=== PATIENT | female | born 1980 | race Caucasian/White ===

== ENCOUNTER 2023-08-04 19:32 | Inpatient (IN) | payer OTHER, SELFPAY ==
--- NOTE | ~2023-08-04 | XR_ITS ---
EXAMINATION: PORTABLE CHEST 1 VIEW CLINICAL INFORMATION: hypoxia. COMPARISON: No recent pertinent prior studies are available for comparison. TECHNIQUE: Portable frontal view of the chest was obtained. FINDINGS: The lungs are mildly hyperinflated. No focal infiltrate, effusion, edema, or pneumothorax. Cardiac and mediastinal silhouettes are within normal limits for technique. No acute bony abnormality seen. XR/XR chest 1V IMPRESSION: No evidence of acute disease.
[2023-08-04 19:35] VITALS: BP 137/75; PULSE 144; RESP 26; TEMP 37.2; O2SAT 88; BMI 25.8
--- NOTE | 2023-08-04 19:37 | ED.GENADULT ---
HPI - General Adult General Chief complaint: Dyspnea Stated complaint: RSV Sob Time Seen by Provider: 08/04/23 19:55 Source: patient Mode of arrival: ambulatory Limitations: no limitations History of Present Illness HPI narrative: 42-year-old female with history of bronchial asthma and history of cigarette smoking came in for evaluation of shortness of breath being hypoxic at home. Patient feeling sick with fever and chills and coughing with production of greenish sputum for the past 4 days, patient has been evaluated in a walk-in clinic was diagnosed with pneumonia started on antibiotic, patient also tested positive for RSV, checked her oximetry at home was 82% on air. Patient found to be hypoxic in the emergency department to 88% no room air improved with oxygen via nasal cannula in the emergency department. Related Data Allergies Allergy/AdvReac Type Severity Reaction Status Date / Time Penicillins Allergy Anaphylaxis Verified 08/04/23 19:42 Review of Systems Review of Systems: All other systems are reviewed and are negative Constitutional: Reports as per HPI and Reports no additional constitutional complaints Eyes: Reports as per HPI and Reports no additional eye complaints Reports system reviewed and no additional complaints, except as documented Cardiovascular: Reports as per HPI and Reports no additional cardiovascular complaints Respiratory: Reports as per HPI and Reports no additional respiratory complaints Gastrointestinal: Reports as per HPI and Reports no additional gastrointestinal complaints Genitourinary: Reports no additional female genitourinary complaints Musculoskeletal: Reports no additional musculoskeletal complaints Skin/Breast: Reports system reviewed and no additional complaints, except as docu Psychiatric: Reports no additional psychiatric complaints Endocrine: Reports no additional endocrine complaints Hematologic/Lymphatic: Reports no additional hematologic/lymphatic complaints Allergic/Immunologic: Reports no additional allergic/immunologic complaints Reports system reviewed and no additional complaints, except as documented and Reports Abnormal speech present [facility] Social History Social History Smoked in Last 30 Days: Yes Use of substances other than those prescribed or required for medical reasons: No Advance Directives: No Advance Directives Information Provided: No Patient : No Physical Exam ED Vital Signs: Vital Signs - 24 hr 08/04/23 19:35 08/04/23 20:08 08/04/23 20:17 Temperature 98.9 F 97.9 F Pulse Rate 144 H 134 H 135 H Respiratory Rate 26 H 20 20 Blood Pressure 137/75 119/82 Pulse Oximetry 88 L 96 Oxygen Delivery Method Room Air Oxygen Flow Rate 3 08/04/23 21:57 08/04/23 22:03 Temperature 98.6 F Pulse Rate 128 H 128 H Respiratory Rate 24 H 20 Blood Pressure 127/69 Pulse Oximetry 96 Oxygen Delivery Method Nasal Cannula Oxygen Flow Rate 3 BMI result Body Mass Index 25.8 Vital signs have been reviewed and appear to be correct. Blood pressure elevated. Heart rate elevated. Respiratory rate elevated. Temperature normal. Oxygen saturation normal. Appearance: Alert. Oriented X3. acute Respiratory distress. Head: Normal external exam. Normocephalic. Atraumatic. No Chavez signs noted. No raccoon eyes noted Eyes: PERRLA. EOMI. Conjunctiva and sclera normal. Eyelids normal. ENT: TM's Normal. Pharynx normal. Uvula midline. Moist mucous membranes. No trismus noted. No drooling noted. No muffled voice noted. Neck: Normal inspection. Neck supple. FROM. No adenopathy. Thyroid Normal. No meningeal signs. No neck mass noted. CVS: Normal heart rate and rhythm. Heart sound normal. No murmurs noted. Pulses normal throughout. Respiratory: acute respiratory distress. Painless inspiration. Breath sounds normal. diffuse moderate expiratory wheeze to all lung regalado bilaterally with prolonged expiration,Chest nontender. No accessory muscle usage noted or decreased air movement noted. Abdomen: Soft and nontender. Bowel sounds normal in all 4 quadrants. No distention noted. No organomegaly noted. No visible injury noted. Back: No CVA tenderness. Full range of motion noted. Skin: Skin warm and dry. Normal skin color. Normal skin turgor. No rashes/lesions/lacerations noted. Extremities: No lower extremity edema. Extremities exhibit normal range of motion. Extremities nontender. Neuro: Oriented X 3. Cranial nerve exam: II-XII are grossly intact No motor deficit. No sensory deficit. Reflexes normal. Course Course Course Narrative: This is a rapid medical exam: Additional HPI, ROS, PE not included below will be deferred to primary provider. Patient is a 42-year-old female with history of asthma presenting to the emergency department complaining of wheezing and shortness of breath. Was seen at urgent care on Saturday and prescribed steroids, symptoms did not improve had chest x-ray yesterday and was diagnosed with pneumonia, started on antibiotics. Patient reports symptoms have worsened. Also tested positive for RSV. Tachycardic and hypoxic to 90% on room air in triage. Patient placed on oxygen and pharmacy technician per diem notified. Plan: bronch protocol, EKG, labs including cultures and lactic Reevaluation(s) Reevaluation #1: 42-year-old female history of cigarette smoking with RSV bronchitis and hypoxia, x-ray showed no bacterial pneumonia. Patient require 3 L of oxygen via nasal cannula. Patient subjectively feels better after bronchodilator and Solu-Medrol. Patient is complaining of low back spasm improved with Flexeril/Valium parent will admit. Time: 23:26 Medications Administered Discontinued Medications Generic Name Dose Route Start Last Admin Trade Name Freq PRN Reason Stop Dose Admin Albuterol Sulfate 7.5 mg 08/04/23 21:43 08/04/23 22:03 Albuterol Sulfate (0.083%) 2.5 Mg/3 Ml Vial.Neb INHALE 08/04/23 21:44 7.5 mg ONCE ONE Administration Albuterol Sulfate 2.5 mg/ 0 mg 08/04/23 20:14 08/04/23 20:15 Albuterol/Ipratropium 3 ml INHALE 08/04/23 20:15 1 dose ONCE ONE Administration Cyclobenzaprine HCl 10 mg 08/04/23 21:43 08/04/23 21:49 Cyclobenzaprine Hcl 10 Mg Tablet PO 08/04/23 21:44 10 mg ONCE ONE Administration Methylprednisolone Sodium Succinate 125 mg 08/04/23 21:43 08/04/23 21:49 Methylprednisolone Sod Succ 125 Mg/2 Ml Vial IVPUSH 08/04/23 21:44 125 mg ONCE ONE Administration Medical Decision Making Differential Diagnosis Differential Diagnoses: The differential diagnosis associated with the presentation includes ( Pneumonia, pneumothorax, pleural effusion, viral bronchitis, asthma exacerbation, severe anemia, electrolyte abnormality.) Admission/Observation Consideration of admission/observation: Escalation of care including admission/observation considered Consult Healthcare Provider Management of the patient was discussed with: Hospitalist (Dr. Fountain) Lab Data MDM Lab Attestation statement: I reviewed the patient's lab results. 08/04/23 20:04 08/04/23 20:04 Labs: Lab Results 08/04/23 08/04/23 08/04/23 Range/Units 20:01 20:04 20:05 WBC 9.3 (4.8-10.8) X10*3/uL RBC 4.29 (4.20-5.50) X10*6/uL Hgb 13.9 (12.0-16.0) g/dl Hct 40.2 (37.0-47.0) % MCV 93.7 (80.0-98.0) fL MCH 32.4 (27.0-33.0) pg MCHC 34.6 (31.0-35.0) g/dl RDW 12.3 (11.0-16.0) % Plt Count 341 (160-400) X10*3/uL MPV 9.1 L (9.4-12.3) fL Immature Gran % (Auto) 0.3 (0.0-0.4) % Neut % (Auto) 73.0 (45-73) % Lymph % (Auto) 12.4 L (20-40) % Mckenzie % (Auto) 13.5 H (2-11) % Eos % (Auto) 0.4 (0-4) % Baso % (Auto) 0.4 (0-2) % Lymph # (Auto) 1.2 (1.2-4.9) X10*3/uL Mckenzie # (Auto) 1.3 H (0.1-1.2) X10*3/uL Eos # (Auto) 0.0 (0.0-0.4) X10*3/uL Baso # (Auto) 0.0 (0.0-0.2) X10*3/uL Abs Immat Gran (auto) 0.03 (0.00-0.03) X10*3/uL Absolute Neuts (auto) 6.8 (2.0-8.3) x10*3/uL Absolute Nucleated RBC 0.000 (0.0-0.012) X10*3/uL Nucleated RBC % (auto) 0.0 (0.0-0.2) /100WBC Sodium 141 (135-145) mmol/L Potassium 3.5 (3.3-5.1) mmol/L Chloride 110 H (96-108) mmol/L Carbon Dioxide 22 (22-29) mmol/L Anion Gap 13 (12-20) BUN 10 (9-16) mg/dL Creatinine 0.81 (0.5-1.4) mg/dL Estim Creat Clear Calc 92.2 Estimated GFR > 60 Random Glucose 92 (60-115) mg/dL Lactic Acid 1.2 (0.5-2.0) mmol/L Calcium 9.3 (8.4-10.2) mg/dL Total Bilirubin 0.1 (0.0-1.0) mg/dL AST 15 (5-31) U/L ALT 12 (0-31) U/L Alkaline Phosphatase 58 (39-117) U/L Total Protein 7.1 (6.5-8.0) g/dL Albumin 4.2 (3.5-5.0) g/dL Influenza Type A (PCR) NEGATIVE (Negative) Influenza Type B (PCR) NEGATIVE (Negative) RSV RNA Qual (PCR) POSITIVE A (Negative) SARS-CoV-2 RNA (RT-PCR) NEGATIVE (Negative) Independent Interpretation I performed an independent interpretation of an: Plain X-Ray ( no acute intrathoracic pathology.) Radiology Impression Discussion of test interpretation with radiology: I have reviewed the radiologist's reading. Chronic Conditions Patient?s care impacted by: Other ( Asthma) Discharge Plan Discharge Clinical Impression: Acute bronchitis due to respiratory syncytial virus, Hypoxia Asthma with exacerbation Qualifiers: Asthma severity: moderate Asthma persistence: persistent Qualified Code(s): J45.41 - Moderate persistent asthma with (acute) exacerbation Patient Disposition: Admitted As Inpatient
--- NOTE | 2023-08-04 19:38 | ECG_ITS ---
Test Reason : SOB Blood Pressure : / mmHG Vent. Rate : 132 BPM Atrial Rate : 132 BPM P-R Int : 112 ms QRS Dur : 090 ms QT Int : 284 ms P-R-T Axes : 084 092 -64 degrees QTc Int : 420 ms Sinus tachycardia Rightward axis ST & T wave abnormality, consider inferior ischemia Abnormal ECG No previous ECGs available Referred By: La Martinez Electronically Signed By:SAMANTHA EPPS
[2023-08-04 20:08] VITALS: BP 119/82; PULSE 134; RESP 20; TEMP 36.6; O2SAT 96
--- NOTE | 2023-08-04 20:09 | MHC.EDTECH ---
PATIENT EKG TAKEN AND WAS READ BY PROVIDER ,BLOOD DRAWN INCLUDING BOTH SETS OF BLOOD CULTURE AND LACTIC ACID ,RSV /COVId SWAB ALL SENT TO LAB .
[2023-08-04 20:13] LABS: MANUAL DIFF FLAG NO
[2023-08-04 20:15] LABS: Basophils Percent Auto 0.4 % (0-2); Eosinophils Percent Auto 0.4 % (0-4); Hematocrit 40.2 % (37.0-47.0); Hemoglobin 13.9 g/dl (12.0-16.0); Imm Gran Abs Auto 0.03 X10*3/uL (0.00-0.03); Imm Gran Pct Auto 0.3 % (0.0-0.4); Lymphocytes Absolute Auto 1.2 X10*3/uL (1.2-4.9); Lymphocytes Percent Auto 12.4 % (20-40); Mean Corpuscular HGB Conc 34.6 g/dl (31.0-35.0); Mean Corpuscular Hemoglobin 32.4 pg (27.0-33.0); Mean Corpuscular Volume 93.7 fL (80.0-98.0); Mean Platelet Volume 9.1 fL (9.4-12.3); Monocytes Absolute Auto 1.3 X10*3/uL (0.1-1.2); Monocytes Percent Auto 13.5 % (2-11); Neutrophils Absolute Auto 6.8 x10*3/uL (2.0-8.3); Platelet Count 341 X10*3/uL (160-400); Red Blood Count 4.29 X10*6/uL (4.20-5.50); Red Cell Distribution Width 12.3 % (11.0-16.0); White Blood Count 9.3 X10*3/uL (4.8-10.8)
[2023-08-04] MEDS: Albuterol Sulfate 2.5 MG, Albuterol/Iprat 2.5/0.5MG 3 ML 3 ML INHALE (20:15)
[2023-08-04 20:17] VITALS: PULSE 135; RESP 20; O2SAT 96
[2023-08-04 20:26] LABS: Lactic Acid 1.2 mmol/L (0.5-2.0)
[2023-08-04 20:31] LABS: Alanine Aminotransferase 12 U/L (0-31); Albumin Level 4.2 g/dL (3.5-5.0); Alkaline Phosphatase 58 U/L (39-117); Anion Gap 13 (12-20); Aspartate Amino Transferase 15 U/L (5-31); Bilirubin Total 0.1 mg/dL (0.0-1.0); Blood Urea Nitrogen 10 mg/dL (9-16); Calcium 9.3 mg/dL (8.4-10.2); Carbon Dioxide 22 mmol/L (22-29); Chloride 110 mmol/L (96-108); Creatinine Clr Calc Pharmacy 92.2; Estimated Glomerular Filt Rate > 60; Glucose Random 92 mg/dL (60-115); Potassium 3.5 mmol/L (3.3-5.1); Sodium 141 mmol/L (135-145); Total Protein 7.1 g/dL (6.5-8.0)
[2023-08-04 20:53] LABS: Influenza A PCR NEGATIVE (Negative); Influenza B PCR NEGATIVE (Negative); Resp Syncy Virus RNA Qual PCR POSITIVE (Negative); SARS COV2 PCR INHOUSE NEGATIVE (Negative)
[2023-08-04] MEDS: methylPREDNISolone Sod Succ 125 MG/2 ML VIAL IVPUSH (21:49)
[2023-08-04] MEDS: Cyclobenzaprine HCl 10 MG TABLET PO (21:49)
[2023-08-04 21:57] VITALS: BP 127/69; PULSE 128; RESP 24; TEMP 37; O2SAT 96
[2023-08-04 22:03] VITALS: PULSE 128; RESP 20; O2SAT 97
[2023-08-04] MEDS: Albuterol Sulfate (0.083%) 2.5 MG/3 ML VIAL.NEB 7.5 MG INHALE (22:03)
--- NOTE | 2023-08-04 23:35 | PM.IMHP ---
History of Present Illness Date of Service: 08/04/23 Attending physician on admission: Guzman Fountain Chief Complaint: Shortness of breath x4 days 42 year old female with past medical history of mild asthma, DDD, fibromyalgia and lymes disease and who recently tested positive for RSV and (?) pneumonia for which she was started on oral Doxycycline presents to the emergency room complaining of worsening shortness of breath, cough productive of yellow phlegm and wheezing to a point where she cannot speak in full sentences. She started feeling unwell on 07/31 with cough, wheezing and shortness of breath and used her Albuterol inhalers/updrafts with no significant relief. She was seen at an outsider facility where she tested positive for RSV and so was started on steroids, doxycycline and Albuterol inhalers. Today, she was so short of breath that he could not even speak in complete sentences without stopping to catch her breath. She deies any associated fevers, chills, chest pain, orthopnea or PND. On arrival to the emergency room, she was found to be hypoxic with SpO2 of 88% on room air. She also exhibited increased work of breathing and was tachycardic. She was started on steroids and albuterol updrafts with minimal improvement as she remains wheezy and short of breath even with minimal exertion Admission was therefore requested for continued care. Review of Systems Review of Systems: Yes all other systems are reviewed and are negative [facility] Medical History (Updated 08/05/23 @ 01:54 by Guzman Fountain MD) Lyme disease Tobacco dependence Fibromyalgia Degenerative disc disease, lumbar Asthma Functional capacity: independent ambulation Patient : No Surgical History (Updated 08/05/23 @ 01:50 by Guzman Fountain MD) History of gastric surgery Previous back surgery Social History Patient Tobacco Use Status: Never used Tobacco Smoked in Last 30 Days: Yes Use of substances other than those prescribed or required for medical reasons: No Advance Directives: No Advance Directives Information Provided: No Nutrition Risks: No Nutritional Risk Patient : No Meds Allergies Allergy/AdvReac Type Severity Reaction Status Date / Time Penicillins Allergy Anaphylaxis Verified 08/04/23 19:42 Home Medications Medication Instructions Recorded Confirmed Last Taken Type albuterol sulfate 90 mcg/actuation 2 puff inhalation Q4H PRN wheezing 08/05/23 08/05/23 Unknown History aerosol inhaler (Ventolin HFA) carisoprodol 350 mg tablet 350 mg PO TID 08/05/23 08/05/23 Unknown History doxycycline hyclate 100 mg capsule 100 mg PO BID 08/05/23 08/05/23 Unknown History oxycodone 5 mg tablet 5 - 10 mg PO Q4H PRN pain 08/05/23 08/05/23 Unknown History prednisone 20 mg tablet 40 mg PO DAILY 08/05/23 08/05/23 Unknown History Physical Exam Vital Signs and Narrative: Vital Signs: Last Vital Signs Temp 98.6 F 08/04/23 21:57 Pulse 128 H 08/04/23 22:03 Resp 20 08/04/23 22:03 BP 127/69 08/04/23 21:57 Pulse Ox 96 08/04/23 21:57 O2 Del Method Nasal Cannula 08/04/23 21:57 O2 Flow Rate 3 08/04/23 21:57 BMI result Body Mass Index 25.8 General: Well nourished. Awake, alert and oriented x 4. No apparent distress Eyes: No pallor or jaundice. PERRLA, EOMI HENT: Moist oral mucus membranes. No oropharyngeal lesions. Neck: Supple. No cervical adenopathy. No JVD Cardiovascular: Regular rate and rhythm. Normal heart sounds. No murmurs, rubs or gallops. No JVD. No peripheral edema. Respiratory: Diminished breath sounds with both inspiratory and expiratory wheezes. throughout both lung regalado. Gastrointestinal: Abdomen is soft, non-tender, non-distended. NABS. No hepatosplenomegaly Extremities: No edema. No calf tenderness. Good peripheral pulses Skin: Warm/Dry. No rashes. No mottling. Capillary refill is < 2 seconds Neurological; AAOx4. Intact speech & cognition. Normal gait & balance. CN II - XII grossly intact but not individually tested. No motor or sensory deficits Hematologic: No bleeding. No ecchymosis. No swollen or tender lymph nodes. Psychiatric: Cooperative. Appropriate mood and affect. Results Labs 08/04/23 20:04 08/04/23 20:04 Labs: Laboratory Results - last 24 hr 08/04/23 08/04/23 08/04/23 20:01 20:04 20:05 MCV 93.7 MCH 32.4 MCHC 34.6 RDW 12.3 Plt Count 341 MPV 9.1 L Immature Gran % (Auto) 0.3 Neut % (Auto) 73.0 Lymph % (Auto) 12.4 L Real % (Auto) 13.5 H Eos % (Auto) 0.4 Baso % (Auto) 0.4 Lymph # (Auto) 1.2 Real # (Auto) 1.3 H Eos # (Auto) 0.0 Baso # (Auto) 0.0 Abs Immat Gran (auto) 0.03 Absolute Neuts (auto) 6.8 Absolute Nucleated RBC 0.000 Nucleated RBC % (auto) 0.0 Anion Gap 13 Estim Creat Clear Calc 92.2 Estimated GFR > 60 Random Glucose 92 Lactic Acid 1.2 Calcium 9.3 Total Bilirubin 0.1 AST 15 ALT 12 Alkaline Phosphatase 58 Total Protein 7.1 Albumin 4.2 Influenza Type A (PCR) NEGATIVE Influenza Type B (PCR) NEGATIVE RSV RNA Qual (PCR) POSITIVE A SARS-CoV-2 RNA (RT-PCR) NEGATIVE ECG ECG interpretation date: 08/05/23 ECG interpretation time: 01:52 Prior ECG tracings: available for review Interpretation: Sinus tachycardia at [address]-segment depressions in the inferior leads. No acute ischemic changes Imaging Radiologist's Impressions: Impressions Chest X-Ray 08/04/23 22:00 IMPRESSION: No evidence of acute disease. Assessment and Plan (1) Acute hypoxic respiratory failure: Status: Acute (2) Asthma with exacerbation: Qualifiers: Asthma persistence: persistent Asthma severity: moderate Qualified Code(s): J45.41 - Moderate persistent asthma with (acute) exacerbation Status: Acute (3) Acute bronchitis due to respiratory syncytial virus: Status: Acute Plan 42 year old female with past medical history of mild asthma, DDD, fibromyalgia and lymes disease here with 1. Acute asthma exacerbation - likely due to RSV infection - admit and continue with IV steroids, Albuterol updrafts and start in Azithromycin for possible bronchitis 2. Acute respiratory failure with hypoxemia -admit and start on Duo Neb inhalers - continue supplemental oxygen - check peak flow 3. RSV infection - with acute bronchitis - manage symptomatically 4. DDD - resume Soma 350 mg TID and Oxycodone 5 mg Total time managing care of this patient today: 75 minutes. Quality Stroke Does the patient have a stroke diagnosis?: No VTE Prior VTE?: No VTE Risk Level:: Medical - moderate - high VTE Device Contraindication: Treatment Not Indicated VTE Drug Contraindication: N/A - Med Ordered
[2023-08-05] MEDS: Dextrose 5 % and 0.9 % NaCl 1,000 ML 125 ML IVCONT ×2 (00:44→10:19)
[2023-08-05] MEDS: Azithromycin 500 MG in 0.9 % Sodium Chloride 250 ML 125 MG IV (00:44)
[2023-08-05 00:49] VITALS: BP 111/71; PULSE 120; RESP 20; TEMP 36.9; O2SAT 92
[2023-08-05] MEDS: 0.9 % Sodium Chloride Flush 3 ML SYRINGE IVFLUSH ×2 (00:55)
[2023-08-05] MEDS: oxyCODONE HCl Immed Release 5 MG TABLET PO ×3 (00:55→10:14)
[2023-08-05 00:59] LABS: Procalcitonin 0.06 ng/mL
--- NOTE | 2023-08-05 01:01 | PC.NURSE ---
Pt reporting muscle spasms on the back and states flexeril did not help. Decline Morphine. Pt given Oxycodone PO. Pt reports this will help with the migraine head ache but not with the muscle spasms. Pt requesting Soma for muscle spasms. [place] text sent to Dr. Fountain.
[2023-08-05] MEDS: carisoprodoL 350 MG TABLET PO ×3 (02:00→14:57)
--- NOTE | 2023-08-05 05:22 | PC.NURSE ---
Pt aox4, reporting sob and is requesting a breathing treatment as she had relief from the previous one earlier today. O2 sat 94% on 3L NC. Breathing is labored with bilateral diminished lung sounds. [place] text sent to Dr. Fountain.
[2023-08-05 07:06] LABS: MANUAL DIFF FLAG NO
[2023-08-05 07:12] LABS: Basophils Percent Auto 0.1 % (0-2); Eosinophils Percent Auto 0.2 % (0-4); Hematocrit 38.4 % (37.0-47.0); Hemoglobin 13.1 g/dl (12.0-16.0); Imm Gran Abs Auto 0.03 X10*3/uL (0.00-0.03); Imm Gran Pct Auto 0.4 % (0.0-0.4); Lymphocytes Absolute Auto 0.6 X10*3/uL (1.2-4.9); Lymphocytes Percent Auto 6.6 % (20-40); Mean Corpuscular HGB Conc 34.1 g/dl (31.0-35.0); Mean Corpuscular Hemoglobin 32.3 pg (27.0-33.0); Mean Corpuscular Volume 94.8 fL (80.0-98.0); Mean Platelet Volume 9.2 fL (9.4-12.3); Monocytes Absolute Auto 0.4 X10*3/uL (0.1-1.2); Monocytes Percent Auto 4.3 % (2-11); Neutrophils Absolute Auto 7.4 x10*3/uL (2.0-8.3); Neutrophils Percent Auto 88.4 % (45-73); Platelet Count 327 X10*3/uL (160-400); Red Blood Count 4.05 X10*6/uL (4.20-5.50); Red Cell Distribution Width 12.4 % (11.0-16.0); White Blood Count 8.4 X10*3/uL (4.8-10.8)
--- NOTE | 2023-08-05 07:25 | PHA.MEDREC ---
Pharmacy Consult ? Medication Reconciliation Pharmacy has completed the medication reconciliation. completed by rn reviewed by pharmacy gina
[2023-08-05 07:35] LABS: Anion Gap 14 (12-20); Blood Urea Nitrogen 7 mg/dL (9-16); Calcium 8.8 mg/dL (8.4-10.2); Carbon Dioxide 21 mmol/L (22-29); Chloride 113 mmol/L (96-108); Creatinine Clr Calc Pharmacy 111.5; Estimated Glomerular Filt Rate > 60; Glucose Random 115 mg/dL (60-115); Magnesium 1.7 mg/dL (1.6-2.6); Potassium 3.9 mmol/L (3.3-5.1); Sodium 144 mmol/L (135-145)
[2023-08-05 07:44] VITALS: BP 100/51; PULSE 82; RESP 19; TEMP 36.8; O2SAT 99
[2023-08-05 07:51] LABS: Thyroid Stimulating Hormone 0.53 uIU/mL (0.32-4.0)
[2023-08-05] MEDS: Acetaminophen 325 MG TABLET 650 MG PO ×2 (08:17→14:57)
[2023-08-05] MEDS: Magnesium Sulfate/H2O 2 GM/50 ML PIGGYBACK IV (08:18)
--- NOTE | 2023-08-05 08:28 | PC.NURSE ---
PT AMBULATORY WITH NOTED SOB, SHE REMAINS ON O2 NC, SHE WAS MEDICATED FOR MM PAIN, SHE WAS ABLE TO EAT A SMALL AMOUNT
[2023-08-05] MEDS: Albuterol/Iprat 2.5/0.5MG 3 ML AMPUL.NEB INHALE ×2 (09:52→12:49)
[2023-08-05 09:53] VITALS: PULSE 82; RESP 19; O2SAT 94
[2023-08-05] MEDS: methylPREDNISolone Sod Succ 125 MG/2 ML VIAL 80 MG IVPUSH (10:17)
[2023-08-05 12:49] VITALS: PULSE 84; RESP 18; O2SAT 94
--- NOTE | 2023-08-05 13:47 | PC.NURSE ---
pt at 93% on room air after ambulation, will remain on RA
--- NOTE | 2023-08-05 15:12 | P.DS_ITS ---
DS: Providers Provider Date of Service: 08/05/23 Date of admission: 08/04/23 23:31 Date of discharge: 08/05/23 Primary care physician: Unknown Physician DS: Diagnosis Discharge Diagnosis (1) Acute hypoxic respiratory failure: Status: Acute (2) Asthma with exacerbation: Status: Acute (3) Acute bronchitis due to respiratory syncytial virus: Status: Acute DS: Summary Hospital Course Hospital Course: From the history and physical by the admitting hospitalist, Guzman Fountain MD, 08/04/23: 42 year old female with past medical history of mild asthma, DDD, fibromyalgia and lymes disease and who recently tested positive for RSV and (?) pneumonia for which she was started on oral Doxycycline presents to the emergency room complaining of worsening shortness of breath, cough productive of yellow phlegm and wheezing to a point where she cannot speak in full sentences. She started feeling unwell on 07/31 with cough, wheezing and shortness of breath and used her Albuterol inhalers/updrafts with no significant relief. She was seen at an outsider facility where she tested positive for RSV and so was started on steroids, doxycycline and Albuterol inhalers. Today, she was so short of breath that he could not even speak in complete sentences without stopping to catch her breath. She deies any associated fevers, chills, chest pain, orthopnea or PND. On arrival to the emergency room, she was found to be hypoxic with SpO2 of 88% on room air. She also exhibited increased work of breathing and was tachycardic. She was started on steroids and albuterol updrafts with minimal improvement as she remains wheezy and short of breath even with minimal exertion Admission was therefore requested for continued care. She was admitted to the hospitalist service and treated with IV steroids, oxygen, PO azithromycin, and nebulized albuterol with rapid improvement and complete resolution of dyspnea, hypoxia, and wheezing. She was discharged on azithromycin and prednisone for 4 more days. Time Attestation Total time managing care of this patient today: 35 mintues. Discharge coordination time: Greater than 30 minutes Quality: Safe Use of Opioids Does Pt have an Active Cancer Diagnosis on the Problem List?: No Quality: Stroke Does the patient have a stroke diagnosis?: No Physical Exam Vital Signs: Vital Signs: Last Vital Signs Temp 98.2 F 08/05/23 07:44 Pulse 84 08/05/23 12:49 Resp 18 08/05/23 12:49 BP 100/51 L 08/05/23 07:44 Pulse Ox 99 08/05/23 07:44 O2 Del Method Nasal Cannula 08/05/23 07:44 O2 Flow Rate 3 08/05/23 07:44 BMI result Body Mass Index 25.8 Gen: in no acute distress HEENT: sclera anicteric, moist mucus membranes Neck: supple Lungs: clear to auscultation bilaterally Heart: regular rate and rhythm, no murmurs Abd: soft, non-tender, non-distended Ext: no edema Skin: warm/well-perfused Neuro: alert and oriented x3, no focal findings Psych: appropriate affect DS: Data Data Completed and Pending Completed studies during hospitalization [Text1]: Laboratory Results WBC 8.4 X10*3/uL (4.8-10.8) 08/05/23 06:45 RBC 4.05 X10*6/uL (4.20-5.50) L 08/05/23 06:45 Hgb 13.1 g/dl (12.0-16.0) 08/05/23 06:45 Hct 38.4 % (37.0-47.0) 08/05/23 06:45 MCV 94.8 fL (80.0-98.0) 08/05/23 06:45 MCH 32.3 pg (27.0-33.0) 08/05/23 06:45 MCHC 34.1 g/dl (31.0-35.0) 08/05/23 06:45 RDW 12.4 % (11.0-16.0) 08/05/23 06:45 Plt Count 327 X10*3/uL (160-400) 08/05/23 06:45 MPV 9.2 fL (9.4-12.3) L 08/05/23 06:45 Immature Gran % (Auto) 0.4 % (0.0-0.4) 08/05/23 06:45 Neut % (Auto) 88.4 % (45-73) H 08/05/23 06:45 Lymph % (Auto) 6.6 % (20-40) L 08/05/23 06:45 Forest % (Auto) 4.3 % (2-11) 08/05/23 06:45 Eos % (Auto) 0.2 % (0-4) 08/05/23 06:45 Baso % (Auto) 0.1 % (0-2) 08/05/23 06:45 Lymph # (Auto) 0.6 X10*3/uL (1.2-4.9) L 08/05/23 06:45 Forest # (Auto) 0.4 X10*3/uL (0.1-1.2) 08/05/23 06:45 Eos # (Auto) 0.0 X10*3/uL (0.0-0.4) 08/05/23 06:45 Baso # (Auto) 0.0 X10*3/uL (0.0-0.2) 08/05/23 06:45 Abs Immat Gran (auto) 0.03 X10*3/uL (0.00-0.03) 08/05/23 06:45 Absolute Neuts (auto) 7.4 x10*3/uL (2.0-8.3) 08/05/23 06:45 Absolute Nucleated RBC 0.000 X10*3/uL (0.0-0.012) 08/05/23 06:45 Nucleated RBC % (auto) 0.0 /100WBC (0.0-0.2) 08/05/23 06:45 Sodium 144 mmol/L (135-145) 08/05/23 06:45 Potassium 3.9 mmol/L (3.3-5.1) 08/05/23 06:45 Chloride 113 mmol/L (96-108) H 08/05/23 06:45 Carbon Dioxide 21 mmol/L (22-29) L 08/05/23 06:45 Anion Gap 14 (12-20) 08/05/23 06:45 BUN 7 mg/dL (9-16) L 08/05/23 06:45 Creatinine 0.67 mg/dL (0.5-1.4) 08/05/23 06:45 Estim Creat Clear Calc 111.5 08/05/23 06:45 Estimated GFR > 60 08/05/23 06:45 Random Glucose 115 mg/dL (60-115) 08/05/23 06:45 Lactic Acid 1.2 mmol/L (0.5-2.0) 08/04/23 20:01 Calcium 8.8 mg/dL (8.4-10.2) 08/05/23 06:45 Magnesium 1.7 mg/dL (1.6-2.6) 08/05/23 06:45 Total Bilirubin 0.1 mg/dL (0.0-1.0) 08/04/23 20:04 AST 15 U/L (5-31) 08/04/23 20:04 ALT 12 U/L (0-31) 08/04/23 20:04 Alkaline Phosphatase 58 U/L (39-117) 08/04/23 20:04 Total Protein 7.1 g/dL (6.5-8.0) 08/04/23 20:04 Albumin 4.2 g/dL (3.5-5.0) 08/04/23 20:04 Procalcitonin 0.06 ng/mL 08/04/23 20:04 TSH 0.53 uIU/mL (0.32-4.0) 08/05/23 06:45 Influenza Type A (PCR) NEGATIVE (Negative) 08/04/23 20:05 Influenza Type B (PCR) NEGATIVE (Negative) 08/04/23 20:05 RSV RNA Qual (PCR) POSITIVE (Negative) A 08/04/23 20:05 SARS-CoV-2 RNA (RT-PCR) NEGATIVE (Negative) 08/04/23 20:05 Impressions Chest X-Ray 08/04/23 22:00 IMPRESSION: No evidence of acute disease. Discharge Plan Discharge Anticipated Discharge Date/Time: 08/05/23 15:03 Patient Disposition: Home, Self-Care Discharge Diagnosis: asthma exacerbation due to RSV infection, bronchitis Referrals: Physician,Unknown J [Primary Care Provider] - 1 Week Discharge Medications: New azithromycin 250 mg Tablet 250 mg PO BEDTIME Qty: 4 0RF Continued carisoprodol 350 mg tablet 350 mg PO TID oxycodone 5 mg tablet 5 - 10 mg PO Q4H PRN (Reason: pain) prednisone 20 mg tablet 40 mg PO DAILY Qty: 8 0RF albuterol sulfate [Ventolin HFA] 90 mcg/actuation HFA aerosol inhaler 2 puff INHALATION Q4H PRN (Reason: wheezing) Qty: 8.5 0RF Discontinued doxycycline hyclate 100 mg capsule 100 mg PO BID Discharge Orders: Discharge Order (Routine); Ordered 08/05/23 Ordered By: Keagan Galaviz Diet: Advance to usual diet Activity on Discharge: As tolerated Stand Alone Forms: Patient Portal Discharge page Care Plan Goals: recovery from RSV Health Concerns: asthma exacerbation due to RSV infection, bronchitis Plan of Treatment: azithromycin 250 mg daily for 4 days prednisone 40 mg daily for 4 days albuterol for rescue Please follow up with your primary care doctor within 1 week. Return to the hospital if you experience recurrent or worsening symptoms. Assessment: See Discharge Summary.
[2023-08-05 15:30] VITALS: BP 122/60; PULSE 88; RESP 16; TEMP 36.6; O2SAT 93
== END 2023-08-05 15:34 | disposition home or self-care (01) | DRG 202 ==
LOC: HO.ED 23:26 → HO.EDOVER 23:36
PROVIDERS: Registered Nurse Emergency; Admitting Provider Internal Medicine; Emergency Provider Emergency Medicine; Visit Provider Family Medicine
DX: J20.5 Acute bronchitis due to respiratory syncytial virus (principal); J96.01 Acute respiratory failure with hypoxia; J45.41 Moderate persistent asthma with (acute) exacerbation; M51.36 Other intervertebral disc degeneration, lumbar region; M79.7 Fibromyalgia; Z88.0 Allergy status to penicillin; Z79.899 Other long term (current) drug therapy
CPT/HCPCS: 0241U; 36415; 71045; 80048; 80053; 83605; 83735; 84145; 84443; 85025; 87040; 93005; 94640; 99222; 99285; J0456; J2930; J3475

== ENCOUNTER → 2023-08-04 19:38 | Outpatient (BNV) | payer MEDICARE, MEDICAID, SELFPAY | PROVIDERS: Admitting Provider Internal Medicine; Emergency Provider Emergency Medicine; Visit Provider Internal Medicine | DX: R00.0 Tachycardia, unspecified (principal); R94.31 Abnormal electrocardiogram [ECG] [EKG] | CPT/HCPCS: 93010 ==

== ENCOUNTER → 2023-08-04 23:31 | Outpatient (BNV) | payer MEDICARE, MEDICAID, SELFPAY | PROVIDERS: Admitting Provider Internal Medicine; Emergency Provider Emergency Medicine; Visit Provider Internal Medicine | DX: J96.01 Acute respiratory failure with hypoxia (principal); J45.41 Moderate persistent asthma with (acute) exacerbation; J20.5 Acute bronchitis due to respiratory syncytial virus | CPT/HCPCS: 99223; 99239 ==

== ENCOUNTER 2024-03-17 14:55 | Outpatient (AMB) | payer MEDICARE, MEDICAID, SELFPAY ==
--- NOTE | 2024-03-17 15:01 | A.OFFPC_ITS ---
Vital Signs 03/17/24 15:17 Height 5 ft 6.99 in Weight 166 lb BMI 26.0 BP 108/58 L Blood Pressure Location Lt brachial Position Sitting Respiration 12 Pulse 81 Pulse Source Pulse Oximeter Pulse Oximetry (%) 99 Oxygen Delivery Method Room Air Intake Visit Reasons: inpatient services rn visit Intake Note: Patient is here to establish care with Dr. Petit. 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: No Accompanied by: Self / Same As Patient Allergies duloxetine Allergy (Severe, Verified 03/17/24 15:24) tachypnea erythromycin base Allergy (Severe, Verified 03/17/24 15:24) Rash hydrocodone [From Vicodin] Allergy (Severe, Verified 03/17/24 15:24) Vomiting Penicillins Allergy (Verified 03/17/24 15:24) Anaphylaxis Tobacco use date assessed: 03/17/24 Dental Screening Dental Screen Date: 03/17/24 Did you have a dental visit in the last 12 months?: Yes Did you have a dental problem in the last 6 months where you did not have access to dental care?: No Was dental information given to patient?: Patient has dentist HPI HPI Comments History of Present Illness Details The patient is a 43-year-old female with a past medical history of low back pain, fibromyalgia, asthma, bronchitis, endometriosis presenting for [facility] MSK: Chronic low back pain. She is currently taking oxycodone 5 mg every 6 hours as needed for low back pain and fibromyalgia. She has naloxone at home. She had L5-S1 discectomy, right laminectomy in July 2004. on disability x 20 years. Increased neck and shoulder pain Asthma: Stable, on albuterol as needed. She has taken Symbicort in the past as needed on a seasonal basis. 24 pack year. ROS see HPI PHYSICAL EXAM: GENERAL: Alert and oriented x 3. NAD EYES: EOMI. Anicteric. HENT: Moist mucous membranes. No scleral icterus. No cervical lymphadenopathy. LUNGS: Clear to auscultation bilaterally. CARDIOVASCULAR: Regular rate and rhythm. No murmur. No JVD. ABDOMEN: Soft, non-tender +bs EXTREMITIES: No edema. Non-tender. SKIN: No rashes or lesions. Warm. NEUROLOGIC: No focal neurological deficits. CN II-XII grossly intact PSYCHIATRIC: Cooperative. Appropriate mood and affect [facility] Medical History Migraine Lyme disease Tobacco dependence Fibromyalgia Degenerative disc disease, lumbar Asthma Surgical History History of gastric surgery Previous back surgery Family History Sister Hypothyroid Obesity Cancer of ovary Chronic mental illness Sister Hypothyroid Obesity Sister Hypothyroid Obesity Sister Hypothyroid Obesity Sister Hypothyroid Obesity Mother Asthma Father Alzheimer dementia Hypertension Coronary artery disease Type 2 diabetes mellitus Lung cancer Social History Household Members: Family Housing: House Are you a primary customer care manager to a significant other at home: No Do you presently have visiting nurse or other home services: No 75 years or older and lives alone: No Alcohol intake: current Alcohol intake frequency: holidays/special occasions only Patient Tobacco Use Status: Current everyday Tobacco user Tobacco use type: Cigarette Cigarette Packs Per Day: 1 Cigarettes Per Day: 10 e-Cigarette/Vaping Use: Never Used service: No Current occupational status: disabled Current occupational exposures/hazards: No Cognitive needs: No Hearing needs: No Vision needs: No Questionnaire PHQ-9 Over the last 2 weeks, how often have you been bothered by any of the following problems? 1. Little interest or pleasure in doing things: not at all 2. Feeling down, depressed, or hopeless: not at all 3. Trouble falling or staying asleep, or sleeping too much: several days 4. Feeling tired or having little energy: several days 5. Poor appetite or overeating: not at all 6. Feeling bad about yourself - or that you are a failure or have let yourself or your family down: not at all 7. Trouble concentrating on things, such as reading the newspaper or watching television: several days 8. Moving or speaking so slowly that other people could have noticed. Or the opposite - being so fidgety or restless that you have been moving around a lot more than usual: not at all 9. Thoughts that you would be better off or of hurting yourself in some way: not at all Total score: 3 Depression Screening Interpretation: Negative (neg) Depression Screening Done: Yes 35189 - PHQ-9 Billing: Yes Source: Developed by Drs. Gutierrez Heard, Shiela Garcia, Isaac Hawk and colleagues, with an educational herlinda from [employer]. Thrive Questionnaire Date Thrive assessed: 03/17/24 I am a: Patient What is your living situation today?: I have a steady place to live Within the past 12 months, did the food you bought not last and you didn't have the money to get more?: Sometimes True Within the past 12 months, did you worry whether your food would run out before you got money to buy more?: Sometimes True Do you have trouble paying for medicines?: No Do you have trouble getting transportation to medical appointments?: No Do you have trouble paying your heating and electricity bill?: No Do you have trouble taking care of your child, family member or friend?: Yes Do you have trouble with day-to-day activities such as bathing, preparing meals, shopping, managing finances, etc.?: Yes Are you currently unemployed and looking for a job?: No Are you interested in more education?: Yes Please select the resources that you would like help with: Care for elder or disabled Currently or been in a relationship where the following occur: No concerns reported THRIVE Score: 2 AUDIT C Alcohol Use Questionnaire (AUDIT-C) 1. How often do you have a drink containing alcohol?: Monthly or less 2. How many drinks containing alcohol do you have on a typical day when you are drinking?: 1 or 2 3. How often do you have six or more drinks on one occasion?: Never Total Score: 1 DONAL-7 AMB Questionnaire DONAL-7 Date DONAL - 7 assessed: 03/17/24 Feeling nervous, anxious, or on edge: 0 = Not at all Not being able to stop or control worryin = Not at all Worrying too much about different things: 0 = Not at all Trouble relaxin = Not at all Being so restless that it is hard to sit still: 0 = Not at all Becoming easily annoyed or irritable: 1 = Several days Feeling afraid as if something awful might happen: 0 = Not at all Total DONAL-7 score (0-4 normal; 5-9 mild; 10-14 moderate; 15-21 severe): 1 Source: Developed by Shiela Wheat Jose, Isaac Hawk and colleagues, with an educational herlinda from [employer]. DONAL-7 Assessment Billing DONAL-7 Assessment Tool: DONAL-7 Assessment 89875 Physical exam (Primary Care) Vital Signs: Last Vital Signs Pulse 81 03/17/24 15:17 Resp 12 03/17/24 15:17 BP 108/58 L 03/17/24 15:17 Pulse Ox 99 03/17/24 15:17 Oxygen Delivery Method Room Air 03/17/24 15:17 BMI result Body Mass Index 26.0 Tobacco/Smoking Status: Tobacco use Status Tobacco use date assessed 03/17/24 03/17/24 15:12 Patient Tobacco Use Status Current everyday Tobacco 03/17/24 15:28 Tobacco use type Cigarette 03/17/24 15:28 e-Cigarette/Vaping Use Never Used 03/17/24 15:28 PHQ-9: PHQ-9 Score PHQ-9: Total score 3 03/29/24 05:11 Depression Screening Interpretation: Negative (neg) Thrive Assessment: Date of Thrive Assessment Date Thrive assessed 03/17/24 03/17/24 15:32 Currently or been in a relationship where the following occur: No concerns reported Assessment and Plan Assessment & Plan (1) Degenerative disc disease, lumbar: Code(s): M51.36 - Other intervertebral disc degeneration, lumbar region Plan: continue current medications (2) Neck pain: Code(s): M54.2 - Cervicalgia Plan: referral physical therapy Orders: Orders PT Evaluation and Treatment 03/17/24 M51.36 - Other intervertebral disc degeneration, lumbar region, M54.2 - Cervicalgia Referrals [facility]PA THERAPIST Referral N80.9 - Endometriosis, unspecified Medications: New baclofen 10 mg PO Q12H 180 tabs 3RF 90 days Changed From oxycodone 5 - 10 mg PO Q4H PRN pain To oxycodone 5 mg PO Q6H PRN 120 tabs 0RF pain 30 days Discontinued prednisone Discontinued Reason: Patient Completed Course 40 mg (2 x 20 mg) PO DAILY 8 tabs 0RF azithromycin Discontinued Reason: Patient no longer taking 250 mg PO BEDTIME 4 tabs 0RF Coding Level of Care Code Est Pt Level 4 (11822) Complex EM visit Add On G2211 Diagnoses Degenerative disc disease, lumbar M51.36 Neck pain M54.2 Additional Codes DONAL-7 Assessment Billing - DONAL-7 Assessment Tool: DONAL-7 Assessment 38709 ([id number])
[2024-03-17 15:17] VITALS: BP 108/58; PULSE 81; RESP 12; O2SAT 99; BMI 26.0
== END 2024-03-17 16:03 | disposition home or self-care (01) ==
PROVIDERS: PCP Internal Medicine; Visit Provider Internal Medicine
DX: M51.36 Other intervertebral disc degeneration, lumbar region (principal); M54.2 Cervicalgia
CPT/HCPCS: 99214; G2211

== ENCOUNTER 2024-04-20 12:56 | Outpatient (RCR) | payer MEDICARE, SELFPAY | END 2024-06-16 13:29 | disposition home or self-care (01) | LOC: HO.PTWFD 12:56 | PROVIDERS: PCP Internal Medicine; Visit Provider Internal Medicine | DX: M51.36 Other intervertebral disc degeneration, lumbar region (principal); M54.2 Cervicalgia ==

== ENCOUNTER 2024-04-20 13:05 | Outpatient (AMB) | payer MEDICARE, SELFPAY ==
--- OUTSIDE RECORDS SUMMARY | 2024-04-20 13:06 | XMS_ITS | Continuity of Care Document ---
Author Organization [facility] Adult Address [address] [place] [address]- Care Team Providers Care Emergency Vehicle Dispatcher Name Role Phone Westley Burr MD Primary Care Physician Encounter [facility] Date(s): 03/19/22 - 04/18/22 [facility] [address] [place] [address]- Allergies, Adverse Reactions, Alerts Substance Reaction Severity Status erythromycin RASH Active penicillin Active Vicodin VOMIT Active Duloxetine Dyspnea, limited breathing, or tachypnea Active Immunizations Given and Recorded Vaccine Date Status Refusal Reason SARS-CoV-2 (COVID-19) mRNA BNT-162b2 vac 02/10/21 Recorded SARS-CoV-2 (COVID-19) mRNA BNT-162b2 vac 01/20/21 Recorded Influenza Virus Vaccine (oldterm) 05/05/19 Recorde d Influenza Virus Vaccine (oldterm) 1 07/09/07 Given tetanus/diphtheria/pertussis, acel(Tdap) 11/08/17 Given tetanus/diphtheria/pertussis, acel(Tdap) 02/03/08 Given pneumococcal 23-valent vaccine 11/08/17 Given influenza virus vaccine, inactivated 2 09/01/12 Gi azucena influenza virus vaccine, inactivated 05/24/11 Give n influenza virus vaccine, inactivated 05/31/10 Give n Influenza Inactive (IM) (oldterm) 08/10/09 Given 1Admin Note: GIVEN BY DR Chan Note: VIS GIVEN Medications Advair HFA 45 mcg / 21 mcg 2 puffs, Inhalation, 2 times a day, # 1 each, 5 Refills, Maintenance, 01/26/22 13:13:00 EDT[id number] Partial fill upon patient request if the prescription is for a schedule II opioid drug., 2 puffs Inhalation 2 times a da... Start Date: 01/26/22 Status: Ordered carisoprodol 350 mg oral tablet 350 mg, 1, tablet, By Mouth, 3 times a day, PRN, MOVIE THEATER USHER checked, # 90 tablet, Refills 5, Tot. Refills 5, Maintenance, for back spasm, 02/07/22 17:15:00 EDT, Route to Pharmacy Electronically, [facility] #[id number], Partial fill upon patient request... Start Date: 02/07/22 Status: Ordered ibuprofen 200 mg oral tablet 400 mg, 2, tablet, By Mouth, Every 6 hours, PRN, # 120 tablet, Refills 0, Maintenance, for pain, 07/09/16 14:58:25 Start Date: 07/09/16 Status: Ordered oxyCODONE 5 mg oral tablet 10 mg, 2, tablet, By Mouth, Every 6 hours, PRN, # 224 tablet, Refills 0, Tot. Refills 0, Maintenance, Pain , Severe, 04/17/22 9:22:00 EDT, Route to Pharmacy Electronically, [facility] #[id number], Partial fill upon patient request;, 04/18/22, 168... 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
--- OUTSIDE RECORDS SUMMARY | 2024-04-20 13:07 | XMS_ITS | Continuity of Care Document ---
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 use(Discharge Diagnosis) - 06/21/22 Migraine(Discharge Diagnosis) - 06/21/22 Tobacco use disorder(Discharge Diagnosis) - 06/21/22 Physical exam(Discharge Diagnosis) - 06/21/22 Attending Physician: Westley Burr MD Allergies, Adverse Reactions, Alerts Substance Reaction Severity Status erythromycin RASH Active penicillin Active Vicodin VOMIT Active Duloxetine Dyspnea, limited breathing, or tachypnea Active Immunizations Given and Recorded Vaccine Date Status Refusal Reason influenza virus vaccine, inactivated 1 06/21/22 Gi azucena influenza virus vaccine, inactivated 2 09/01/12 Gi azucena influenza virus vaccine, inactivated 05/24/11 Give n influenza virus vaccine, inactivated 05/31/10 Give n SARS-CoV-2 (COVID-19) mRNA BNT-162b2 vac 02/10/21 Recorded SARS-CoV-2 (COVID-19) mRNA BNT-162b2 vac 01/20/21 Recorded Influenza Virus Vaccine (oldterm) 05/05/19 Recorde d Influenza Virus Vaccine (oldterm) 3 07/09/07 Given tetanus/diphtheria/pertussis, acel(Tdap) 11/08/17 Given tetanus/diphtheria/pertussis, acel(Tdap) 02/03/08 Given pneumococcal 23-valent vaccine 11/08/17 Given Influenza Inactive (IM) (oldterm) 08/10/09 Given 1Result Comment: [facility]# [id number] 2Admin Note: VIS GIVEN 3Admin Note: GIVEN BY DR Carter carisoprodol 350 mg oral tablet 350 mg, 1, tablet, By Mouth, 3 times a day, PRN, SOLAR PANEL INSTALLATION SUPERVISOR checked, # 90 tablet, Refills 5, Tot. Refills 5, Maintenance, for back spasm, 02/07/22 17:15:00 EDT, Route to Pharmacy Electronically, [facility] #[id number], Partial fill upon patient request... Start Date: [...] Tot. Refills 0, Maintenance, Pain , Severe, 06/12/22 11:38:00 EST, Route to Pharmacy Electronically, [facility] #[id number], Partial fill upon patient request;, 06/13/22, 17... Start Date: 06/12/22 Stop Date: 07/10/22 Status: Ordered predniSONE 10 mg oral tablet See Instructions, 3 po daily x 5d, then 2 po daily x 5d, then 1 po daily x 5d, then 1 po qod, # 33 tablet, 0 Refills, Acute 07/12/22 16:26:00 EST, 06/21/22 16:25:00 EST, [facility] #[id number], Partial fill upon patient request if the prescriptio... Start Date: 06/21/22 Stop Date: 07/12/22 Status: Ordered Symbicort 80mcg/4.5mcg Inhaler 2, puffs, Inhalation, 2 times a day, # 1 each, Refills 11, Tot. Refills 11, Maintenance, 06/21/22 16:17:00 EST, Route to Pharmacy Electronically, [id number], [facility] #[id number], 170, cm, 06/21/22 15:44:00 EST, Height... Start Date: 06/21/22 Status: Ordered Ventolin HFA 108 mcg/inh inhalation aerosol with adapter 2 puffs, Inhalation, 4 times a day, # 1 each, 5 Refills, Maintenance, 06/21/22 16:16:00 EST, [facility] #[id number], 170, cm, 06/21/22 15:44:00 EST, Height, 71.2, kg, 04/19/22 19:11:00 EDT, Dry Weight Start Date: 06/21/22 Status: Ordered Problem List Condition Confirmation Course Effective Dates Status H ealth Status Informant Asthma Confirmed Active Endometriosis Confirmed Active Fibromyalgia muscle pain Confirmed 12/01/12 Active Low back pain Confirmed Active Migraine Confirmed Active Pain in hip Confirmed Active senior care prescription opiate use Confirmed Active Tobacco use disorder Confirmed Active Diagnosis Diagnosis Type Effective Dates Health Status Clinical Service Informant Asthma Discharge Diagnosis 06/21/22 Low back pain Discharge Diagnosis 06/21/22 Fibromyalgia muscle pain Discharge Diagnosis 06/21/22 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 prescription opiate use Discharge Diagnosis 06/21/22 Migraine Discharge Diagnosis 06/21/22 Tobacco use disorder Discharge Diagnosis 06/21/22 Physical exam Discharge Diagnosis 06/21/22 Vital Signs Most recent to oldest [Reference Range]: 1 Height 170 cm (06/21/22 3:44 PM) Weight 67.2 kg (06/21/22 3:44 PM) Oxygen Saturation [94-100 %] 99 % (06/21/22 3:44 PM) Pulse Rate [55-90 bpm] 72 bpm (06/21/22 3:44 PM) Body Mass Index [18.5-24.99 kg/m2] 23.25 kg/m2 (06/21/22 3:44 PM) Blood Pressure [90-138/55-84 mm Hg] 105/ 71mm Hg (06/21/22 3:44 PM) Temperature [96.8-100.4 DegF] 97.2 DegF (06/21/22 3:44 PM) Mode of Delivery (Oxygen) Room air (06/21/22 3:44 PM) Blood pressure sites Arm, left (06/21/22 3:44 PM) Temperature Route Temporal (06/21/22 3:44 PM) Weight Obtained Via Standing scale (06/21/22 3:44 PM) Social History Social History Type Response Smoking Status 5-9 cigarettes (betw een 1/4 to 1/2 pack)/day in last 30 days entered on: 04/17/19 Sex Female Note * Carla Youngblood: PERFORM, SIGN, VERIFY Event Display: Patient Education/Instruction Authored Date: [id number] [facility] *B[facility] [place] [facility] Clinical Summary Name DONOVAN AVALOS Age 41 Years 1980 PCP Aminah GUZMÁN, Westley Jaime PCP Visit Date 06/21/2022 15:40:00 Patient Instructions Current screening and monitoring recommendations include: Blood pressure yearly Cholesterol at least every 5 years Dental exam at least yearly Flu shot yearly Eye exam at least every 2 years Pap smear every 3-5 years Additional Instructions: Scheduled Appointments?? Future Appointments ?No Future Appointments Scheduled Follow-Up Instructions ?? 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 Discuss any questions related to medications with your provider. New Medications [facility] #[id number], [address], [place] [id number], [phone] Budesonide-Formoterol (Symbicort 80mcg/4.5mcg Inhaler) 2 puff(s) Inhalation twice a day. Refills: 11. Next Dose: Doxycycline (doxycycline hyclate 100 mg oral tablet) 1 tab(s) Oral twice a day for 7 Days. Refills:0. Next Dose: PredniSONE (predniSONE 10 mg oral tablet) 3 po daily x 5d, then 2 po daily x 5d, then 1 po daily x 5d, then 1 po qod. Refills: 0. Next Dose: Medications to Continue with No Changes [facility] #[id number], [address], [place] [id number], [phone] Albuterol (Ventolin HFA 108 mcg/inh inhalation aerosol with adapter) 2 puff(s) Inhalation 4 times aday. Refills: 5. Next Dose: These medications were not printed or sent to your pharmacy Carisoprodol (carisoprodol 350 mg oral tablet) 1 tab(s) Oral 3 times a day as needed for back spasm. SOLAR PANEL INSTALLATION SUPERVISOR checked. Refills: 5. Next Dose: Ibuprofen (ibuprofen 200 mg oral tablet) 2 tab(s) Oral every 6 hours as needed for pain. Next Dose: Oxycodone (oxyCODONE 5 mg oral tablet) 2 tab(s) Oral every 6 hours as needed Pain , Severe for 28 Days. Refills: 0. Next Dose: No Longer Take the Following Medications Fluticasone-Salmeterol (Advair HFA 45 mcg / 21 mcg) 2 puff(s) Inhalation twice a day. Refills: 5. Allergy Info:?? Duloxetine; Vicodin; penicillin; erythromycin Medications Given This Visit Medication Dose Route influenza virus vaccine, inactivated (influenza virus, inactivated vacc) 0.5 mL Intramuscular Future Orders ?Fentanyl Screen, Urine? Order Date:06/21/22?- Complete on or after?06/21/22 ?Opiate Screen Urine? Order Date:06/21/22?- Complete on or after?06/21/22 ?Oxycodone Screen Urine? Order Date:06/21/22?- Complete on or after?06/21/22 ?Heroin Metabolite QN, Urine Toxicology? Order Date:06/21/22?- Complete on or after?06/21/22 ?Cocaine Urine Screen? Order Date:06/21/22?- Complete on or after?06/21/22 ?Methadone Urine? Order Date:06/21/22?- Complete on or after?06/21/22 ?Buprenorphine Urine? Order Date:06/21/22?- Complete on or after?06/21/22 ?Benzodiazepine Urine Screen? Order Date:06/21/22?- Complete on or after?06/21/22 Vital Signs Height 170 cm Weight 67.2 kg BMI 23.25 kg/m2 Blood Pressure 105 mm Hg/71 mm Hg Temperature 97.2 DegF Pulse Rate 72 bpm Respiratory Rate 02 Sat Mode of Delivery 99 %/Room air You can now view a summary of your hospital visit from the comfort of your home through a free online portal called [employer]. [employer] is a website that allows you to securely view your medical information including discharge summary, medications and follow-up visits. ??You can alsosend a secure electronic message to your doctor???s office to request appointments, renew medications or just ask a question. You can enroll at [email or web address] or register during your next office visit. Disclaimer:?? The information provided is of a general nature and is intended to be used in conjunction with the recommendations and advice of your health care practitioner. ??Every effort has been made to ensure that the information provided is accurate and complete at the time it is provided to you however, as your needs change, or, as new ??information becomes available, different or additional instructions may be required. If you have questions, please consult with your primary care provider or pharmacist, as appropriate. ??This information is not intended to serve as substitution for assessment and evaluation by a qualified health care provider. If you do not have a primary care provider, you may find a [facility] provider by calling [facility] [email or web address] at [phone]. For information about the plan of care including goals and instructions for your diagnosis, please see the patient education orders section of this document. Patient Education Materials?? The content of this educational material or handout may have been modified, supplemented, or adapted from its original content and format to support your individualized medical care. Patient Care team information Care Team Personnel Name: Aminah GUZMÁN, Westley Jaime Position: [facility] Primary Care Physician Member Role: PCP Address: Address: [address] [place] [address]- Care Team Related Persons Name: ILYA GOLDSTEIN Address: [place] [address] Name: HARSHAD AVALOS Address: [place] [address]
--- OUTSIDE RECORDS SUMMARY | 2024-04-20 13:07 | XMS_ITS | Continuity of Care Document ---
Author Organization [facility] Adult Address [address] [place] [address]- Care Team Providers Care Endoscopy Tech Name Role Phone Vinny CROWELL, Zuri Tran Primary Care Physician Encounter [facility] [place] Date(s): 10/30/22 - 11/29/22 [facility] Adult [address] [place] [address]- Allergies, Adverse Reactions, Alerts Substance Reaction Severity [...] Inactive (IM) (oldterm) 08/10/09 Given 1Result Comment: [facility]# [id number] 2Admin Note: VIS GIVEN 3Admin Note: GIVEN BY DR Medications ibuprofen 200 mg oral tablet 400 mg, 2, tablet, By Mouth, Every 6 hours, PRN, # 120 tablet, Refills 0, Maintenance, for pain, 07/09/16 14:58:25 Start Date: 07/09/16 Status: Ordered naloxone 4 mg/0.1 mL nasal spray = 4 mg, Nares, Both, Once, # 2 each, 2 Refills, Soft Stop, 09/19/22 16:56:00 EST, [facility] #[id number], Partial fill upon patient request if the prescription is for a schedule II opioid drug.,170, cm, 09/19/22 15:48:00 EST, Height, 71.2, kg, 0... Start Date: 09/19/22 Status: Ordered oxyCODONE 5 mg oral tablet 5 mg, 1, tablet, By Mouth, Daily, PRN, # 7 tablet, Refills 0, Tot. Refills 0, Maintenance, Pain , Severe, 11/20/22 9:47:00 EDT, Route to Pharmacy Electronically, [facility] #[id number], Partial fill upon patient request; Dose is being tapered. Pl... Start Date: 11/20/22 Stop Date: 11/27/22 Status: Ordered Symbicort 80mcg/4.5mcg Inhaler 2, puffs, Inhalation, 2 times a day, # 1 each, Refills 11, Tot. Refills 11, Maintenance, 06/21/22 16:17:00 EST, Route to Pharmacy Electronically, [id number], [facility] #[id number], 170, cm, 06/21/22 15:44:00 EST, Height... Start Date: 06/21/22 Status: Ordered Ventolin HFA 108 mcg/inh inhalation aerosol with adapter 2 puffs, Inhalation, 4 times a day, # 8.5 Gm, 5 Refills, Maintenance, 09/19/22 16:19:00 EST, [facility] #[id number], 170, cm, 09/19/22 15:48:00 EST, Height, 71.2, kg, 04/19/22 19:11:00 EDT, Dry Weight Start Date: 09/19/22 Stop Date: 03/18/23 Status: Ordered Problem List Condition Confirmation Course Effective Dates Status H ealth Status Informant Asthma Confirmed Active Bronchitis Confirmed Active Endometriosis Confirmed Active Fibromyalgia muscle pain Confirmed 12/01/12 Active Violation of controlled substance agreement Confirmed Active Low back pain Confirmed Active Migraine Confirmed Active Pain in hip Confirmed Active shelter prescription opiate use Confirmed Active Tobacco use disorder Confirmed Active Social History Social History Type Response Smoking Status 5-9 cigarettes (betw een 1/4 to 1/2 pack)/day in last 30 days entered on: 04/17/19 Sex Female Patient Care team information Care Team Personnel Name: Zuri Casillas NP Position: [facility]O Associate Professional Member Role: PCP Address: Address: [address] [place] [address]- Care Team Related Persons Name: ILYA GOLDSTEIN Address: [address] [place] [address] Name: HARSHAD AVALOS Address: home [address] [place] [address]
--- OUTSIDE RECORDS SUMMARY | 2024-04-20 13:07 | XMS_ITS | Continuity of Care Document ---
Author Organization [facility] Adult Address [address] [place] [address]- Care Team Providers Care Steam Table Associate Name Role Phone Westley Burr MD Primary Care Physician Encounter [facility] [place] Date(s): 01/05/21 - 05/05/21 [facility] Adult [address] [place] [address]- Attending Physician: Westley Burr MD Allergies, Adverse Reactions, Alerts Substance Reaction Severity Status erythromycin RASH Active penicillin Active Vicodin VOMIT Active Duloxetine Dyspnea, limited breathing, or tachypnea Active Immunizations Given and Recorded Vaccine Date Status Refusal Reason Influenza Virus Vaccine (oldterm) 05/05/19 Recorde d [...] day, # 1 each, 5 Refills, Maintenance, 02/07/21 14:03:00 EDT, Aerosol, [facility] #[id number], Partial fill upon patient request if the prescription is for a schedule II opioid drug., 2 puffs Inhalation 2 times a da... Start Date: 02/07/21 Status: Ordered carisoprodol 350 mg oral tablet 350 mg, 1, tablet, By Mouth, 3 times a day, PRN, CLOTHING MAN checked, # 90 tablet, Refills 5, Tot. Refills 5, Maintenance, for back spasm, 03/07/21 15:59:00 EDT, Route to Pharmacy Electronically, [facility] #[id number], Partial fill upon patient request... Start Date: 03/07/21 Status: Ordered ibuprofen 200 mg oral tablet 400 mg, 2, tablet, By Mouth, Every 6 hours, PRN, # 120 tablet, Refills 0, Maintenance, for pain, 07/09/16 14:58:25 Start Date: 07/09/16 Status: Ordered oxyCODONE 5 mg oral tablet 10 mg, 2, tablet, By Mouth, Every 6 hours, PRN, # 224 tablet, Refills 0, Tot. Refills 0, Maintenance, Pain , Severe, 04/18/21 9:41:00 EDT, Route to Pharmacy Electronically, [facility] #[id number], Partial fill upon patient request;, 04/19/21, 168... Start Date: 04/18/21 Stop Date: 05/16/21 Status: Ordered Ventolin HFA 108 mcg/inh inhalation aerosol with adapter 2 puffs, Inhalation, 4 times a day, # 1 each, 5 Refills, Maintenance, 02/03/21 16:26:00 EDT, [facility] #[id number], 168, cm, 12/21/20 13:46:00 EDT, Height, 70.3, kg, 04/17/19 17:38:00 EDT, Dry Weight Start Date: 02/03/21 Status: Ordered Problem List Condition Effective Dates Status Health Status Inform ant Asthma(Confirmed) Active Endometriosis(Confirmed) Active Fibromyalgia muscle pain(Confirmed) 12/01/12 Active Low back pain(Confirmed) Active Migraine(Confirmed) Active Pain in hip(Confirmed) Active 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
--- OUTSIDE RECORDS SUMMARY | 2024-04-20 13:07 | XMS_ITS | Continuity of Care Document ---
Author Organization [facility] Adult Address [address] [place] [address]- Care Team Providers Care Early Childhood Name Role Phone Westley Burr MD Primary Care Physician En[place] [facility] [place] Date(s): 06/21/22 - 07/21/22 [facility] [address] [place] [address]- Attending Physician: Admtr, Brian Admitting Physician: Admtr, Ar8 Referring Physician: Admtr, Ar8 Allergies, Adverse Reactions, Alerts Substance Reaction Severity [...] Inactive (IM) (oldterm) 08/10/09 Given 1Result Comment: [facility]# [id number] 2Admin Note: VIS GIVEN 3Admin Note: GIVEN BY DR Carter carisoprodol 350 mg oral tablet 350 mg, 1, tablet, By Mouth, 3 times a day, PRN, INPUT OUTPUT CLERK checked, # 90 tablet, Refills 5, Tot. Refills 5, Maintenance, for back spasm, 02/07/22 17:15:00 EDT, Route to Pharmacy Electronically, [facility] #[id number], Partial fill upon patient request... Start Date: [...] Tot. Refills 0, Maintenance, Pain , Severe, 07/10/22 10:30:00 EST, Route to Pharmacy Electronically, [facility] #[id number], Partial fill upon patient request;, 07/11/22, 17... Start Date: 07/10/22 Stop Date: 08/07/22 Status: Ordered Symbicort 80mcg/4.5mcg Inhaler 2, puffs, Inhalation, 2 times a day, # 1 each, Refills 11, Tot. Refills 11, Maintenance, 06/21/22 16:17:00 EST, Route to Pharmacy Electronically, [id number], [facility] #[id number], 170, cm, 06/21/22 15:44:00 EST, Height... Start Date: 06/21/22 Status: Ordered Ventolin HFA 108 mcg/inh inhalation aerosol with adapter 2 puffs, Inhalation, 4 times a day, # 1 each, 5 Refills, Maintenance, 06/21/22 16:16:00 EST, [facility] #[id number], 170, cm, 06/21/22 15:44:00 EST, Height, 71.2, kg, 04/19/22 19:11:00 EDT, Dry Weight Start Date: 06/21/22 Status: Ordered Problem List Condition Confirmation Course Effective Dates Status H ealth Status Informant Asthma Confirmed Active Endometriosis Confirmed Active Fibromyalgia muscle pain Confirmed 12/01/12 Active Low back pain Confirmed Active Migraine Confirmed Active Pain in hip Confirmed Active skilled nursing prescription opiate use Confirmed Active Tobacco use disorder Confirmed Active Social History Social History Type Response Smoking Status 5-9 cigarettes (betw een 1/4 to 1/2 pack)/day in last 30 days entered on: 04/17/19 Sex Female Note * Jennifer Durán: PERFORM Event Display: Radiology Results Scanned Authored Date: [id number] * Jennifer Durán: PERFORM Event Display: Radiology Results Scanned Authored Date: [id number] * Connie Rosario: PERFORM Event Display: Radiology Results Scanned Authored Date: [id number] Patient Care team information Care Team Personnel Name: Westley Burr MD Position: [facility] Primary Care Physician Member Role: PCP Address: Address: [address] [place] [address]- Care Team Related Persons Name: ILYA GOLDSTEIN Address: [address] [address] Name: HARSHAD AVALOS Address: [place] [address]
--- OUTSIDE RECORDS SUMMARY | 2024-04-20 13:07 | XMS_ITS | Continuity of Care Document ---
Author Organization [facility] Adult Address [address] [place] [address]- Care Team Providers Care Correspondence Section Supervisor Name Role Phone Aminah GUZMÁN, Westley Jaime Primary Care Physician Encounter [facility] Date(s): 12/22/20 - 01/21/21 [facility] [address] [place] [address]- Allergies, Adverse Reactions, Alerts Substance Reaction Severity Status erythromycin RASH Active penicillin Active Duloxetine Dyspnea, limited breathing, or tachypnea Active Vicodin VOMIT Active Immunizations Given and Recorded Vaccine Date [...] BY DR Chan Note: VIS GIVEN Medications baclofen 20 mg oral tablet 20 mg, 1, tablet, By Mouth, 3 times a day, for back spasm, # 90 tablet, Refills 0, Tot. Refills 0, Maintenance, 01/10/21 14:06:00 EDT, Route to Pharmacy Electronically, [facility] #[id number], Partial fill upon patient request if the prescription... Start Date: 01/10/21 Status: Ordered ibuprofen 200 mg oral tablet 400 mg, 2, tablet, By Mouth, Every 6 hours, PRN, # 120 tablet, Refills 0, Maintenance, for pain, 07/09/16 14:58:25 Start Date: 07/09/16 Status: Ordered oxyCODONE 5 mg oral tablet 10 mg, 2, tablet, By Mouth, Every 6 hours, PRN, # 224 tablet, Refills 0, Tot. Refills 0, Maintenance, Pain , Severe, 12/23/20 16:18:00 EDT, Route to Pharmacy Electronically, [facility] #[id number], Partial fill upon patient request;, 12/28/20, 16... Start Date: 12/23/20 Stop Date: 01/20/21 Status: Ordered Ventolin HFA 108 mcg/inh inhalation aerosol with adapter 2 puffs, Inhalation, 4 times a day, # 1 each, 5 Refills, Maintenance, 10/27/20 7:38:00 EDT, [facility] #[id number], 168, cm, 02/19/20 14:35:00 EDT, Height, 70.3, kg, 04/17/19 17:38:00 EDT, Dry Weight Start Date: 10/27/20 Status: Ordered Problem List Condition Effective Dates Status Health Status Inform ant Asthma(Confirmed) Active Endometriosis(Confirmed) Active Fibromyalgia muscle pain(Confirmed) 12/01/12 Active Low back pain(Confirmed) Active Migraine(Confirmed) Active Pain in hip(Confirmed) Active 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
--- OUTSIDE RECORDS SUMMARY | 2024-04-20 13:07 | XMS_ITS | Continuity of Care Document ---
Author Organization [facility] Adult Address [address] [place] [address]- Care Team Providers Care Monitoring And Evaluation Advisor Name Role Phone Aminah GUZMÁN, Westley Jaime Primary Care Physician [facility] Date(s): 02/23/20 - 03/24/20 [facility] Adult [address] [place] [address]- [facility] Allergies, Adverse Reactions, Alerts Substance Reaction Severity [...] BY DR Chan Note: VIS GIVEN Medications carisoprodol 350 mg oral tablet 350 mg, 1, tablet, By Mouth, 3 times a day, # 270 tablet, Refills 1, Tot. Refills 1, Soft Stop, 11/19/19 14:19:00 EDT, Route to Pharmacy Electronically, [facility] #[id number], 168, cm, :23:00 EST, Height, 70.3, kg, 04/17/19 17:38:00 ED... Start Date: 11/19/19 Status: Ordered ibuprofen 200 mg oral tablet 400 mg, 2, tablet, By Mouth, Every 6 hours, PRN, # 120 tablet, Refills 0, Maintenance, for pain, 07/09/16 14:58:25 Start Date: 07/09/16 Status: Ordered oxyCODONE 5 mg oral tablet 10 mg, 2, tablet, By Mouth, Every 6 hours, PRN, # 224 tablet, Refills 0, Tot. Refills 0, Maintenance, Pain , Severe, 03/14/20 16:24:00 EDT, Route to Pharmacy Electronically, [facility] #[id number], Partial fill upon patient request;, 03/23/20, 16... Start Date: 03/14/20 Stop Date: 04/11/20 Status: Ordered Ventolin HFA 108 mcg/inh inhalation aerosol with adapter 2 puffs, Inhalation, 4 times a day, # 1 each, 5 Refills, Maintenance, 03/23/20 12:41:00 EDT, [facility] #[id number], 168, cm, 02/19/20 14:35:00 EDT, Height, 70.3, kg, 04/17/19 17:38:00 EDT, Dry Weight Start Date: 03/23/20 Status: Ordered Problem List Condition Effective Dates Status Health Status Inform ant Asthma(Confirmed) Active Endometriosis(Confirmed) Active Fibromyalgia muscle pain(Confirmed) 12/01/12 Active Low back pain(Confirmed) Active Migraine(Confirmed) Active Pain in hip(Confirmed) Active longterm prescription opiat e use(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
--- OUTSIDE RECORDS SUMMARY | 2024-04-20 13:07 | XMS_ITS | Continuity of Care Document ---
Author Organization [facility] Adult Address [address] [place] [address]- Care Team Providers Care Electromechanical Engineer Name Role Phone Aminah GUZMÁN, Westley Jaime Primary Care Physician [facility]counter [facility] Date(s): 04/18/21 - 05/18/21 [facility] Adult [address] [place] [phone]- Allergies, Adverse Reactions, Alerts Substance Reaction Severity [...] 5 Refills, Maintenance, 02/07/21 14:03:00 EDT, [facility], [id number], Partial fill upon patient request if the prescription is for a schedule II opioid drug., 2 puffs Inhalation 2 times a da... Start Date: 02/07/21 Status: Ordered carisoprodol 350 mg oral tablet 350 mg, 1, tablet, By Mouth, 3 times a day, PRN, DRIP BOX TENDER checked, # 90 tablet, Refills 5, Tot. Refills 5, Maintenance, for back spasm, 03/07/21 15:59:00 EDT, Route to Pharmacy Electronically, [facility] #[id number], Partial fill upon patient request... Start Date: [...] Tot. Refills 0, Maintenance, Pain , Severe, 05/16/21 11:47:00 EDT, Route to Pharmacy Electronically, [facility] #[id number], Partial fill upon patient request;, 05/17/21, 16... Start Date: 05/16/21 Stop Date: 06/13/21 Status: Ordered Ventolin HFA 108 mcg/inh inhalation aerosol with adapter 2 puffs, Inhalation, 4 times a day, # 1 each, 5 Refills, Maintenance, 02/03/21 16:26:00 EDT, [facility] #[id number], 168, cm, 12/21/20 13:46:00 EDT, Height, 70.3, kg, 04/17/19 17:38:00 EDT, Dry Weight Start Date: 02/03/21 Status: Ordered Problem List Condition Effective Dates Status Health Status Inform ant Asthma(Confirmed) Active Endometriosis(Confirmed) Active Fibromyalgia muscle pain(Confirmed) 12/01/12 Active Low back pain(Confirmed) Active Migraine(Confirmed) Active Pain in hip(Confirmed) Active 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
--- OUTSIDE RECORDS SUMMARY | 2024-04-20 13:07 | XMS_ITS | Continuity of Care Document ---
Author Organization [facility] Address [address] [place] [address] [facility] [address] [place] [address]- Care Team Providers Care Ingot Header Name Role Phone Aminah GUZMÁN, Westley Jaime Primary Care Physician [place] [facility] - 06/03/22 [facility] [address] [place] [address]- Attending Physician: Brian Urbano Admitting Physician: AdmtrBrian Referring Physician: Admtr, Ar8 Allergies, Adverse Reactions, [...] each, 5 Refills, Maintenance, 01/26/22 13:13:00 EDT, Aerosol, [facility] #[id number], Partial fill upon patient request if the prescription is for a schedule II opioid drug., 2 puffs Inhalation 2 times a da... Start Date: 01/26/22 Status: Ordered carisoprodol 350 mg oral tablet 350 mg, 1, tablet, By Mouth, 3 times a day, PRN, TRAVELING CLERK checked, # 90 tablet, Refills 5, Tot. Refills 5, Maintenance, for back spasm, 02/07/22 17:15:00 EDT, Route to Pharmacy Electronically, [facility] #[id number], Partial fill upon patient request... Start Date: [...] Tot. Refills 0, Maintenance, Pain , Severe, 05/15/22 11:04:00 EDT, Route to Pharmacy Electronically, [facility] #[id number], Partial fill upon patient request;, 05/16/22, 17... Start Date: 05/15/22 Stop Date: 06/12/22 Status: Ordered Ventolin HFA 108 mcg/inh inhalation aerosol with adapter 2 puffs, Inhalation, 4 times a day, # 1 each, 5 Refills, Maintenance, 03/27/22 14:31:00 EDT, [facility] #[id number], 168, cm, 12/08/21 14:09:00 EDT, Height Start Date: 03/27/22 Status: Ordered Problem List Condition Confirmation Course Effective Dates Status H ealth Status Informant Asthma Confirmed Active Endometriosis Confirmed Active Fibromyalgia muscle pain Confirmed 12/01/12 Active Low back pain Confirmed Active Migraine Confirmed Active Pain in hip Confirmed Active watermaster prescription opiate use Confirmed Active Tobacco use disorder Confirmed Active Social History Social History Type Response Smoking Status 5-9 cigarettes (betw een 1/4 to 1/2 pack)/day in last 30 days entered on: 04/17/19 Sex Female Patient Care team information Personnel Name: Aminah GUZMÁN, Westley Jaime Address: Address: [address] [place] [id number]
--- OUTSIDE RECORDS SUMMARY | 2024-04-20 13:07 | XMS_ITS | Continuity of Care Document ---
Author Organization [facility] Adult Address [address] [place] [address]- Care Team Providers Care Piano Machine Operator Name Role Phone Aminah GUZMÁN, Westley Jaime Primary Care Physician [facility]counter [facility] Date(s): 10/03/21 - 11/02/21 [facility] Adult [address] [place] [phone]- Allergies, Adverse Reactions, Alerts Substance Reaction Severity [...] 5 Refills, Maintenance, 02/07/21 14:03:00 EDT, Aerosol, [facility] #[id number], Partial fill upon patient request if the prescription is for a schedule II opioid drug., 2 puffs Inhalation 2 times a da... Start Date: 02/07/21 Status: Ordered carisoprodol 350 mg oral tablet 350 mg, 1, tablet, By Mouth, 3 times a day, PRN, COMPLIANCE INVESTIGATOR checked, # 90 tablet, Refills 5, Tot. Refills 5, Maintenance, for back spasm, 08/22/21 14:26:00 EST, Route to Pharmacy Electronically, [facility] #[id number], Partial fill upon patient request... Start Date: 08/22/21 Status: Ordered ibuprofen 200 mg oral tablet 400 mg, 2, tablet, By Mouth, Every 6 hours, PRN, # 120 tablet, Refills 0, Maintenance, for pain, 07/09/16 14:58:25 Start Date: 07/09/16 Status: Ordered oxyCODONE 5 mg oral tablet 10 mg, 2, tablet, By Mouth, Every 6 hours, PRN, # 224 tablet, Refills 0, Tot. Refills 0, Maintenance, Pain , Severe, 10/31/21 12:24:00 EDT, Route to Pharmacy Electronically, [facility] #[id number], Partial fill upon patient request;, 11/01/21, 16... 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
--- OUTSIDE RECORDS SUMMARY | 2024-04-20 13:07 | XMS_ITS | Continuity of Care Document ---
Author Organization [facility] Adult Address [address] [place] [address]- Care Team Providers Care Airfreight Operations Agent Name Role Phone Aminah GUZMÁN, Westley Jaime Primary Care Physician [facility]counter [facility] Date(s): 03/14/21 - 04/13/21 [facility] Adult [address] [place] [phone]- Allergies, Adverse Reactions, Alerts Substance Reaction Severity [...] 5 Refills, Maintenance, 02/07/21 14:03:00 EDT, [facility], [id number], Partial fill upon patient request if the prescription is for a schedule II opioid drug., 2 puffs Inhalation 2 times a da... Start Date: 02/07/21 Status: Ordered carisoprodol 350 mg oral tablet 350 mg, 1, tablet, By Mouth, 3 times a day, PRN, CREDIT CARD CONTROL CLERK checked, # 90 tablet, Refills 5, Tot. Refills 5, Maintenance, for back spasm, 03/07/21 15:59:00 EDT, Route to Pharmacy Electronically, [facility] #[id number], Partial fill upon patient request... Start Date: [...] Tot. Refills 0, Maintenance, Pain , Severe, 03/14/21 9:35:00 EDT, Route to Pharmacy Electronically, [facility] #[id number], Partial fill upon patient request;, 03/22/21, 168... Start Date: 03/14/21 Stop Date: 04/11/21 Status: Ordered Ventolin HFA 108 mcg/inh inhalation aerosol with adapter 2 puffs, Inhalation, 4 times a day, # 1 each, 5 Refills, Maintenance, 02/03/21 16:26:00 EDT, [facility] #[id number], 168, cm, 12/21/20 13:46:00 EDT, Height, 70.3, kg, 04/17/19 17:38:00 EDT, Dry Weight Start Date: 02/03/21 Status: Ordered Problem List Condition Effective Dates Status Health Status Inform ant Asthma(Confirmed) Active Endometriosis(Confirmed) Active Fibromyalgia muscle pain(Confirmed) 12/01/12 Active Low back pain(Confirmed) Active Migraine(Confirmed) Active Pain in hip(Confirmed) Active 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
--- OUTSIDE RECORDS SUMMARY | 2024-04-20 13:07 | XMS_ITS | Continuity of Care Document ---
Author Organization [facility] Address [address] [place] [address]- Care Team Providers Care President And Chief Commercial Officer Name Role Phone Zuri Casillas NP Primary Care Physician Encounter [facility] [id number] Date(s): 10/02/22 - 11/01/22 [facility] [address] [place] [address]- Attending Physician: Admdieudonne, Brian Admitting Physician: Admtr, Ar8 Referring Physician: [...] (IM) (oldterm) 08/10/09 Given 1Result Comment: [facility]# [id number] 2Admin Note: VIS GIVEN 3Admin Note: GIVEN BY DR Carter carisoprodol 350 mg oral tablet 350 mg, 1, tablet, By Mouth, 3 times a day, PRN, prop drawer checked, # 90 tablet, Refills 0, Tot. Refills 0, Maintenance, as needed for spasm, 10/15/22 14:19:00 EDT, Route to Pharmacy Electronically, [facility] #[id number], Partial fill upon patient req... Start Date: 10/15/22 Stop Date: 11/14/22 Status: Ordered carisoprodol 350 mg oral tablet 350 mg, 1, tablet, By Mouth, 3 times a day, PRN, CLOTH CALENDER checked, # 90 tablet, Refills 0, Tot. Refills 0, Maintenance, for back spasm, 07/22/22 14:28:00 EST, Route to Pharmacy Electronically, [facility] #[id number], Partial fill upon patient request... Start Date: 07/22/22 Status: Ordered ibuprofen 200 mg oral tablet 400 mg, 2, tablet, By Mouth, Every 6 hours, PRN, # 120 tablet, Refills 0, Maintenance, for pain, 07/09/16 14:58:25 Start Date: 07/09/16 Status: Ordered naloxone 4 mg/0.1 mL nasal spray = 4 mg, Nares, Both, Once, # 2 each, 2 Refills, Soft Stop, 09/19/22 16:56:00 EST, [facility] #[id number], Partial fill upon patient request if the prescription is for a schedule II opioid drug.,170, cm, 09/19/22 15:48:00 EST, Height, 71.2, kg, 0... Start Date: 09/19/22 Status: Ordered oxyCODONE 5 mg oral tablet 5 mg, 1, tablet, By Mouth, Every 4 hours, PRN, # 28 tablet, Refills 0, Tot. Refills 0, Maintenance,Pain , Severe, 10/30/22 11:46:00 EDT, Route to Pharmacy Electronically, [facility] #[id number], Partial fill upon patient request; Dose is being t... Start Date: 10/30/22 Stop Date: 11/06/22 Status: Ordered Symbicort 80mcg/4.5mcg Inhaler 2, puffs, Inhalation, 2 times a day, # 1 each, Refills 11, Tot. Refills 11, Maintenance, 06/21/22 16:17:00 EST, Route to Pharmacy Electronically, [id number], [facility] #[id number], 170, cm, 06/21/22 15:44:00 EST, Height... 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
--- OUTSIDE RECORDS SUMMARY | 2024-04-20 13:07 | XMS_ITS | Continuity of Care Document ---
Author Organization [facility] Adult Address [address] [place] [address]- Care Team Providers Care Residential Worker Name Role Phone Aminah GUZMÁN, Westley Jaime Primary Care Physician [place] [facility] [place] 11[place]25/20 [facility] [address] [place] [phone]- Allergies, Adverse Reactions, Alerts Substance Reaction Severity [...] BY DR Chan Note: VIS GIVEN Medications ibuprofen 200 mg oral tablet 400 mg, 2, tablet, By Mouth, Every 6 hours, PRN, # 120 tablet, Refills 0, Maintenance, for pain, 07/09/16 14:58:25 Start Date: 07/09/16 Status: Ordered oxyCODONE 5 mg oral tablet 10 mg, 2, tablet, By Mouth, Every 6 hours, PRN, # 224 tablet, Refills 0, Tot. Refills 0, Maintenance, Pain , Severe, 11/01/20 9:28:00 EDT, Route to Pharmacy Electronically, [facility] #[id number], Partial fill upon patient request;, 11/02/20, 168... Start Date: 11/01/20 Stop Date: 11/29/20 Status: Ordered tiZANidine 4 mg oral tablet 1, tablet, By Mouth, Every 8 hours, # 90 tablet, Refills 5, Tot. Refills 0, Maintenance, 11/23/20 15:43:00 EDT, Route to Pharmacy Electronically, [facility] #[id number], 168, cm, 02/19/20 14:35:00 EDT, Height, 70.3, kg, 04/17/19 17:38:00 EDT, Dry... Start Date: 11/23/20 Status: Ordered Ventolin HFA 108 mcg/inh inhalation aerosol with adapter 2 puffs, Inhalation, 4 times a day, # 1 each, 5 Refills, Maintenance, 10/27/20 7:38:00 EDT, [facility] #[id number], 168, cm, 02/19/20 14:35:00 EDT, Height, 70.3, kg, 04/17/19 17:38:00 EDT, Dry Weight Start Date: 10/27/20 Status: Ordered Problem List Condition Effective Dates Status Health Status Inform ant Asthma(Confirmed) Active Endometriosis(Confirmed) Active Fibromyalgia muscle pain(Confirmed) 12/01/12 Active Low back pain(Confirmed) Active Migraine(Confirmed) Active Pain in hip(Confirmed) Active [facility] prescription opiat e use(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
--- OUTSIDE RECORDS SUMMARY | 2024-04-20 13:07 | XMS_ITS | Continuity of Care Document ---
Author Organization [facility] Address [address] [place] [address] ve [address] [place] [address]- Care Team Providers Care Correctional Agency Director Name Role Phone Westley Burr MD Primary Care Physician Encounter [facility] Date(s): 04/11/22 - 06/03/22 [facility] [address] [place] [address]- Attending Physician: Pablito Montanez MD Referring Physician: Westley Burr MD Allergies, Adverse Reactions, [...] 5 Refills, Maintenance, 01/26/22 13:13:00 EDT, Aerosol, [facility] #[id number], Partial fill upon patient request if the prescription is for a schedule II opioid drug., 2 puffs Inhalation 2 times a da... Start Date: 01/26/22 Status: Ordered carisoprodol 350 mg oral tablet 350 mg, 1, tablet, By Mouth, 3 times a day, PRN, HAND PATCHER checked, # 90 tablet, Refills 5, Tot. Refills 5, Maintenance, for back spasm, 02/07/22 17:15:00 EDT, Route to Pharmacy Electronically, [facility] #[id number], Partial fill upon patient request... Start Date: [...] 05/15/22 11:04:00 EDT, Route to Pharmacy Electronically, [facility] #[id number], Partial fill upon patient request;, 05/16/22, 17... Start Date: 05/15/22 Stop Date: 06/12/22 Status: Ordered Ventolin HFA 108 mcg/inh inhalation aerosol with adapter 2 puffs, Inhalation, 4 times a day, # 1 each, 5 Refills, Maintenance, 03/27/22 14:31:00 EDT, [facility] #[id number], 168, cm, 12/08/21 14:09:00 EDT, Height Start Date: 03/27/22 Status: Ordered Problem List Condition Confirmation Course Effective Dates Status H ealth Status Informant Asthma Confirmed Active Endometriosis Confirmed Active Fibromyalgia muscle pain Confirmed 12/01/12 Active Low back pain Confirmed Active Migraine Confirmed Active Pain in hip Confirmed Active alf prescription opiate use Confirmed Active Tobacco use disorder Confirmed Active Social History Social History Type Response Smoking Status 5-9 cigarettes (betw een 1/4 to 1/2 pack)/day in last 30 days entered on: 04/17/19 Sex Female Patient Care team information Personnel Name: Aminah GUZMÁN, Westley Jaime Address: Address: [address] [place] [id number]
--- OUTSIDE RECORDS SUMMARY | 2024-04-20 13:07 | XMS_ITS | Continuity of Care Document ---
Author Organization [facility] Adult Address [address] [place] [address]- Care Team Providers Care Corduroy Cutter Operator Name Role Phone Aminah GUZMÁN, Westley Jaime Primary Care Physician Encounter [facility] Date(s): 07/11/21 - 08/10/21 [facility] [address] [place] [phone]- Allergies, Adverse Reactions, Alerts Substance Reaction Severity [...] 5 Refills, Maintenance, 02/07/21 14:03:00 EDT, Aerosol, [facility] #[id number], Partial fill upon patient request if the prescription is for a schedule II opioid drug., 2 puffs Inhalation 2 times a da... Start Date: 02/07/21 Status: Ordered carisoprodol 350 mg oral tablet 350 mg, 1, tablet, By Mouth, 3 times a day, PRN, RIVET PASSER checked, # 90 tablet, Refills 5, Tot. Refills 5, Maintenance, for back spasm, 03/07/21 15:59:00 EDT, Route to Pharmacy Electronically, [facility] #[id number], Partial fill upon patient request... Start Date: [...] Tot. Refills 0, Maintenance, Pain , Severe, 08/08/21 10:59:00 EST, Route to Pharmacy Electronically, [facility] #[id number], Partial fill upon patient request;, 08/09/21, 16... 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
--- OUTSIDE RECORDS SUMMARY | 2024-04-20 13:07 | XMS_ITS | Continuity of Care Document ---
[facility] Address Unknown Care Team Providers Care Plate Driller Name Role Phone Aminah GUZMÁN, Westley Jaime Primary Care Physician [facility]counter [facility] Date(s): 03/09/21 - 04/08/21 [facility] Allergies, Adverse Reactions, Alerts Substance Reaction Severity [...] 5 Refills, Maintenance, 02/07/21 14:03:00 EDT, Aerosol, [facility] #[id number], Partial fill upon patient request if the prescription is for a schedule II opioid drug., 2 puffs Inhalation 2 times a da... Start Date: 02/07/21 Status: Ordered carisoprodol 350 mg oral tablet 350 mg, 1, tablet, By Mouth, 3 times a day, PRN, VAN HELPER checked, # 90 tablet, Refills 5, Tot. Refills 5, Maintenance, for back spasm, 03/07/21 15:59:00 EDT, Route to Pharmacy Electronically, [facility] #[id number], Partial fill upon patient request... Start Date: [...] 03/14/21 9:35:00 EDT, Route to Pharmacy Electronically, [facility] #[id number], Partial fill upon patient request;, 03/22/21, 168... Start Date: 03/14/21 Stop Date: 04/11/21 Status: Ordered Ventolin HFA 108 mcg/inh inhalation aerosol with adapter 2 puffs, Inhalation, 4 times a day, # 1 each, 5 Refills, Maintenance, 02/03/21 16:26:00 EDT, [facility] #[id number], 168, cm, 12/21/20 13:46:00 EDT, Height, 70.3, kg, 04/17/19 17:38:00 EDT, Dry Weight Start Date: 02/03/21 Status: Ordered Problem List Condition Effective Dates Status Health Status Inform ant Asthma(Confirmed) Active Endometriosis(Confirmed) Active Fibromyalgia muscle pain(Confirmed) 12/01/12 Active Low back pain(Confirmed) Active Migraine(Confirmed) Active Pain in hip(Confirmed) Active 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
--- OUTSIDE RECORDS SUMMARY | 2024-04-20 13:07 | XMS_ITS | Continuity of Care Document ---
Author Organization [facility] Adult Address [address] [place] [address]- Care Team Providers Care Waxer Tender Name Role Phone Westley Burr MD Primary Care Physician Encounter [facility] Date(s): 11/08/21 - 12/08/21 [facility] Adult [address] [place] [address]- Allergies, Adverse Reactions, Alerts Substance Reaction Severity [...] each, 5 Refills, Maintenance, 02/07/21 14:03:00 EDT, [facility], [facility] #[id number], Partial fill upon patient request if the prescription is for a schedule II opioid drug., 2 puffs Inhalation 2 times a da... Start Date: 02/07/21 Status: Ordered carisoprodol 350 mg oral tablet 350 mg, 1, tablet, By Mouth, 3 times a day, PRN, REGISTERED NURSE MIDWIFE checked, # 90 tablet, Refills 5, Tot. Refills 5, Maintenance, for back spasm, 08/22/21 14:26:00 EST, Route to Pharmacy Electronically, [facility] #[id number], Partial fill upon patient request... Start Date: [...] Tot. Refills 0, Maintenance, Pain , Severe, 11/28/21 10:37:00 EDT, Route to Pharmacy Electronically, [facility] #[id number], Partial fill upon patient request;, 11/29/21, 16... 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
--- OUTSIDE RECORDS SUMMARY | 2024-04-20 13:08 | XMS_ITS | Continuity of Care Document ---
Author Organization [facility] Address [address] [place] [address]- Care Team Providers Care Vice President Of Consulting Services Name Role Phone Vinny CROWELL, Zuri Tran Primary Care Physician [id number] Date[facility] 09/20/22 - 11/01/[facility] [address] [place] [address]- Attending Physician: Matt Ramos MD Admitting Physician: Matt Ramos MD Allergies, Adverse Reactions, Alerts Substance Reaction [...] (IM) (oldterm) 08/10/09 Given 1Result Comment: [facility]# [id number] 2Admin Note: VIS GIVEN 3Admin Note: GIVEN BY DR Carter carisoprodol 350 mg oral tablet 350 mg, 1, tablet, By Mouth, 3 times a day, PRN, dubbing machine operator checked, # 90 tablet, Refills 0, Tot. Refills 0, Maintenance, as needed for spasm, 10/15/22 14:19:00 EDT, Route to Pharmacy Electronically, [facility] #[id number], Partial fill upon patient req... Start Date: 10/15/22 Stop Date: 11/14/22 Status: Ordered carisoprodol 350 mg oral tablet 350 mg, 1, tablet, By Mouth, 3 times a day, PRN, REAL ESTATE TRANSACTION COORDINATOR checked, # 90 tablet, Refills 0, Tot. Refills 0, Maintenance, for back spasm, 07/22/22 14:28:00 EST, Route to Pharmacy Electronically, [facility] #[id number], Partial fill upon patient request... Start Date: 07/22/22 Status: Ordered ibuprofen 200 mg oral tablet 400 mg, 2, tablet, By Mouth, Every 6 hours, PRN, # 120 tablet, Refills 0, Maintenance, for pain, 07/09/16 14:58:25 Start Date: 07/09/16 Status: Ordered naloxone 4 mg/0.1 mL nasal spray = 4 mg, Nares, Both, Once, # 2 each, 2 Refills, Soft Stop, 09/19/22 16:56:00 EST, [facility] #[id number], Partial fill upon patient request if the prescription is for a schedule II opioid drug.,170, cm, 09/19/22 15:48:00 EST, Height, 71.2, kg, 0... Start Date: 09/19/22 Status: Ordered oxyCODONE 5 mg oral tablet 5 mg, 1, tablet, By Mouth, Every 4 hours, PRN, # 28 tablet, Refills 0, Tot. Refills 0, Maintenance,Pain , Severe, 10/30/22 11:46:00 EDT, Route to Pharmacy Electronically, [facility] #[id number], Partial fill upon patient request; Dose is being t... Start Date: 10/30/22 Stop Date: 11/06/22 Status: Ordered Symbicort 80mcg/4.5mcg Inhaler 2, puffs, Inhalation, 2 times a day, # 1 each, Refills 11, Tot. Refills 11, Maintenance, 06/21/22 16:17:00 EST, Route to Pharmacy Electronically, [id number], [facility] #[id number], 170, cm, 06/21/22 15:44:00 EST, Height... Start Date: 06/21/22 Status: Ordered Ventolin HFA 108 mcg/inh inhalation aerosol with adapter 2 puffs, Inhalation, 4 times a day, # 8.5 Gm, 5 Refills, Maintenance, 09/19/22 16:19:00 EST, [facility] #[id number], 170, cm, 09/19/22 15:48:00 EST, Height, 71.2, [...] Confirmed Active Pain in hip Confirmed Active retirement prescription opiate use Confirmed Active Tobacco use disorder Confirmed Active Social History Social History Type Response Smoking Status 5-9 cigarettes (betw een 1/4 to 1/2 pack)/day in last 30 days entered on: 04/17/19 Sex Female Patient Care team information Care Team Personnel Name: Zuri Casillas NP Position: S PCO Associate Professional Member Role: PCP Address: Address: [address] [place] [address]- Care Team Related Persons Name: ILYA GOLDSTEIN Address: home [address] [place] [id number] Name: HARSHAD AVALOS Address: [address] [address]
--- OUTSIDE RECORDS SUMMARY | 2024-04-20 13:08 | XMS_ITS | Continuity of Care Document ---
Author Organization [facility] Adult Address [address] [place] [address]- Care Team Providers Care Section Leader Name Role Phone Aminah GUZMÁN, Westley Jaime Primary Care Physician Encounter [facility] Date(s): 01/24/21 - 02/23/21 [facility] Adult [address] [place] [address]- Allergies, Adverse Reactions, Alerts Substance Reaction Severity [...] 5 Refills, Maintenance, 02/07/21 14:03:00 EDT, [id number], Partial fill upon patient request if the prescription is for a schedule II opioid drug., 2 puffs Inhalation 2 times a da... Start Date: 02/07/21 Status: Ordered carisoprodol 350 mg oral tablet 350 mg, 1, tablet, By Mouth, 3 times a day, PRN, MACHINE CARTON MARKER checked, # 90 tablet, Refills 0, Tot. Refills 0, Maintenance, for back spasm, 01/31/21 17:14:00 EDT, Route to Pharmacy Electronically, [facility] #[id number], Partial fill upon patient request... Start Date: 01/31/21 Status: Ordered ibuprofen 200 mg oral tablet 400 mg, 2, tablet, By Mouth, Every 6 hours, PRN, # 120 tablet, Refills 0, Maintenance, for pain, 07/09/16 14:58:25 Start Date: 07/09/16 Status: Ordered oxyCODONE 5 mg oral tablet 10 mg, 2, tablet, By Mouth, Every 6 hours, PRN, # 224 tablet, Refills 0, Tot. Refills 0, Maintenance, Pain , Severe, 02/21/21 10:07:00 EDT, Route to Pharmacy Electronically, [facility] #[id number], Partial fill upon patient request;, 02/22/21, 16... Start Date: 02/21/21 Stop Date: 03/21/21 Status: Ordered Ventolin HFA 108 mcg/inh inhalation aerosol with adapter 2 puffs, Inhalation, 4 times a day, # 1 each, 5 Refills, Maintenance, 02/03/21 16:26:00 EDT, [facility] #[id number], 168, cm, 12/21/20 13:46:00 EDT, Height, 70.3, kg, 04/17/19 17:38:00 EDT, Dry Weight Start Date: 02/03/21 Status: Ordered Problem List Condition Effective Dates Status Health Status Inform ant Asthma(Confirmed) Active Endometriosis(Confirmed) Active Fibromyalgia muscle pain(Confirmed) 12/01/12 Active Low back pain(Confirmed) Active Migraine(Confirmed) Active Pain in hip(Confirmed) Active 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
--- OUTSIDE RECORDS SUMMARY | 2024-04-20 13:08 | XMS_ITS | Continuity of Care Document ---
Author Organization [facility] Adult Address [address] [place] [address]- Care Team Providers Care Hr Administrator Name Role Phone Aminah GUZMÁN, Westley Jaime Primary Care Physician Encounter [facility] Date(s): 08/08/21 - 09/07/21 [facility] [address] [place] [address]- Allergies, Adverse Reactions, Alerts Substance Reaction Severity [...] 5 Refills, Maintenance, 02/07/21 14:03:00 EDT, Aerosol, [facility] #[id number], Partial fill upon patient request if the prescription is for a schedule II opioid drug., 2 puffs Inhalation 2 times a da... Start Date: 02/07/21 Status: Ordered carisoprodol 350 mg oral tablet 350 mg, 1, tablet, By Mouth, 3 times a day, PRN, TOWER AIR TRAFFIC CONTROL SPECIALIST checked, # 90 tablet, Refills 5, Tot. Refills 5, Maintenance, for back spasm, 08/22/21 14:26:00 EST, Route to Pharmacy Electronically, [facility] #[id number], Partial fill upon patient request... Start Date: [...] Tot. Refills 0, Maintenance, Pain , Severe, 09/04/21 8:47:00 EST, Route to Pharmacy Electronically, [facility] #[id number], Partial fill upon patient request;, 09/06/21, 168... 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
--- OUTSIDE RECORDS SUMMARY | 2024-04-20 13:08 | XMS_ITS | Continuity of Care Document ---
Author Organization [facility] Adult Address [address] [place] [address]- Care Team Providers Care Veterinary Practitioner Name Role Phone Vinny CROWELL, Zuri Tran Primary Care Physician [phone] Encounter [facility] Date(s): 07/10/22 - 08/09/22 [facility] [address] [place] [address]- Allergies, Adverse Reactions, Alerts Substance Reaction Severity [...] Inactive (IM) (oldterm) 08/10/09 Given 1Result Comment: [facility]# [id number] 2Admin Note: VIS GIVEN 3Admin Note: GIVEN BY DR Carter carisoprodol 350 mg oral tablet 350 mg, 1, tablet, By Mouth, 3 times a day, PRN, ROLLER INSPECTOR checked, # 90 tablet, Refills 0, Tot. Refills 0, Maintenance, for back spasm, 07/22/22 14:28:00 EST, Route to Pharmacy Electronically, [facility] #[id number], Partial fill upon patient request... Start Date: 07/22/22 Status: Ordered carisoprodol 350 mg oral tablet 350 mg, 1, tablet, By Mouth, 3 times a day, PRN, real estate agent/broker checked, # 90 tablet, Refills 5, Tot. Refills 5, Maintenance, as needed for spasm, 07/22/22 14:31:00 EST, Route to Pharmacy Electronically, [facility] #[id number], Partial fill upon patient req... Start Date: 07/22/22 Status: Ordered ibuprofen 200 mg oral tablet 400 mg, 2, tablet, By Mouth, Every 6 hours, PRN, # 120 tablet, Refills 0, Maintenance, for pain, 07/09/16 14:58:25 Start Date: 07/09/16 Status: Ordered oxyCODONE 5 mg oral tablet 10 mg, 2, tablet, By Mouth, Every 6 hours, PRN, # 224 tablet, Refills 0, Tot. Refills 0, Maintenance, Pain , Severe, 08/07/22 11:26:00 EST, Route to Pharmacy Electronically, [facility] #[id number], Partial fill upon patient request;, 08/08/22, 17... Start Date: 08/07/22 Stop Date: 09/04/22 Status: Ordered Symbicort 80mcg/4.5mcg Inhaler 2, puffs, Inhalation, 2 times a day, # 1 each, Refills 11, Tot. Refills 11, Maintenance, 06/21/22 16:17:00 EST, Route to Pharmacy Electronically, [id number], [facility] #[id number], 170, cm, 06/21/22 15:44:00 EST, Height... Start Date: 06/21/22 Status: Ordered Ventolin HFA 108 mcg/inh inhalation aerosol with adapter 2 puffs, Inhalation, 4 times a day, # 1 each, 5 Refills, Maintenance, 06/21/22 16:16:00 EST, [facility] #[id number], 170, cm, 06/21/22 15:44:00 EST, Height, 71.2, kg, 04/19/22 19:11:00 EDT, Dry Weight Start Date: 06/21/22 Status: Ordered Problem List Condition Confirmation Course Effective Dates Status H ealth Status Informant Asthma Confirmed Active Endometriosis Confirmed Active Fibromyalgia muscle pain Confirmed 12/01/12 Active Low back pain Confirmed Active Migraine Confirmed Active Pain in hip Confirmed Active 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
--- OUTSIDE RECORDS SUMMARY | 2024-04-20 13:08 | XMS_ITS | Continuity of Care Document ---
Author Organization [facility] Address [address] [address]- Care Team Providers Care Web Content Editor Name Role Phone Aminah GUZMÁN, Westley Jaime Primary Care Physician Encounter [facility] Date(s): 12/30/20 - 01/29/21 [facility] [address] [address] Attending Physician: Admdieudonne, Brian Admitting Physician: Admtr, Brian Referring Physician: Admtr, Ar8 Allergies, Adverse Reactions, [...] 01/10/21 14:06:00 EDT, Route to Pharmacy Electronically, [facility] #[id number], Partial fill upon patient request if the [...] Tot. Refills 0, Maintenance, Pain , Severe, 01/24/21 15:27:00 EDT, Route to Pharmacy Electronically, [facility] #[id number], Partial fill upon patient request;, 01/25/21, 16... Start Date: 01/24/21 Stop Date: 02/21/21 Status: Ordered Ventolin HFA 108 mcg/inh inhalation aerosol with adapter 2 puffs, Inhalation, 4 times a day, # 1 each, 5 Refills, Maintenance, 10/27/20 7:38:00 EDT, [facility] #[id number], 168, cm, 02/19/20 14:35:00 EDT, Height, 70.3, kg, 04/17/19 17:38:00 EDT, Dry Weight Start Date: 10/27/20 Status: Ordered Problem List Condition Effective Dates Status Health Status Inform ant Asthma(Confirmed) Active Endometriosis(Confirmed) Active Fibromyalgia muscle pain(Confirmed) 12/01/12 Active Low back pain(Confirmed) Active Migraine(Confirmed) Active Pain in hip(Confirmed) Active 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
--- OUTSIDE RECORDS SUMMARY | 2024-04-20 13:08 | XMS_ITS | Continuity of Care Document ---
Author Organization [facility] Adult Address [address] [place] [address]- Care Team Providers Care Corporate Associate Attorney Name Role Phone Westley Burr MD Primary Care Physician Encounter [facility] Date(s): 12/12/21 - 01/11/22 [facility] [address] [place] [address]- Allergies, Adverse Reactions, Alerts Substance Reaction Severity [...] each, 5 Refills, Maintenance, 02/07/21 14:03:00 EDT, [facility] #[id number], Partial fill upon patient request if the prescription is for a schedule II opioid drug., 2 puffs Inhalation 2 times a da... Start Date: 02/07/21 Status: Ordered carisoprodol 350 mg oral tablet 350 mg, 1, tablet, By Mouth, 3 times a day, PRN, TELEHEALTH NURSE EDUCATOR checked, # 90 tablet, Refills 5, Tot. Refills 5, Maintenance, for back spasm, 08/22/21 14:26:00 EST, Route to Pharmacy Electronically, [facility] #[id number], Partial fill upon patient request... Start Date: [...] Tot. Refills 0, Maintenance, Pain , Severe, 12/26/21 8:34:00 EDT, Route to Pharmacy Electronically, [facility] #[id number], Partial fill upon patient request;, 12/27/21, 168... Start Date: 12/26/21 Stop Date: 01/23/22 Status: Ordered Ventolin HFA 108 mcg/inh inhalation aerosol with adapter 2 puffs, Inhalation, 4 times a day, # 1 each, 5 Refills, Maintenance, 11/08/21 14:08:00 EDT, [facility] #[id number], 168, cm, 12/21/20 13:46:00 EDT, Height Start Date: 11/08/21 Status: Ordered Problem List Condition Effective Dates Status Health Status Inform ant Asthma(Confirmed) Active Endometriosis(Confirmed) Active Fibromyalgia muscle pain(Confirmed) 12/01/12 Active Low back pain(Confirmed) Active Migraine(Confirmed) Active Pain in hip(Confirmed) Active [facility] prescription opiat e use(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
--- OUTSIDE RECORDS SUMMARY | 2024-04-20 13:08 | XMS_ITS | Continuity of Care Document ---
Author Organization [facility] Adult Address [address] [place] [address]- Care Team Providers Care Manager Medicaid Name Role Phone Aminah GUZMÁN, Westley Jaime Primary Care Physician Encounter [facility] Date(s): 08/17/21 - 09/16/21 [facility] [address] [place] [address]- Allergies, Adverse Reactions, Alerts Substance Reaction Severity [...] 5 Refills, Maintenance, 02/07/21 14:03:00 EDT, [facility], [id number], Partial fill upon patient request if the prescription is for a schedule II opioid drug., 2 puffs Inhalation 2 times a da... Start Date: 02/07/21 Status: Ordered carisoprodol 350 mg oral tablet 350 mg, 1, tablet, By Mouth, 3 times a day, PRN, BELT MAKER checked, # 90 tablet, Refills 5, Tot. Refills 5, Maintenance, for back spasm, 08/22/21 14:26:00 EST, Route to Pharmacy Electronically, [facility] #[id number], Partial fill upon patient request... Start Date: [...] 09/04/21 8:47:00 EST, Route to Pharmacy Electronically, [facility] #[id number], Partial fill upon patient request;, 09/06/21, 168... 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
--- OUTSIDE RECORDS SUMMARY | 2024-04-20 13:08 | XMS_ITS | Continuity of Care Document ---
Author Organization [facility] Adult Address [address] [place] [address]- Care Team Providers Care Etl Tester Name Role Phone Westley Burr MD Primary Care Physician Encounter [facility] Date(s): 01/26/22 - 02/25/22 [facility] [address] [place] [address]- Allergies, Adverse Reactions, Alerts Substance Reaction Severity [...] each, 5 Refills, Maintenance, 01/26/22 13:13:00 EDT, [id number], Partial fill upon patient request if the prescription is for a schedule II opioid drug., 2 puffs Inhalation 2 times a da... Start Date: 01/26/22 Status: Ordered carisoprodol 350 mg oral tablet 350 mg, 1, tablet, By Mouth, 3 times a day, PRN, SUPERVISOR DISPLAY FABRICATION checked, # 90 tablet, Refills 5, Tot. Refills 5, Maintenance, for back spasm, 02/07/22 17:15:00 EDT, Route to Pharmacy Electronically, [facility] #[id number], Partial fill upon patient request... Start Date: [...] Tot. Refills 0, Maintenance, Pain , Severe, 02/21/22 8:41:00 EDT, Route to Pharmacy Electronically, [facility] #[id number], Partial fill upon patient request;, 168, cm, 050... 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
--- OUTSIDE RECORDS SUMMARY | 2024-04-20 13:08 | XMS_ITS | Continuity of Care Document ---
Author Organization [facility] Adult Address [address] [place] [address]- Care Team Providers Care Cyber Security Engineer Name Role Phone Aminah GUZMÁN, Westley Jaime Primary Care Physician Encounter [facility] Date(s): 06/13/21 - 07/13/21 [facility] [address] [place] [address]- Allergies, Adverse Reactions, Alerts Substance Reaction Severity [...] 5 Refills, Maintenance, 02/07/21 14:03:00 EDT, Aerosol, [facility] #[id number], Partial fill upon patient request if the prescription is for a schedule II opioid drug., 2 puffs Inhalation 2 times a da... Start Date: 02/07/21 Status: Ordered carisoprodol 350 mg oral tablet 350 mg, 1, tablet, By Mouth, 3 times a day, PRN, CANVAS GOODS MAKER checked, # 90 tablet, Refills 5, Tot. Refills 5, Maintenance, for back spasm, 03/07/21 15:59:00 EDT, Route to Pharmacy Electronically, [facility] #[id number], Partial fill upon patient request... Start Date: [...] Tot. Refills 0, Maintenance, Pain , Severe, 07/11/21 10:18:00 EST, Route to Pharmacy Electronically, [facility] #[id number], Partial fill upon patient request;, 07/12/21, 16... 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
--- OUTSIDE RECORDS SUMMARY | 2024-04-20 13:08 | XMS_ITS | Continuity of Care Document ---
Author Organization [facility] Adult Address [address] [place] [address]- Care Team Providers Care Director Of Adult Epilepsy Name Role Phone Vinny CROWELL, Zuri Tran Primary Care Physician [phone] [place] [facility] [place] - 11/01/22 [facility] Adult [address] [place] [address]- Allergies, Adverse Reactions, Alerts Substance Reaction Severity [...] Inactive (IM) (oldterm) 08/10/09 Given 1Result Comment: [facility]# [id number] 2Admin Note: VIS GIVEN 3Admin Note: GIVEN BY DR Carter carisoprodol 350 mg oral tablet 350 mg, 1, tablet, By Mouth, 3 times a day, PRN, hospital scientist checked, # 90 tablet, Refills 0, Tot. Refills 0, Maintenance, as needed for spasm, 10/15/22 14:19:00 EDT, Route to Pharmacy Electronically, [facility] #[id number], Partial fill upon patient req... Start Date: 10/15/22 Stop Date: 11/14/22 Status: Ordered carisoprodol 350 mg oral tablet 350 mg, 1, tablet, By Mouth, 3 times a day, PRN, FINANCE CONTROLLER checked, # 90 tablet, Refills 0, Tot. Refills 0, Maintenance, for back spasm, 07/22/22 14:28:00 EST, Route to Pharmacy Electronically, [facility] #[id number], Partial fill upon patient request... Start Date: 07/22/22 Status: Ordered ibuprofen 200 mg oral tablet 400 mg, 2, tablet, By Mouth, Every 6 hours, PRN, # 120 tablet, Refills 0, Maintenance, for pain, 07/09/16 14:58:25 Start Date: 07/09/16 Status: Ordered naloxone 4 mg/0.1 mL nasal spray = 4 mg, Nares, Both, Once, # 2 each, 2 Refills, Soft Stop, 09/19/22 16:56:00 EST, [facility] #[id number], Partial fill upon patient request if the prescription is for a schedule II opioid drug.,170, cm, 09/19/22 15:48:00 EST, Height, 71.2, kg, 0... Start Date: 09/19/22 Status: Ordered oxyCODONE 5 mg oral tablet 5 mg, 1, tablet, By Mouth, Every 4 hours, PRN, # 28 tablet, Refills 0, Tot. Refills 0, Maintenance,Pain , Severe, 10/30/22 11:46:00 EDT, Route to Pharmacy Electronically, [facility] #[id number], Partial fill upon patient request; Dose is being t... Start Date: 10/30/22 Stop Date: 11/06/22 Status: Ordered Symbicort 80mcg/4.5mcg Inhaler 2, puffs, Inhalation, 2 times a day, # 1 each, Refills 11, Tot. Refills 11, Maintenance, 06/21/22 16:17:00 EST, Route to Pharmacy Electronically, [id number], [email or web address] #[id number], 170, cm, 06/21/22 15:44:00 EST, Height... 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
--- OUTSIDE RECORDS SUMMARY | 2024-04-20 13:08 | XMS_ITS | Continuity of Care Document ---
Author Organization [facility] Adult Address [address] [place] [address]- Care Team Providers Care Neurology Teacher Name Role Phone Westley Burr MD Primary Care Physician Encounter [facility] [place] Date(s): 02/07/22 - 03/09/22 [facility] Adult [address] [place] [address]- Allergies, Adverse Reactions, Alerts Substance Reaction Severity [...] each, 5 Refills, Maintenance, 01/26/22 13:13:00 EDT, [id number], Partial fill upon patient request if the prescription is for a schedule II opioid drug., 2 puffs Inhalation 2 times a da... Start Date: 01/26/22 Status: Ordered carisoprodol 350 mg oral tablet 350 mg, 1, tablet, By Mouth, 3 times a day, PRN, INSIDE SALES CONSULTANT checked, # 90 tablet, Refills 5, Tot. Refills 5, Maintenance, for back spasm, 02/07/22 17:15:00 EDT, Route to Pharmacy Electronically, [facility] #[id number], Partial fill upon patient request... Start Date: [...] 02/21/22 8:41:00 EDT, Route to Pharmacy Electronically, [facility] #[id number], Partial fill upon patient request;, 168, cm, 050... Start Date: 02/21/22 Stop Date: 03/21/22 Status: Ordered Ventolin HFA 108 mcg/inh inhalation aerosol with adapter 2 puffs, Inhalation, 4 times a day, # 1 each, 5 Refills, Maintenance, 11/08/21 14:08:00 EDT, [facility] #[id number], 168, cm, 12/21/20 13:46:00 EDT, Height Start Date: 11/08/21 Status: Ordered Problem List Condition Effective Dates Status Health Status Inform ant Asthma(Confirmed) Active Endometriosis(Confirmed) Active Fibromyalgia muscle pain(Confirmed) 12/01/12 Active Low back pain(Confirmed) Active Migraine(Confirmed) Active Pain in hip(Confirmed) Active [facility] prescription opiat e use(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
--- OUTSIDE RECORDS SUMMARY | 2024-04-20 13:08 | XMS_ITS | Continuity of Care Document ---
Author Organization [facility] Adult Address [address] [place] [address]- Care Team Providers Care Strip Presser Name Role Phone Aminah GUZMÁN, Westley Jaime Primary Care Physician [place] [facility] [place] Date(s): 07/12/20 - 08/11/20 [facility] Adult [address] [place] [address]- Allergies, Adverse Reactions, Alerts Substance Reaction Severity [...] Refills 1, Tot. Refills 1, Soft Stop, 05/05/20 10:32:00 EDT, Route to Pharmacy Electronically, [facility] #[id number], 168, cm, 02/18/2014:35:00 EDT, Height, 70.3, kg, 04/17/19 17:38:00 E... Start Date: 05/05/20 Status: Ordered ibuprofen 200 mg oral tablet 400 mg, 2, tablet, By Mouth, Every 6 hours, PRN, # 120 tablet, Refills 0, Maintenance, for pain, 07/09/16 14:58:25 Start Date: 07/09/16 Status: Ordered oxyCODONE 5 mg oral tablet 10 mg, 2, tablet, By Mouth, Every 6 hours, PRN, # 224 tablet, Refills 0, Tot. Refills 0, Maintenance, Pain , Severe, 08/09/20 10:41:00 EST, Route to Pharmacy Electronically, [facility] #[id number], Partial fill upon patient request;, 08/10/20, 16... Start Date: 08/09/20 Stop Date: 09/06/20 Status: Ordered Ventolin HFA 108 mcg/inh inhalation aerosol with adapter 2 puffs, Inhalation, 4 times a day, # 1 each, 5 Refills, Maintenance, 06/20/20 12:53:00 EST, [facility] #[id number], 168, cm, 02/19/20 14:35:00 EDT, Height, 70.3, kg, 04/17/19 17:38:00 EDT, Dry Weight Start Date: 06/20/20 Status: Ordered Problem List Condition Effective Dates Status Health Status Inform ant Asthma(Confirmed) Active Endometriosis(Confirmed) Active Fibromyalgia muscle pain(Confirmed) 12/01/12 Active Low back pain(Confirmed) Active Migraine(Confirmed) Active Pain in hip(Confirmed) Active 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
--- OUTSIDE RECORDS SUMMARY | 2024-04-20 13:08 | XMS_ITS | Continuity of Care Document ---
Author Organization [facility] Address [address] [address]- Care Team Providers Care Nfl Player Name Role Phone Aminah GUZMÁN, Westley Jaime Primary Care Physician Encounter [facility] [place] Date(s): 12/05/20 - 01/04/21 [facility] [address] [address] Allergies, Adverse Reactions, Alerts Substance Reaction Severity [...] 07/09/16 14:58:25 Start Date: 07/09/16 Status: Ordered methocarbamol 750 mg oral tablet 2 tablet, By Mouth, 3 times a day, PRN NEEDED FOR SPASM, # 90 tablet, 0 Refills, Acute, 218:52:00 EDT, [facility] #[id number], 168, cm, 12/21/20 13:46:00 EDT, Height, 70.3, kg, 04/17/19 17:38:00 EDT, Dry Weight Start Date: 12/26/20 Status: Ordered oxyCODONE 5 mg oral tablet 10 mg, 2, tablet, By Mouth, Every 6 hours, PRN, # 224 tablet, Refills 0, Tot. Refills 0, Maintenance, Pain , Severe, 12/23/20 16:18:00 EDT, Route to Pharmacy Electronically, [facility] #[id number], Partial fill upon patient request;, 12/28/20, 16... Start Date: 12/23/20 Stop Date: 01/20/21 Status: Ordered Ventolin HFA 108 mcg/inh inhalation aerosol with adapter 2 puffs, Inhalation, 4 times a day, # 1 each, 5 Refills, Maintenance, 10/27/20 7:38:00 EDT, [facility] #[id number], 168, cm, 02/19/20 14:35:00 EDT, Height, 70.3, kg, 04/17/19 17:38:00 EDT, Dry Weight Start Date: 10/27/20 Status: Ordered Problem List Condition Effective Dates Status Health Status Inform ant Asthma(Confirmed) Active Endometriosis(Confirmed) Active Fibromyalgia muscle pain(Confirmed) 12/01/12 Active Low back pain(Confirmed) Active Migraine(Confirmed) Active Pain in hip(Confirmed) Active half-way prescription opiat e use(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
--- OUTSIDE RECORDS SUMMARY | 2024-04-20 13:08 | XMS_ITS | Continuity of Care Document ---
Author Organization [facility] Adult Address [address] [place] [address]- Care Team Providers Care Manual Winder Name Role Phone Westley Burr MD Primary Care Physician Encounter [facility] [place] Date(s): 04/04/22 - 04/11/22 [facility] Adult [address] [place] [address]- Encounter Diagnosis Laceration of finger(Discharge Diagnosis) - 04/04/22 Attending Physician: Remy CROWELL, Carole Mejia Referring Physician: Westley Burr MD Allergies, Adverse [...] 5 Refills, Maintenance, 01/26/22 13:13:00 EDT, Aerosol, [facility] #[id number], Partial fill upon patient request if the prescription is for a schedule II opioid drug., 2 puffs Inhalation 2 times a da... Start Date: 01/26/22 Status: Ordered carisoprodol 350 mg oral tablet 350 mg, 1, tablet, By Mouth, 3 times a day, PRN, PARACHUTE ACCESSORIES ATTACHER checked, # 90 tablet, Refills 5, Tot. Refills 5, Maintenance, for back spasm, 02/07/22 17:15:00 EDT, Route to Pharmacy Electronically, [facility] #[id number], Partial fill upon patient request... Start Date: [...] Tot. Refills 0, Maintenance, Pain , Severe, 03/19/22 10:22:00 EDT, Route to Pharmacy Electronically, [facility] #[id number], Partial fill upon patient request;, 03/21/22, 16... Start Date: 03/19/22 Stop Date: 04/16/22 Status: Ordered Ventolin HFA 108 mcg/inh inhalation aerosol with adapter 2 puffs, Inhalation, 4 times a day, # 1 each, 5 Refills, Maintenance, 03/27/22 14:31:00 EDT, [facility] #[id number], 168, cm, 12/08/21 14:09:00 EDT, Height Start Date: 03/27/22 Status: Ordered Problem List Condition Effective Dates Status Health Status Inform ant Asthma(Confirmed) Active Endometriosis(Confirmed) Active Fibromyalgia muscle pain(Confirmed) 12/01/12 Active Low back pain(Confirmed) Active Migraine(Confirmed) Active Pain in hip(Confirmed) Active assisted prescription opiat e use(Confirmed) Active Tobacco use disorder(Confirmed) Active Diagnosis Diagnosis Type Effective Dates Health Status Clinical Service Informant Laceration of finger Discharge Diagnosis 04/04/22 Vital Signs Most recent to oldest [Reference Range]: 1 Height 168 cm (04/04/22 10:47 AM) Weight 71.1 kg (04/04/22 10:47 AM) Oxygen Saturation [94-100 %] 98 % (04/04/22 10:47 AM) Pulse Rate [55-90 bpm] 73 bpm (04/04/22 10:47 AM) Body Mass Index [18.5-24.99] 25.19 *H* (04/04/22 10:47 AM) Blood Pressure [90-138/55-84 mm Hg] 124/ 67mm Hg (04/04/22 10:47 AM) Temperature [96.8-100.4 DegF] 99 DegF (04/04/22 10:47 AM) Mode of Delivery (Oxygen) Room air (04/04/22 10:47 AM) Blood pressure sites Arm, right (04/04/22 10:47 AM) Temperature Route Temporal (04/04/22 10:47 AM) Weight Obtained Via Standing scale (04/04/22 10:47 AM) Social History Social History Type Response Smoking Status 5-9 cigarettes (betw een 1/4 to 1/2 pack)/day in last 30 days entered on: 04/17/19 Sex Female Care Team Personnel Name: Westley Burr MD Address: [address] [facility] 3rd Floor [facility] [place], [place] [address]
--- OUTSIDE RECORDS SUMMARY | 2024-04-20 13:08 | XMS_ITS | Continuity of Care Document ---
Author Organization [facility] Adult Address [address] [place] [address]- Care Team Providers Care Supply Chain Technician Name Role Phone Aminah GUZMÁN, Westley Jaime Primary Care Physician En[place] [facility] [place] Date(s): 04/18/20 - 05/18/20 [facility] Adult [address] [place] [address] Allergies, Adverse Reactions, Alerts Substance Reaction [...] 05/05/20 10:32:00 EDT, Route to Pharmacy Electronically, [facility] #[id number], 168, cm, 02/18/2014:35:00 EDT, Height, 70.3, kg, [...] Tot. Refills 0, Maintenance, Pain , Severe, 05/17/20 9:47:00 EDT, Route to Pharmacy Electronically, [facility] #[id number], Partial fill upon patient request;, 05/18/20, 168... Start Date: 05/17/20 Stop Date: 06/14/20 Status: Ordered Ventolin HFA 108 mcg/inh inhalation aerosol with adapter 2 puffs, Inhalation, 4 times a day, # 1 each, 5 Refills, Maintenance, 03/23/20 12:41:00 EDT, [facility] #[id number], 168, cm, 02/19/20 14:35:00 EDT, Height, 70.3, kg, 04/17/19 17:38:00 EDT, Dry Weight Start Date: 03/23/20 Status: Ordered Problem List Condition Effective Dates Status Health Status Inform ant Asthma(Confirmed) Active Endometriosis(Confirmed) Active Fibromyalgia muscle pain(Confirmed) 12/01/12 Active Low back pain(Confirmed) Active Migraine(Confirmed) Active Pain in hip(Confirmed) 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
--- OUTSIDE RECORDS SUMMARY | 2024-04-20 13:08 | XMS_ITS | Continuity of Care Document ---
Author Organization [facility] Adult Address [address] [place] [address]- Care Team Providers Care Crate Icer Name Role Phone Aminah GUZMÁN, Westley Jaime Primary Care Physician Encounter [facility] Date(s): 03/07/21 - 04/06/21 [facility] Adult [address] [place] [address]- Allergies, Adverse Reactions, Alerts Substance Reaction Severity [...] 5 Refills, Maintenance, 02/07/21 14:03:00 EDT, [id number], Partial fill upon patient request if the prescription is for a schedule II opioid drug., 2 puffs Inhalation 2 times a da... Start Date: 02/07/21 Status: Ordered carisoprodol 350 mg oral tablet 350 mg, 1, tablet, By Mouth, 3 times a day, PRN, CNC SERVICE TECHNICIAN checked, # 90 tablet, Refills 5, Tot. Refills 5, Maintenance, for back spasm, 03/07/21 15:59:00 EDT, Route to Pharmacy Electronically, [facility] #[id number], Partial fill upon patient request... Start Date: [...] 03/14/21 9:35:00 EDT, Route to Pharmacy Electronically, [facility] #[id number], Partial fill upon patient request;, 03/22/21, 168... Start Date: 03/14/21 Stop Date: 04/11/21 Status: Ordered Ventolin HFA 108 mcg/inh inhalation aerosol with adapter 2 puffs, Inhalation, 4 times a day, # 1 each, 5 Refills, Maintenance, 02/03/21 16:26:00 EDT, [facility] #[id number], 168, cm, 12/21/20 13:46:00 EDT, Height, 70.3, kg, 04/17/19 17:38:00 EDT, Dry Weight Start Date: 02/03/21 Status: Ordered Problem List Condition Effective Dates Status Health Status Inform ant Asthma(Confirmed) Active Endometriosis(Confirmed) Active Fibromyalgia muscle pain(Confirmed) 12/01/12 Active Low back pain(Confirmed) Active Migraine(Confirmed) Active Pain in hip(Confirmed) Active rn long term care prescription opiat e use(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
--- OUTSIDE RECORDS SUMMARY | 2024-04-20 13:08 | XMS_ITS | Continuity of Care Document ---
Author Organization [facility] Adult Address [address] [place] [address]- Care Team Providers Care Physical Biochemist Name Role Phone Aminah GUZMÁN, Westley Jaime Primary Care Physician Encounter [facility] [place] Date(s): 08/25/20 - 09/24/20 [facility] Adult [address] [place] [address] [address] Attending Physician: Brian Urbano Admitting Physician: AdmBrian bro Referring Physician: AdmtrBrian Allergies, Adverse Reactions, Alerts Substance Reaction Severity [...] GIVEN Medications carisoprodol 350 mg oral tablet 1 tablet, By Mouth, 3 times a day, DIRECTOR OF PARKS AND RECREATION checked, # 270 tablet, 1 Refills, Maintenance, 09/19/20 17:12:00 [facility], [facility] #[id number], 168, cm, 02/19/20 14:35:00 EDT, Height, 70.3, kg, 04/17/19 17:38:00 EDT, Dry Weight Start Date: 09/19/20 Status: Ordered ibuprofen 200 mg oral tablet 400 mg, 2, tablet, By Mouth, Every 6 hours, PRN, # 120 tablet, Refills 0, Maintenance, for pain, 07/09/16 14:58:25 Start Date: 07/09/16 Status: Ordered oxyCODONE 5 mg oral tablet 10 mg, 2, tablet, By Mouth, Every 6 hours, PRN, # 224 tablet, Refills 0, Tot. Refills 0, Maintenance, Pain , Severe, 09/06/20 11:39:00 EST, Route to Pharmacy Electronically, [facility] #[id number], Partial fill upon patient request;, 09/07/20, 16... Start Date: 09/06/20 Stop Date: 10/04/20 Status: Ordered Ventolin HFA 108 mcg/inh inhalation aerosol with adapter 2 puffs, Inhalation, 4 times a day, # 1 each, 5 Refills, Maintenance, 06/20/20 12:53:00 EST, [facility] #[id number], 168, cm, 02/19/20 14:35:00 EDT, Height, 70.3, kg, 04/17/19 17:38:00 EDT, Dry Weight Start Date: 06/20/20 Status: Ordered Problem List Condition Effective Dates Status Health Status Inform ant Asthma(Confirmed) Active Endometriosis(Confirmed) Active Fibromyalgia muscle pain(Confirmed) 12/01/12 Active Low back pain(Confirmed) Active Migraine(Confirmed) Active Pain in hip(Confirmed) Active 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
--- OUTSIDE RECORDS SUMMARY | 2024-04-20 13:08 | XMS_ITS | Continuity of Care Document ---
Author Organization [facility] Adult Address [address] [place] [address]- Care Team Providers Care Regional Transfer Liaison Name Role Phone Olya GUZMÁN, Josefina Primary Care Physici an [facility]counter [facility] Date(s): 12/09/23 - 01/08/24 [facility] Adult [address] [place] [address]- Allergies, Adverse Reactions, Alerts Substance Reaction Severity [...] Inactive (IM) (oldterm) 08/10/09 Given 1Result Comment: [facility]# [id number] 2Admin Note: VIS GIVEN 3Admin Note: GIVEN BY DR Carter azithromycin 250 mg oral tablet See Instructions, 2 tab oral once daily for one day then 1 tab oral once daily for four days, # 6 tablet, 0 Refills, Maintenance, 09/10/23 12:15:00 EST, Tablet, [facility] #[id number], Partial fill upon patient request if the prescription is for... Start Date: 09/10/23 Status: Ordered carisoprodol 350 mg oral tablet 1 tablet, By Mouth, 3 times a day, PRN Pain, for 30 days, # 90 tablet, 3 Refills, Hard Stop 02/06/24 17:15:00 EDT, 10/09/23 17:15:00 EST, [facility] #[id number], 170, cm, 08/03/23 9:57:00 EST, Height, 75, kg, 08/02/23 10:40:00 EST, Dry Weight Start Date: 10/09/23 Stop Date: 02/06/24 Status: Ordered carisoprodol 350 mg oral tablet 1 tablet, By Mouth, 3 times a day, PRN Pain, # 90 tablet, 3 Refills, Maintenance, 02/06/24 17:15:00EDT, [facility] #[id number], 170, cm, 08/03/23 9:57:00 EST, Height, 75, kg, 08/02/23 10:40:00 EST, Dry Weight Start Date: 02/06/24 Stop Date: 06/05/24 Status: Ordered ibuprofen 200 mg oral tablet 800 mg, 4, tablet, By Mouth, Every 6 hours, PRN, # 120 tablet, Refills 0, Maintenance, for pain, 07/09/16 14:58:25 EST Start Date: 07/09/16 Status: Ordered naloxone 4 mg/0.1 mL nasal spray = 4 mg, Nares, Both, Once, # 2 each, 2 Refills, Soft Stop, 09/19/22 16:56:00 EST, [facility] #[id number], Partial fill upon patient request if the prescription is for a schedule II opioid drug.,170, cm, 09/19/22 15:48:00 EST, Height, 71.2, kg, 0... Start Date: 09/19/22 Status: Ordered oxyCODONE 5 mg oral tablet See Instructions, PRN, 1-2 tablet By Mouth Every 4 hours as needed, # 140 tablet, Refills 0, Tot. Refills 0, Maintenance, as needed for pain, 12/10/23 8:57:00 EDT, Instructions Replace Required Details, Route to Pharmacy Electronically, [facility]... Start Date: 12/10/23 Status: Ordered predniSONE 20 mg oral tablet See Instructions, 3 tab oral once daily x 2 days then 2 tab oral once daily x 2 days then 1 tab oral once daily x 2 days, # 12 tablet, 0 Refills, Maintenance, 09/10/23 12:15:00 EST, Tablet, [facility] #[id number], Partial fill upon patient reques... Start Date: 09/10/23 Status: Ordered Symbicort 80mcg/4.5mcg Inhaler 2, puffs, Inhalation, 2 times a day, # 1 each, Refills 11, Tot. Refills 11, Maintenance, 06/21/22 16:17:00 EST, Route to Pharmacy Electronically, [id number], [facility] #[id number], 170, cm, 06/21/22 15:44:00 EST, Height... Start Date: 06/21/22 Status: Ordered Tylenol 8 Hour Caplet = 1,300 mg, By Mouth, Every 8 hours, 0 Refills, Maintenance, 04/05/23 13:09:00 EDT, Partial fill upon patient request if the prescription is for a schedule II opioid drug. Start Date: 04/05/23 Status: Ordered Ventolin HFA 108 mcg/inh inhalation aerosol with adapter 2 puffs, Inhalation, Every 4 hours, PRN NEEDED FOR WHEEZING, # 18 Gm, 5 Refills, Maintenance, 12/05/23 10:28:00 EDT, [facility] #[id number], 170, cm, 08/03/23 9:57:00 EST, Height, 75, kg, 08/02/23 10:40:00 EST, Dry Weight Start Date: 12/05/23 Status: Ordered Xtampza ER 9 mg oral capsule, extended release 1 capsule = 9 mg, By Mouth, Every 12 hours, with food, # 56 capsule, 0 Refills, Maintenance, 06/21/23 14:12:00 EST, ER Capsule, [facility] #[id number], Partial fill upon patient request if the prescription is for a schedule II opioid drug., 170,... 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 Active Tobacco use disorder Confirmed Active Social History Social History Type Response Smoking Status 10 or more cigarette s (1/2 pack or more)/day in last 30 days; Interested in cessation: Yes; Other: 1- 2 packs daily; entered on: 04/05/23 Sex Female Patient Care team information Care Team Personnel Name: Josefina Dobson MD Position: [facility] Physician - Primary Care Member Role: PCP Address: Address: [address] [place] [address]- Care Team Related Persons Name: ILYA GOLDSTEIN Address: home [address] [address] Name: RICHARD GOLDSTEIN Name: HARSHAD AVALOS Address: [address] [address]
--- OUTSIDE RECORDS SUMMARY | 2024-04-20 13:08 | XMS_ITS | Continuity of Care Document ---
Author Organization [facility] Adult Address [address] [place] [address]- Care Team Providers Care Mail Opener Name Role Phone Westley Burr MD Primary Care Physician Encounter [facility] Date(s): 02/19/20 - 09/24/20 [facility] [address] [place] [address]- Attending Physician: Westley Burr MD Allergies, Adverse [...] tablet, By Mouth, 3 times a day, BATTERY TEST ENGINEER checked, # 270 tablet, 1 Refills, Maintenance, 09/19/20 17:12:00 EST, [facility] #[id number], 168, cm, 02/19/20 14:35:00 EDT, Height, 70.3, [...] 09/06/20 11:39:00 EST, Route to Pharmacy Electronically, [facility] #[id number], Partial fill upon patient request;, 09/07/20, 16... Start Date: 09/06/20 Stop Date: 10/04/20 Status: Ordered Ventolin HFA 108 mcg/inh inhalation aerosol with adapter 2 puffs, Inhalation, 4 times a day, # 1 each, 5 Refills, Maintenance, 06/20/20 12:53:00 EST, [facility] #[id number], 168, cm, 02/19/20 14:35:00 EDT, Height, 70.3, kg, 04/17/19 17:38:00 EDT, Dry Weight Start Date: 06/20/20 Status: Ordered Problem List Condition Effective Dates Status Health Status Inform ant Asthma(Confirmed) Active Endometriosis(Confirmed) Active Fibromyalgia muscle pain(Confirmed) 12/01/12 Active Low back pain(Confirmed) Active Migraine(Confirmed) Active Pain in hip(Confirmed) Active jail prescription opiat e use(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
--- OUTSIDE RECORDS SUMMARY | 2024-04-20 13:08 | XMS_ITS | Continuity of Care Document ---
Author Organization [facility] Address [address] [address]- Care Team Providers Care Commercial Analyst Name Role Phone Aminah GUZMÁN, Westley Jaime Primary Care Physician Encounter [facility] Date(s): 12/07/20 - 01/29/21 [facility] [address] [place] [address] Attending Physician: Not on Staff, Attending MD Referring Physician: Cira Zhu CNM Allergies, Adverse Reactions, Alerts Substance Reaction Severity [...] 01/10/21 14:06:00 EDT, Route to Pharmacy Electronically, [facility] #[id number], Partial fill upon patient request if the [...] 01/24/21 15:27:00 EDT, Route to Pharmacy Electronically, [facility] #[id number], Partial fill upon patient request;, 01/25/21, 16... Start Date: 01/24/21 Stop Date: 02/21/21 Status: Ordered Ventolin HFA 108 mcg/inh inhalation aerosol with adapter 2 puffs, Inhalation, 4 times a day, # 1 each, 5 Refills, Maintenance, 10/27/20 7:38:00 EDT, [facility] #[id number], 168, cm, 02/19/20 14:35:00 EDT, Height, 70.3, kg, 04/17/19 17:38:00 EDT, Dry Weight Start Date: 10/27/20 Status: Ordered Problem List Condition Effective Dates Status Health Status Inform ant Asthma(Confirmed) Active Endometriosis(Confirmed) Active Fibromyalgia muscle pain(Confirmed) 12/01/12 Active Low back pain(Confirmed) Active Migraine(Confirmed) Active Pain in hip(Confirmed) Active [facility] prescription opiat e use(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
--- OUTSIDE RECORDS SUMMARY | 2024-04-20 13:08 | XMS_ITS | Continuity of Care Document ---
Author Organization [facility] Adult Address [address] [place] [address]- Care Team Providers Care Warehouse Team Leader Name Role Phone Aminah GUZMÁN, Westley Jaime Primary Care Physician [facility]counter [facility] Date(s): 06/13/21 - 07/13/21 [facility] Adult [address] [place] [phone]- Allergies, Adverse Reactions, Alerts Substance Reaction Severity [...] 5 Refills, Maintenance, 02/07/21 14:03:00 EDT, Aerosol, [facility] #[id number], Partial fill upon patient request if the prescription is for a schedule II opioid drug., 2 puffs Inhalation 2 times a da... Start Date: 02/07/21 Status: Ordered carisoprodol 350 mg oral tablet 350 mg, 1, tablet, By Mouth, 3 times a day, PRN, EMPLOYMENT DIRECTOR checked, # 90 tablet, Refills 5, Tot. Refills 5, Maintenance, for back spasm, 03/07/21 15:59:00 EDT, Route to Pharmacy Electronically, [facility] #[id number], Partial fill upon patient request... Start Date: [...] 07/11/21 10:18:00 EST, Route to Pharmacy Electronically, [facility] #[id number], Partial fill upon patient request;, 07/12/21, 16... Start Date: 07/11/21 Stop Date: 08/08/21 Status: Ordered Ventolin HFA 108 mcg/inh inhalation aerosol with adapter 2 puffs, Inhalation, 4 times a day, # 1 each, 5 Refills, Maintenance, 07/11/21 15:43:00 EST, [facility] #[id number], 168, cm, 12/21/20 13:46:00 EDT, Height Start Date: 07/11/21 Status: Ordered Problem List Condition Effective Dates Status Health Status Inform ant Asthma(Confirmed) Active Endometriosis(Confirmed) Active Fibromyalgia muscle pain(Confirmed) 12/01/12 Active Low back pain(Confirmed) Active Migraine(Confirmed) Active Pain in hip(Confirmed) Active nursing home prescription opiat e use(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
--- OUTSIDE RECORDS SUMMARY | 2024-04-20 13:08 | XMS_ITS | Continuity of Care Document ---
Author Organization [facility] Adult Address [address] [place] [address]- Care Team Providers Care Hand Packer/Packager Name Role Phone Aminah GUZMÁN, Westley Jaime Primary Care Physician Encounter [facility] Date(s): 01/24/21 - 02/23/21 [facility] Adult [address] [place] [phone]- Allergies, Adverse Reactions, Alerts Substance Reaction Severity [...] 5 Refills, Maintenance, 02/07/21 14:03:00 EDT, Aerosol, [facility] #[id number], Partial fill upon patient request if the prescription is for a schedule II opioid drug., 2 puffs Inhalation 2 times a da... Start Date: 02/07/21 Status: Ordered carisoprodol 350 mg oral tablet 350 mg, 1, tablet, By Mouth, 3 times a day, PRN, PATTERN FILER checked, # 90 tablet, Refills 0, Tot. Refills 0, Maintenance, for back spasm, 01/31/21 17:14:00 EDT, Route to Pharmacy Electronically, [facility] #[id number], Partial fill upon patient request... Start Date: [...] 02/21/21 10:07:00 EDT, Route to Pharmacy Electronically, [facility] #[id number], Partial fill upon patient request;, 02/22/21, 16... Start Date: 02/21/21 Stop Date: 03/21/21 Status: Ordered Ventolin HFA 108 mcg/inh inhalation aerosol with adapter 2 puffs, Inhalation, 4 times a day, # 1 each, 5 Refills, Maintenance, 02/03/21 16:26:00 EDT, [facility] #[id number], 168, cm, 12/21/20 13:46:00 EDT, Height, 70.3, kg, 04/17/19 17:38:00 EDT, Dry Weight Start Date: 02/03/21 Status: Ordered Problem List Condition Effective Dates Status Health Status Inform ant Asthma(Confirmed) Active Endometriosis(Confirmed) Active Fibromyalgia muscle pain(Confirmed) 12/01/12 Active Low back pain(Confirmed) Active Migraine(Confirmed) Active Pain in hip(Confirmed) Active 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
--- OUTSIDE RECORDS SUMMARY | 2024-04-20 13:08 | XMS_ITS | Continuity of Care Document ---
Author Organization [facility] Adult Address [address] [place] [address]- Care Team Providers Care Mirror Specialist Name Role Phone Westley Burr MD Primary Care Physician Encounter [facility] Date(s): 12/08/21 - 12/15/21 [facility] [address] [place] [address]- Encounter Diagnosis Low back pain(Discharge Diagnosis) - 12/08/21 Pain in hip(Discharge Diagnosis) - 12/08/21 intermediate prescription opiate use(Discharge Diagnosis) - 12/08/21 Left elbow pain(Discharge Diagnosis) - 12/08/21 Attending Physician: Westley Burr MD Allergies, Adverse [...] 5 Refills, Maintenance, 02/07/21 14:03:00 EDT, Aerosol, [facility] #[id number], Partial fill upon patient request if the prescription is for a schedule II opioid drug., 2 puffs Inhalation 2 times a da... Start Date: 02/07/21 Status: Ordered carisoprodol 350 mg oral tablet 350 mg, 1, tablet, By Mouth, 3 times a day, PRN, WIRE BASKET MAKER checked, # 90 tablet, Refills 5, Tot. Refills 5, Maintenance, for back spasm, 08/22/21 14:26:00 EST, Route to Pharmacy Electronically, [facility] #[id number], Partial fill upon patient request... Start Date: [...] 11/28/21 10:37:00 EDT, Route to Pharmacy Electronically, [facility] #[id number], Partial fill upon patient request;, 11/29/21, 16... Start Date: 11/28/21 Stop Date: 12/26/21 Status: Ordered Ventolin HFA 108 mcg/inh inhalation aerosol with adapter 2 puffs, Inhalation, 4 times a day, # 1 each, 5 Refills, Maintenance, 11/08/21 14:08:00 EDT, [facility] #[id number], 168, cm, 12/21/20 13:46:00 EDT, Height Start Date: 11/08/21 Status: Ordered Problem List Condition Effective Dates Status Health Status Inform ant Asthma(Confirmed) Active Endometriosis(Confirmed) Active Fibromyalgia muscle pain(Confirmed) 12/01/12 Active Low back pain(Confirmed) Active Migraine(Confirmed) Active Pain in hip(Confirmed) Active intermediate prescription opiat e use(Confirmed) Active Tobacco use disorder(Confirmed) Active Diagnosis Diagnosis Type Effective Dates Health Status Clinical Service Informant Low back pain Discharge Diagnosis 12/08/21 Pain in hip Discharge Diagnosis 12/08/21 intermediate prescription opiate use Discharge Diagnosis 12/08/21 Left elbow pain Discharge Diagnosis 12/08/21 Vital Signs Most recent to oldest [Reference Range]: 1 Height 168 cm (12/08/21 2:09 PM) Weight 69.3 kg (12/08/21 2:09 PM) Oxygen Saturation [94-100 %] 98 % (12/08/21 2:09 PM) Pulse Rate [55-90 bpm] 99 bpm *H* (12/08/21 2:09 PM) Body Mass Index [18.5-24.99] 24.55 (12/08/21 2:09 PM) Blood Pressure [90-138/55-84 mm Hg] 104/ 67mm Hg (12/08/21 2:09 PM) Mode of Delivery (Oxygen) Room air (12/08/21 2:09 PM) Blood pressure sites Arm, right (12/08/21 2:09 PM) Weight Obtained Via Standing scale (12/08/21 2:09 PM) Social History Social History Type Response Smoking Status 5-9 cigarettes (betw een 1/4 to 1/2 pack)/day in last 30 days entered on: 04/17/19 Sex Female
--- OUTSIDE RECORDS SUMMARY | 2024-04-20 13:08 | XMS_ITS | Continuity of Care Document ---
Author Organization [facility] Adult Address [address] [place] [address]- Care Team Providers Care Contract Writer Name Role Phone Aminah GUZMÁN, Westley Jaime Primary Care Physician [facility]counter [facility] Date(s): 02/21/21 - 03/23/21 [facility] [address] [place] [address]- Allergies, Adverse Reactions, Alerts Substance Reaction Severity [...] 5 Refills, Maintenance, 02/07/21 14:03:00 EDT, [facility]erosol, [facility][id number], Partial fill upon patient request if the prescription is for a schedule II opioid drug., 2 puffs Inhalation 2 times a da... Start Date: 02/07/21 Status: Ordered carisoprodol 350 mg oral tablet 350 mg, 1, tablet, By Mouth, 3 times a day, PRN, PRODUCTION LINE checked, # 90 tablet, Refills 5, Tot. Refills 5, Maintenance, for back spasm, 03/07/21 15:59:00 EDT, Route to Pharmacy Electronically, [facility] #[id number], Partial fill upon patient request... Start Date: [...] 03/14/21 9:35:00 EDT, Route to Pharmacy Electronically, [facility] #[id number], Partial fill upon patient request;, 03/22/21, 168... Start Date: 03/14/21 Stop Date: 04/11/21 Status: Ordered Ventolin HFA 108 mcg/inh inhalation aerosol with adapter 2 puffs, Inhalation, 4 times a day, # 1 each, 5 Refills, Maintenance, 02/03/21 16:26:00 EDT, [facility] #[id number], 168, cm, 12/21/20 13:46:00 EDT, Height, 70.3, kg, 04/17/19 17:38:00 EDT, Dry Weight Start Date: 02/03/21 Status: Ordered Problem List Condition Effective Dates Status Health Status Inform ant Asthma(Confirmed) Active Endometriosis(Confirmed) Active Fibromyalgia muscle pain(Confirmed) 12/01/12 Active Low back pain(Confirmed) Active Migraine(Confirmed) Active Pain in hip(Confirmed) Active 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
--- OUTSIDE RECORDS SUMMARY | 2024-04-20 13:08 | XMS_ITS | Continuity of Care Document ---
Author Organization [facility] Adult Address [address] [place] [address]- Care Team Providers Care Housing Relocation Name Role Phone Aminah GUZMÁN, Westley Jaime Primary Care Physician Encounter [facility] Date(s): 10/04/20 - 11/03/20 [facility] Adult [address] [place] [phone]- Allergies, Adverse Reactions, Alerts Substance Reaction Severity [...] 11/01/20 9:28:00 EDT, Route to Pharmacy Electronically, [facility] #[id number], Partial fill upon patient request;, 11/02/20, 168... Start Date: 11/01/20 Stop Date: 11/29/20 Status: Ordered tiZANidine 4 mg oral tablet 4 mg, 1, tablet, By Mouth, Every 8 hours, # 90 tablet, Refills 0, Tot. Refills 0, Maintenance, 10/26/20 15:51:00 EDT, Route to Pharmacy Electronically, [facility] #[id number], Partial fill upon patient request if the prescription is for a schedul... Start Date: 10/26/20 Status: Ordered Ventolin HFA 108 mcg/inh inhalation aerosol with adapter 2 puffs, Inhalation, 4 times a day, # 1 each, 5 Refills, Maintenance, 10/27/20 7:38:00 EDT, [facility] #[id number], 168, cm, 02/19/20 14:35:00 EDT, Height, 70.3, [...]
--- OUTSIDE RECORDS SUMMARY | 2024-04-20 13:08 | XMS_ITS | Continuity of Care Document ---
Author Organization [facility] Adult Address [address] [place] [address]- Care Team Providers Care Senior Clerk Name Role Phone Aminah GUZMÁN, Westley Jaime Primary Care Physician [facility]counter [facility] Date(s): 04/15/22 - 05/15/22 [facility] [address] [place] [address]- Allergies, Adverse Reactions, Alerts Substance Reaction Severity [...] each, 5 Refills, Maintenance, 01/26/22 13:13:00 EDT, [facility] #[id number], Partial fill upon patient request if the prescription is for a schedule II opioid drug., 2 puffs Inhalation 2 times a da... Start Date: 01/26/22 Status: Ordered carisoprodol 350 mg oral tablet 350 mg, 1, tablet, By Mouth, 3 times a day, PRN, WHARF WORKER checked, # 90 tablet, Refills 5, Tot. Refills 5, Maintenance, for back spasm, 02/07/22 17:15:00 EDT, Route to Pharmacy Electronically, [facility] #[id number], Partial fill upon patient request... Start Date: [...] 05/15/22 11:04:00 EDT, Route to Pharmacy Electronically, [facility] #[id number], Partial fill upon patient request;, 05/16/22, 17... Start Date: 05/15/22 Stop Date: 06/12/22 Status: Ordered Ventolin HFA 108 mcg/inh inhalation aerosol with adapter 2 puffs, Inhalation, 4 times a day, # 1 each, 5 Refills, Maintenance, 03/27/22 14:31:00 EDT, [facility] #[id number], 168, cm, 12/08/21 14:09:00 EDT, Height Start Date: 03/27/22 Status: Ordered Problem List Condition Confirmation Course Effective Dates Status H ealth Status Informant Asthma Confirmed Active Endometriosis Confirmed Active Fibromyalgia muscle pain Confirmed 12/01/12 Active Low back pain Confirmed Active Migraine Confirmed Active Pain in hip Confirmed Active residential prescription opiate use Confirmed Active Tobacco use disorder Confirmed Active Social History Social History Type Response Smoking Status 5-9 cigarettes (betw een 1/4 to 1/2 pack)/day in last 30 days entered on: 04/17/19 Sex Female Patient Care team information Personnel Name: Weather[place] MD, Westley H Address: Address: [address] [place] [address]-
--- OUTSIDE RECORDS SUMMARY | 2024-04-20 13:08 | XMS_ITS | Continuity of Care Document ---
Author Organization [facility] Adult Address [address] [place] [address]- Care Team Providers Care Nanotechnician Name Role Phone Westley Burr MD Primary Care Physician [place] [facility] [place] 06/12/22 - 07/12/22 [facility] [address] [place] [address]- Allergies, Adverse Reactions, Alerts Substance Reaction Severity [...] Inactive (IM) (oldterm) 08/10/09 Given 1Result Comment: [facility]# [id number] 2Admin Note: VIS GIVEN 3Admin Note: GIVEN BY DR Carter carisoprodol 350 mg oral tablet 350 mg, 1, tablet, By Mouth, 3 times a day, PRN, PUMPER GAGER checked, # 90 tablet, Refills 5, Tot. Refills 5, Maintenance, for back spasm, 02/07/22 17:15:00 EDT, Route to Pharmacy Electronically, [facility] #[id number], Partial fill upon patient request... Start Date: [...] 07/10/22 10:30:00 EST, Route to Pharmacy Electronically, [facility] #[id number], Partial fill upon patient request;, 07/11/22, 17... Start Date: 07/10/22 Stop Date: 08/07/22 Status: Ordered Symbicort 80mcg/4.5mcg Inhaler 2, puffs, Inhalation, 2 times a day, # 1 each, Refills 11, Tot. Refills 11, Maintenance, 06/21/22 16:17:00 EST, Route to Pharmacy Electronically, [id number], [facility] #[id number], 170, cm, 06/21/22 15:44:00 EST, Height... Start Date: 06/21/22 Status: Ordered Ventolin HFA 108 mcg/inh inhalation aerosol with adapter 2 puffs, Inhalation, 4 times a day, # 1 each, 5 Refills, Maintenance, 06/21/22 16:16:00 EST, [facility] #[id number], 170, cm, 06/21/22 15:44:00 EST, Height, 71.2, kg, 04/19/22 19:11:00 EDT, Dry Weight Start Date: 06/21/22 Status: Ordered Problem List Condition Confirmation Course Effective Dates Status H ealth Status Informant Asthma Confirmed Active Endometriosis Confirmed Active Fibromyalgia muscle pain Confirmed 12/01/12 Active Low back pain Confirmed Active Migraine Confirmed Active Pain in hip Confirmed Active detention prescription opiate use Confirmed Active Tobacco use disorder Confirmed Active Social History Social History Type Response Smoking Status 5-9 cigarettes (betw een 1/4 to 1/2 pack)/day in last 30 days entered on: 04/17/19 Sex Female Patient Care team information Care Team Personnel Name: Westley Burr MD Position: [facility] Primary Care Physician Member Role: PCP Address: Address: [address] [place] [address]- Care Team Related Persons Name: ILYA GOLDSTEIN Address: home [address] [place] [address] Name: HARSHAD AVALOS Address: [place] [address]
--- OUTSIDE RECORDS SUMMARY | 2024-04-20 13:08 | XMS_ITS | Continuity of Care Document ---
Author Organization [facility] Adult Address [address] [place] [address]- Care Team Providers Care Powertrain Engineer Name Role Phone Aminah GUZMÁN, Westley Jaime Primary Care Physician Encounter [facility] Date(s): 06/14/20 - 07/14/20 [facility] Adult [address] [place] [address]- Allergies, Adverse Reactions, Alerts Substance Reaction Severity [...] 05/05/20 10:32:00 EDT, Route to Pharmacy Electronically, [facility] #[id number], 168, cm, 02/18/2014:35:00 EDT, Height, 70.3, kg, [...] Tot. Refills 0, Maintenance, Pain , Severe, 07/12/20 12:46:00 EST, Route to Pharmacy Electronically, [facility] #[id number], Partial fill upon patient request;, 07/13/20, 16... Start Date: 07/12/20 Stop Date: 08/09/20 Status: Ordered Ventolin HFA 108 mcg/inh inhalation aerosol with adapter 2 puffs, Inhalation, 4 times a day, # 1 each, 5 Refills, Maintenance, 06/20/20 12:53:00 EST, [facility] #[id number], 168, cm, 02/19/20 14:35:00 EDT, Height, 70.3, kg, 04/17/19 17:38:00 EDT, Dry Weight Start Date: 06/20/20 Status: Ordered Problem List Condition Effective Dates Status Health Status Inform ant Asthma(Confirmed) Active Endometriosis(Confirmed) Active Fibromyalgia muscle pain(Confirmed) 12/01/12 Active Low back pain(Confirmed) Active Migraine(Confirmed) Active Pain in hip(Confirmed) Active 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
--- OUTSIDE RECORDS SUMMARY | 2024-04-20 13:08 | XMS_ITS | Continuity of Care Document ---
Author Organization [facility] Adult Address [address] [place] [address]- Care Team Providers Care Sterile Processing Technician Name Role Phone Aminah GUZMÁN, Westley Jaime Primary Care Physician Encounter [facility] [place] Date(s): 04/10/22 - 05/10/22 [facility] Adult [address] [place] [address]- Attending Physician: Brian Urbano Admitting Physician: AdmtrBrian [...] 5 Refills, Maintenance, 01/26/22 13:13:00 EDT, Aerosol, [facility] #[id number], Partial fill upon patient request if the prescription is for a schedule II opioid drug., 2 puffs Inhalation 2 times a da... Start Date: 01/26/22 Status: Ordered carisoprodol 350 mg oral tablet 350 mg, 1, tablet, By Mouth, 3 times a day, PRN, MOLD MAINTENANCE TECHNICIAN checked, # 90 tablet, Refills 5, Tot. Refills 5, Maintenance, for back spasm, 02/07/22 17:15:00 EDT, Route to Pharmacy Electronically, [facility] #[id number], Partial fill upon patient request... Start Date: [...] 04/17/22 9:22:00 EDT, Route to Pharmacy Electronically, [facility] #[id number], Partial fill upon patient request;, 04/18/22, 168... Start Date: 04/17/22 Stop Date: 05/15/22 Status: Ordered Ventolin HFA 108 mcg/inh inhalation aerosol with adapter 2 puffs, Inhalation, 4 times a day, # 1 each, 5 Refills, Maintenance, 03/27/22 14:31:00 EDT, [facility] #[id number], 168, cm, 12/08/21 14:09:00 EDT, Height Start Date: 03/27/22 Status: Ordered Problem List Condition Confirmation Course Effective Dates Status H ealth Status Informant Asthma Confirmed Active Endometriosis Confirmed Active Fibromyalgia muscle pain Confirmed 12/01/12 Active Low back pain Confirmed Active Migraine Confirmed Active Pain in hip Confirmed Active custodial prescription opiate use Confirmed Active Tobacco use disorder Confirmed Active Social History Social History Type Response Smoking Status 5-9 cigarettes (betw een 1/4 to 1/2 pack)/day in last 30 days entered on: 04/17/19 Sex Female Patient Care team information Personnel Name: Aminah GUZMÁN, Westley Jaime Address: Address: [address] [address]
--- OUTSIDE RECORDS SUMMARY | 2024-04-20 13:08 | XMS_ITS | Continuity of Care Document ---
Author Organization [facility] ter Address [address] [place] [address]- Care Team Providers Care Care Program Director Name Role Phone Aminah GUZMÁN, Westley Jaime Primary Care Physician Encounter [facility] [place] Date(s): 02/11/20 - 02/12/[address] [address]- [place] Encounter Diagnosis Headache(Final) - 02/12/20 Discharge Disposition: A-D/C Home Attending Physician: Barry Villeda MD Admitting Physician: Barry Villeda MD Referring Physician: Not on Staff, Referring MD Allergies, Adverse Reactions, Alerts Substance Reaction [...] 11/19/19 14:19:00 EDT, Route to Pharmacy Electronically, [facility] #[id number], 168, cm, 199:23:00 EST, Height, 70.3, kg, 04/17/19 17:38:00 ED... [...] Tot. Refills 0, Maintenance, Pain , Severe, 01/26/20 14:10:00 EDT, Route to Pharmacy Electronically, [facility] #[id number], Partial fill upon patient request;, 01/27/20, 16... Start Date: 01/26/20 Stop Date: 02/23/20 Status: Ordered Ventolin HFA 108 mcg/inh inhalation aerosol with adapter 2 puffs, Inhalation, 4 times a day, # 1 each, 5 Refills, Maintenance, 09/20/19 9:22:00 EST, [facility] #[id number], 168, cm, 07/23/19 9:23:00 EST, Height, 70.3, kg, 04/17/19 17:38:00 EDT, Dry Weight Start Date: 09/20/19 Status: Ordered Problem List Condition Effective Dates Status Health Status Inform ant Asthma(Confirmed) Active Endometriosis(Confirmed) Active Fibromyalgia muscle pain(Confirmed) 12/01/12 Active Low back pain(Confirmed) Active Migraine(Confirmed) Active Pain in hip(Confirmed) Active 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 Vital Signs Most recent to oldest [Reference Range]: 1 2 Oxygen Saturation [94-100 %] 100 % (02/12/20 2:00 AM) 99 % (02/11/20 11:54 PM) Pulse Rate [55-90 bpm] 80 bpm (02/12/20 2:00 AM) 82 bpm (02/11/20 11:54 PM) Blood Pressure [90-138/55-84 mm Hg] 118/ 60mm Hg (02/12/20 2:00 AM) 113/53mm Hg (02/11/20 11:54 PM) Respiratory Rate [16-30 br/min] 16 br/mi n (02/12/20 2:00 AM) 18 br/min (02/11/20 11:54 PM) Temperature [96.8-100.4 DegF] 98.0 DegF (02/12/20 2:00 AM) 98.3 DegF (02/11/20 11:54 PM) Mode of Delivery (Oxygen) Room air (02/12/20 2:00 AM) Room air (02/11/20 11:54 PM) Blood pressure sites Arm, right (02/12/20 2:00 AM) Arm, right (02/11/20 11:54 PM) Temperature Route Oral (02/12/20 2:00 AM) Oral (02/11/20 11:54 PM) Social History Social History Type Response Smoking Status 5-9 cigarettes (betw een 1/4 to 1/2 pack)/day in last 30 days entered on: 04/17/19 Sex
--- OUTSIDE RECORDS SUMMARY | 2024-04-20 13:08 | XMS_ITS | Continuity of Care Document ---
Author Organization [facility] Adult Address [address] [place] [address]- Care Team Providers Care Space Scheduler Name Role Phone Aminah GUZMÁN, Westley Jaime Primary Care Physician Encounter [facility] Date(s): 04/19/22 - 05/19/22 [facility] Adult [address] [place] [address]- Allergies, Adverse Reactions, Alerts Substance Reaction Severity [...] each, 5 Refills, Maintenance, 01/26/22 13:13:00 EDT, [facility] #[id number], Partial fill upon patient request if the prescription is for a schedule II opioid drug., 2 puffs Inhalation 2 times a da... Start Date: 01/26/22 Status: Ordered carisoprodol 350 mg oral tablet 350 mg, 1, tablet, By Mouth, 3 times a day, PRN, MILLINER HELPER checked, # 90 tablet, Refills 5, Tot. Refills 5, Maintenance, for back spasm, 02/07/22 17:15:00 EDT, Route to Pharmacy Electronically, [facility] #[id number], Partial fill upon patient request... Start Date: [...] 05/15/22 11:04:00 EDT, Route to Pharmacy Electronically, [facility] #[id number], Partial fill upon patient request;, 05/16/22, 17... Start Date: 05/15/22 Stop Date: 06/12/22 Status: Ordered Ventolin HFA 108 mcg/inh inhalation aerosol with adapter 2 puffs, Inhalation, 4 times a day, # 1 each, 5 Refills, Maintenance, 03/27/22 14:31:00 EDT, [facility] #[id number], 168, cm, 12/08/21 14:09:00 EDT, Height Start Date: 03/27/22 Status: Ordered Problem List Condition Confirmation Course Effective Dates Status H ealth Status Informant Asthma Confirmed Active Endometriosis Confirmed Active Fibromyalgia muscle pain Confirmed 12/01/12 Active Low back pain Confirmed Active Migraine Confirmed Active Pain in hip Confirmed Active [facility] prescription opiate use Confirmed Active Tobacco use disorder Confirmed Active Social History Social History Type Response Smoking Status 5-9 cigarettes (betw een 1/4 to 1/2 pack)/day in last 30 days entered on: 04/17/19 Sex Female Patient Care team information Personnel Name: Aminah GUZMÁN, Westley Jaime Address: Address: [address] [address]-
--- OUTSIDE RECORDS SUMMARY | 2024-04-20 13:08 | XMS_ITS | Continuity of Care Document ---
Author Organization [facility] Adult Address [address] [place] [address]- Care Team Providers Care Advertising Vice President Name Role Phone Aminah GUZMÁN, Westley Jaime Primary Care Physician Encounter [facility] [place] Date(s): 08/09/20 - 09/08/20 [facility] Adult [address] [place] [address]- Allergies, Adverse Reactions, Alerts Substance Reaction Severity [...] 05/05/20 10:32:00 EDT, Route to Pharmacy Electronically, [facility] #[id number], 168, cm, 02/18/2014:35:00 EDT, Height, 70.3, kg, [...] 09/06/20 11:39:00 EST, Route to Pharmacy Electronically, [facility] #[id number], Partial fill upon patient request;, 09/07/20, 16... Start Date: 09/06/20 Stop Date: 10/04/20 Status: Ordered Ventolin HFA 108 mcg/inh inhalation aerosol with adapter 2 puffs, Inhalation, 4 times a day, # 1 each, 5 Refills, Maintenance, 06/20/20 12:53:00 EST, [facility] #[id number], 168, cm, 02/19/20 14:35:00 EDT, Height, 70.3, kg, 04/17/19 17:38:00 EDT, Dry Weight Start Date: 06/20/20 Status: Ordered Problem List Condition Effective Dates Status Health Status Inform ant Asthma(Confirmed) Active Endometriosis(Confirmed) Active Fibromyalgia muscle pain(Confirmed) 12/01/12 Active Low back pain(Confirmed) Active Migraine(Confirmed) Active Pain in hip(Confirmed) Active 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
--- OUTSIDE RECORDS SUMMARY | 2024-04-20 13:08 | XMS_ITS | Continuity of Care Document ---
Author Organization [facility] Adult Address [address] [place] [address]- Care Team Providers Care High Scaler Name Role Phone Vinny CROWELL, Zuri Tran Primary Care Physician Encounter [facility] Date(s): 06/27/22 - 07/27/22 [facility] Adult [address] [place] [address]- Allergies, Adverse Reactions, Alerts Substance Reaction Severity [...] (IM) (oldterm) 08/10/09 Given 1Result Comment: [facility]# [id number] 2Admin Note: VIS GIVEN 3Admin Note: GIVEN BY DR Carter carisoprodol 350 mg oral tablet 350 mg, 1, tablet, By Mouth, 3 times a day, PRN, PRIVATE DUTY AIDE checked, # 90 tablet, Refills 0, Tot. Refills 0, Maintenance, for back spasm, 07/22/22 14:28:00 EST, Route to Pharmacy Electronically, [facility] #[id number], Partial fill upon patient request... Start Date: 07/22/22 Status: Ordered carisoprodol 350 mg oral tablet 350 mg, 1, tablet, By Mouth, 3 times a day, PRN, regional engineer checked, # 90 tablet, Refills 5, Tot. Refills 5, Maintenance, as needed for spasm, 07/22/22 14:31:00 EST, Route to Pharmacy Electronically, [facility] #[id number], Partial fill upon patient req... Start Date: [...] 07/10/22 10:30:00 EST, Route to Pharmacy Electronically, [facility] #[id number], Partial fill upon patient request;, 07/11/22, 17... Start Date: 07/10/22 Stop Date: 08/07/22 Status: Ordered Symbicort 80mcg/4.5mcg Inhaler 2, puffs, Inhalation, 2 times a day, # 1 each, Refills 11, Tot. Refills 11, Maintenance, 06/21/22 16:17:00 EST, Route to Pharmacy Electronically, [id number], [facility] #[id number], 170, cm, 06/21/22 15:44:00 EST, Height... Start Date: 06/21/22 Status: Ordered Ventolin HFA 108 mcg/inh inhalation aerosol with adapter 2 puffs, Inhalation, 4 times a day, # 1 each, 5 Refills, Maintenance, 06/21/22 16:16:00 EST, [facility] #[id number], 170, cm, 06/21/22 15:44:00 EST, Height, 71.2, kg, 04/19/22 19:11:00 EDT, Dry Weight Start Date: 06/21/22 Status: Ordered Problem List Condition Confirmation Course Effective Dates Status H ealth Status Informant Asthma Confirmed Active Endometriosis Confirmed Active Fibromyalgia muscle pain Confirmed 12/01/12 Active Low back pain Confirmed Active Migraine Confirmed Active Pain in hip Confirmed Active [facility] prescription opiate use Confirmed Active Tobacco use disorder Confirmed Active Social History Social History Type Response Smoking Status 5-9 cigarettes (betw een 1/4 to 1/2 pack)/day in last 30 days entered on: 04/17/19 Sex Female Patient Care team information Care Team Personnel Name: Zuri Casillas NP Position: [facility] PCO Associate Professional Member Role: PCP Address: Address: [address] [place] [address]- Care Team Related Persons Name: ILYA GOLDSTEIN Address: [place] [address] Name: HARSHAD AVALOS Address: [place] [address]
[2024-04-20 13:09] VITALS: BP 110/60; PULSE 107; TEMP 36.6; O2SAT 94
--- NOTE | 2024-04-20 13:09 | AM.OFFWIN_ITS ---
Intake Vital Signs 04/20/24 13:09 BP 110/60 Blood Pressure Location Rt brachial Position Sitting Pulse 107 H Pulse Source Auscultation Temp 97.9 F Temp Source Temporal Artery Scan Pulse Oximetry (%) 94 Oxygen Delivery Method Room Air Intake Visit Reasons: Chest congestion can't breath Patient Tobacco Use Status: Current everyday Tobacco user Allergies duloxetine Allergy (Severe, Verified 04/20/24 13:10) tachypnea erythromycin base Allergy (Severe, Verified 04/20/24 13:10) Rash hydrocodone [From Vicodin] Allergy (Severe, Verified 04/20/24 13:10) Vomiting Penicillins Allergy (Verified 04/20/24 13:10) Anaphylaxis Medication List - Last Reconciled 04/20/24 by Mariangel Calhoun, [facility]- albuterol sulfate 90 mcg/actuation (Ventolin HFA) 2 puffs inhalation Q4H PRN baclofen 10 mg PO Q12H 90 days carisoprodol 350 mg PO TID 90 days ibuprofen 1,200 mg PO BID oxycodone 10 mg PO Q6H PRN 30 days Do you need a note to return to daycare/school/sports/work: No HPI HPI Comments History of Present Illness Details 43-year-old female here today for 2 comp laints. The 1st is inability to get her Soma prescription. Reports that she lost her prescription while she was on vacation in [place]. She states that when she went to go pick it up at the pharmacy she was not able to get this. Next complaint is that of coughing and wheezing which started while she was on vacation. She reports that she was exposed to someone else with similar symptoms. She denies any fever, chills, hemoptysis, sore throat, ear pain. Admits runny nose. She also reports that she has not fatigue go to the left side of her mouth. Reports that her nephew had this and she was exposed to him. Has not tried any peub-rwv-ijbbgnf medications to help with her symptoms. She is a current smoker, has reduced smoking given her sx. She currently has a prescription for Ventolin which she has been using as prescribed with very little relief. Exam: Awake alert NAD Sclera and conjunctiva clear bilat Nares with clear drainage bilat, turbinates erythematous, no sinus tenderness with palpation bilat TM intact and clear bilat MMM, left corner of mouth is an erythematous rash with yellow moist center, no crusting, pharynx WNL RRR LS ins/exp wheezes throughout, hacking cough noted during exam, speaking in full sentences Plan: Viral swab obtained today, pending at the time of this note closure. Will provide Tessalon to help with cough. Prednisone burst as she reports that this has been helpful in the past. She should continue to take her Ventolin as prescribed. Mupiricon for the rash to her mouth. In regards to the medication issue, a chart review was required for this which added extensive time to this visit. It appears that prescription was sent in by her primary care provider 04/10/2024. It did require a prior authorization which was approved. The patient was made aware on 2 different dates. I spoke with the office staff today in regards to this, they report that it has been reported to the patient multiple times that she just seems to stop to the pharmacy to pick pack worker the medication and give them the prior authorization information, although they already have this on hand. Given this there was no need for a new prescription to be sent. She just needs to follow up with the pharmacy. This note is constructed using voice recognition software. While every effort has been made to ensure accuracy in broadcast engineer, still errors may have been included Sometimes, these errors may affect the content or meaning of the given sentence . Total time spent caring for the patient today was 30 minutes. This includes time spent before the visit reviewing the chart, time spent during the visit, and time spent after the visit on documentation [facility] Medical History (Updated 04/20/24 @ 17:09 by Mariangel Calhoun [facility]) Migraine Lyme disease Tobacco dependence Fibromyalgia Degenerative disc disease, lumbar Asthma Surgical History History of gastric surgery Previous back surgery Family History Sister Hypothyroid Obesity Cancer of ovary Chronic mental illness Sister Hypothyroid Obesity Sister Hypothyroid Obesity Sister Hypothyroid Obesity Sister Hypothyroid Obesity Mother Asthma Father Alzheimer dementia Hypertension Coronary artery disease Type 2 diabetes mellitus Lung cancer Social History Household Members: Family Housing: House Are you a primary director of healthcare systems to a significant other at home: No Do you presently have visiting nurse or other home services: No 75 years or older and lives alone: No Alcohol intake: current Alcohol intake frequency: holidays/special occasions only Patient Tobacco Use Status: Current everyday Tobacco user Tobacco use type: Cigarette Cigarette Packs Per Day: 1 Cigarettes Per Day: 10 e-Cigarette/Vaping Use: Never Used service: No Current occupational status: disabled Current occupational exposures/hazards: No Cognitive needs: No Hearing needs: No Vision needs: No Physical Exam Vital Signs: Last Vital Signs Temp 97.9 F 04/20/24 13:09 Pulse 107 H 04/20/24 13:09 BP 110/60 04/20/24 13:09 Pulse Ox 94 04/20/24 13:09 Oxygen Delivery Method Room Air 04/20/24 13:09 Assessment & Plan Assessment & Plan (1) Asthma with exacerbation: Code(s): J45.901 - Unspecified asthma with (acute) exacerbation Qualifiers: Asthma persistence: persistent Asthma severity: moderate Qualified Code(s): J45.41 - Moderate persistent asthma with (acute) exacerbation Plan: . (2) Impetigo: Code(s): L01.00 - Impetigo, unspecified Plan: . (3) Prescription lost: Code(s): Z91.148 - Patient's other noncompliance with medication regimen for other reason Plan: . Plan . Orders: Orders SARS-CoV2/FLU/RSV Today R09.89 - Other specified symptoms and signs involving the circulatory and respiratory systems Medications: New benzonatate 100 mg PO TID 10 days PRN 30 caps 1RF cough prednisone 50 mg PO DAILY 5 days 5 tabs 0RF mupirocin 2% 1 appl topical BID 15 grams 0RF Coding Level of Care Code Est Pt Level 4 (09019) Diagnoses Asthma with exacerbation J45.41 Asthma persistence: persistent Asthma severity: moderate Impetigo L01.00 Prescription lost Z91.148
--- OUTSIDE RECORDS SUMMARY | 2024-04-20 13:09 | XMS_ITS | Continuity of Care Document ---
Author Organization [facility] Adult Address [address] [place] [address]- Care Team Providers Care Traveling Secretary Name Role Phone Aminah GUZMÁN, Westley Jaime Primary Care Physician Encounter [facility] Date(s): 11/29/20 - 12/29/20 [facility] Adult [address] [place] [address]- Allergies, Adverse Reactions, Alerts Substance Reaction Severity [...] SPASM, # 90 tablet, 0 Refills, Acute, :52:00 EDT, [facility] #[id number], 168, cm, 12/21/20 13:46:00 EDT, Height, 70.3, kg, 04/17/19 17:38:00 EDT, Dry Weight Start Date: 12/26/20 Status: Ordered oxyCODONE 5 mg oral tablet 10 mg, 2, tablet, By Mouth, Every 6 hours, PRN, # 224 tablet, Refills 0, Tot. Refills 0, Maintenance, Pain , Severe, 12/23/20 16:18:00 EDT, Route to Pharmacy Electronically, [facility] #[id number], Partial fill upon patient request;, 12/28/20, 16... Start Date: 12/23/20 Stop Date: 01/20/21 Status: Ordered Ventolin HFA 108 mcg/inh inhalation aerosol with adapter 2 puffs, Inhalation, 4 times a day, # 1 each, 5 Refills, Maintenance, 10/27/20 7:38:00 EDT, [facility] #[id number], 168, cm, 02/19/20 14:35:00 EDT, Height, 70.3, kg, 04/17/19 17:38:00 EDT, Dry Weight Start Date: 10/27/20 Status: Ordered Problem List Condition Effective Dates Status Health Status Inform ant Asthma(Confirmed) Active Endometriosis(Confirmed) Active Fibromyalgia muscle pain(Confirmed) 12/01/12 Active Low back pain(Confirmed) Active Migraine(Confirmed) Active Pain in hip(Confirmed) Active senior care prescription opiat e use(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
--- OUTSIDE RECORDS SUMMARY | 2024-04-20 13:09 | XMS_ITS | Continuity of Care Document ---
Author Organization [facility] Adult Address [address] [place] [address]- Care Team Providers Care Junior Brand Manager Name Role Phone Westley Burr MD Primary Care Physician Encounter [facility] [place] Date(s): 10/31/21 - 11/30/21 [facility] Adult [address] [place] [address]- Allergies, Adverse Reactions, Alerts Substance Reaction Severity [...] each, 5 Refills, Maintenance, 02/07/21 14:03:00 EDT, [place], [facility] #[id number], Partial fill upon patient request if the prescription is for a schedule II opioid drug., 2 puffs Inhalation 2 times a da... Start Date: 02/07/21 Status: Ordered carisoprodol 350 mg oral tablet 350 mg, 1, tablet, By Mouth, 3 times a day, PRN, BEAUTY DIRECTOR checked, # 90 tablet, Refills 5, Tot. Refills 5, Maintenance, for back spasm, 08/22/21 14:26:00 EST, Route to Pharmacy Electronically, [facility] #[id number], Partial fill upon patient request... Start Date: [...] 11/28/21 10:37:00 EDT, Route to Pharmacy Electronically, [facility] #[id number], Partial fill upon patient request;, 11/29/21, 16... 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
--- OUTSIDE RECORDS SUMMARY | 2024-04-20 13:09 | XMS_ITS | Continuity of Care Document ---
Author Organization [facility] Adult Address [address] [place] [address]- Care Team Providers Care Briquette Operator Name Role Phone Aminah GUZMÁN, Westley Jaime Primary Care Physician Encounter [facility] Date(s): 07/11/21 - 08/10/21 [facility] Adult [address] [place] [address]- Allergies, Adverse Reactions, Alerts Substance Reaction Severity [...] 5 Refills, Maintenance, 02/07/21 14:03:00 EDT, Aerosol, [facility] #[id number], Partial fill upon patient request if the prescription is for a schedule II opioid drug., 2 puffs Inhalation 2 times a da... Start Date: 02/07/21 Status: Ordered carisoprodol 350 mg oral tablet 350 mg, 1, tablet, By Mouth, 3 times a day, PRN, FLATWORK WASHER checked, # 90 tablet, Refills 5, Tot. Refills 5, Maintenance, for back spasm, 03/07/21 15:59:00 EDT, Route to Pharmacy Electronically, [facility] #[id number], Partial fill upon patient request... Start Date: [...] 08/08/21 10:59:00 EST, Route to Pharmacy Electronically, [facility] #[id number], Partial fill upon patient request;, 08/09/21, 16... 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
--- OUTSIDE RECORDS SUMMARY | 2024-04-20 13:09 | XMS_ITS | Continuity of Care Document ---
Author Organization [facility] Adult Address [address] [place] [address]- Care Team Providers Care Aeronautical Engineering Technologist Name Role Phone Westley Burr MD Primary Care Physician Encounter [facility] [place] Date(s): 01/23/22 - 02/22/22 [facility] Adult [address] [place] [address]- Allergies, Adverse Reactions, Alerts Substance Reaction Severity [...] each, 5 Refills, Maintenance, 01/26/22 13:13:00 EDT, [facility] #[id number], Partial fill upon patient request if the prescription is for a schedule II opioid drug., 2 puffs Inhalation 2 times a da... Start Date: 01/26/22 Status: Ordered carisoprodol 350 mg oral tablet 350 mg, 1, tablet, By Mouth, 3 times a day, PRN, NUTRITION SERVICES ASSOCIATE checked, # 90 tablet, Refills 5, Tot. Refills 5, Maintenance, for back spasm, 02/07/22 17:15:00 EDT, Route to Pharmacy Electronically, [facility] #[id number], Partial fill upon patient request... Start Date: [...] 02/21/22 8:41:00 EDT, Route to Pharmacy Electronically, [facility] #[id number], Partial fill upon patient request;, 168, cm, 050... 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
--- OUTSIDE RECORDS SUMMARY | 2024-04-20 13:09 | XMS_ITS | Continuity of Care Document ---
Author Organization [facility] Adult Address [address] [place] [address]- Care Team Providers Care Brand Communications Manager Name Role Phone Vinny CROWELL, Zuri Tran Primary Care Physician Encounter [facility] [place] Date(s): 11/20/22 - 12/20/22 [facility] [address] [place] [address]- Allergies, Adverse Reactions, Alerts Substance Reaction Severity [...] Inactive (IM) (oldterm) 08/10/09 Given 1Result Comment: [facility]# [id number] 2Admin Note: VIS GIVEN 3Admin Note: GIVEN BY DR Medications ibuprofen 200 mg oral tablet 400 mg, 2, tablet, By Mouth, Every 6 hours, PRN, # 120 tablet, Refills 0, Maintenance, for pain, 07/09/16 14:58:25 Start Date: 07/09/16 Status: Ordered naloxone 4 mg/0.1 mL nasal spray = 4 mg, Nares, Both, Once, # 2 each, 2 Refills, Soft Stop, 09/19/22 16:56:00 EST, [email or web address] #[id number], Partial fill upon patient request if the prescription is for a schedule II opioid drug.,170, cm, 09/19/22 15:48:00 EST, Height, 71.2, kg, 0... Start Date: 09/19/22 Status: Ordered oxyCODONE 5 mg oral tablet 5 mg, 1, tablet, By Mouth, Daily, PRN, # 7 tablet, Refills 0, Tot. Refills 0, Maintenance, Pain , Severe, 11/20/22 9:47:00 EDT, Route to Pharmacy Electronically, [email or web address] #[id number], Partial fill upon patient request; Dose is being tapered. Pl... Start Date: 11/20/22 Stop Date: 11/27/22 Status: Ordered Symbicort 80mcg/4.5mcg Inhaler 2, puffs, Inhalation, 2 times a day, # 1 each, Refills 11, Tot. Refills 11, Maintenance, 06/21/22 16:17:00 EST, Route to Pharmacy Electronically, [id number], [email or web address] #[id number], 170, cm, 06/21/22 15:44:00 EST, Height... Start Date: 06/21/22 Status: Ordered Ventolin HFA 108 mcg/inh inhalation aerosol with adapter 2 puffs, Inhalation, 4 times a day, # 8.5 Gm, 5 Refills, Maintenance, 09/19/22 16:19:00 EST, [email or web address] #[id number], 170, cm, 09/19/22 15:48:00 EST, Height, 71.2, [...] Team Personnel Name: Zuri Casillas NP Position: [facility] PCO Associate Professional Member Role: PCP Address: Address: [address] [place] [address]- Care Team Related Persons Name: ILYA GOLDSTEIN Address: home [address] [place] [address] Name: HARSHAD AVALOS Address: home [address] [place] [address]
--- OUTSIDE RECORDS SUMMARY | 2024-04-20 13:09 | XMS_ITS | Continuity of Care Document ---
Author Organization [facility] Adult Address [address] [place] [address]- Care Team Providers Care English Tutor Name Role Phone Aminah GUZMÁN, Westley Jaime Primary Care Physician Encounter [facility] Date(s): 01/31/21 - 03/02/21 [facility] [address] [place] [address]- Allergies, Adverse Reactions, Alerts Substance Reaction Severity [...] 5 Refills, Maintenance, 02/07/21 14:03:00 EDT, [facility], [id number], Partial fill upon patient request if the prescription is for a schedule II opioid drug., 2 puffs Inhalation 2 times a da... Start Date: 02/07/21 Status: Ordered carisoprodol 350 mg oral tablet 350 mg, 1, tablet, By Mouth, 3 times a day, PRN, TWISTING DEPARTMENT END FINDER checked, # 90 tablet, Refills 0, Tot. Refills 0, Maintenance, for back spasm, 01/31/21 17:14:00 EDT, Route to Pharmacy Electronically, [facility][id number], Partial fill upon patient request... Start Date: [...] 02/21/21 10:07:00 EDT, Route to Pharmacy Electronically, [facility] #[id number], Partial fill upon patient request;, 02/22/21, 16... Start Date: 02/21/21 Stop Date: 03/21/21 Status: Ordered Ventolin HFA 108 mcg/inh inhalation aerosol with adapter 2 puffs, Inhalation, 4 times a day, # 1 each, 5 Refills, Maintenance, 02/03/21 16:26:00 EDT, [facility] #[id number], 168, cm, 12/21/20 13:46:00 EDT, Height, 70.3, kg, 04/17/19 17:38:00 EDT, Dry Weight Start Date: 02/03/21 Status: Ordered Problem List Condition Effective Dates Status Health Status Inform ant Asthma(Confirmed) Active Endometriosis(Confirmed) Active Fibromyalgia muscle pain(Confirmed) 12/01/12 Active Low back pain(Confirmed) Active Migraine(Confirmed) Active Pain in hip(Confirmed) Active 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
--- OUTSIDE RECORDS SUMMARY | 2024-04-20 13:09 | XMS_ITS | Continuity of Care Document ---
Author Organization [facility] Adult Address [address] [place] [address]- Care Team Providers Care Customer Care Coordinator Name Role Phone Vinny CROWELL, Zuri Tran Primary Care Physician [place] [facility] [place]22 [facility] [address] [place] [address]- Allergies, Adverse Reactions, Alerts Substance Reaction Severity [...] Inactive (IM) (oldterm) 08/10/09 Given 1Result Comment: [facility] [id number] 2Admin Note: VIS GIVEN 3Admin Note: GIVEN BY DR Medications ibuprofen 200 mg oral tablet 400 mg, 2, tablet, By Mouth, Every 6 hours, PRN, # 120 tablet, Refills 0, Maintenance, for pain, 07/09/16 14:58:25 Start Date: 07/09/16 Status: Ordered naloxone 4 mg/0.1 mL nasal spray = 4 mg, Nares, Both, Once, # 2 each, 2 Refills, Soft Stop, 09/19/22 16:56:00 EST, [facility] #[id number], Partial fill upon patient request if the prescription is for a schedule II opioid drug.,170, cm, 09/19/22 15:48:00 EST, Height, 71.2, kg, 0... Start Date: 09/19/22 Status: Ordered oxyCODONE 5 mg oral tablet 5 mg, 1, tablet, By Mouth, Daily, PRN, # 7 tablet, Refills 0, Tot. Refills 0, Maintenance, Pain , Severe, 11/20/22 9:47:00 EDT, Route to Pharmacy Electronically, [facility] #[id number], Partial fill upon patient request; Dose is being tapered. Pl... Start Date: 11/20/22 Stop Date: 11/27/22 Status: Ordered Symbicort 80mcg/4.5mcg Inhaler 2, puffs, Inhalation, 2 times a day, # 1 each, Refills 11, Tot. Refills 11, Maintenance, 06/21/22 16:17:00 EST, Route to Pharmacy Electronically, [id number], [facility] #[id number], 170, cm, 06/21/22 15:44:00 EST, Height... Start Date: 06/21/22 Status: Ordered Ventolin HFA 108 mcg/inh inhalation aerosol with adapter 2 puffs, Inhalation, 4 times a day, # 8.5 Gm, 5 Refills, Maintenance, 09/19/22 16:19:00 EST, [facility] #[id number], 170, cm, 09/19/22 15:48:00 EST, Height, 71.2, [...] Confirmed Active Pain in hip Confirmed Active snf prescription opiate use Confirmed Active Tobacco use disorder Confirmed Active Social History Social History Type Response Smoking Status 5-9 cigarettes (betw een 1/4 to 1/2 pack)/day in last 30 days entered on: 04/17/19 Sex Female Patient Care team information Care Team Personnel Name: Zuri Casillas NP Position: [facility] PCO Associate Professional Member Role: PCP Address: Address: [address] [place] [address]- Care Team Related Persons Name: ILYA GOLDSTEIN Address: home [address] [place] [address] Name: HARSHAD AVALOS Address: home [address] [place] [address]
--- OUTSIDE RECORDS SUMMARY | 2024-04-20 13:09 | XMS_ITS | Continuity of Care Document ---
Author Organization [facility] Adult Address [address] [place] [address]- Care Team Providers Care Face Cleaner Name Role Phone Westley Burr MD Primary Care Physician Encounter [facility] [place] Date(s): 07/23/19 - 07/30/19 [facility] Adult [address] [place] [address]- [facility] Encounter Diagnosis Low back pain(Discharge Diagnosis) - 07/23/19 Fibromyalgia muscle pain(Discharge Diagnosis) - 07/23/19 senior care prescription opiate use(Discharge Diagnosis) - 07/23/19 Asthma(Discharge Diagnosis) - 07/23/19 Stress(Discharge Diagnosis) - 07/23/19 Endometriosis(Discharge Diagnosis) - 07/23/19 Tobacco use(Discharge Diagnosis) - 07/23/19 Attending Physician: Westley Burr MD Allergies, Adverse [...] GIVEN Medications carisoprodol 350 mg oral tablet See Instructions, # 270 tablet, Refills 1 Tot. Refills 1, TAKE 1 TABLET BY MOUTH 3 TIMES A DAY, [facility] #[id number] Start Date: 05/29/19 Status: Ordered ibuprofen 200 mg oral tablet 400 mg, 2, tablet, By Mouth, Every 6 hours, PRN, # 120 tablet, Refills 0, Maintenance, for pain, 07/09/16 14:58:25 Start Date: 07/09/16 Status: Ordered oxyCODONE 5 mg oral tablet 10 mg, 2, tablet, By Mouth, Every 6 hours, PRN, # 224 tablet, Refills 0, Tot. Refills 0, Maintenance, Pain , Severe, 07/15/19 9:27:00 EST, Route to Pharmacy Electronically, [id number], [facility] #[id number], Partial lisa... Start Date: 07/15/19 Stop Date: 08/12/19 Status: Ordered Ventolin HFA 108 mcg/inh inhalation aerosol with adapter 2 puffs, Inhalation, 4 times a day, # 1 each, 5 Refills, Maintenance, 02/23/19 10:28:07 EDT Start Date: 02/23/19 Status: Ordered Problem List Condition Effective Dates Status Health Status Inform ant Asthma(Confirmed) Active Endometriosis(Confirmed) Active Fibromyalgia muscle pain(Confirmed) 12/01/12 Active Low back pain(Confirmed) Active Migraine(Confirmed) Active Pain in hip(Confirmed) Active senior care prescription opiat e use(Confirmed) Active Diagnosis Diagnosis Type Effective Dates Health Status Clinical Service Informant Low back pain Discharge Diagnosis 07/23/19 Fibromyalgia muscle pain Discharge Diagnosis 07/23/19 senior care prescription opiate use Discharge Diagnosis 07/23/19 Asthma Discharge Diagnosis 07/23/19 Stress Discharge Diagnosis 07/23/19 Endometriosis Discharge Diagnosis 07/23/19 Tobacco use Discharge Diagnosis 07/23/19 Vital Signs Most recent to oldest [Reference Range]: 1 Height 168 cm (07/23/19 9:23 AM) Weight 74.8 kg (07/23/19 9:23 AM) Oxygen Saturation [94-100 %] 98 % (07/23/19 9:23 AM) Pulse Rate [55-90 bpm] 76 bpm (07/23/19 9:23 AM) Body Mass Index [18.5-24.99] 26.5 *H* (07/23/19 9:23 AM) Blood Pressure [90-138/55-84 mm Hg] 110/ 70mm Hg (07/23/19 9:23 AM) Mode of Delivery (Oxygen) Room air (07/23/19 9:23 AM) Blood pressure sites Arm, left (07/23/19 9:23 AM) Weight Obtained Via Standing scale (07/23/19 9:23 AM) Social History Social History Type Response Smoking Status 5-9 cigarettes (betw een 1/4 to 1/2 pack)/day in last 30 days entered on: 04/17/19 Sex
--- OUTSIDE RECORDS SUMMARY | 2024-04-20 13:09 | XMS_ITS | Continuity of Care Document ---
Author Organization [facility] Adult Address [address] [place] [address]- Care Team Providers Care Etcher Hand Name Role Phone Aminah GUZMÁN, Westley Jaime Primary Care Physician [place] [facility] [place] 11/01/20 - 12/01/20 [facility] [address] [place] [address]- Allergies, Adverse Reactions, Alerts Substance Reaction Severity [...] Tot. Refills 0, Maintenance, Pain , Severe, 11/29/20 13:30:00 EDT, Route to Pharmacy Electronically, [facility] #[id number], Partial fill upon patient request;, 11/30/20, 16... Start Date: 11/29/20 Stop Date: 12/27/20 Status: Ordered tiZANidine 4 mg oral tablet 1, tablet, By Mouth, Every 8 hours, # 90 tablet, Refills 5, Tot. Refills 0, Maintenance, 11/23/20 15:43:00 EDT, Route to Pharmacy Electronically, [facility] #[id number], 168, cm, 02/19/20 14:35:00 EDT, Height, 70.3, kg, 04/17/19 17:38:00 EDT, Dry... Start Date: 11/23/20 Status: Ordered Ventolin HFA 108 mcg/inh inhalation aerosol with adapter 2 puffs, Inhalation, 4 times a day, # 1 each, 5 Refills, Maintenance, 10/27/20 7:38:00 EDT, [facility] #[id number], 168, cm, 02/19/20 14:35:00 EDT, Height, 70.3, kg, 04/17/19 17:38:00 EDT, Dry Weight Start Date: 10/27/20 Status: Ordered Problem List Condition Effective Dates Status Health Status Inform ant Asthma(Confirmed) Active Endometriosis(Confirmed) Active Fibromyalgia muscle pain(Confirmed) 12/01/12 Active Low back pain(Confirmed) Active Migraine(Confirmed) Active Pain in hip(Confirmed) Active correction prescription opiat e use(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
--- OUTSIDE RECORDS SUMMARY | 2024-04-20 13:09 | XMS_ITS | Continuity of Care Document ---
Author Organization [facility] ter Address [address] [place] [address]- Care Team Providers Care Medical Typist Name Role Phone Westley Burr MD Primary Care Physician Encounter [facility] [place] Date(s): 07/23/19 - 07/23/[address] [address]- [facility] Attending Physician: Westley Burr MD Allergies, Adverse [...] TABLET BY MOUTH 3 TIMES A DAY, [facility] #[id number] Start Date: 05/29/19 Status: Ordered ibuprofen 200 [...] 07/15/19 9:27:00 EST, Route to Pharmacy Electronically, [id number], [facility] #[id number], Partial lisa... 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
--- OUTSIDE RECORDS SUMMARY | 2024-04-20 13:09 | XMS_ITS | Continuity of Care Document ---
Author Organization [facility] Adult Address [address] [place] [address]- Care Team Providers Care Registered Nursing Professor Name Role Phone Westley Burr MD Primary Care Physician Encounter [facility] [place] Date(s): 12/26/21 - 01/25/22 [facility] Adult [address] [place] [address]- Allergies, Adverse Reactions, Alerts Substance Reaction Severity [...] each, 5 Refills, Maintenance, 02/07/21 14:03:00 EDT, [id number], Partial fill upon patient request if the prescription is for a schedule II opioid drug., 2 puffs Inhalation 2 times a da... Start Date: 02/07/21 Status: Ordered carisoprodol 350 mg oral tablet 350 mg, 1, tablet, By Mouth, 3 times a day, PRN, PORTRAIT CONSULTANT checked, # 90 tablet, Refills 5, Tot. Refills 5, Maintenance, for back spasm, 08/22/21 14:26:00 EST, Route to Pharmacy Electronically, [facility] #[id number], Partial fill upon patient request... Start Date: [...] Tot. Refills 0, Maintenance, Pain , Severe, 01/23/22 9:47:00 EDT, Route to Pharmacy Electronically, [facility] #[id number], Partial fill upon patient request;, 01/24/22, 168... 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
--- OUTSIDE RECORDS SUMMARY | 2024-04-20 13:09 | XMS_ITS | Continuity of Care Document ---
Author Organization [facility] Adult Address [address] [place] [address]- Care Team Providers Care Electric Repair Supervisor Name Role Phone Tari Petit MD Primary Care Physician [place] [facility] [place] 04[place]18[place]23 [facility] [address] [place] [address]- Attending Physician: Not on Staff, Attending MD Allergies, Adverse Reactions, Alerts Substance Reaction [...] Inactive (IM) (oldterm) 08/10/09 Given 1Result Comment: [facility]# [id number] 2Admin Note: VIS GIVEN 3Admin Note: GIVEN BY DR Medications ibuprofen 200 mg oral tablet 400 mg, 2, tablet, By Mouth, Every 6 hours, PRN, # 120 tablet, Refills 0, Maintenance, for pain, 07/09/16 14:58:25 Start Date: 07/09/16 Status: Ordered naloxone 4 mg/0.1 mL nasal spray = 4 mg, Nares, Both, Once, # 2 each, 2 Refills, Soft Stop, 09/19/22 16:56:00 EST, [facility] #[id number], Partial fill upon patient request if the prescription is for a schedule II opioid drug.,170, cm, 09/19/22 15:48:00 EST, Height, 71.2, kg, 0... Start Date: 09/19/22 Status: Ordered oxyCODONE 5 mg oral tablet 5 mg, 1, tablet, By Mouth, Every 8 hours, PRN, # 84 tablet, Refills 0, Tot. Refills 0, Maintenance,as needed for pain, 04/17/23 18:23:00 EDT, Route to Pharmacy Electronically, [facility] #[id number], Partial fill upon patient request if the pres... Start Date: 04/17/23 Stop Date: 05/15/23 Status: Ordered Symbicort 80mcg/4.5mcg Inhaler 2, puffs, Inhalation, 2 times a day, # 1 each, Refills 11, Tot. Refills 11, Maintenance, 06/21/22 16:17:00 EST, Route to Pharmacy Electronically, [id number], [facility] #[id number], 170, cm, 06/21/22 15:44:00 EST, Height... Start [...] 2 puffs, Inhalation, Every 4 hours, PRN for wheezing, # 18 Gm, 3 Refills, Maintenance, 04/09/23 9:26:00 EDT, Aerosol, [facility] #[id number], Partial fill upon patient request if the prescription is for a schedule II opioid drug., 170, cm, ... Start Date: 04/09/23 Status: Ordered Ventolin HFA 108 mcg/inh inhalation aerosol with adapter 2 puffs, Inhalation, 4 times a day, # 8.5 Gm, 5 Refills, Maintenance, 02/15/23 14:07:00 EDT, [facility] #[id number], 170, cm, 09/20/22 11:00:00 EST, Height, 71.2, kg, 04/19/22 19:11:00 EDT, Dry Weight Start Date: 02/15/23 Stop Date: 08/14/23 Status: Ordered Problem List Condition Confirmation Course Effective Dates Status H ealth Status Informant Asthma Confirmed Active Bronchitis Confirmed Active Endometriosis Confirmed Active Fibromyalgia muscle pain Confirmed 12/01/12 Active Violation of controlled substance agreement Confirmed Active Low back pain Confirmed Active Migraine Confirmed Active Pain in hip Confirmed Active half-way prescription opiate use Confirmed Active Tobacco use disorder Confirmed Active Social History Social History Type Response Smoking Status 10 or more cigarette s (1/2 pack or more)/day in last 30 days; Interested in cessation: Yes; Other: 1- 2 packs daily; entered on: 04/05/23 Sex Female Patient Care team information Care Team Personnel Name: Marisabel GUZMÁN, Tari Ruiz Position: S Physician - Primary Care Member Role: PCP Address: Address: [address] [place] [address] [place] [address]- [place] Care Team Related Persons Name: ANGELITA ILYA Address: [address] [place] [address] Name: HARSHAD AVALOS Address: home [address] [place] [address]
--- OUTSIDE RECORDS SUMMARY | 2024-04-20 13:09 | XMS_ITS | Continuity of Care Document ---
Author Organization [facility] Adult Address [address] [place] [address]- Care Team Providers Care Information Broker Name Role Phone Aminah GUZMÁN, Westley Jaime Primary Care Physician [place] [facility] [place] 10/26/19 - 11/05/19 [facility] Adult [address] [place] [address]- [facility] Attending Physician: Brian Urbano Admitting Physician: AdmBrian [...] TABLET BY MOUTH 3 TIMES A DAY, [id number] Start Date: 05/29/19 Status: Ordered ibuprofen 200 mg oral tablet 400 mg, 2, tablet, By Mouth, Every 6 hours, PRN, # 120 tablet, Refills 0, Maintenance, for pain, 07/09/16 14:58:25 Start Date: 07/09/16 Status: Ordered oxyCODONE 5 mg oral tablet 10 mg, 2, tablet, By Mouth, Every 6 hours, PRN, # 224 tablet, Refills 0, Tot. Refills 0, Maintenance, Pain , Severe, 11/03/19 9:08:00 EDT, Route to Pharmacy Electronically, [facility] #[id number], Partial fill upon patient request, 11/04/19, 168,... Start Date: 11/03/19 Stop Date: 12/01/19 Status: Ordered Ventolin HFA 108 mcg/inh inhalation aerosol with adapter 2 puffs, Inhalation, 4 times a day, # 1 each, 5 Refills, Maintenance, 09/20/19 9:22:00 EST, [facility] #[id number], 168, cm, 07/23/19 9:23:00 EST, Height, 70.3, kg, 04/17/19 17:38:00 EDT, Dry Weight Start Date: 09/20/19 Status: Ordered Problem List Condition Effective Dates Status Health Status Inform ant Asthma(Confirmed) Active Endometriosis(Confirmed) Active Fibromyalgia muscle pain(Confirmed) 12/01/12 Active Low back pain(Confirmed) Active Migraine(Confirmed) Active Pain in hip(Confirmed) Active 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
--- OUTSIDE RECORDS SUMMARY | 2024-04-20 13:09 | XMS_ITS | Continuity of Care Document ---
Author Organization [facility] Adult Address [address] [place] [address]- Care Team Providers Care Php Architect Name Role Phone Vinny CROWELL, Zuri Tran Primary Care Physician [phone] Encounter [facility] [place] Date(s): 10/15/22 - 11/14/22 [facility] Adult [address] [place] [address]- Allergies, Adverse Reactions, Alerts Substance Reaction Severity [...] (IM) (oldterm) 08/10/09 Given 1Result Comment: [facility]# [id number] 2Admin Note: VIS GIVEN 3Admin Note: GIVEN BY DR Medications ibuprofen 200 mg oral tablet 400 mg, 2, tablet, By Mouth, Every 6 hours, PRN, # 120 tablet, Refills 0, Maintenance, for pain, 07/09/16 14:58:25 Start Date: 07/09/16 Status: Ordered naloxone 4 mg/0.1 mL nasal spray = 4 mg, Nares, Both, Once, # 2 each, 2 Refills, Soft Stop, 09/19/22 16:56:00 EST, [facility] #[id number], Partial fill upon patient request if the prescription is for a schedule II opioid drug.,170, cm, 09/19/22 15:48:00 EST, Height, 71.2, kg, 0... Start Date: 09/19/22 Status: Ordered oxyCODONE 5 mg oral tablet 5 mg, 1, tablet, By Mouth, Every 12 hours, PRN, # 10 tablet, Refills 0, Tot. Refills 0, Maintenance, Pain , Severe, 11/13/22 9:13:00 EDT, Route to Pharmacy Electronically, [facility] #[id number], Partial fill upon patient request; Dose is being t... Start Date: 11/13/22 Stop Date: 11/20/22 Status: Ordered Symbicort 80mcg/4.5mcg Inhaler 2, puffs, Inhalation, 2 times a day, # 1 each, Refills 11, Tot. Refills 11, Maintenance, 06/21/22 16:17:00 EST, Route to Pharmacy Electronically, [id number], [facility] #[id number], 170, cm, 06/21/22 15:44:00 EST, Height... Start Date: 06/21/22 Status: Ordered Ventolin HFA 108 mcg/inh inhalation aerosol with adapter 2 puffs, Inhalation, 4 times a day, # 8.5 Gm, 5 Refills, Maintenance, 09/19/22 16:19:00 EST, [facility] #[id number], 170, cm, 09/19/22 15:48:00 EST, Height, 71.2, [...] Confirmed Active Pain in hip Confirmed Active nursing home prescription opiate use Confirmed Active Tobacco use disorder Confirmed Active Social History Social History Type Response Smoking Status 5-9 cigarettes (betw een 1/4 to 1/2 pack)/day in last 30 days entered on: 04/17/19 Sex Female Patient Care team information Care Team Personnel Name: Zuri Casillas NP Position: [facility] PCO Associate Professional Member Role: PCP Address: Address: [address] [place] [address]- Care Team Related Persons Name: ILYA GOLDSTEIN Address: home [address] [place] [address] Name: HARSHAD AVALOS Address: [place] [address]
--- OUTSIDE RECORDS SUMMARY | 2024-04-20 13:09 | XMS_ITS | Continuity of Care Document ---
Author Organization [facility] Adult Address [address] [place] [address]- Care Team Providers Care Licensed Practical Nurse Name Role Phone Westley Burr MD Primary Care Physician Encounter [facility] [place] Date(s): 02/21/22 - 03/23/22 [facility] Adult [address] [place] [address]- Allergies, Adverse Reactions, Alerts Substance Reaction Severity [...] each, 5 Refills, Maintenance, 01/26/22 13:13:00 EDT, [id number], Partial fill upon patient request if the prescription is for a schedule II opioid drug., 2 puffs Inhalation 2 times a da... Start Date: 01/26/22 Status: Ordered carisoprodol 350 mg oral tablet 350 mg, 1, tablet, By Mouth, 3 times a day, PRN, GENERAL MAINTENANCE HELPER checked, # 90 tablet, Refills 5, Tot. Refills 5, Maintenance, for back spasm, 02/07/22 17:15:00 EDT, Route to Pharmacy Electronically, [facility] #[id number], Partial fill upon patient request... Start Date: [...] 03/19/22 10:22:00 EDT, Route to Pharmacy Electronically, [facility] #[id number], Partial fill upon patient request;, 03/21/22, 16... Start Date: 03/19/22 Stop Date: 04/16/22 Status: Ordered Ventolin HFA 108 mcg/inh inhalation aerosol with adapter 2 puffs, Inhalation, 4 times a day, # 1 each, 5 Refills, Maintenance, 11/08/21 14:08:00 EDT, [facility] #[id number], 168, cm, 12/21/20 13:46:00 EDT, Height Start [...]
--- OUTSIDE RECORDS SUMMARY | 2024-04-20 13:09 | XMS_ITS | Continuity of Care Document ---
Author Organization [facility] Adult Address [address] [place] [address]- Care Team Providers Care High Wire Artist Name Role Phone Aminah GUZMÁN, Westley Jaime Primary Care Physician Encounter [facility] [place] Date(s): 04/05/21 - 05/05/21 [facility] Adult [address] [place] [address]- Attending Physician: Brian Urbano Admitting Physician: AdmBrian [...] each, 5 Refills, Maintenance, 02/07/21 14:03:00 EDT, [facility] #[id number], Partial fill upon patient request if the prescription is for a schedule II opioid drug., 2 puffs Inhalation 2 times a da... Start Date: 02/07/21 Status: Ordered carisoprodol 350 mg oral tablet 350 mg, 1, tablet, By Mouth, 3 times a day, PRN, REWINDER OPERATOR HELPER checked, # 90 tablet, Refills 5, Tot. Refills 5, Maintenance, for back spasm, 03/07/21 15:59:00 EDT, Route to Pharmacy Electronically, [facility] #[id number], Partial fill upon patient request... Start Date: [...] 04/18/21 9:41:00 EDT, Route to Pharmacy Electronically, [facility] #[id number], Partial fill upon patient request;, 04/19/21, 168... Start Date: 04/18/21 Stop Date: 05/16/21 Status: Ordered Ventolin HFA 108 mcg/inh inhalation aerosol with adapter 2 puffs, Inhalation, 4 times a day, # 1 each, 5 Refills, Maintenance, 02/03/21 16:26:00 EDT, [facility] #[id number], 168, cm, 12/21/20 13:46:00 EDT, Height, 70.3, kg, 04/17/19 17:38:00 EDT, Dry Weight Start Date: 02/03/21 Status: Ordered Problem List Condition Effective Dates Status Health Status Inform ant Asthma(Confirmed) Active Endometriosis(Confirmed) Active Fibromyalgia muscle pain(Confirmed) 12/01/12 Active Low back pain(Confirmed) Active Migraine(Confirmed) Active Pain in hip(Confirmed) Active 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
--- OUTSIDE RECORDS SUMMARY | 2024-04-20 13:09 | XMS_ITS | Continuity of Care Document ---
Author Organization [facility] Adult Address [address] [place] [address]- Care Team Providers Care Senior Java Data Architect Name Role Phone Tari Petit MD Primary Care Physician [place] [facility] [place](s): 03/19/23 - 04/18/23 [facility] Adult [address] [place] [address]- Attending Physician: AdmBrian bro Admitting Physician: AdmtrBrian Referring Physician: Admtr, Ar8 [...] Inactive (IM) (oldterm) 08/10/09 Given 1Result Comment: [facility]# [id number] 2Admin Note: VIS GIVEN 3Admin Note: GIVEN BY DR Medications ibuprofen 200 mg oral tablet 400 mg, 2, tablet, By Mouth, Every 6 hours, PRN, # 120 tablet, Refills 0, Maintenance, for pain, 07/09/16 14:58:25 Start Date: 07/09/16 Status: Ordered naloxone 4 mg/0.1 mL nasal spray = 4 mg, Nares, Both, Once, # 2 each, 2 Refills, Soft Stop, 09/19/22 16:56:00 EST, [facility] #[id number], Partial fill upon patient request if the prescription is for a schedule II opioid drug.,170, cm, 09/19/22 15:48:00 EST, Height, 71.2, kg, 0... Start Date: 09/19/22 Status: Ordered oxyCODONE 5 mg oral tablet 5 mg, 1, tablet, By Mouth, Every 8 hours, PRN, # 84 tablet, Refills 0, Tot. Refills 0, Maintenance,as needed for pain, 04/17/23 18:23:00 EDT, Route to Pharmacy Electronically, [facility] #[id number], Partial fill upon patient request if the pres... Start Date: 04/17/23 Stop Date: 05/15/23 Status: Ordered Symbicort 80mcg/4.5mcg Inhaler 2, puffs, Inhalation, 2 times a day, # 1 each, Refills 11, Tot. Refills 11, Maintenance, 06/21/22 16:17:00 EST, Route to Pharmacy Electronically, [id number], [facility] #[id number], 170, cm, 06/21/22 15:44:00 EST, Height... Start [...] 3 Refills, Maintenance, 04/09/23 9:26:00 EDT, Aerosol, [facility] #[id number], Partial fill upon patient request if the prescription is for a schedule II opioid drug., 170, cm, ... Start Date: 04/09/23 Status: Ordered Ventolin HFA 108 mcg/inh inhalation aerosol with adapter 2 puffs, Inhalation, 4 times a day, # 8.5 Gm, 5 Refills, Maintenance, 02/15/23 14:07:00 EDT, [facility] #[id number], 170, cm, 09/20/22 11:00:00 EST, Height, 71.2, [...] packs daily; entered on: 04/05/23 Sex Female Radiology * Jennifer Durán: PERFORM Event Display: Radiology Results Scanned Authored Date: [id number] * Jennifer Durán: PERFORM Event Display: Radiology Results Scanned Authored Date: [id number] * Connie Rosario: PERFORM Event Display: Radiology Results Scanned Authored Date: [id number] Patient Care team information Care Team Personnel Name: Marisabel GUZMÁN, Tari Ruiz Position: S Physician - Primary Care Member Role: PCP Address: Address: [address] [place] [address] [place] [address]- Care Team Related Persons Name: ANGELITA ILYA Address: home [address] [address] Name: HARSHAD AVALOS Address: [address] [address]
--- OUTSIDE RECORDS SUMMARY | 2024-04-20 13:10 | XMS_ITS | Continuity of Care Document ---
Author Organization [facility] Adult Address [address] [place] [address]- Care Team Providers Care Assistant Teacher Name Role Phone Aminah GUZMÁN, Westley Jaime Primary Care Physician Encounter [facility] Date(s): 12/22/20 - 01/21/21 [facility] Adult [address] [place] [address]- Allergies, Adverse Reactions, Alerts Substance Reaction Severity [...] 01/10/21 14:06:00 EDT, Route to Pharmacy Electronically, [facility] #[id number], Partial fill upon patient request if the [...] 12/23/20 16:18:00 EDT, Route to Pharmacy Electronically, [facility] #[id number], Partial fill upon patient request;, 12/28/20, 16... Start Date: 12/23/20 Stop Date: 01/20/21 Status: Ordered Ventolin HFA 108 mcg/inh inhalation aerosol with adapter 2 puffs, Inhalation, 4 times a day, # 1 each, 5 Refills, Maintenance, 10/27/20 7:38:00 EDT, [facility] #[id number], 168, cm, 02/19/20 14:35:00 EDT, Height, 70.3, kg, 04/17/19 17:38:00 EDT, Dry Weight Start Date: 10/27/20 Status: Ordered Problem List Condition Effective Dates Status Health Status Inform ant Asthma(Confirmed) Active Endometriosis(Confirmed) Active Fibromyalgia muscle pain(Confirmed) 12/01/12 Active Low back pain(Confirmed) Active Migraine(Confirmed) Active Pain in hip(Confirmed) Active 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
--- OUTSIDE RECORDS SUMMARY | 2024-04-20 13:10 | XMS_ITS | Continuity of Care Document ---
Author Organization [facility] Adult Address [address] [place] [address]- Care Team Providers Care Pharmacy Picking Technician Name Role Phone Westley Burr MD Primary Care Physician Encounter [facility] [place] Date(s): 07/28/19 - 11/25/19 [facility] Adult [address] [place] [address] [facility] Attending Physician: Westley Burr MD Allergies, Adverse [...] 11/19/19 14:19:00 EDT, Route to Pharmacy Electronically, [facility] #[id number], 168, cm, :23:00 EST, Height, 70.3, kg, [...] 11/03/19 9:08:00 EDT, Route to Pharmacy Electronically, [facility] #[id number], Partial fill upon patient request, 11/04/19, 168,... Start Date: 11/03/19 Stop Date: 12/01/19 Status: Ordered Ventolin HFA 108 mcg/inh inhalation aerosol with adapter 2 puffs, Inhalation, 4 times a day, # 1 each, 5 Refills, Maintenance, 09/20/19 9:22:00 EST, [facility] #[id number], 168, cm, 07/23/19 9:23:00 EST, Height, 70.3, kg, 04/17/19 17:38:00 EDT, Dry Weight Start Date: 09/20/19 Status: Ordered Problem List Condition Effective Dates Status Health Status Inform ant Asthma(Confirmed) Active Endometriosis(Confirmed) Active Fibromyalgia muscle pain(Confirmed) 12/01/12 Active Low back pain(Confirmed) Active Migraine(Confirmed) Active Pain in hip(Confirmed) Active 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
--- OUTSIDE RECORDS SUMMARY | 2024-04-20 13:10 | XMS_ITS | Continuity of Care Document ---
Author Organization [facility] Adult Address [address] [place] [address]- Care Team Providers Care Assistant Sales Director Name Role Phone Aminah GUZMÁN, Westley Jaime Primary Care Physician Encounter [facility] [place] Date(s): 12/09/20 - 01/08/21 [facility] Adult [address] [place] [address]- Allergies, Adverse Reactions, Alerts Substance Reaction Severity [...] 90 tablet, 0 Refills, Acute, :52:00 EDT, [facility] #[id number], 168, cm, 12/21/20 13:46:00 EDT, Height, 70.3, kg, 04/17/19 17:38:00 EDT, Dry Weight Start Date: 12/26/20 Status: Ordered oxyCODONE 5 mg oral tablet 10 mg, 2, tablet, By Mouth, Every 6 hours, PRN, # 224 tablet, Refills 0, Tot. Refills 0, Maintenance, Pain , Severe, 12/23/20 16:18:00 EDT, Route to Pharmacy Electronically, [facility] #[id number], Partial fill upon patient request;, 12/28/20, 16... Start Date: 12/23/20 Stop Date: 01/20/21 Status: Ordered Ventolin HFA 108 mcg/inh inhalation aerosol with adapter 2 puffs, Inhalation, 4 times a day, # 1 each, 5 Refills, Maintenance, 10/27/20 7:38:00 EDT, [facility] #[id number], 168, cm, 02/19/20 14:35:00 EDT, Height, 70.3, [...]
--- OUTSIDE RECORDS SUMMARY | 2024-04-20 13:10 | XMS_ITS | Continuity of Care Document ---
Author Organization [facility] Adult Address [address] [place] [address]- Care Team Providers Care Waste Elimination Name Role Phone Vinny CROWELL, Zuri Tran Primary Care Physician [phone] [place] [facility] [place] 08[place]07[place] - 09/06/22 [facility] Adult [address] [place] [address]- Allergies, Adverse Reactions, Alerts Substance Reaction Severity [...] Inactive (IM) (oldterm) 08/10/09 Given 1Result Comment: [facility]# [id number] 2Admin Note: VIS GIVEN 3Admin Note: GIVEN BY DR Carter carisoprodol 350 mg oral tablet 350 mg, 1, tablet, By Mouth, 3 times a day, PRN, SUPPLY CHAIN CONSULTANT checked, # 90 tablet, Refills 0, Tot. Refills 0, Maintenance, for back spasm, 07/22/22 14:28:00 EST, Route to Pharmacy Electronically, [facility] #[id number], Partial fill upon patient request... Start Date: 07/22/22 Status: Ordered carisoprodol 350 mg oral tablet 350 mg, 1, tablet, By Mouth, 3 times a day, PRN, driller brake lining checked, # 90 tablet, Refills 5, Tot. Refills 5, Maintenance, as needed for spasm, 07/22/22 14:31:00 EST, Route to Pharmacy Electronically, [facility] #[id number], Partial fill upon patient req... Start Date: [...] Tot. Refills 0, Maintenance, Pain , Severe, 09/04/22 9:02:00 EST, Route to Pharmacy Electronically, [facility] #[id number], Partial fill upon patient request;, 09/05/22, 170... Start Date: 09/04/22 Stop Date: 10/02/22 Status: Ordered Symbicort 80mcg/4.5mcg Inhaler 2, puffs, Inhalation, 2 times a day, # 1 each, Refills 11, Tot. Refills 11, Maintenance, 06/21/22 16:17:00 EST, Route to Pharmacy Electronically, [id number], [facility] #[id number], 170, cm, 06/21/22 15:44:00 EST, Height... Start Date: 06/21/22 Status: Ordered Ventolin HFA 108 mcg/inh inhalation aerosol with adapter 2 puffs, Inhalation, 4 times a day, # 1 each, 5 Refills, Maintenance, 06/21/22 16:16:00 EST, [facility] #[id number], 170, cm, 06/21/22 15:44:00 EST, Height, 71.2, [...] Team Personnel Name: Zuri Casillas NP Position: [facility] PCO Associate Professional Member Role: PCP Address: Address: [address] [place] [address]- Care Team Related Persons Name: ILYA GOLDSTEIN Address: [place] [address] Name: HARSHAD AVALOS Address: [place] [address]
--- OUTSIDE RECORDS SUMMARY | 2024-04-20 13:10 | XMS_ITS | Continuity of Care Document ---
Author Organization [facility] Adult Address [address] [place] [address]- Care Team Providers Care Incendiaries Supervisor Name Role Phone Aminah GUZMÁN, Westley Jaime Primary Care Physician Encounter [facility] Date(s): 09/04/21 - 10/04/21 [facility] Adult [address] [place] [address]- Allergies, Adverse Reactions, Alerts Substance Reaction Severity [...] 5 Refills, Maintenance, 02/07/21 14:03:00 EDT, [facility]eros[facility], [facility][id number], Partial fill upon patient request if the prescription is for a schedule II opioid drug., 2 puffs Inhalation 2 times a da... Start Date: 02/07/21 Status: Ordered carisoprodol 350 mg oral tablet 350 mg, 1, tablet, By Mouth, 3 times a day, PRN, AVIATION PROGRAM MANAGER checked, # 90 tablet, Refills 5, Tot. Refills 5, Maintenance, for back spasm, 08/22/21 14:26:00 EST, Route to Pharmacy Electronically, [facility] #[id number], Partial fill upon patient request... Start Date: [...] Tot. Refills 0, Maintenance, Pain , Severe, 10/04/21 12:43:00 EST, Route to Pharmacy Electronically, [facility] #[id number], Partial fill upon patient request;, 168, cm, ... 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
--- OUTSIDE RECORDS SUMMARY | 2024-04-20 13:10 | XMS_ITS | Continuity of Care Document ---
Author Organization [facility] Adult Address [address] [place] [address]- Care Team Providers Care Repair Service Clerk Name Role Phone Aminah GUZMÁN, Westley Jaime Primary Care Physician Encounter [facility] Date(s): 08/22/21 - 09/21/21 [facility] Adult [address] [place] [address]- Allergies, Adverse Reactions, Alerts Substance Reaction Severity [...] 5 Refills, Maintenance, 02/07/21 14:03:00 EDT, Aerosol, [facility] #[id number], Partial fill upon patient request if the prescription is for a schedule II opioid drug., 2 puffs Inhalation 2 times a da... Start Date: 02/07/21 Status: Ordered carisoprodol 350 mg oral tablet 350 mg, 1, tablet, By Mouth, 3 times a day, PRN, DOWEL INSPECTOR checked, # 90 tablet, Refills 5, Tot. Refills 5, Maintenance, for back spasm, 08/22/21 14:26:00 EST, Route to Pharmacy Electronically, [facility] #[id number], Partial fill upon patient request... Start Date: [...] 09/04/21 8:47:00 EST, Route to Pharmacy Electronically, [facility] #[id number], Partial fill upon patient request;, 09/06/21, 168... Start Date: 09/04/21 Stop Date: 10/02/21 Status: Ordered Ventolin HFA 108 mcg/inh inhalation aerosol with adapter 2 puffs, Inhalation, 4 times a day, # 1 each, 5 Refills, Maintenance, 07/11/21 15:43:00 EST, [facility] #[id number], 168, cm, 12/21/20 13:46:00 EDT, Height Start [...]
--- OUTSIDE RECORDS SUMMARY | 2024-04-20 13:10 | XMS_ITS | Continuity of Care Document ---
Author Organization [facility] Adult Address [address] [place] [address]- Care Team Providers Care Box Sorter Name Role Phone Vinny CROWELL, Zuri Tran Primary Care Physician [phone] [place] [facility] [place] Date(s): 11/23/22 - 12/23/22 [facility] Adult [address] [place] [address]- Allergies, Adverse Reactions, Alerts Substance Reaction Severity [...] Inactive (IM) (oldterm) 08/10/09 Given 1Result Comment: [facility]# [id number] 2Admin Note: VIS GIVEN 3Admin Note: GIVEN BY DR Medications ibuprofen 200 mg oral tablet 400 mg, 2, tablet, By Mouth, Every 6 hours, PRN, # 120 tablet, Refills 0, Maintenance, for pain, 07/09/16 14:58:25 Start Date: 07/09/16 Status: Ordered naloxone 4 mg/0.1 mL nasal spray = 4 mg, Nares, Both, Once, # 2 each, 2 Refills, Soft Stop, 09/19/22 16:56:00 EST, [facility] #[id number], Partial fill upon patient request if the prescription is for a schedule II opioid drug.,170, cm, 09/19/22 15:48:00 EST, Height, 71.2, kg, 0... Start Date: 09/19/22 Status: Ordered oxyCODONE 5 mg oral tablet 5 mg, 1, tablet, By Mouth, Daily, PRN, # 7 tablet, Refills 0, Tot. Refills 0, Maintenance, Pain , Severe, 11/20/22 9:47:00 EDT, Route to Pharmacy Electronically, [facility] #[id number], Partial fill upon patient request; Dose is being tapered. Pl... Start Date: 11/20/22 Stop Date: 11/27/22 Status: Ordered Symbicort 80mcg/4.5mcg Inhaler 2, puffs, Inhalation, 2 times a day, # 1 each, Refills 11, Tot. Refills 11, Maintenance, 06/21/22 16:17:00 EST, Route to Pharmacy Electronically, [id number], [facility] #[id number], 170, cm, 06/21/22 15:44:00 EST, Height... Start Date: 06/21/22 Status: Ordered Ventolin HFA 108 mcg/inh inhalation aerosol with adapter 2 puffs, Inhalation, 4 times a day, # 8.5 Gm, 5 Refills, Maintenance, 09/19/22 16:19:00 EST, [facility] #[id number], 170, cm, 09/19/22 15:48:00 EST, Height, 71.2, [...] Name: Zuri Casillas NP Position: [facility] PC[facility] Associate Professional Member Role: PCP Address: Address: [address] [place] [address]- Care Team Related Persons Name: ILYA GOLDSTEIN Address: home [address] [place] [address] Name: HARSHAD AVALOS Address: [place] [address]
--- OUTSIDE RECORDS SUMMARY | 2024-04-20 13:10 | XMS_ITS | Continuity of Care Document ---
Author Organization [facility] Adult Address [address] [place] [address]- Care Team Providers Care Contract Coordinator Name Role Phone Aminah GUZMÁN, Westley Jaime Primary Care Physician [place] [facility] [place] 03/31/20 - 04/30/20 [facility] Adult [address] [place] [address]- [facility] Allergies, Adverse Reactions, Alerts Substance Reaction Severity [...] 11/19/19 14:19:00 EDT, Route to Pharmacy Electronically, [facility] #[id number], 168, cm, :23:00 EST, Height, 70.3, kg, [...] Tot. Refills 0, Maintenance, Pain , Severe, 04/18/20 10:56:00 EDT, Route to Pharmacy Electronically, [facility] #[id number], Partial fill upon patient request;, 04/20/20, 16... Start Date: 04/18/20 Stop Date: 05/16/20 Status: Ordered Ventolin HFA 108 mcg/inh inhalation aerosol with adapter 2 puffs, Inhalation, 4 times a day, # 1 each, 5 Refills, Maintenance, 03/23/20 12:41:00 EDT, [facility] #[id number], 168, cm, 02/19/20 14:35:00 EDT, Height, 70.3, kg, 04/17/19 17:38:00 EDT, Dry Weight Start Date: 03/23/20 Status: Ordered Problem List Condition Effective Dates Status Health Status Inform ant Asthma(Confirmed) Active Endometriosis(Confirmed) Active Fibromyalgia muscle pain(Confirmed) 12/01/12 Active Low back pain(Confirmed) Active Migraine(Confirmed) Active Pain in hip(Confirmed) Active 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
--- OUTSIDE RECORDS SUMMARY | 2024-04-20 13:10 | XMS_ITS | Continuity of Care Document ---
Author Organization [facility] Adult Address [address] [place] [address]- Care Team Providers Care Jacquard Fixer Name Role Phone Aminah GUZMÁN, Westley Jaime Primary Care Physician [place] [facility] [place] 10[place]20 [facility] Adult [address] [place] [address]- Allergies, Adverse Reactions, Alerts Substance Reaction Severity [...] tablet, By Mouth, 3 times a day, ROOM WORKER checked, # 270 tablet, 1 Refills, Maintenance, 09/19/20 17:12:00 EST, [facility] #[id number], 168, cm, 02/19/20 14:35:00 EDT, Height, 70.3, [...] Tot. Refills 0, Maintenance, Pain , Severe, 10/04/20 11:29:00 EST, Route to Pharmacy Electronically, [facility] #[id number], Partial fill upon patient request;, 10/05/20, 16... Start Date: 10/04/20 Stop Date: 11/01/20 Status: Ordered Ventolin HFA 108 mcg/inh inhalation aerosol with adapter 2 puffs, Inhalation, 4 times a day, # 1 each, 1 Refills, Maintenance, 09/26/20 11:14:00 EST, [facility] #[id number], 168, cm, 02/19/20 14:35:00 EDT, Height, 70.3, kg, 04/17/19 17:38:00 EDT, Dry Weight Start Date: 09/26/20 Status: Ordered Problem List Condition Effective Dates Status Health Status Inform ant Asthma(Confirmed) Active Endometriosis(Confirmed) Active Fibromyalgia muscle pain(Confirmed) 12/01/12 Active Low back pain(Confirmed) Active Migraine(Confirmed) Active Pain in hip(Confirmed) Active 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
--- OUTSIDE RECORDS SUMMARY | 2024-04-20 13:10 | XMS_ITS | Continuity of Care Document ---
Author Organization [facility] Address [address] [place] [address]- Care Team Providers Care Institutional Custodian Name Role Phone Westley Burr MD Primary Care Physician [place] [facility] [place] 12[place]28/20 [facility] [address] [place] [address]- Encounter Diagnosis Asthma(Discharge Diagnosis) - 12/21/20 Low back pain(Discharge Diagnosis) - 12/21/20 Fibromyalgia muscle pain(Discharge Diagnosis) - 12/21/20 community planner prescription opiate use(Discharge Diagnosis) - 12/21/20 Endometriosis(Discharge Diagnosis) - 12/21/20 Tobacco use disorder(Discharge Diagnosis) - 12/21/20 Attending Physician: Westley Burr MD Allergies, Adverse [...] 90 tablet, 0 Refills, Acute, 218:52:00 EDT, [facility] #[id number], 168, cm, 12/21/20 13:46:00 EDT, Height, 70.3, kg, 04/17/19 17:38:00 EDT, Dry Weight Start Date: 12/26/20 Status: Ordered oxyCODONE 5 mg oral tablet 10 mg, 2, tablet, By Mouth, Every 6 hours, PRN, # 224 tablet, Refills 0, Tot. Refills 0, Maintenance, Pain , Severe, 12/23/20 16:18:00 EDT, Route to Pharmacy Electronically, [facility] #[id number], Partial fill upon patient request;, 12/28/20, 16... Start Date: 12/23/20 Stop Date: 01/20/21 Status: Ordered Ventolin HFA 108 mcg/inh inhalation aerosol with adapter 2 puffs, Inhalation, 4 times a day, # 1 each, 5 Refills, Maintenance, 10/27/20 7:38:00 EDT, 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) Active Tobacco use disorder(Confirmed) Active Diagnosis Diagnosis Type Effective Dates Health Status Clinical Service Informant Asthma Discharge Diagnosis 12/21/20 Low back pain Discharge Diagnosis 12/21/20 Fibromyalgia muscle pain Discharge Diagnosis 12/21/20 snf prescription opiate use Discharge Diagnosis 12/21/20 Endometriosis Discharge Diagnosis 12/21/20 Tobacco use disorder Discharge Diagnosis 12/21/20 Vital Signs Most recent to oldest [Reference Range]: 1 Height 168 cm (12/21/20 1:46 PM) Weight 72.5 kg (12/21/20 1:46 PM) Oxygen Saturation [94-100 %] 99 % (12/21/20 1:46 PM) Pulse Rate [55-90 bpm] 87 bpm (12/21/20 1:46 PM) Body Mass Index [18.5-24.99] 25.69 *H* (12/21/20 1:46 PM) Blood Pressure [90-138/55-84 mm Hg] 104/ 64mm Hg (12/21/20 1:46 PM) Mode of Delivery (Oxygen) Room air (12/21/20 1:46 PM) Blood pressure sites Arm, left (12/21/20 1:46 PM) Weight Obtained Via Standing scale (12/21/20 1:46 PM) Social History Social History Type Response Smoking Status 5-9 cigarettes (betw een 1/4 to 1/2 pack)/day in last 30 days entered on: 04/17/19 Sex Female
--- OUTSIDE RECORDS SUMMARY | 2024-04-20 13:10 | XMS_ITS | Continuity of Care Document ---
Author Organization [facility] Adult Address [address] [place] [address]- Care Team Providers Care Speeder Operator Name Role Phone Aminah GUZMÁN, Westley Jaime Primary Care Physician [place] [facility] [place]s): 03/14/20 - 04/13/20 [facility] Adult [address] [place] [address]- [facility] Allergies, Adverse Reactions, Alerts [...] 11/19/19 14:19:00 EDT, Route to Pharmacy Electronically, [facility] #[id number], 168, cm, :23:00 EST, Height, 70.3, kg, [...] 03/14/20 16:24:00 EDT, Route to Pharmacy Electronically, [facility] #[id number], Partial fill upon patient request;, 03/23/20, 16... Start Date: 03/14/20 Stop Date: 04/11/20 Status: Ordered Ventolin HFA 108 mcg/inh inhalation aerosol with adapter 2 puffs, Inhalation, 4 times a day, # 1 each, 5 Refills, Maintenance, 03/23/20 12:41:00 EDT, [facility] #[id number], 168, cm, 02/19/20 14:35:00 EDT, Height, 70.3, kg, 04/17/19 17:38:00 EDT, Dry Weight Start Date: 03/23/20 Status: Ordered Problem List Condition Effective Dates Status Health Status Inform ant Asthma(Confirmed) Active Endometriosis(Confirmed) Active Fibromyalgia muscle pain(Confirmed) 12/01/12 Active Low back pain(Confirmed) Active Migraine(Confirmed) Active Pain in hip(Confirmed) Active care home prescription opiat e use(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
--- OUTSIDE RECORDS SUMMARY | 2024-04-20 13:10 | XMS_ITS | Continuity of Care Document ---
Author Organization [facility] Adult Address [address] [place] [address]- Care Team Providers Care Hand Cultivator Name Role Phone Vinny CROWELL, Zuri Tran Primary Care Physician [place] [facility] [place] 11/02/22 - 12/02/22 [facility] Adult [address] [place] [address]- Allergies, Adverse Reactions, Alerts Substance Reaction Severity [...] Inactive (IM) (oldterm) 08/10/09 Given 1Result Comment: [facility]# [id number] 2Admin Note: VIS GIVEN 3Admin Note: GIVEN BY DR Medications ibuprofen 200 mg oral tablet 400 mg, 2, tablet, By Mouth, Every 6 hours, PRN, # 120 tablet, Refills 0, Maintenance, for pain, 07/09/16 14:58:25 Start Date: 07/09/16 Status: Ordered naloxone 4 mg/0.1 mL nasal spray = 4 mg, Nares, Both, Once, # 2 each, 2 Refills, Soft Stop, 09/19/22 16:56:00 EST, [facility] #[id number], Partial fill upon patient request if the prescription is for a schedule II opioid drug.,170, cm, 09/19/22 15:48:00 EST, Height, 71.2, kg, 0... Start Date: 09/19/22 Status: Ordered oxyCODONE 5 mg oral tablet 5 mg, 1, tablet, By Mouth, Daily, PRN, # 7 tablet, Refills 0, Tot. Refills 0, Maintenance, Pain , Severe, 11/20/22 9:47:00 EDT, Route to Pharmacy Electronically, [facility] #[id number], Partial fill upon patient request; Dose is being tapered. Pl... Start Date: 11/20/22 Stop Date: 11/27/22 Status: Ordered Symbicort 80mcg/4.5mcg Inhaler 2, puffs, Inhalation, 2 times a day, # 1 each, Refills 11, Tot. Refills 11, Maintenance, 06/21/22 16:17:00 EST, Route to Pharmacy Electronically, [id number], [facility] #[id number], 170, cm, 06/21/22 15:44:00 EST, Height... 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 PCO Associate Professional Member Role: PCP Address: Address: [address] [place] [address]- Care Team Related Persons Name: ILYA GOLDSTEIN Address: home [address] [place] [address] Name: HARSHAD AVALOS Address: home [address] [place] [address]
--- OUTSIDE RECORDS SUMMARY | 2024-04-20 13:10 | XMS_ITS | Continuity of Care Document ---
Author Organization [facility] Adult Address [address] [place] [address]- Care Team Providers Care Surgical Rn Name Role Phone Aminah GUZMÁN, Westley Jaime Primary Care Physician Encounter [facility] Date(s): 04/17/22 - 05/17/22 [facility] Adult [address] [place] [address]- Allergies, Adverse Reactions, Alerts Substance Reaction Severity [...] each, 5 Refills, Maintenance, 01/26/22 13:13:00 EDT, [facility] #[id number], Partial fill upon patient request if the prescription is for a schedule II opioid drug., 2 puffs Inhalation 2 times a da... Start Date: 01/26/22 Status: Ordered carisoprodol 350 mg oral tablet 350 mg, 1, tablet, By Mouth, 3 times a day, PRN, MERCANTILE REPORTER checked, # 90 tablet, Refills 5, Tot. Refills 5, Maintenance, for back spasm, 02/07/22 17:15:00 EDT, Route to Pharmacy Electronically, [facility] #[id number], Partial fill upon patient request... Start Date: [...] 05/15/22 11:04:00 EDT, Route to Pharmacy Electronically, [facility] #[id number], Partial fill upon patient request;, 05/16/22, 17... Start Date: 05/15/22 Stop Date: 06/12/22 Status: Ordered Ventolin HFA 108 mcg/inh inhalation aerosol with adapter 2 puffs, Inhalation, 4 times a day, # 1 each, 5 Refills, Maintenance, 03/27/22 14:31:00 EDT, [facility] #[id number], 168, cm, 12/08/21 14:09:00 EDT, Height Start Date: 03/27/22 Status: Ordered Problem List Condition Confirmation Course Effective Dates Status H ealth Status Informant Asthma Confirmed Active Endometriosis Confirmed Active Fibromyalgia muscle pain Confirmed 12/01/12 Active Low back pain Confirmed Active Migraine Confirmed Active Pain in hip Confirmed Active halfway prescription opiate use Confirmed Active Tobacco use disorder Confirmed Active Social History Social History Type Response Smoking Status 5-9 cigarettes (betw een 1/4 to 1/2 pack)/day in last 30 days entered on: 04/17/19 Sex Female Patient Care team information Personnel Name: Carmichael MD, Westley H Address: Address: [address] [place] [address]-
--- OUTSIDE RECORDS SUMMARY | 2024-04-20 13:10 | XMS_ITS | Continuity of Care Document ---
Author Organization [facility] Adult Address [address] [place] [address]- Care Team Providers Care Lead Miner Name Role Phone Westley Burr MD Primary Care Physician En[place] [facility] [place] 02/19/20 - 02/26/20 [facility] Adult [address] [place] [address]- [facility] Encounter Diagnosis Migraine(Discharge Diagnosis) - 02/19/20 Fibromyalgia muscle pain(Discharge Diagnosis) - 02/19/20 Low back pain(Discharge Diagnosis) - 02/19/20 group home prescription opiate use(Discharge Diagnosis) - 02/19/20 Attending Physician: Westley Burr MD Allergies, Adverse [...] 11/19/19 14:19:00 EDT, Route to Pharmacy Electronically, [email or web address] #[id number], 168, cm, 199:23:00 EST, Height, 70.3, kg, [...] Tot. Refills 0, Maintenance, Pain , Severe, 02/23/20 8:44:00 EDT, Route to Pharmacy Electronically, [email or web address] #[id number], Partial fill upon patient request;, 02/24/20, 168... Start Date: 02/23/20 Stop Date: 03/22/20 Status: Ordered Ventolin HFA 108 mcg/inh inhalation aerosol with adapter 2 puffs, Inhalation, 4 times a day, # 1 each, 5 Refills, Maintenance, 09/20/19 9:22:00 EST, [email or web address] #[id number], 168, cm, 07/23/19 9:23:00 EST, Height, 70.3, kg, 04/17/19 17:38:00 EDT, Dry Weight Start Date: 09/20/19 Status: Ordered Problem List Condition Effective Dates Status Health Status Inform ant Asthma(Confirmed) Active Endometriosis(Confirmed) Active Fibromyalgia muscle pain(Confirmed) 12/01/12 Active Low back pain(Confirmed) Active Migraine(Confirmed) Active Pain in hip(Confirmed) Active 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(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) Active Diagnosis Diagnosis Type Effective Dates Health Status Clinical Service Informant Migraine Discharge Diagnosis 02/19/20 Fibromyalgia muscle pain Discharge Diagnosis 02/19/20 Low back pain Discharge Diagnosis 02/19/20 termite control technician prescription 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 Discharge Diagnosis 02/19/20 Vital Signs Most recent to oldest [Reference Range]: 1 Height 168 cm (02/19/20 2:35 PM) Weight 73.3 kg (02/19/20 2:35 PM) Oxygen Saturation [94-100 %] 98 % (02/19/20 2:35 PM) Pulse Rate [55-90 bpm] 89 bpm (02/19/20 2:35 PM) Body Mass Index [18.5-24.99] 25.97 *H* (02/19/20 2:35 PM) Blood Pressure [90-138/55-84 mm Hg] 88/7 0mm Hg *L* (02/19/20 2:35 PM) Blood pressure sites Arm, left (02/19/20 2:35 PM) Weight Obtained Via Standing scale (02/19/20 2:35 PM) Social History Social History Type Response Smoking Status 5-9 cigarettes (betw een 1/4 to 1/2 pack)/day in last 30 days entered on: 04/17/19 Sex Female
--- OUTSIDE RECORDS SUMMARY | 2024-04-20 13:10 | XMS_ITS | Continuity of Care Document ---
Author Organization [facility] Adult Address [address] [place] [address]- Care Team Providers Care Fuse Cutter Name Role Phone Aminah GUZMÁN, Westley Jaime Primary Care Physician Encounter [facility] Date(s): 02/03/21 - 03/05/21 [facility] Adult [address] [place] [address]- Allergies, Adverse Reactions, Alerts Substance Reaction Severity [...] Maintenance, 02/07/21 14:03:00 EDT, [facility], [id number], Partial fill upon patient request if the prescription is for a schedule II opioid drug., 2 puffs Inhalation 2 times a da... Start Date: 02/07/21 Status: Ordered carisoprodol 350 mg oral tablet 350 mg, 1, tablet, By Mouth, 3 times a day, PRN, PAINT ROLLER COVERS SUPERVISOR checked, # 90 tablet, Refills 0, Tot. Refills 0, Maintenance, for back spasm, 01/31/21 17:14:00 EDT, Route to Pharmacy Electronically, [facility] #[id number], Partial fill upon patient request... Start Date: [...] 02/21/21 10:07:00 EDT, Route to Pharmacy Electronically, [facility] #[id number], Partial fill upon patient request;, 02/22/21, 16... Start Date: 02/21/21 Stop Date: 03/21/21 Status: Ordered Ventolin HFA 108 mcg/inh inhalation aerosol with adapter 2 puffs, Inhalation, 4 times a day, # 1 each, 5 Refills, Maintenance, 02/03/21 16:26:00 EDT, [facility] #[id number], 168, cm, 12/21/20 13:46:00 EDT, Height, 70.3, [...]
--- OUTSIDE RECORDS SUMMARY | 2024-04-20 13:10 | XMS_ITS | Continuity of Care Document ---
Author Organization [facility] Adult Address [address] [place] [address]- Care Team Providers Care Communications Department Chair Name Role Phone Vinny CROWELL, Zuri Tran Primary Care Physician [place] [facility] [place] [facility] [address] [place] [address]- Allergies, Adverse Reactions, Alerts Substance Reaction Severity [...] Inactive (IM) (oldterm) 08/10/09 Given 1Result Comment: [facility]# [id number] 2Admin Note: VIS GIVEN 3Admin Note: GIVEN BY DR Medications ibuprofen 200 mg oral tablet 400 mg, 2, tablet, By Mouth, Every 6 hours, PRN, # 120 tablet, Refills 0, Maintenance, for pain, 07/09/16 14:58:25 Start Date: 07/09/16 Status: Ordered naloxone 4 mg/0.1 mL nasal spray = 4 mg, Nares, Both, Once, # 2 each, 2 Refills, Soft Stop, 09/19/22 16:56:00 EST, [facility] #[id number], Partial fill upon patient request if the prescription is for a schedule II opioid drug.,170, cm, 09/19/22 15:48:00 EST, Height, 71.2, kg, 0... Start Date: 09/19/22 Status: Ordered oxyCODONE 5 mg oral tablet 5 mg, 1, tablet, By Mouth, Daily, PRN, # 7 tablet, Refills 0, Tot. Refills 0, Maintenance, Pain , Severe, 11/20/22 9:47:00 EDT, Route to Pharmacy Electronically, [facility] #[id number], Partial fill upon patient request; Dose is being tapered. Pl... Start Date: 11/20/22 Stop Date: 11/27/22 Status: Ordered Symbicort 80mcg/4.5mcg Inhaler 2, puffs, Inhalation, 2 times a day, # 1 each, Refills 11, Tot. Refills 11, Maintenance, 06/21/22 16:17:00 EST, Route to Pharmacy Electronically, [id number], [facility] #[id number], 170, cm, 06/21/22 15:44:00 EST, Height... 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
--- OUTSIDE RECORDS SUMMARY | 2024-04-20 13:10 | XMS_ITS | Continuity of Care Document ---
Author Organization [facility] Adult Address [address] [place] [address]- Care Team Providers Care Players Assistant Name Role Phone Westley Burr MD Primary Care Physician Encounter [facility] [place] Date(s): 11/28/21 - 12/28/21 [facility] Adult [address] [place] [address]- Allergies, Adverse Reactions, Alerts Substance Reaction Severity [...] each, 5 Refills, Maintenance, 02/07/21 14:03:00 [id number], Partial fill upon patient request if the prescription is for a schedule II opioid drug., 2 puffs Inhalation 2 times a da... Start Date: 02/07/21 Status: Ordered carisoprodol 350 mg oral tablet 350 mg, 1, tablet, By Mouth, 3 times a day, PRN, BULK STATION OPERATOR checked, # 90 tablet, Refills 5, Tot. Refills 5, Maintenance, for back spasm, 08/22/21 14:26:00 EST, Route to Pharmacy Electronically, [facility] #[id number], Partial fill upon patient request... Start Date: [...] 12/26/21 8:34:00 EDT, Route to Pharmacy Electronically, [facility] #[id number], Partial fill upon patient request;, 12/27/21, 168... Start Date: 12/26/21 Stop Date: 01/23/22 Status: Ordered Ventolin HFA 108 mcg/inh inhalation aerosol with adapter 2 puffs, Inhalation, 4 times a day, # 1 each, 5 Refills, Maintenance, 11/08/21 14:08:00 EDT, [facility] #[id number], 168, cm, 12/21/20 13:46:00 EDT, Height Start Date: 11/08/21 Status: Ordered Problem List Condition Effective Dates Status Health Status Inform ant Asthma(Confirmed) Active Endometriosis(Confirmed) Active Fibromyalgia muscle pain(Confirmed) 12/01/12 Active Low back pain(Confirmed) Active Migraine(Confirmed) Active Pain in hip(Confirmed) Active retirement prescription opiat e use(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"
--- OUTSIDE RECORDS SUMMARY | 2024-04-20 13:10 | XMS_ITS | Continuity of Care Document ---
Author Organization [facility] Adult Address [address] [place] [address]- Care Team Providers Care Geophysical Support Specialist Name Role Phone Aminah GUZMÁN, Westley Jaime Primary Care Physician Encounter [facility] [place] Date(s): 09/06/20 - 10/06/20 [facility] Adult [address] [place] [address]- Allergies, Adverse Reactions, Alerts Substance Reaction Severity [...] tablet, By Mouth, 3 times a day, ELECTRON MICROSCOPIST checked, # 270 tablet, 1 Refills, Maintenance, 09/19/20 17:12:00 [facility] #[id number], 168, cm, 02/19/20 14:35:00 EDT, Height, 70.3, [...] 10/04/20 11:29:00 EST, Route to Pharmacy Electronically, [facility] #[id number], Partial fill upon patient request;, 10/05/20, 16... Start Date: 10/04/20 Stop Date: 11/01/20 Status: Ordered Ventolin HFA 108 mcg/inh inhalation aerosol with adapter 2 puffs, Inhalation, 4 times a day, # 1 each, 1 Refills, Maintenance, 09/26/20 11:14:00 EST, [facility] #[id number], 168, cm, 02/19/20 14:35:00 EDT, Height, 70.3, kg, 04/17/19 17:38:00 EDT, Dry Weight Start Date: 09/26/20 Status: Ordered Problem List Condition Effective Dates Status Health Status Inform ant Asthma(Confirmed) Active Endometriosis(Confirmed) Active Fibromyalgia muscle pain(Confirmed) 12/01/12 Active Low back pain(Confirmed) Active Migraine(Confirmed) Active Pain in hip(Confirmed) Active [facility] prescription opiat e use(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
--- OUTSIDE RECORDS SUMMARY | 2024-04-20 13:10 | XMS_ITS | Continuity of Care Document ---
Author Organization [facility] Adult Address [address] [place] [address]- Care Team Providers Care Grinder Operator Automatic Name Role Phone Vinny CROWELL, Zuri Tran Primary Care Physician [place] [facility] [place] 11[place]05/22 - 12/27/22 [facility] Adult [address] [place] [address]- Attending Physician: Not on Staff, Attending MD [...] Inactive (IM) (oldterm) 08/10/09 Given 1Result Comment: [facility]# [id number] 2Admin Note: VIS GIVEN 3Admin Note: GIVEN BY DR Medications ibuprofen 200 mg oral tablet 400 mg, 2, tablet, By Mouth, Every 6 hours, PRN, # 120 tablet, Refills 0, Maintenance, for pain, 07/09/16 14:58:25 Start Date: 07/09/16 Status: Ordered naloxone 4 mg/0.1 mL nasal spray = 4 mg, Nares, Both, Once, # 2 each, 2 Refills, Soft Stop, 09/19/22 16:56:00 EST, [facility] #[id number], Partial fill upon patient request if the prescription is for a schedule II opioid drug.,170, cm, 09/19/22 15:48:00 EST, Height, 71.2, kg, 0... Start Date: 09/19/22 Status: Ordered oxyCODONE 5 mg oral tablet 5 mg, 1, tablet, By Mouth, Daily, PRN, # 7 tablet, Refills 0, Tot. Refills 0, Maintenance, Pain , Severe, 11/20/22 9:47:00 EDT, Route to Pharmacy Electronically, [facility] #[id number], Partial fill upon patient request; Dose is being tapered. Pl... Start Date: 11/20/22 Stop Date: 11/27/22 Status: Ordered Symbicort 80mcg/4.5mcg Inhaler 2, puffs, Inhalation, 2 times a day, # 1 each, Refills 11, Tot. Refills 11, Maintenance, 06/21/22 16:17:00 EST, Route to Pharmacy Electronically, [id number], [facility] #[id number], 170, cm, 06/21/22 15:44:00 EST, Height... Start Date: 06/21/22 Status: Ordered Ventolin HFA 108 mcg/inh inhalation aerosol with adapter 2 puffs, Inhalation, 4 times a day, # 8.5 Gm, 5 Refills, Maintenance, 09/19/22 16:19:00 EST, [facility] #[id number], 170, cm, 09/19/22 15:48:00 EST, Height, 71.2, [...] Confirmed Active Pain in hip Confirmed Active care home prescription opiate use Confirmed Active Tobacco use disorder Confirmed Active Social History Social History Type Response Smoking Status 5-9 cigarettes (betw een 1/4 to 1/2 pack)/day in last 30 days entered on: 04/17/19 Sex Female Patient Care team information Care Team Personnel Name: Zuri Casillas NP Position: [facility] PCO Associate Professional Member Role: PCP Address: Address: [address] [place] [address]- Care Team Related Persons Name: ILYA GOLDSTEIN Address: home [address] [place] [address] Name: HARSHAD AVALOS Address: [place] [address]
--- OUTSIDE RECORDS SUMMARY | 2024-04-20 13:10 | XMS_ITS | Continuity of Care Document ---
Author Organization [facility] Adult Address [address] [place] [address]- Care Team Providers Care Health Care Analyst Name Role Phone Aminah GUZMÁN, Westley Jaime Primary Care Physician Encounter [facility] Date(s): 05/16/21 - 06/15/21 [facility] Adult [address] [place] [address]- Allergies, Adverse Reactions, Alerts Substance Reaction Severity [...] EDT, [id number], Partial fill upon patient request if the prescription is for a schedule II opioid drug., 2 puffs Inhalation 2 times a da... Start Date: 02/07/21 Status: Ordered carisoprodol 350 mg oral tablet 350 mg, 1, tablet, By Mouth, 3 times a day, PRN, SIGNALS INTELLIGENCE SUPERINTENDENT checked, # 90 tablet, Refills 5, Tot. Refills 5, Maintenance, for back spasm, 03/07/21 15:59:00 EDT, Route to Pharmacy Electronically, [facility] #[id number], Partial fill upon patient request... Start Date: [...] Tot. Refills 0, Maintenance, Pain , Severe, 06/13/21 9:54:00 EST, Route to Pharmacy Electronically, [facility] #[id number], Partial fill upon patient request;, 06/14/21, 168... Start Date: 06/13/21 Stop Date: 07/11/21 Status: Ordered Ventolin HFA 108 mcg/inh inhalation aerosol with adapter 2 puffs, Inhalation, 4 times a day, # 1 each, 5 Refills, Maintenance, 02/03/21 16:26:00 EDT, [facility] #[id number], 168, cm, 12/21/20 13:46:00 EDT, Height, 70.3, kg, 04/17/19 17:38:00 EDT, Dry Weight Start Date: 02/03/21 Status: Ordered Problem List Condition Effective Dates Status Health Status Inform ant Asthma(Confirmed) Active Endometriosis(Confirmed) Active Fibromyalgia muscle pain(Confirmed) 12/01/12 Active Low back pain(Confirmed) Active Migraine(Confirmed) Active Pain in hip(Confirmed) Active alf prescription opiat e use(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
--- OUTSIDE RECORDS SUMMARY | 2024-04-20 13:10 | XMS_ITS | Continuity of Care Document ---
Author Organization [facility] Adult Address [address] [place] [address]- Care Team Providers Care Catalogue And Special Products Manager Name Role Phone Aminah GUZMÁN, Westley Jaime Primary Care Physician Encounter [facility] Date(s): 05/15/22 - 06/14/22 [facility] Adult [address] [place] [address]- Allergies, Adverse Reactions, Alerts Substance Reaction Severity [...] each, 5 Refills, Maintenance, 01/26/22 13:13:00 EDT, [facility] #[id number], Partial fill upon patient request if the prescription is for a schedule II opioid drug., 2 puffs Inhalation 2 times a da... Start Date: 01/26/22 Status: Ordered carisoprodol 350 mg oral tablet 350 mg, 1, tablet, By Mouth, 3 times a day, PRN, ACCOUNT ADJUSTER checked, # 90 tablet, Refills 5, Tot. Refills 5, Maintenance, for back spasm, 02/07/22 17:15:00 EDT, Route to Pharmacy Electronically, [facility] #[id number], Partial fill upon patient request... Start Date: [...] 06/12/22 11:38:00 EST, Route to Pharmacy Electronically, [facility] #[id number], Partial fill upon patient request;, 06/13/22, 17... Start Date: 06/12/22 Stop Date: 07/10/22 Status: Ordered Ventolin HFA 108 mcg/inh inhalation aerosol with adapter 2 puffs, Inhalation, 4 times a day, # 1 each, 5 Refills, Maintenance, 03/27/22 14:31:00 EDT, 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
--- OUTSIDE RECORDS SUMMARY | 2024-04-20 13:10 | XMS_ITS | Continuity of Care Document ---
Author Organization [facility] Adult Address [address] [place] [address]- Care Team Providers Care Transcriber Name Role Phone Vinny CROWELL, Zuri Tran Primary Care Physician Encounter [facility] Date(s): 09/04/22 - 10/04/22 [facility] Adult [address] [place] [address]- Allergies, Adverse Reactions, Alerts Substance Reaction Severity [...] Inactive (IM) (oldterm) 08/10/09 Given 1Result Comment: [facility]# [id number] 2Admin Note: VIS GIVEN 3Admin Note: GIVEN BY DR Carter carisoprodol 350 mg oral tablet 350 mg, 1, tablet, By Mouth, 3 times a day, PRN, SENIOR WIND ENERGY CONSULTANT checked, # 90 tablet, Refills 0, Tot. Refills 0, Maintenance, for back spasm, 07/22/22 14:28:00 EST, Route to Pharmacy Electronically, [facility] #[id number], Partial fill upon patient request... Start Date: 07/22/22 Status: Ordered carisoprodol 350 mg oral tablet 350 mg, 1, tablet, By Mouth, 3 times a day, PRN, secondary set up man checked, # 90 tablet, Refills 5, Tot. Refills 5, Maintenance, as needed for spasm, 07/22/22 14:31:00 EST, Route to Pharmacy Electronically, [facility] #[id number], Partial fill upon patient req... Start Date: 07/22/22 Status: Ordered ibuprofen 200 mg oral tablet 400 mg, 2, tablet, By Mouth, Every 6 hours, PRN, # 120 tablet, Refills 0, Maintenance, for pain, 07/09/16 14:58:25 Start Date: 07/09/16 Status: Ordered naloxone 4 mg/0.1 mL nasal spray = 4 mg, Nares, Both, Once, # 2 each, 2 Refills, Soft Stop, 09/19/22 16:56:00 EST, [facility] #[id number], Partial fill upon patient request if the prescription is for a schedule II opioid drug.,170, cm, 09/19/22 15:48:00 EST, Height, 71.2, kg, 0... Start Date: 09/19/22 Status: Ordered oxyCODONE 5 mg oral tablet See Instructions, PRN, Take every 6 hours as needed for pain in four divided doses of 10 mg, 10 mg,10 mg, and 5 mg,, # 196 tablet, Refills 0, Tot. Refills 0, Maintenance, Pain , Severe, 10/02/22 11:08:00 EST, Instructions Replace Required Details, Ro... Start Date: 10/02/22 Status: Ordered Symbicort 80mcg/4.5mcg Inhaler 2, puffs, Inhalation, 2 times a day, # 1 each, Refills 11, Tot. Refills 11, Maintenance, 06/21/22 16:17:00 EST, Route to Pharmacy Electronically, [id number], [facility] #[id number], 170, cm, 06/21/22 15:44:00 EST, Height... Start Date: 06/21/22 Status: Ordered Ventolin HFA 108 mcg/inh inhalation aerosol with adapter 2 puffs, Inhalation, 4 times a day, # 8.5 Gm, 5 Refills, Maintenance, 09/19/22 16:19:00 EST, [facility] #[id number], 170, cm, 09/19/22 15:48:00 EST, Height, 71.2, kg, 04/19/22 19:11:00 EDT, Dry Weight Start Date: 09/19/22 Stop Date: 03/18/23 Status: Ordered Problem List Condition Confirmation Course Effective Dates Status H ealth Status Informant Asthma Confirmed Active Bronchitis Confirmed Active Endometriosis Confirmed Active Fibromyalgia muscle pain Confirmed 12/01/12 Active Low back pain Confirmed Active Migraine Confirmed Active Pain in hip Confirmed Active 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
--- OUTSIDE RECORDS SUMMARY | 2024-04-20 13:10 | XMS_ITS | Continuity of Care Document ---
Author Organization [facility] Adult Address [address] [place] [address]- Care Team Providers Care Loft Worker Head Name Role Phone Zuri Casillas NP Primary Care Physician Encounter [facility] Date(s): 09/19/22 - 09/26/22 [facility] Adult [address] [place] [address]- Encounter Diagnosis Low back pain(Discharge Diagnosis) - 09/19/22 Fibromyalgia muscle pain(Discharge Diagnosis) - 09/19/22 group home prescription opiate use(Discharge Diagnosis) - 09/19/22 Bronchitis(Discharge Diagnosis) - 09/19/22 Attending Physician: Not on Staff, Attending MD Referring Physician: Zuri Casillas NP Allergies, Adverse Reactions, Alerts Substance Reaction Severity [...] (IM) (oldterm) 08/10/09 Given 1Result Comment: [facility]# [id number] 2Admin Note: VIS GIVEN 3Admin Note: GIVEN BY DR Carter carisoprodol 350 mg oral tablet 350 mg, 1, tablet, By Mouth, 3 times a day, PRN, RIM TURNING FINISHER checked, # 90 tablet, Refills 0, Tot. Refills 0, Maintenance, for back spasm, 07/22/22 14:28:00 EST, Route to Pharmacy Electronically, [facility] #[id number], Partial fill upon patient request... Start Date: 07/22/22 Status: Ordered carisoprodol 350 mg oral tablet 350 mg, 1, tablet, By Mouth, 3 times a day, PRN, therapeutic recreation specialist checked, # 90 tablet, Refills 5, Tot. Refills 5, Maintenance, as needed for spasm, 07/22/22 14:31:00 EST, Route to Pharmacy Electronically, [facility] #[id number], Partial fill upon patient req... Start Date: 07/22/22 Status: Ordered ibuprofen 200 mg oral tablet 400 mg, 2, tablet, By Mouth, Every 6 hours, PRN, # 120 tablet, Refills 0, Maintenance, for pain, 07/09/16 14:58:25 Start Date: 07/09/16 Status: Ordered naloxone 4 mg/0.1 mL nasal spray = 4 mg, Nares, Both, Once, # 2 each, 2 Refills, Soft Stop, 09/19/22 16:56:00 EST, [facility] #[id number], Partial fill upon patient request if the prescription is for a schedule II opioid drug.,170, cm, 09/19/22 15:48:00 EST, Height, 71.2, kg, 0... Start Date: 09/19/22 Status: Ordered oxyCODONE 5 mg oral tablet 10 mg, 2, tablet, By Mouth, Every 6 hours, PRN, # 224 tablet, Refills 0, Tot. Refills 0, Maintenance, Pain , Severe, 09/04/22 9:02:00 EST, Route to Pharmacy Electronically, [facility] #[id number], Partial fill upon patient request;, 09/05/22, 170... Start Date: 09/04/22 Stop Date: 10/02/22 Status: Ordered Symbicort 80mcg/4.5mcg Inhaler 2, puffs, Inhalation, 2 times a day, # 1 each, Refills 11, Tot. Refills 11, Maintenance, 06/21/22 16:17:00 EST, Route to Pharmacy Electronically, [id number], [facility] #[id number], 170, cm, 06/21/22 15:44:00 EST, Height... Start Date: 06/21/22 Status: Ordered Ventolin HFA 108 mcg/inh inhalation aerosol with adapter 2 puffs, Inhalation, 4 times a day, # 8.5 Gm, 5 Refills, Maintenance, 09/19/22 16:19:00 EST, [facility] #[id number], 170, cm, 09/19/22 15:48:00 EST, Height, 71.2, kg, 04/19/22 19:11:00 EDT, Dry Weight Start Date: 09/19/22 Stop Date: 03/18/23 Status: Ordered Problem List Condition Confirmation Course Effective Dates Status H ealth Status Informant Asthma Confirmed Active Bronchitis Confirmed Active Endometriosis Confirmed Active Fibromyalgia muscle pain Confirmed 12/01/12 Active Low back pain Confirmed Active Migraine Confirmed Active Pain in hip Confirmed 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 Tobacco use disorder Confirmed Active Diagnosis Diagnosis Type Effective Dates Health Status Clinical Service Informant Low back pain Discharge Diagnosis 09/19/22 Fibromyalgia muscle pain Discharge Diagnosis 09/19/22 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 Discharge Diagnosis 09/19/22 Bronchitis Discharge Diagnosis 09/19/22 Vital Signs Most recent to oldest [Reference Range]: 1 2 Height 170 cm (09/19/22 4:00 PM) 170 cm (09/19/22 3:48 PM) Weight 66.2 kg (09/19/22 3:48 PM) Oxygen Saturation [94-100 %] 95 % (09/19/22 3:48 PM) Pulse Rate [55-90 bpm] 102 bpm *H* (09/19/22 3:48 PM) Body Mass Index [18.5-24.99 kg/m2] 22.91 kg/m2 (09/19/22 3:48 PM) Blood Pressure [90-138/55-84 mm Hg] 90/8 2mm Hg (09/19/22 4:00 PM) 87/68mm Hg *L* (09/19/22 3:48 PM) Mode of Delivery (Oxygen) Room air (09/19/22 3:48 PM) Blood pressure sites Arm, left (09/19/22 4:00 PM) Arm, left (09/19/22 3:48 PM) Weight Obtained Via Standing scale (09/19/22 3:48 PM) Social History Social History Type Response Smoking Status 5-9 cigarettes (betw een 1/4 to 1/2 pack)/day in last 30 days entered on: 04/17/19 Sex Female Note * Fiorella Aj: PERFORM, SIGN, VERIFY Event Display: Patient Education/Instruction Authored Date: [id number] [facility] *[facility] [place] [facility] Clinical Summary Name DONOVAN AVALOS Age 41 Years 1980 PCP Vinny CROWELL, Zuri Tran PCP Visit Date 09/19/2022 15:44:00 Additional Instructions: Scheduled Appointments?? Future Appointments ?No Future Appointments Scheduled Follow-Up Instructions ?? Diagnosis Medications: Please continue your medications until treatment is completed or stopped by your provider. Discuss any questions related to medications with your provider. New Medications [facility] #[id number], [address] [place] [phone], [phone] PredniSONE (predniSONE 20 mg oral tablet) 2 tab(s) Oral Daily for 5 Days. Refills: 0. Next Dose: Medications to Continue Taking That Have Changed [facility] #[id number], [address] [place], [place] [phone], [phone] - Albuterol (Ventolin HFA 108 mcg/inh inhalation aerosol with adapter) 2 puff(s) Inhalation 4 timesa day for 30 Days. Refills: 5. Next Dose: Medications to Continue with No Changes These medications were not printed or sent to your pharmacy Budesonide-Formoterol (Symbicort 80mcg/4.5mcg Inhaler) 2 puff(s) Inhalation twice a day. Refills: 11. Next Dose: Carisoprodol (carisoprodol 350 mg oral tablet) 1 tab(s) Oral 3 times a day as needed for back spasm. RIM TURNING FINISHER checked. Refills: 0. Next Dose: Carisoprodol (carisoprodol 350 mg oral tablet) 1 tab(s) Oral 3 times a day as needed as needed for spasm. therapeutic recreation specialist checked. Refills: 5. Next Dose: Ibuprofen (ibuprofen 200 mg oral tablet) 2 tab(s) Oral every 6 hours as needed for pain. Next Dose: Oxycodone (oxyCODONE 5 mg oral tablet) 2 tab(s) Oral every 6 hours as needed Pain , Severe for 28 Days. Refills: 0. Next Dose: Allergy Info:?? Duloxetine; Vicodin; penicillin; erythromycin Medications Given This Visit Future Orders ?Methadone Urine? Order Date:09/19/22?- Complete on or after?09/19/22 ?Heroin Metabolite QN, Urine Toxicology? Order Date:09/19/22?- Complete on or after?09/19/22 ?Buprenorphine Urine? Order Date:09/19/22?- Complete on or after?09/19/22 ?Fentanyl Screen, Urine? Order Date:09/19/22?- Complete on or after?09/19/22 ?Opiate Screen Urine? Order Date:09/19/22?- Complete on or after?09/19/22 ?Benzodiazepine Urine Screen? Order Date:09/19/22?- Complete on or after?09/19/22 ?Cocaine Urine Screen? Order Date:09/19/22?- Complete on or after?09/19/22 ?Oxycodone Screen Urine? Order Date:09/19/22?- Complete on or after?09/19/22 Vital Signs Height 170 cm Weight 66.2 kg BMI 22.91 kg/m2 Blood Pressure 87 mm Hg/68 mm Hg Temperature Pulse Rate 102 bpm Respiratory Rate 02 Sat Mode of Delivery 95 %/Room air You can now view a summary of your hospital visit from the comfort of your home through a free online portal called [employer]. [employer] is a website that allows you to securely view your medical information including discharge summary, medications and follow-up visits. ??You can alsosend a secure electronic message to your doctor???s office to request appointments, renew medications or just ask a question. You can enroll at [email or web address] or register during your next office visit. [...] primary care provider, you may find a [facility] provider by calling [facility] [employer] at [phone]. For information about the plan of care including goals and instructions for your diagnosis, please see the patient education orders section of this document. Patient Education Materials?? The content of this educational material or handout may have been modified, supplemented, or adapted from its original content and format to support your individualized medical care. Patient Care team information Care Team Personnel Name: Vinny CROWELL, Zuri Tran Position: [facility] PCO Associate Professional Member Role: PCP Address: Address: [address] [place] [address]- Care Team Related Persons Name: ILYA GOLDSTEIN Address: home [address] [place] [address] Name: HARSHAD AVALOS Address: home [address] [place] [address]
--- OUTSIDE RECORDS SUMMARY | 2024-04-20 13:10 | XMS_ITS | Continuity of Care Document ---
Author Organization [facility] Adult Address [address] [place] [address]- Care Team Providers Care Gluing Machine Feeder Name Role Phone Westley Burr MD Primary Care Physician Encounter [facility] [place] Date(s): 04/10/22 - 04/17/22 [facility] Adult [address] [place] [address]- Encounter Diagnosis Laceration of left thumb(Discharge Diagnosis) - 04/10/22 Low back pain(Discharge Diagnosis) - 04/10/22 nursing home prescription opiate use(Discharge Diagnosis) - 04/10/22 Attending Physician: Westley Burr MD Allergies, Adverse [...] 5 Refills, Maintenance, 01/26/22 13:13:00 EDT, Aerosol, [facility] #[id number], Partial fill upon patient request if the prescription is for a schedule II opioid drug., 2 puffs Inhalation 2 times a da... Start Date: 01/26/22 Status: Ordered carisoprodol 350 mg oral tablet 350 mg, 1, tablet, By Mouth, 3 times a day, PRN, SECRETARIAL TEACHER checked, # 90 tablet, Refills 5, Tot. Refills 5, Maintenance, for back spasm, 02/07/22 17:15:00 EDT, Route to Pharmacy Electronically, [facility] #[id number], Partial fill upon patient request... Start Date: [...] 04/17/22 9:22:00 EDT, Route to Pharmacy Electronically, [facility] #[id number], Partial fill upon patient request;, 04/18/22, 168... Start Date: 04/17/22 Stop Date: 05/15/22 Status: Ordered Ventolin HFA 108 mcg/inh inhalation aerosol with adapter 2 puffs, Inhalation, 4 times a day, # 1 each, 5 Refills, Maintenance, 03/27/22 14:31:00 EDT, [facility] #[id number], 168, cm, 12/08/21 14:09:00 EDT, Height Start Date: 03/27/22 Status: Ordered Problem List Condition Effective Dates Status Health Status Inform ant Asthma(Confirmed) Active Endometriosis(Confirmed) Active Fibromyalgia muscle pain(Confirmed) 12/01/12 Active Low back pain(Confirmed) Active Migraine(Confirmed) Active Pain in hip(Confirmed) Active nursing home prescription opiat e use(Confirmed) Active Tobacco use disorder(Confirmed) Active Diagnosis Diagnosis Type Effective Dates Health Status Clinical Service Informant Laceration of left thumb Discharge Diagnosis 04/10/22 Low back pain Discharge Diagnosis 04/10/22 nursing home prescription opiate use Discharge Diagnosis 04/10/22 Vital Signs Most recent to oldest [Reference Range]: 1 Height 168 cm (04/10/22 1:51 PM) Weight 71.4 kg (04/10/22 1:51 PM) Oxygen Saturation [94-100 %] 98 % (04/10/22 1:51 PM) Pulse Rate [55-90 bpm] 106 bpm *H* (04/10/22 1:51 PM) Body Mass Index [18.5-24.99] 25.3 *H* (04/10/22 1:51 PM) Blood Pressure [90-138/55-84 mm Hg] 104/ 71mm Hg (04/10/22 1:51 PM) Mode of Delivery (Oxygen) Room air (04/10/22 1:51 PM) Blood pressure sites Arm, left (04/10/22 1:51 PM) Weight Obtained Via Standing scale (04/10/22 1:51 PM) Social History Social History Type Response Smoking Status 5-9 cigarettes (betw een 1/4 to 1/2 pack)/day in last 30 days entered on: 04/17/19 Sex Female Care Team Personnel Name: Westley Burr MD Address: [address] [place] [address] 3rd Floor [facility] [place], [place] [address]
--- OUTSIDE RECORDS SUMMARY | 2024-04-20 13:10 | XMS_ITS | Continuity of Care Document ---
Author Organization [facility] Adult Address [address] [place] [address]- Care Team Providers Care Betting Agency Counter Clerk Name Role Phone Aminah GUZMÁN, Westley Jaime Primary Care Physician Encounter [facility] Date(s): 10/04/21 - 11/03/21 [facility] [address] [place] [id number]- Allergies, Adverse Reactions, Alerts Substance Reaction Severity [...] 5 Refills, Maintenance, 02/07/21 14:03:00 EDT, [id number], Partial fill upon patient request if the prescription is for a schedule II opioid drug., 2 puffs Inhalation 2 times a da... Start Date: 02/07/21 Status: Ordered carisoprodol 350 mg oral tablet 350 mg, 1, tablet, By Mouth, 3 times a day, PRN, DIRECTOR M[employer]IPLE [employer]CLEROS[employer] CENTER checked, # 90 tablet, Refills 5, Tot. Refills 5, Maintenance, for back spasm, 08/22/21 14:26:00 EST, Route to Pharmacy Electronically, [facility] #[id number], Partial fill upon patient request... Start Date: [...] 10/31/21 12:24:00 EDT, Route to Pharmacy Electronically, [facility] #[id number], Partial fill upon patient request;, 11/01/21, 16... 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
== END 2024-04-20 14:01 | disposition home or self-care (01) ==
PROVIDERS: PCP Internal Medicine; Visit Provider Nurse Practitioner Family
DX: J45.41 Moderate persistent asthma with (acute) exacerbation (principal); L01.00 Impetigo, unspecified; Z91.148 Patient's other noncompliance with medication regimen for other reason

== ENCOUNTER 2024-04-20 13:05 | Outpatient (REF) | payer MEDICARE, SELFPAY ==
[2024-04-20 18:37] LABS: Influenza A PCR NEGATIVE (Negative); Influenza B PCR NEGATIVE (Negative); Resp Syncy Virus RNA Qual PCR NEGATIVE (Negative); SARS COV2 PCR INHOUSE NEGATIVE (Negative)
== END 2024-04-20 13:06 | disposition home or self-care (01) ==
LOC: HO.LNP 13:05
PROVIDERS: PCP Internal Medicine; Visit Provider Nurse Practitioner Family
DX: J45.41 Moderate persistent asthma with (acute) exacerbation (principal); L01.00 Impetigo, unspecified; F17.210 Nicotine dependence, cigarettes, uncomplicated; Z91.148 Patient's other noncompliance with medication regimen for other reason; Z79.899 Other long term (current) drug therapy
CPT/HCPCS: 0241U; 99212

== ENCOUNTER 2024-04-27 09:26 | Outpatient (AMB) | payer MEDICARE, SELFPAY ==
[2024-04-27 09:36] VITALS: BP 130/56; PULSE 70; RESP 12; O2SAT 97; BMI 26.3
--- NOTE | 2024-04-27 09:36 | MHC.PC.OV ---
Vital Signs 04/27/24 09:36 Height 5 ft 7 in Weight 168 lb BMI 26.3 BP 130/56 L Blood Pressure Location Lt brachial Position Sitting Respiration 12 Pulse 70 Pulse Source Pulse Oximeter Pulse Oximetry (%) 97 Oxygen Delivery Method Room Air Intake Visit Reasons: Antibiotic reaction Intake Note: Patient reports she may be having a reaction to antibiotics for the cold she has. Slunk Skin Curer Required: No Accompanied by: Self / Same As Patient Allergies duloxetine Allergy (Severe, Verified 04/27/24 09:39) tachypnea erythromycin base Allergy (Severe, Verified 04/27/24 09:39) Rash hydrocodone [From Vicodin] Allergy (Severe, Verified 04/27/24 09:39) Vomiting Penicillins Allergy (Verified 04/27/24 09:39) Anaphylaxis Tobacco use date assessed: 03/17/24 Dental Screening Dental Screen Date: 03/17/24 HPI HPI Comments History of Present Illness Details The patient is a 43-year-old female with a past medical history of low back pain, fibromyalgia, asthma, bronchitis, endometriosis presenting for follow-up MSK: Chronic low back pain. She is currently taking oxycodone 10 mg every 6 hours as needed for low back pain and fibromyalgia. She has naloxone at home. She had L5-S1 discectomy, right laminectomy in July 2004. on disability x 20 years. Increased neck and shoulder pain Asthma: Stable, on albuterol as needed. She has taken Symbicort in the past as needed on a seasonal basis. 24 pack year. Recently treated by colleague for URI. There has been some interval improvement in the past 2 days She has felt excessively fatigue for the past few months. Does endorse she has been under a lot of stress. ROS CONSTITUTIONAL: Denies weight loss, fever and chills. HEENT: Denies changes in vision and hearing. RESPIRATORY: Denies SOB and cough. CV: Denies palpitations and CP GI: Denies abdominal pain, nausea, vomiting and diarrhea. : Denies dysuria and urinary frequency. MSK: Denies new myalgia and joint pain. SKIN: Denies rash and pruritus. NEUROLOGICAL: Denies headache PSYCHIATRIC: Denies recent changes in mood. PHYSICAL EXAM: GENERAL: Alert and oriented x 3. NAD EYES: EOMI. Anicteric. HENT: Moist mucous membranes. No scleral icterus. No cervical lymphadenopathy. LUNGS: Clear to auscultation bilaterally. CARDIOVASCULAR: Regular rate and rhythm. No murmur. No JVD. ABDOMEN: Soft, non-tender +bs EXTREMITIES: No edema. Non-tender. SKIN: No rashes or lesions. Warm. NEUROLOGIC: No focal neurological deficits. CN II-XII grossly intact PSYCHIATRIC: Cooperative. Appropriate mood and affect [facility] Medical History (Updated 05/03/24 @ 12:17 by Tari Petit MD) Migraine Lyme disease Tobacco dependence Fibromyalgia Degenerative disc disease, lumbar Asthma Surgical History History of gastric surgery Previous back surgery Family History Sister Hypothyroid Obesity Cancer of ovary Chronic mental illness Sister Hypothyroid Obesity Sister Hypothyroid Obesity Sister Hypothyroid Obesity Sister Hypothyroid Obesity Mother Asthma Father Alzheimer dementia Hypertension Coronary artery disease Type 2 diabetes mellitus Lung cancer Social History Household Members: Family Housing: House Are you a primary career center director to a significant other at home: No Do you presently have visiting nurse or other home services: No Alcohol intake: current Alcohol intake frequency: holidays/special occasions only Patient Tobacco Use Status: Current everyday Tobacco user Tobacco use type: Cigarette Cigarette Packs Per Day: 1 Cigarettes Per Day: 10 e-Cigarette/Vaping Use: Never Used service: No Current occupational status: disabled Current occupational exposures/hazards: No Cognitive needs: No Hearing needs: No Vision needs: No Questionnaire Thrive Questionnaire Date Thrive assessed: 04/24/24 I am a: Patient What is your living situation today?: I have a steady place to live Within the past 12 months, did the food you bought not last and you didn't have the money to get more?: I choose not to answer this question Within the past 12 months, did you worry whether your food would run out before you got money to buy more?: I choose not to answer this question Do you have trouble paying for medicines?: I choose not to answer this question Do you have trouble getting transportation to medical appointments?: No Do you have trouble paying your heating and electricity bill?: I choose not to answer this question Do you have trouble taking care of your child, family member or friend?: I choose not to answer this question Do you have trouble with day-to-day activities such as bathing, preparing meals, shopping, managing finances, etc.?: I choose not to answer this question Are you currently unemployed and looking for a job?: No Are you interested in more education?: Yes Please select the resources that you would like help with: None Currently or been in a relationship where the following occur: No concerns reported THRIVE Score: 0 AUDIT C Alcohol Use Questionnaire (AUDIT-C) 1. How often do you have a drink containing alcohol?: Never Total Score: 0 DONAL-7 AMB Questionnaire DONAL-7 Date DONAL - 7 assessed: 03/17/24 Feeling nervous, anxious, or on edge: 0 = Not at all Not being able to stop or control worryin = Not at all Worrying too much about different things: 0 = Not at all Trouble relaxin = Not at all Being so restless that it is hard to sit still: 0 = Not at all Becoming easily annoyed or irritable: 1 = Several days Feeling afraid as if something awful might happen: 0 = Not at all Total DONAL-7 score (0-4 normal; 5-9 mild; 10-14 moderate; 15-21 severe): 1 Source: Developed by Drs. Gutierrez Heard, Shiela Garcia, Isaac Hawk and colleagues, with an educational herlinda from [employer]. Physical exam (Primary Care) Vital Signs: Last Vital Signs Pulse 70 04/27/24 09:36 Resp 12 04/27/24 09:36 BP 130/56 L 04/27/24 09:36 Pulse Ox 97 04/27/24 09:36 Oxygen Delivery Method Room Air 04/27/24 09:36 BMI result Body Mass Index 26.3 Tobacco/Smoking Status: Tobacco use Status Tobacco use date assessed 03/17/24 04/27/24 09:40 Patient Tobacco Use Status Current everyday Tobacco 04/27/24 09:40 Tobacco use type Cigarette 04/27/24 09:40 e-Cigarette/Vaping Use Never Used 04/27/24 09:40 Thrive Assessment: Date of Thrive Assessment Date Thrive assessed 04/24/24 04/27/24 09:40 Currently or been in a relationship where the following occur: No concerns reported Assessment and Plan Assessment & Plan (1) Asthma with exacerbation: Code(s): J45.901 - Unspecified asthma with (acute) exacerbation Qualifiers: Asthma persistence: persistent Asthma severity: moderate Qualified Code(s): J45.41 - Moderate persistent asthma with (acute) exacerbation Plan: Improving symptoms. taper prednisone (2) Fatigue: Code(s): R53.83 - Other fatigue Qualifiers: Fatigue type: unspecified Qualified Code(s): R53.83 - Other fatigue (3) Degenerative disc disease, lumbar: Code(s): M51.36 - Other intervertebral disc degeneration, lumbar region Plan: check labs Orders: Orders Cortisol Random 04/27/24 R53.83 - Other fatigue TSH reflex Free T4 04/27/24 R53.83 - Other fatigue Medications: New prednisone 20 mg PO DAILY 5 tabs 0RF 5 days Discontinued prednisone Discontinued Reason: Doctor's Order 50 mg PO DAILY 5 days 5 tabs 0RF Coding Level of Care Code Est Pt Level 4 (76758) Diagnoses Asthma with exacerbation J45.41 Asthma persistence: persistent Asthma severity: moderate Fatigue, unspecified type R53.83 Fatigue type: unspecified Degenerative disc disease, lumbar M51.36
== END 2024-04-27 10:06 | disposition home or self-care (01) ==
PROVIDERS: PCP Internal Medicine; Visit Provider Internal Medicine
DX: J45.41 Moderate persistent asthma with (acute) exacerbation (principal); R53.83 Other fatigue; M51.36 Other intervertebral disc degeneration, lumbar region

== ENCOUNTER → 2024-04-27 09:26 | Outpatient (BNVA) | payer MEDICARE, SELFPAY | PROVIDERS: PCP Internal Medicine; Visit Provider Internal Medicine | DX: J45.41 Moderate persistent asthma with (acute) exacerbation (principal); R53.83 Other fatigue; M51.36 Other intervertebral disc degeneration, lumbar region; M79.7 Fibromyalgia; Z79.891 Long term (current) use of opiate analgesic; Z79.899 Other long term (current) drug therapy | CPT/HCPCS: 99212 ==

== ENCOUNTER 2024-04-27 10:17 | Outpatient (REF) | payer MEDICARE, SELFPAY ==
[2024-04-27 12:20] LABS: Cortisol Random 1.1 ug/dL; TSH reflex Free T4 0.77 uIU/mL (0.32-4.0)
== END 2024-04-27 10:18 | disposition home or self-care (01) ==
LOC: HO.WFDLDS 10:17
PROVIDERS: Visit Provider Internal Medicine
DX: R53.83 Other fatigue (principal)
CPT/HCPCS: 36415; 82533; 84443

== ENCOUNTER 2024-05-21 14:46 | Outpatient (REF) | payer MEDICARE, SELFPAY ==
[2024-05-21 18:55] LABS: Cortisol Random 3.2 ug/dL
== END 2024-05-21 14:47 | disposition home or self-care (01) ==
LOC: HO.WFDLDS 14:46
PROVIDERS: Visit Provider Internal Medicine
DX: R79.89 Other specified abnormal findings of blood chemistry (principal); R53.83 Other fatigue
CPT/HCPCS: 36415; 82533

== ENCOUNTER 2024-07-20 08:52 | Outpatient (AMB) | payer MEDICARE, SELFPAY ==
--- NOTE | 2024-07-20 08:56 | MHC.PC.OV ---
Vital Signs 07/20/24 09:11 Height 5 ft 7 in Weight 170 lb BMI 26.6 BP 96/68 Blood Pressure Location Lt brachial Position Sitting Pulse 74 Pulse Source Pulse Oximeter Pulse Oximetry (%) 98 Oxygen Delivery Method Room Air Intake Visit Reasons: chronic pain Intake Note: Chronic pain. Lab results. 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 She is currently taking oxycodone 10 mg every 6 hours as needed for low back pain and fibromyalgia. She has naloxone at home. She had L5-S1 discectomy, right laminectomy in July 2004. on disability x 20 years. Increased neck and shoulder pain Asthma: Stable, on albuterol as needed. She has taken Symbicort in the past as needed on a seasonal basis. 24 pack year. She has felt excessively fatigue for the past few months. Cortisol levels have been low. There was initial prednisone use for URI but now has been off for quite some time. ROS see HPI PHYSICAL EXAM: GENERAL: Alert and oriented x 3. NAD EYES: EOMI. Anicteric. HENT: Moist mucous membranes. No scleral icterus. No cervical lymphadenopathy. LUNGS: Clear to auscultation bilaterally. CARDIOVASCULAR: Regular rate and rhythm. No murmur. No JVD. ABDOMEN: Soft, non-tender +bs EXTREMITIES: No edema. Non-tender. SKIN: No rashes or lesions. Warm. NEUROLOGIC: No focal neurological deficits. CN II-XII grossly intact PSYCHIATRIC: Cooperative. Appropriate mood and affect [facility] Medical History Migraine Lyme disease Tobacco dependence Fibromyalgia Degenerative disc disease, lumbar Asthma Surgical History History of gastric surgery Previous back surgery Family History Sister Hypothyroid Obesity Cancer of ovary Chronic mental illness Sister Hypothyroid Obesity Sister Hypothyroid Obesity Sister Hypothyroid Obesity Sister Hypothyroid Obesity Mother Asthma Father Alzheimer dementia Hypertension Coronary artery disease Type 2 diabetes mellitus Lung cancer Social History Household Members: Family Housing: House Are you a primary medicare specialist to a significant other at home: No Do you presently have visiting nurse or other home services: No Alcohol intake: current Alcohol intake frequency: holidays/special occasions only Patient Tobacco Use Status: Current everyday Tobacco user Tobacco use type: Cigarette Cigarette Packs Per Day: 1 Cigarettes Per Day: 10 e-Cigarette/Vaping Use: Never Used service: No Current occupational status: disabled Current occupational exposures/hazards: No Cognitive needs: No Hearing needs: No Vision needs: No Questionnaire PHQ-9 Over the last 2 weeks, how often have you been bothered by any of the following problems? 1. Little interest or pleasure in doing things: not at all 2. Feeling down, depressed, or hopeless: not at all 3. Trouble falling or staying asleep, or sleeping too much: several days 4. Feeling tired or having little energy: several days 5. Poor appetite or overeating: several days 6. Feeling bad about yourself - or that you are a failure or have let yourself or your family down: not at all 7. Trouble concentrating on things, such as reading the newspaper or watching television: several days 8. Moving or speaking so slowly that other people could have noticed. Or the opposite - being so fidgety or restless that you have been moving around a lot more than usual: not at all 9. Thoughts that you would be better off or of hurting yourself in some way: not at all Total score: 4 Depression Screening Interpretation: Negative Depression Screening Done: Yes 17307 - PHQ-9 Billing: Yes Source: Developed by Drs. Gutierrez Heard, Shiela Garcia, Isaac Hawk and colleagues, with an educational herlinda from [employer]. Thrive Questionnaire Date Thrive assessed: 07/20/24 I am a: Patient What is your living situation today?: I have a steady place to live Within the past 12 months, did the food you bought not last and you didn't have the money to get more?: I choose not to answer this question Within the past 12 months, did you worry whether your food would run out before you got money to buy more?: I choose not to answer this question Do you have trouble paying for medicines?: I choose not to answer this question Do you have trouble getting transportation to medical appointments?: No Do you have trouble paying your heating and electricity bill?: I choose not to answer this question Do you have trouble taking care of your child, family member or friend?: I choose not to answer this question Do you have trouble with day-to-day activities such as bathing, preparing meals, shopping, managing finances, etc.?: I choose not to answer this question Are you currently unemployed and looking for a job?: No Are you interested in more education?: Yes Please select the resources that you would like help with: None Currently or been in a relationship where the following occur: No concerns reported THRIVE Score: 0 DONAL-7 AMB Questionnaire DONAL-7 Date DONAL - 7 assessed: 03/17/24 Source: Developed by Drs. Gutierrez Heard, Shiela Garcia, Isaac Hawk and colleagues, with an educational herlinda from [employer]. Physical exam (Primary Care) Vital Signs: Last Vital Signs Pulse 74 07/20/24 09:11 BP 96/68 07/20/24 09:11 Pulse Ox 98 07/20/24 09:11 Oxygen Delivery Method Room Air 07/20/24 09:11 BMI result Body Mass Index 26.6 Tobacco/Smoking Status: Tobacco use Status Tobacco use date assessed 03/17/24 07/20/24 08:58 Patient Tobacco Use Status Current everyday Tobacco 07/20/24 09:16 Tobacco use type Cigarette 07/20/24 09:16 e-Cigarette/Vaping Use Never Used 07/20/24 09:16 PHQ-9: PHQ-9 Score PHQ-9: Total score 4 07/27/24 12:43 Depression Screening Interpretation: Negative Thrive Assessment: Date of Thrive Assessment Date Thrive assessed 07/20/24 07/20/24 09:15 Currently or been in a relationship where the following occur: No concerns reported Coding Level of Care Code Est Pt Level 4 (57532) Diagnoses Low serum cortisol level R79.89 Fatigue, unspecified type R53.83 Fatigue type: unspecified Degenerative disc disease, lumbar M51.36 Additional Codes PHQ-9 - 69670 - PHQ-9 Billing: Yes ([id number]) Assessment & Plan Assessment & Plan (1) Low serum cortisol level: Code(s): R79.89 - Other specified abnormal findings of blood chemistry Category: Medical Plan: referred to endocrinology (2) Fatigue: Code(s): R53.83 - Other fatigue Category: Medical Qualifiers: Fatigue type: unspecified Qualified Code(s): R53.83 - Other fatigue Plan: Multifactorial (3) Degenerative disc disease, lumbar: Code(s): M51.36 - Other intervertebral disc degeneration, lumbar region Category: Medical Plan: stable on current medications Orders: Orders Thyroid Stimulating Hormone 07/20/24 R53.83 - Other fatigue, R63.5 - Abnormal weight gain, R79.89 - Other specified abnormal findings of blood chemistry Cortisol Random 07/20/24 R53.83 - Other fatigue, R63.5 - Abnormal weight gain, R79.89 - Other specified abnormal findings of blood chemistry Free T4 (Free Thyroxine) 07/20/24 R53.83 - Other fatigue, R63.5 - Abnormal weight gain, R79.89 - Other specified abnormal findings of blood chemistry Referrals Endocrinology Referral R53.83 - Other fatigue, R79.89 - Other specified abnormal findings of blood chemistry Medications: New tirzepatide (weight loss) (Zepbound) for 4 weeks 2.5 mg (0.5 mL) subcut QWEEK 2 mL 0RF Changed From carisoprodol 350 mg PO TID 90 days 270 tabs 0RF To carisoprodol 350 mg PO TID 30 days 90 tabs 3RF
[2024-07-20 09:11] VITALS: BP 96/68; PULSE 74; O2SAT 98; BMI 26.6
== END 2024-07-20 09:41 | disposition home or self-care (01) ==
PROVIDERS: PCP Internal Medicine; Visit Provider Internal Medicine
DX: R79.89 Other specified abnormal findings of blood chemistry (principal); R53.83 Other fatigue; M51.369 Other intervertebral disc degeneration, lumbar region without mention of lumbar back pain or lower extremity pain

== ENCOUNTER → 2024-07-20 08:52 | Outpatient (BNVA) | payer MEDICARE, SELFPAY | PROVIDERS: PCP Internal Medicine; Visit Provider Internal Medicine | DX: R79.89 Other specified abnormal findings of blood chemistry (principal); R53.83 Other fatigue; M51.369 Other intervertebral disc degeneration, lumbar region without mention of lumbar back pain or lower extremity pain | CPT/HCPCS: 96127; 99212 ==

== ENCOUNTER 2024-07-20 09:47 | Outpatient (REF) | payer MEDICARE, SELFPAY ==
[2024-07-20 12:58] LABS: Free T4 (Free Thyroxine) 0.85 ng/dL (0.71-1.85); Thyroid Stimulating Hormone 3.52 uIU/mL (0.32-4.0)
[2024-07-20 13:07] LABS: Cortisol Random 5.1 ug/dL
== END 2024-07-20 09:48 | disposition home or self-care (01) ==
LOC: HO.WFDLDS 09:47
PROVIDERS: Visit Provider Internal Medicine
DX: R79.89 Other specified abnormal findings of blood chemistry (principal); R53.83 Other fatigue; R63.5 Abnormal weight gain
CPT/HCPCS: 36415; 82533; 84439; 84443

== ENCOUNTER 2024-08-07 14:38 | Outpatient (REF) | payer MEDICARE, SELFPAY ==
[2024-08-08 12:13] LABS: Influenza A PCR NEGATIVE (Negative); Influenza B PCR NEGATIVE (Negative); Resp Syncy Virus RNA Qual PCR NEGATIVE (Negative); SARS COV2 PCR INHOUSE NEGATIVE (Negative)
== END 2024-08-07 14:39 | disposition home or self-care (01) ==
LOC: HO.LAB 14:38
PROVIDERS: PCP Internal Medicine; Visit Provider Physician Assistant
DX: Z20.828 Contact with and (suspected) exposure to other viral communicable diseases (principal); L01.00 Impetigo, unspecified
CPT/HCPCS: 0241U; 99212

== ENCOUNTER 2024-08-07 14:38 | Outpatient (AMB) | payer MEDICARE, SELFPAY ==
--- NOTE | 2024-08-07 15:17 | MHC.OFFWIV ---
Intake Vital Signs 08/07/24 15:19 Height 5 ft 7 in Weight 167 lb BMI 26.2 BP 92/60 Blood Pressure Location Lt brachial Position Sitting Pulse 72 Pulse Source Pulse Oximeter Temp 98.3 F Temp Source Oral Pulse Oximetry (%) 99 Oxygen Delivery Method Room Air Intake Visit Reasons: EP ? RSV Intake Note: Patient here to be tested for rsv as her mom has rsv and has been exposed. Patient Tobacco Use Status: Current everyday Tobacco user Allergies duloxetine Allergy (Severe, Verified 08/07/24 15:20) tachypnea erythromycin base Allergy (Severe, Verified 08/07/24 15:20) Rash hydrocodone [From Vicodin] Allergy (Severe, Verified 08/07/24 15:20) Vomiting Penicillins Allergy (Verified 08/07/24 15:20) Anaphylaxis Do you need a note to return to daycare/school/sports/work: No HPI HPI Comments History of Present Illness Details History - The patient is a 43-year-old female presenting with concerns of exposure to Respiratory Syncytial Virus (RSV) following her mother's positive test. Her mother is critically ill with septic shock and pneumonia secondary to RSV and is on ventilator support. - The patient has been proactive in seeking testing due to her exposure and history of severe illness with RSV last year, despite being asymptomatic currently except for a possible environment-induced minor runny nose. - Patient is a current smoker - The patient experiences recurrent dermatitis, which has been managed partially with prescribed medication. - She is facing significant emotional distress due to the ongoing family health crises, including recent loss of her sister. Physical Exam General: Cooperative, healthy appearing, comfortable and no acute distress Orientation/consciousness: Patient oriented x3 Limitations: No limitations Head: Normal to inspection Ears: Hearing grossly normal bilaterally, external ears normal and TM's normal bilaterally Nose: Normal external nose present, Normal nares present and No nasal discharge present Face and sinus: Normal facial exam Mouth: Normal oral and palatal mucosa present and moist mucous membranes Throat: Yes tonsils normal, Yes uvula midline. Posterior oropharynx erythema Eyes: Appearance normal, both eyes and all related structures Neck: Normal visual inspection Respiratory: Clear to auscultation bilaterally. Normal respiratory effort, able to speak in complete sentences, no respiratory distress, not tachypneic, no tripod positioning and no use of accessory muscles Cardiovascular: Regular rate and rhythm. Normal S1 and S2 Skin: honey colored crust noted on 3 small lesions aruond nose/mouth, Neuro: Patient oriented x3 Extremities: Normal to inspection and Yes no clubbing, cyanosis or edema PFSH Medical History Migraine Lyme disease Tobacco dependence Fibromyalgia Degenerative disc disease, lumbar Asthma Surgical History History of gastric surgery Previous back surgery Family History Sister Hypothyroid Obesity Cancer of ovary Chronic mental illness Sister Hypothyroid Obesity Sister Hypothyroid Obesity Sister Hypothyroid Obesity Sister Hypothyroid Obesity Mother Asthma Father Alzheimer dementia Hypertension Coronary artery disease Type 2 diabetes mellitus Lung cancer Social History Household Members: Family Housing: House Are you a primary administrator health care facility to a significant other at home: No Do you presently have visiting nurse or other home services: No 75 years or older and lives alone: No Alcohol intake: current Alcohol intake frequency: holidays/special occasions only Patient Tobacco Use Status: Current everyday Tobacco user Tobacco use type: Cigarette Cigarette Packs Per Day: 1 Cigarettes Per Day: 10 e-Cigarette/Vaping Use: Never Used service: No Current occupational status: disabled Current occupational exposures/hazards: No Cognitive needs: No Hearing needs: No Vision needs: No Review of Systems Const All systems reviewed & are unremarkable except as noted in HPI and below Physical Exam Vital Signs: Last Vital Signs Temp 98.3 F 08/07/24 15:19 Pulse 72 08/07/24 15:19 BP 92/60 08/07/24 15:19 Pulse Ox 99 08/07/24 15:19 Oxygen Delivery Method Room Air 08/07/24 15:19 BMI result Body Mass Index 26.2 Assessment & Plan Assessment & Plan (1) Exposure to respiratory syncytial virus (RSV): Code(s): Z20.828 - Contact with and (suspected) exposure to other viral communicable diseases Plan: The current focus is on confirming the patient's RSV status through testing and monitoring for any potential development of symptoms. The patient has been educated on preventative measures given her history and current asymptomatic state. The emotional impact of her mother's health crisis and familial loss is recognized, and the patient is encouraged to seek support as needed. Immediate treatment adjustments are not required at present, but continued vigilance and monitoring of her respiratory and dermatological conditions are advised. Patient was informed and verbally consented to the use of an ambient scribe for clinic note documentation during this visit (2) Impetigo: Code(s): L01.00 - Impetigo, unspecified Plan: Management of recurrent dermatitis continues using prior prescribed medications, Mupiricin cream has been sent to pharmacy. Orders: Orders SARS-CoV2/FLU/RSV Today Z20.828 - Contact with and (suspected) exposure to other viral communicable diseases Medications: New mupirocin 2% 1 appl topical BID 15 grams 0RF Coding Level of Care Code Est Pt Level 4 (59350) Diagnoses Exposure to respiratory syncytial virus (RSV) Z20.828 Impetigo L01.00
[2024-08-07 15:19] VITALS: BP 92/60; PULSE 72; TEMP 36.8; O2SAT 99; BMI 26.2
== END 2024-08-07 15:53 | disposition home or self-care (01) ==
PROVIDERS: PCP Internal Medicine; Visit Provider Physician Assistant
DX: Z20.828 Contact with and (suspected) exposure to other viral communicable diseases (principal); L01.00 Impetigo, unspecified

== ENCOUNTER 2024-08-14 09:02 | Outpatient (AMB) | payer MEDICARE, SELFPAY ==
--- NOTE | 2024-08-14 09:11 | MHC.PC.OV ---
Vital Signs 08/14/24 09:15 Height 5 ft 7 in Intake Visit Reasons: Treatment Intake Note: Follow up. Left leg swelling. Started in April. Worse this past month Allergies duloxetine Allergy (Severe, Verified 08/14/24 09:12) tachypnea erythromycin base Allergy (Severe, Verified 08/14/24 09:12) Rash hydrocodone [From Vicodin] Allergy (Severe, Verified 08/14/24 09:12) Vomiting Penicillins Allergy (Verified 08/14/24 09:12) Anaphylaxis Tobacco use date assessed: 03/17/24 Dental Screening Dental Screen Date: 03/17/24 HPI HPI Comments History of Present Illness Details The patient is a 43-year-old female with a past medical history of low back pain, fibromyalgia, asthma, bronchitis, endometriosis presenting for follow-up MSK: Chronic low back pain. She is currently taking oxycodone 10 mg every 6 hours as needed for low back pain and fibromyalgia. She has naloxone at home. She had L5-S1 discectomy, right laminectomy in July 2004. on disability x 20 years. Increased neck and shoulder pain. Is stable on current medications Asthma: Stable, on albuterol as needed. She has taken Symbicort in the past as needed on a seasonal basis. 24 pack year. She has felt excessively fatigue for the past few months. Cortisol levels have been low. There was initial prednisone use for URI but now has been off for quite some time. ROS see HPI PHYSICAL EXAM: GENERAL: Alert and oriented x 3. NAD EYES: EOMI. Anicteric. HENT: Moist mucous membranes. No scleral icterus. No cervical lymphadenopathy. LUNGS: Clear to auscultation bilaterally. CARDIOVASCULAR: Regular rate and rhythm. No murmur. No JVD. ABDOMEN: Soft, non-tender +bs EXTREMITIES: No edema. Non-tender. SKIN: No rashes or lesions. Warm. NEUROLOGIC: No focal neurological deficits. CN II-XII grossly intact PSYCHIATRIC: Cooperative. Appropriate mood and affect [facility] Medical History Migraine Lyme disease Tobacco dependence Fibromyalgia Degenerative disc disease, lumbar Asthma Surgical History History of gastric surgery Previous back surgery Family History Sister Hypothyroid Obesity Cancer of ovary Chronic mental illness Sister Hypothyroid Obesity Sister Hypothyroid Obesity Sister Hypothyroid Obesity Sister Hypothyroid Obesity Mother Asthma Father Alzheimer dementia Hypertension Coronary artery disease Type 2 diabetes mellitus Lung cancer Social History Household Members: Family Housing: House Are you a primary resident care provider to a significant other at home: No Do you presently have visiting nurse or other home services: No 75 years or older and lives alone: No Alcohol intake: current Alcohol intake frequency: holidays/special occasions only Patient Tobacco Use Status: Current everyday Tobacco user Tobacco use type: Cigarette Cigarette Packs Per Day: 1 Cigarettes Per Day: 10 e-Cigarette/Vaping Use: Never Used service: No Current occupational status: disabled Current occupational exposures/hazards: No Cognitive needs: No Hearing needs: No Vision needs: No Questionnaire PHQ-9 Over the last 2 weeks, how often have you been bothered by any of the following problems? 1. Little interest or pleasure in doing things: not at all 2. Feeling down, depressed, or hopeless: several days 3. Trouble falling or staying asleep, or sleeping too much: several days 4. Feeling tired or having little energy: several days 5. Poor appetite or overeating: several days 6. Feeling bad about yourself - or that you are a failure or have let yourself or your family down: several days 7. Trouble concentrating on things, such as reading the newspaper or watching television: several days 8. Moving or speaking so slowly that other people could have noticed. Or the opposite - being so fidgety or restless that you have been moving around a lot more than usual: not at all 9. Thoughts that you would be better off or of hurting yourself in some way: not at all Total score: 6 Source: Developed by Drs. Gutierrez Heard, Shiela Garcia, Isaac Hawk and colleagues, with an educational herlinad from [employer]. Thrive Questionnaire Date Thrive assessed: 07/20/24 I am a: Patient What is your living situation today?: I have a steady place to live Within the past 12 months, did the food you bought not last and you didn't have the money to get more?: Never true Within the past 12 months, did you worry whether your food would run out before you got money to buy more?: Never true Do you have trouble paying for medicines?: No Do you have trouble getting transportation to medical appointments?: No Do you have trouble paying your heating and electricity bill?: No Do you have trouble taking care of your child, family member or friend?: No Do you have trouble with day-to-day activities such as bathing, preparing meals, shopping, managing finances, etc.?: No Are you currently unemployed and looking for a job?: No Are you interested in more education?: No Please select the resources that you would like help with: None Currently or been in a relationship where the following occur: No concerns reported THRIVE Score: 0 AUDIT C Alcohol Use Questionnaire (AUDIT-C) 1. How often do you have a drink containing alcohol?: Never Total Score: 0 DONAL-7 AMB Questionnaire DONAL-7 Date DONAL - 7 assessed: 03/17/24 Feeling nervous, anxious, or on edge: 0 = Not at all Not being able to stop or control worryin = Not at all Worrying too much about different things: 0 = Not at all Trouble relaxin = Not at all Being so restless that it is hard to sit still: 0 = Not at all Becoming easily annoyed or irritable: 0 = Not at all Feeling afraid as if something awful might happen: 0 = Not at all Total DONAL-7 score (0-4 normal; 5-9 mild; 10-14 moderate; 15-21 severe): 0 Source: Developed by Drs. Gutierrez Heard, Shiela Garcia, Isaac Hawk and colleagues, with an educational herlinda from [employer]. Physical exam (Primary Care) Tobacco/Smoking Status: Tobacco use Status Tobacco use date assessed 03/17/24 08/14/24 09:16 Patient Tobacco Use Status Current everyday Tobacco 08/14/24 09:16 Tobacco use type Cigarette 08/14/24 09:16 e-Cigarette/Vaping Use Never Used 08/14/24 09:16 PHQ-9: PHQ-9 Score PHQ-9: Total score 6 08/14/24 09:18 Thrive Assessment: Date of Thrive Assessment Date Thrive assessed 07/20/24 08/14/24 09:16 Currently or been in a relationship where the following occur: No concerns reported Coding Level of Care Code Est Pt Level 4 (66514) Diagnoses Low serum cortisol level R79.89 Degeneration of intervertebral disc of lumbar region with discogenic back pain and lower extremity pain M51.362 Disc-related pain type: discogenic back pain and lower extremity pain Assessment & Plan Assessment & Plan (1) Low serum cortisol level: Code(s): R79.89 - Other specified abnormal findings of blood chemistry Category: Medical Plan: Patient is referred to endocrinology for work up/evaluation (2) Degenerative disc disease, lumbar: Code(s): M51.36 - Other intervertebral disc degeneration, lumbar region Category: Medical Qualifiers: Disc-related pain type: discogenic back pain and lower extremity pain Qualified Code(s): M51.362 - Other intervertebral disc degeneration, lumbar region with discogenic back pain and lower extremity pain Plan: Chronic pain is stable on current medication Medications: New fluconazole may repeat second dose 72 hrs after first dose if symptoms persist 150 mg PO DAILY 5 tabs 0RF phentermine good rx [id number] [facility] [id number] Member [id number] 37.5 mg PO DAILY 30 caps 0RF
== END 2024-08-14 11:48 | disposition home or self-care (01) ==
PROVIDERS: PCP Internal Medicine; Visit Provider Internal Medicine
DX: R79.89 Other specified abnormal findings of blood chemistry (principal); M51.362 Other intervertebral disc degeneration, lumbar region with discogenic back pain and lower extremity pain

== ENCOUNTER → 2024-08-14 09:02 | Outpatient (BNVA) | payer MEDICARE, SELFPAY | PROVIDERS: PCP Internal Medicine; Visit Provider Internal Medicine | DX: R79.89 Other specified abnormal findings of blood chemistry (principal); M51.362 Other intervertebral disc degeneration, lumbar region with discogenic back pain and lower extremity pain | CPT/HCPCS: 99212 ==

== ENCOUNTER 2024-08-31 13:53 | Outpatient (AMB) | payer MEDICARE, SELFPAY ==
--- NOTE | 2024-08-31 13:56 | MHC.OFFVIS ---
Vital Signs 08/31/24 13:57 Height 5 ft 7 in Weight 161 lb 2.526 oz BMI 25.2 BP 122/76 Blood Pressure Location Lt brachial Position Sitting Pulse 101 H Pulse Source Pulse Oximeter Intake Visit Reasons: Othr specified abnormal findings of blood chem Intake Note: New patient present today for Other specified abnormal findings of blood chem. 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 Accompanied by: Self / Same As Patient Allergies duloxetine Allergy (Severe, Verified 08/31/24 14:01) tachypnea erythromycin base Allergy (Severe, Verified 08/31/24 14:01) Rash hydrocodone [From Vicodin] Allergy (Severe, Verified 08/31/24 14:01) Vomiting Penicillins Allergy (Verified 08/31/24 14:01) Anaphylaxis Medication List - Last Reconciled 08/31/24 by Batool Casey MD albuterol sulfate 90 mcg/actuation (Ventolin HFA) 2 puffs inhalation Q4H PRN baclofen 10 mg PO Q12H 90 days carisoprodol 350 mg PO TID 30 days ibuprofen 1,200 mg PO BID ibuprofen 400 mg PO DAILY PRN mupirocin 2% 1 appl topical BID oxycodone 10 mg PO Q6H PRN 30 days phentermine 37.5 mg PO DAILY HPI Comments Details: 43-year-old female coming in today for initial evaluation of concern of adrenal insufficiency. Labs from 04/27/2024 showed 10:00 cortisol of 1.1, 05/21/2024 14:00 cortisol was 3.2, labs repeated 07/20/2024 at 10:00 with cortisol of 5.1. Reports extreme tiredness that has improved since she started the phentermine Reports lightheadness / dizziness on standing up Gained 10 lbs in 2023 Before she started phentermine Lost 5 lbs since started Phentermine 37.5 mg 08/13/24 LMP : gets a period monthly , sometimes shorter cycles, has endometriosis No OCPS Not sexually active 1 , 1 miscarriage RSV new year 2022 prednisone course, covid after early 2023 prednisone course, mid April 2024 was on prednisone for 4 days No cortisone shots recently, last 2007, before that a few in her back and hips No steroid inhalers No steroid creams Om oxycodone 10 mg every 6 hours , has been on this on and off for 20 years Past medical history Chronic pain Herniated discs Chronic lyme disease Social history Smokes 1.5 ppd Alcohol none No marijuana On disability Lives by herself Physical exam General: sitting comfortably in no acute distress HEENT: normocephalic/atraumatic, moist oral mucosa Neck: supple, symmetrical Cardiac: normal heart sounds Pulm: normal breath sounds B/L, no added breath sounds Abd: not distended, no tenderness Extremities: no edema, no signs of myxedema Neuro: AAO x3, Speech: normal, no facial droop, moving all 4 extremities Laboratory Tests 08/05/23 04/27/24 05/21/24 06:45 10:18 14:50 TSH 0.53 0.77 Free T4 Random Cortisol 1.1 3.2 07/20/24 07/20/24 09:47 09:48 TSH 3.52 Free T4 0.85 Random Cortisol 5.1 PFS Medical History Migraine Lyme disease Tobacco dependence Fibromyalgia Degenerative disc disease, lumbar Asthma Surgical History History of gastric surgery Previous back surgery Family History Sister Hypothyroid Obesity Cancer of ovary Chronic mental illness Sister Hypothyroid Obesity Sister Hypothyroid Obesity Sister Hypothyroid Obesity Sister Hypothyroid Obesity Mother Asthma Father Alzheimer dementia Hypertension Coronary artery disease Type 2 diabetes mellitus Lung cancer Social History Household Members: Family Housing: House Are you a primary care information associate to a significant other at home: No Do you presently have visiting nurse or other home services: No 75 years or older and lives alone: No Alcohol intake: current Alcohol intake frequency: holidays/special occasions only Patient Tobacco Use Status: Current everyday Tobacco user Tobacco use type: Cigarette Cigarette Packs Per Day: 1 Cigarettes Per Day: 10 e-Cigarette/Vaping Use: Never Used service: No Current occupational status: disabled Current occupational exposures/hazards: No Cognitive needs: No Hearing needs: No Vision needs: No Physical Exam Vital Signs: Last Vital Signs Pulse 101 H 08/31/24 13:57 BP 122/76 08/31/24 13:57 BMI result Body Mass Index 25.2 Assessment & Plan Assessment & Plan (1) Fatigue: Code(s): R53.83 - Other fatigue Category: Medical Qualifiers: Fatigue type: unspecified Qualified Code(s): R53.83 - Other fatigue Plan: See below (2) Low serum cortisol level: Code(s): R79.89 - Other specified abnormal findings of blood chemistry Category: Medical Plan: 43-year-old female coming in today for initial evaluation of concern for adrenal insufficiency. Labs from 04/27/2024 showed 10:00 cortisol of 1.1, 05/21/2024 14:00 cortisol was 3.2, labs repeated 07/20/2024 at 10:00 with cortisol of 5.1. She usually wakes up later in the day so her sleep-wake cycle is not very regular, however we will check her cortisol levels at 08:00 along with ACTH and DHEA-S levels. She was on a prednisone course back in April, which could have resulted in that low cortisol level. Exogenous steroids suppressed cortisol levels hence we do not check these while patients are actively on steroids, however patient thinks cortisol was checked after she was done with her prednisone taper. She is also on chronic oxycodone, long-term steroid Use can also result in pituitary adrenal access insufficiency. However at this point I would like to repeat her baseline labs at 08:00 and then if needed we will order a cosyntropin stimulation testing. She was recently started on phentermine for weight management, however prior to that she was gaining weight which does not correlate with a history of adrenal insufficiency. However other than that she is reporting lightheadedness, dizziness, fatigue. Plan: -ordered ACTH, cortisol, DHEA-S, aldosterone, renin activity, BMP -we will communicate results with her over the phone and consider ordering cosyntropin stimulation testing. -follow up in 6 weeks Plan I spent 45 minutes in reviewing the record, seeing the patient and documenting in the medical record. Orders: Orders Adrenocorticotropic Hormone Today R53.83 - Other fatigue, R79.89 - Other specified abnormal findings of blood chemistry DHEA Sulfate Today R53.83 - Other fatigue, R79.89 - Other specified abnormal findings of blood chemistry Renin Today R53.83 - Other fatigue, R79.89 - Other specified abnormal findings of blood chemistry Aldosterone Today R53.83 - Other fatigue, R79.89 - Other specified abnormal findings of blood chemistry Cortisol Random Today R53.83 - Other fatigue, R79.89 - Other specified abnormal findings of blood chemistry Basic Metabolic Panel Today R53.83 - Other fatigue, R79.89 - Other specified abnormal findings of blood chemistry Patient Instructions: Please do blood work at 8 AM We will call with results once all the results are back Coding Level of Care Code New Pt Level 4 (64245) Diagnoses Fatigue, unspecified type R53.83 Fatigue type: unspecified Low serum cortisol level R79.89 Time Spent (min) 45
[2024-08-31 13:57] VITALS: BP 122/76; PULSE 101; BMI 25.2
== END 2024-08-31 14:33 | disposition home or self-care (01) ==
PROVIDERS: PCP Internal Medicine; Visit Provider Student in an Organized Health Care Education/Training Program
DX: R53.83 Other fatigue (principal); R79.89 Other specified abnormal findings of blood chemistry
CPT/HCPCS: 99204

== ENCOUNTER → 2024-08-31 13:53 | Outpatient (BNVA) | payer MEDICARE, SELFPAY | PROVIDERS: PCP Internal Medicine; Visit Provider Student in an Organized Health Care Education/Training Program | DX: R53.83 Other fatigue (principal); R79.89 Other specified abnormal findings of blood chemistry | CPT/HCPCS: 99202 ==

== ENCOUNTER 2024-10-19 11:01 | Outpatient (AMB) | payer MEDICARE, SELFPAY ==
--- NOTE | 2024-10-19 11:03 | A.OFFPC_ITS ---
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 Allergies duloxetine Allergy (Severe, Verified 10/19/24 11:06) tachypnea erythromycin base Allergy (Severe, Verified 10/19/24 11:06) Rash hydrocodone [From Vicodin] Allergy (Severe, Verified 10/19/24 11:06) Vomiting Penicillins Allergy (Verified 10/19/24 11:06) Anaphylaxis Medication List - Last Reconciled 10/19/24 by Tari Petit MD albuterol sulfate 90 mcg/actuation (Ventolin HFA) 2 puffs inhalation Q4H PRN baclofen 10 mg PO Q12H 90 days carisoprodol 350 mg PO TID 30 days ibuprofen 400 mg PO DAILY PRN mupirocin 2% 1 appl topical BID oxycodone 10 mg PO Q6H PRN 30 days phentermine 37.5 mg PO DAILY Tobacco use date assessed: 10/19/24 Dental Screening Dental Screen Date: 03/17/24 HPI HPI Comments History of Present Illness Details The patient is a 44-year-old female with a past medical history of low back pain, fibromyalgia, asthma, bronchitis, endometriosis presenting for follow-up MSK: Chronic low back pain. Continues oxycodone 10 mg every 6 hours as needed for low back pain and fibromyalgia. She has naloxone at home. She had L5-S1 discectomy, right laminectomy in July 2004. on disability x 20 years. Increased neck and shoulder pain. Is stable on current medications. Weight loss with phentermine has helped Asthma: Stable, on albuterol as needed. She has taken Symbicort in the past as needed on a seasonal basis. 24 pack year. Still fatigue & stress. for the past few months. Saw endocrinology who is completing work up for low cortisol ROS see HPI PHYSICAL EXAM: GENERAL: Alert and oriented x 3. NAD EYES: EOMI. Anicteric. HENT: Moist mucous membranes. No scleral icterus. No cervical lymphadenopathy. LUNGS: Clear to auscultation bilaterally. CARDIOVASCULAR: Regular rate and rhythm. No murmur. No JVD. ABDOMEN: Soft, non-tender +bs EXTREMITIES: No edema. Non-tender. SKIN: No rashes or lesions. Warm. NEUROLOGIC: No focal neurological deficits. CN II-XII grossly intact PSYCHIATRIC: Cooperative. Appropriate mood and affect [facility] Medical History Migraine Lyme disease Tobacco dependence Fibromyalgia Degenerative disc disease, lumbar Asthma Surgical History History of gastric surgery Previous back surgery Family History Sister Hypothyroid Obesity Cancer of ovary Chronic mental illness Sister Hypothyroid Obesity Sister Hypothyroid Obesity Sister Hypothyroid Obesity Sister Hypothyroid Obesity Mother Asthma Father Alzheimer dementia Hypertension Coronary artery disease Type 2 diabetes mellitus Lung cancer Social History Household Members: Family Housing: House Are you a primary care navigator to a significant other at home: No Do you presently have visiting nurse or other home services: No 75 years or older and lives alone: No Alcohol intake: current Alcohol intake frequency: holidays/special occasions only Patient Tobacco Use Status: Current everyday Tobacco user Tobacco use type: Cigarette Cigarette Packs Per Day: 2.5 Cigarettes Per Day: 10 Years Smoked: 24 e-Cigarette/Vaping Use: Never Used service: No Current occupational status: disabled Current occupational exposures/hazards: No Cognitive needs: No Hearing needs: No Vision needs: No Questionnaire Thrive Questionnaire Date Thrive assessed: 08/14/24 I am a: Patient What is your living situation today?: I have a steady place to live Within the past 12 months, did the food you bought not last and you didn't have the money to get more?: Never true Within the past 12 months, did you worry whether your food would run out before you got money to buy more?: Never true Do you have trouble paying for medicines?: No Do you have trouble getting transportation to medical appointments?: No Do you have trouble paying your heating and electricity bill?: No Do you have trouble taking care of your child, family member or friend?: No Do you have trouble with day-to-day activities such as bathing, preparing meals, shopping, managing finances, etc.?: No Are you currently unemployed and looking for a job?: No Are you interested in more education?: No Please select the resources that you would like help with: None Currently or been in a relationship where the following occur: No concerns reported THRIVE Score: 0 AUDIT C Alcohol Use Questionnaire (AUDIT-C) 3. How often do you have six or more drinks on one occasion?: Never Total Score: 0 DONAL-7 AMB Questionnaire DONAL-7 Date DONAL - 7 assessed: 03/17/24 Source: Developed by Drs. Gutierrez Heard, Shiela Garcia, Isaac Hawk and colleagues, with an educational herlinda from [employer]. Physical exam (Primary Care) Vital Signs: Last Vital Signs Pulse 98 10/19/24 11:09 Resp 14 10/19/24 11:09 BP 90/68 10/19/24 11:09 Pulse Ox 97 10/19/24 11:09 Oxygen Delivery Method Room Air 10/19/24 11:09 BMI result Body Mass Index 24.3 Tobacco/Smoking Status: Tobacco use Status Tobacco use date assessed 10/19/24 10/19/24 11:12 Patient Tobacco Use Status Current everyday Tobacco 10/19/24 11:12 Tobacco use type Cigarette 10/19/24 11:12 e-Cigarette/Vaping Use Never Used 10/19/24 11:12 Thrive Assessment: Date of Thrive Assessment Date Thrive assessed 08/14/24 10/19/24 11:12 Currently or been in a relationship where the following occur: No concerns reported Coding Level of Care Code Est Pt Level 4 (04605) Diagnoses Degeneration of intervertebral disc of lumbar region with discogenic back pain and lower extremity pain M51.362 Disc-related pain type: discogenic back pain and lower extremity pain Asthma with exacerbation J45.41 Asthma persistence: persistent Asthma severity: moderate Low serum cortisol level R79.89 Assessment & Plan Assessment & Plan (1) Degenerative disc disease, lumbar: Code(s): M51.36 - Other intervertebral disc degeneration, lumbar region Category: Medical Qualifiers: Disc-related pain type: discogenic back pain and lower extremity pain Qualified Code(s): M51.362 - Other intervertebral disc degeneration, lumbar region with discogenic back pain and lower extremity pain (2) Asthma with exacerbation: Code(s): J45.901 - Unspecified asthma with (acute) exacerbation Category: Medical Qualifiers: Asthma persistence: persistent Asthma severity: moderate Qualified Code(s): J45.41 - Moderate persistent asthma with (acute) exacerbation (3) Low serum cortisol level: Code(s): R79.89 - Other specified abnormal findings of blood chemistry Category: Medical Plan Lumbar disc disease is stable on current medications Right toe numbness pain -EMG ordered Fatigue-phentermine helping and weight loss Low cortisol-continue f/up endocrine Orders: Orders NE electromyogram (EMG) Today G62.9 - Polyneuropathy, unspecified, M79.674 - Pain in right toe(s) Medications: Refilled phentermine good rx [id number] [facility] [id number] Member [id number] 37.5 mg PO DAILY 30 caps 0RF oxycodone Partial Fill upon patient request. 10 mg PO Q6H 30 days PRN 120 tabs 0RF pain oxycodone Partial Fill upon patient request. 10 mg PO Q6H 30 days PRN 120 tabs 0RF pain phentermine good rx [id number] [facility] [id number] Member [id number] 37.5 mg PO DAILY 30 caps 0RF carisoprodol 350 mg PO TID 30 days 90 tabs 3RF
[2024-10-19 11:09] VITALS: BP 90/68; PULSE 98; RESP 14; O2SAT 97; BMI 24.3
== END 2024-10-19 11:43 | disposition home or self-care (01) ==
LOC: HO.HMCFM 11:02
PROVIDERS: PCP Internal Medicine; Visit Provider Internal Medicine
DX: M51.362 Other intervertebral disc degeneration, lumbar region with discogenic back pain and lower extremity pain (principal); J45.41 Moderate persistent asthma with (acute) exacerbation; R79.89 Other specified abnormal findings of blood chemistry

== ENCOUNTER → 2024-10-19 11:01 | Outpatient (BNVA) | payer OTHER, SELFPAY | PROVIDERS: PCP Internal Medicine; Visit Provider Internal Medicine | DX: M51.362 Other intervertebral disc degeneration, lumbar region with discogenic back pain and lower extremity pain (principal); J45.41 Moderate persistent asthma with (acute) exacerbation; R79.89 Other specified abnormal findings of blood chemistry; G62.9 Polyneuropathy, unspecified; M79.674 Pain in right toe(s); Z79.891 Long term (current) use of opiate analgesic | CPT/HCPCS: 99212 ==

== ENCOUNTER 2024-11-03 10:32 | Outpatient (REF) | payer OTHER, SELFPAY ==
--- NOTE | 2024-11-03 10:38 | EMG_ITS ---
Right tibial and peroneal motor studies were performed right superficial peroneal, sural, and median and lateral mixed plantar sensory studies were performed. Tibial H-reflex was obtained and paraspinal muscles were tested with a needle. IMPRESSION: Right lower lumbar radiculopathy. 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 MD RISHI Armstrong/KEIKO / [id number]
== END 2024-11-03 10:33 | disposition home or self-care (01) ==
LOC: HO.NEURO 10:32
PROVIDERS: PCP Internal Medicine; Visit Provider Internal Medicine
DX: M79.674 Pain in right toe(s) (principal); G62.9 Polyneuropathy, unspecified
CPT/HCPCS: 95886; 95910

== ENCOUNTER 2024-11-10 08:24 | Outpatient (REF) | payer OTHER, SELFPAY ==
[2024-11-10 11:39] LABS: Anion Gap 9 (12-20); Blood Urea Nitrogen 10 mg/dL (9-16); Calcium 8.8 mg/dL (8.4-10.2); Carbon Dioxide 22 mmol/L (22-29); Chloride 112 mmol/L (96-108); Estimated Glomerular Filt Rate > 60; Glucose Random 107 mg/dL (60-115); Potassium 3.8 mmol/L (3.3-5.1); Sodium 139 mmol/L (135-145)
[2024-11-10 11:51] LABS: Cortisol Random 2.5 ug/dL
[2024-11-11 06:29] LABS: DHEA Sulfate 43 mcg/dL (15-205)
[2024-11-13 21:24] LABS: Adrenocorticotropic Hormone 9 pg/mL (6-50)
[2024-11-14 10:10] LABS: Renin 0.62 ng/mL/h (0.25-5.82)
== END 2024-11-10 08:25 | disposition home or self-care (01) ==
LOC: HO.WFDLDS 08:24
PROVIDERS: Visit Provider Student in an Organized Health Care Education/Training Program
DX: R79.89 Other specified abnormal findings of blood chemistry (principal); R53.83 Other fatigue
CPT/HCPCS: 36415; 80048; 82024; 82088; 82533; 82627; 84244

== ENCOUNTER 2024-11-17 14:04 | Outpatient (AMB) | payer OTHER, SELFPAY ==
[2024-11-17 14:05] VITALS: BP 110/68; PULSE 86; O2SAT 98; BMI 23.4
--- NOTE | 2024-11-17 14:05 | MHC.OFFVIS ---
Vital Signs 11/17/24 14:05 Height 5 ft 7 in Weight 149 lb 7.574 oz BMI 23.4 BP 110/68 Blood Pressure Location Lt brachial Position Sitting Pulse 86 Pulse Source Pulse Oximeter Pulse Oximetry (%) 98 Oxygen Delivery Method Room Air Intake Visit Reasons: Othr specified abnormal findings of blood chem Intake Note: Patient present today for Other specified abnormal findings of blood chem. 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 Accompanied by: Self / Same As Patient Allergies duloxetine Allergy (Severe, Verified 11/17/24 14:09) tachypnea erythromycin base Allergy (Severe, Verified 11/17/24 14:09) Rash hydrocodone [From Vicodin] Allergy (Severe, Verified 11/17/24 14:09) Vomiting Penicillins Allergy (Verified 11/17/24 14:09) Anaphylaxis Medication List - Last Reconciled 11/17/24 by Batool Casey MD albuterol sulfate 90 mcg/actuation (Ventolin HFA) 2 puffs inhalation Q4H PRN baclofen 10 mg PO Q12H 90 days carisoprodol 350 mg PO TID 30 days ibuprofen 400 mg PO DAILY PRN mupirocin 2% 1 appl topical BID oxycodone 10 mg PO Q6H PRN 30 days phentermine 37.5 mg PO DAILY HPI Comments Details: 43-year-old female coming in today for follow up of concern of adrenal insufficiency. HPI from prior visit Labs from 04/27/2024 showed 10:00 cortisol of 1.1, 05/21/2024 14:00 cortisol was 3.2, labs repeated 07/20/2024 at 10:00 with cortisol of 5.1. Reports extreme tiredness that has improved since she started the phentermine Reports lightheadness / dizziness on standing up Gained 10 lbs in 2023 Before she started phentermine Lost 5 lbs since started Phentermine 37.5 mg 08/13/24 LMP : gets a period monthly , sometimes shorter cycles, has endometriosis No OCPS Not sexually active 1 , 1 miscarriage RSV new year 2022 prednisone course, covid after early 2023 prednisone course, mid April 2024 was on prednisone for 4 days No cortisone shots recently, last 2007, before that a few in her back and hips No steroid inhalers No steroid creams Om oxycodone 10 mg every 6 hours , has been on this on and off for 20 years Past medical history Chronic pain Herniated discs Chronic lyme disease Social history Smokes 1.5 ppd Alcohol none No marijuana On disability Lives by herself Interval history Labs done 11/10/2024 showed cortisol low at 2.5 at 08:26, acth also in the lower side at 9, DHEA-S also on the lower side at 43. Normal electrolytes and kidney function. Reports dizziness and lightheadedness intermittently Lost 10 lbs since Aug 28 Reports overall weakness, fatigue Physical exam General: sitting comfortably in no acute distress HEENT: normocephalic/atraumatic, moist oral mucosa Neck: supple, symmetrical Cardiac: normal heart sounds Pulm: normal breath sounds B/L, no added breath sounds Abd: not distended, no tenderness Extremities: no edema, no signs of myxedema Neuro: AAO x3, Speech: normal, no facial droop, moving all 4 extremities Laboratory Tests 08/05/23 04/27/24 05/21/24 06:45 10:18 14:50 TSH 0.53 0.77 Free T4 Random Cortisol 1.1 3.2 07/20/24 07/20/24 09:47 09:48 TSH 3.52 Free T4 0.85 Random Cortisol 5.1 Laboratory Tests 07/20/24 11/10/24 09:48 08:26 Sodium 139 Potassium 3.8 Creatinine 0.79 Estimated GFR > 60 TSH 3.52 Free T4 0.85 DHEA Sulfate 43 Random Cortisol 2.5 ACTH 9 PFSH Medical History Migraine Lyme disease Tobacco dependence Fibromyalgia Degenerative disc disease, lumbar Asthma Surgical History History of gastric surgery Previous back surgery Family History Sister Hypothyroid Obesity Cancer of ovary Chronic mental illness Sister Hypothyroid Obesity Sister Hypothyroid Obesity Sister Hypothyroid Obesity Sister Hypothyroid Obesity Mother Asthma Father Alzheimer dementia Hypertension Coronary artery disease Type 2 diabetes mellitus Lung cancer Social History Household Members: Family Housing: House Are you a primary pharmacy care coordinator to a significant other at home: No Do you presently have visiting nurse or other home services: No 75 years or older and lives alone: No Alcohol intake: current Alcohol intake frequency: holidays/special occasions only Patient Tobacco Use Status: Current everyday Tobacco user Tobacco use type: Cigarette Cigarette Packs Per Day: 2.5 Cigarettes Per Day: 10 Years Smoked: 24 e-Cigarette/Vaping Use: Never Used service: No Current occupational status: disabled Current occupational exposures/hazards: No Cognitive needs: No Hearing needs: No Vision needs: No Assessment & Plan Assessment & Plan (1) Fatigue: Code(s): R53.83 - Other fatigue Category: Medical Qualifiers: Fatigue type: unspecified Qualified Code(s): R53.83 - Other fatigue Plan: See below (2) Low serum cortisol level: Code(s): R79.89 - Other specified abnormal findings of blood chemistry Category: Medical Plan: 43-year-old female coming in today for initial evaluation of concern for adrenal insufficiency. Labs from 04/27/2024 showed 10:00 cortisol of 1.1, 05/21/2024 14:00 cortisol was 3.2, labs repeated 07/20/2024 at 10:00 with cortisol of 5.1. She was on a prednisone course back in April, which could have resulted in that low cortisol level. Exogenous steroids suppressed cortisol levels hence we do not check these while patients are actively on steroids, however patient thinks cortisol was checked after she was done with her prednisone taper. She is also on chronic oxycodone, long-term steroid Use can also result in pituitary adrenal access insufficiency. She usually wakes up later in the day so her sleep-wake cycle is not very regular, however baseline labs done at 8 AM Labs done 11/10/2024 showed cortisol low at 2.5 at 08:26, acth also in the lower side at 9, DHEA-S also on the lower side at 43. Normal electrolytes and kidney function. Cortisol is significantly low, I would like to do a cosyntropic stimlulation tets. she is reporting lightheadedness, dizziness, fatigue.Discusses if symptoms worsen to go to ER as she might need immediate steroids. Before commtiting her steroids I would like to perform cosyntropin stim test. Plan: -ordering cosyntropin stimulation testing. -follow up in 6 weeks Plan See above Orders: Referrals Infusion Center Notification R79.89 - Other specified abnormal findings of blood chemistry Coding Level of Care Code Est Pt Level 3 (47728) Diagnoses Fatigue, unspecified type R53.83 Fatigue type: unspecified Low serum cortisol level R79.89
== END 2024-11-17 14:30 | disposition home or self-care (01) ==
LOC: HO.ENCR 14:04
PROVIDERS: PCP Internal Medicine; Visit Provider Student in an Organized Health Care Education/Training Program
DX: R53.83 Other fatigue (principal); R79.89 Other specified abnormal findings of blood chemistry
CPT/HCPCS: 99213

== ENCOUNTER → 2024-11-17 14:04 | Outpatient (BNVA) | payer OTHER, SELFPAY | PROVIDERS: PCP Internal Medicine; Visit Provider Student in an Organized Health Care Education/Training Program | DX: R53.83 Other fatigue (principal); R79.89 Other specified abnormal findings of blood chemistry | CPT/HCPCS: 99212 ==

== ENCOUNTER 2024-12-07 07:33 | Outpatient (RCR) | payer OTHER, SELFPAY ==
[2024-12-07 07:39] VITALS: BP 110/42; PULSE 69; RESP 16; TEMP 36.4; O2SAT 99
[2024-12-07] MEDS: Cosyntropin 0.25 MG VIAL IVPUSH (07:51)
[2024-12-07 08:54] VITALS: BP 115/62; PULSE 65; RESP 16; O2SAT 100
[2024-12-08 06:23] LABS: Cortisol 30 Minute 21.3 mcg/dL; Cortisol 60 Minute 24.2 mcg/dL
== END 2024-12-07 08:56 | disposition home or self-care (01) ==
LOC: HO.INF 07:33
PROVIDERS: Visit Provider Student in an Organized Health Care Education/Training Program
DX: R79.89 Other specified abnormal findings of blood chemistry (principal)
CPT/HCPCS: 36415; 82533; 96374; J0834

== ENCOUNTER 2024-12-15 15:44 | Outpatient (AMB) | payer OTHER, SELFPAY ==
--- NOTE | 2024-12-15 15:47 | A.OFFPC_ITS ---
Vital Signs 12/15/24 15:51 Height 5 ft 7 in Weight 149 lb BMI 23.3 BP 98/64 Blood Pressure Location Rt brachial Position Sitting Respiration 12 Pulse 105 H Pulse Source Pulse Oximeter Pulse Oximetry (%) 100 Oxygen Delivery Method Room Air Intake Visit Reasons: Med F/U Intake Note: Medical follow up Cook Short Order Required: No Allergies duloxetine Allergy (Severe, Verified 12/15/24 15:47) tachypnea erythromycin base Allergy (Severe, Verified 12/15/24 15:47) Rash hydrocodone [From Vicodin] Allergy (Severe, Verified 12/15/24 15:47) Vomiting banana Allergy (Mild, Verified 12/15/24 15:48) throat swelling Penicillins Allergy (Verified 12/15/24 15:47) Anaphylaxis Medication List - Last Reconciled 12/15/24 by Tari Petit MD albuterol sulfate 90 mcg/actuation (Ventolin HFA) 2 puffs inhalation Q4H PRN baclofen 10 mg PO Q12H 90 days carisoprodol 350 mg PO TID 30 days [collagen PO] ibuprofen 400 mg PO DAILY mupirocin 2% 1 appl topical BID PRN mupirocin 2% 1 appl topical BID PRN oxycodone 10 mg PO Q6H PRN 30 days phentermine 37.5 mg PO DAILY Tobacco use date assessed: 10/19/24 Dental Screening Dental Screen Date: 12/15/24 Did you have a dental visit in the last 12 months?: Yes Did you have a dental problem in the last 6 months where you did not have access to dental care?: No Was dental information given to patient?: Patient has dentist HPI HPI Comments History of Present Illness Details The patient is a 44-year-old female with a past medical history of low back pain, fibromyalgia, asthma, bronchitis, endometriosis presenting for follow-up MSK: Chronic low back pain. Continues oxycodone 10 mg every 6 hours as needed for low back pain and fibromyalgia. She has naloxone at home. She had L5-S1 discectomy, right laminectomy in July 2004. on disability x 20 years. Increased neck and shoulder pain-she suffered 3 falls on the ice this winter. Has been doing PT exercises has been going to the acupressure which helps but just has not afforded sustained relief Asthma: Stable, on albuterol as needed. She has taken Symbicort in the past as needed on a seasonal basis. 24 pack year. Still fatigue & stress. for the past 6 months. Saw endocrinology who is completing work up for low cortisol-her stim results look normal but she had not slept all night and she will discuss with endocrine if this could have skewed the validity of the test. Increased anxiety for the past month which is unusual for her. She had already been on the phentermine for a few months. ROS see HPI PHYSICAL EXAM: GENERAL: Alert and oriented x 3. NAD EYES: EOMI. Anicteric. HENT: Moist mucous membranes. No scleral icterus. No cervical lymphadenopathy. LUNGS: Clear to auscultation bilaterally. CARDIOVASCULAR: Regular rate and rhythm. No murmur. No JVD. ABDOMEN: Soft, non-tender +bs EXTREMITIES: No edema. Non-tender. SKIN: No rashes or lesions. Warm. NEUROLOGIC: No focal neurological deficits. CN II-XII grossly intact PSYCHIATRIC: Cooperative. Appropriate mood and affect [facility] Medical History Migraine Lyme disease Tobacco dependence Fibromyalgia Degenerative disc disease, lumbar Asthma Surgical History History of gastric surgery Previous back surgery Family History Sister Hypothyroid Obesity Cancer of ovary Chronic mental illness Sister Hypothyroid Obesity Sister Hypothyroid Obesity Sister Hypothyroid Obesity Sister Hypothyroid Obesity Mother Asthma Father Alzheimer dementia Hypertension Coronary artery disease Type 2 diabetes mellitus Lung cancer Social History Household Members: Family Housing: House Are you a primary care process manager to a significant other at home: No Do you presently have visiting nurse or other home services: No Alcohol intake: current Alcohol intake frequency: holidays/special occasions only Patient Tobacco Use Status: Current everyday Tobacco user Tobacco use type: Cigarette Cigarette Packs Per Day: 2.5 Cigarettes Per Day: 10 Years Smoked: 24 e-Cigarette/Vaping Use: Never Used service: No Current occupational status: disabled Current occupational exposures/hazards: No Cognitive needs: No Hearing needs: No Vision needs: No Questionnaire Thrive Questionnaire Date Thrive assessed: 08/14/24 I am a: Patient What is your living situation today?: I have a steady place to live Within the past 12 months, did the food you bought not last and you didn't have the money to get more?: Never true Within the past 12 months, did you worry whether your food would run out before you got money to buy more?: Never true Do you have trouble paying for medicines?: No Do you have trouble getting transportation to medical appointments?: No Do you have trouble paying your heating and electricity bill?: No Do you have trouble taking care of your child, family member or friend?: No Do you have trouble with day-to-day activities such as bathing, preparing meals, shopping, managing finances, etc.?: No Are you currently unemployed and looking for a job?: No Are you interested in more education?: No Please select the resources that you would like help with: None Currently or been in a relationship where the following occur: No concerns reported THRIVE Score: 0 DONAL-7 AMB Questionnaire DONAL-7 Date DONAL - 7 assessed: 03/17/24 Source: Developed by Drs. Gutierrez Heard, Shiela Garcia, Isaac Hawk and colleagues, with an educational herlinda from [employer]. Physical exam (Primary Care) Vital Signs: Last Vital Signs Pulse 105 H 12/15/24 15:51 Resp 12 12/15/24 15:51 BP 98/64 12/15/24 15:51 Pulse Ox 100 12/15/24 15:51 Oxygen Delivery Method Room Air 12/15/24 15:51 BMI result Body Mass Index 23.3 Tobacco/Smoking Status: Tobacco use Status Tobacco use date assessed 10/19/24 12/15/24 15:52 Patient Tobacco Use Status Current everyday Tobacco 12/15/24 15:52 Tobacco use type Cigarette 12/15/24 15:52 e-Cigarette/Vaping Use Never Used 12/15/24 15:52 Thrive Assessment: Date of Thrive Assessment Date Thrive assessed 08/14/24 12/15/24 15:52 Currently or been in a relationship where the following occur: No concerns reported Coding Level of Care Code Est Pt Level 4 (24931) Diagnoses Left shoulder pain, unspecified chronicity M25.512 Chronicity: unspecified Left elbow pain M25.522 Fatigue, unspecified type R53.83 Fatigue type: unspecified Degeneration of intervertebral disc of lumbar region with discogenic back pain and lower extremity pain M51.362 Disc-related pain type: discogenic back pain and lower extremity pain Assessment & Plan Assessment & Plan (1) Left shoulder pain: Code(s): M25.512 - Pain in left shoulder Category: Medical Qualifiers: Chronicity: unspecified Qualified Code(s): M25.512 - Pain in left shoulder (2) Left elbow pain: Code(s): M25.522 - Pain in left elbow Category: Medical (3) Fatigue: Code(s): R53.83 - Other fatigue Category: Medical Qualifiers: Fatigue type: unspecified Qualified Code(s): R53.83 - Other fatigue (4) Degenerative disc disease, lumbar: Code(s): M51.36 - Other intervertebral disc degeneration, lumbar region Category: Medical Qualifiers: Disc-related pain type: discogenic back pain and lower extremity pain Qualified Code(s): M51.362 - Other intervertebral disc degeneration, lumbar region with discogenic back pain and lower extremity pain Plan Left shoulder and neck pain-referral to orthopedics Low back pain is stable She is extremely fatigued with increased anxiety. Lorazepam prn. f/up endocrine Orders: Referrals Orthopedics Referral M25.512 - Pain in left shoulder, M54.2 - Cervicalgia Medications: New lorazepam 0.5 mg PO BID PRN 60 tabs 0RF anxiety Changed From mupirocin 2% 1 appl topical BID PRN To mupirocin 2% 1 appl topical BID 50 grams 0RF
[2024-12-15 15:51] VITALS: BP 98/64; PULSE 105; RESP 12; O2SAT 100; BMI 23.3
== END 2024-12-15 16:12 | disposition home or self-care (01) ==
LOC: HO.HMCFM 15:44
PROVIDERS: PCP Internal Medicine; Visit Provider Internal Medicine
DX: M25.512 Pain in left shoulder (principal); M25.522 Pain in left elbow; R53.83 Other fatigue; M51.362 Other intervertebral disc degeneration, lumbar region with discogenic back pain and lower extremity pain

== ENCOUNTER → 2024-12-15 15:44 | Outpatient (BNVA) | payer OTHER, SELFPAY | PROVIDERS: PCP Internal Medicine; Visit Provider Internal Medicine | DX: M25.512 Pain in left shoulder (principal); M25.522 Pain in left elbow; R53.83 Other fatigue; M51.362 Other intervertebral disc degeneration, lumbar region with discogenic back pain and lower extremity pain; F41.9 Anxiety disorder, unspecified; J45.909 Unspecified asthma, uncomplicated; Z79.891 Long term (current) use of opiate analgesic | CPT/HCPCS: 99212 ==

== ENCOUNTER 2025-01-07 11:38 | Outpatient (AMB) | payer OTHER, SELFPAY ==
--- NOTE | 2025-01-07 11:40 | A.OFFVIS_ITS ---
Vital Signs 01/07/25 11:41 Height 5 ft 7 in Weight 146 lb 9.718 oz BMI 23.0 BP 100/74 Blood Pressure Location Lt brachial Position Sitting Pulse 84 Pulse Source Pulse Oximeter Pulse Oximetry (%) 94 Oxygen Delivery Method Room Air Intake Visit Reasons: Fatigue Intake Note: Patient present today for fatigue. 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 Accompanied by: Self / Same As Patient Allergies duloxetine Allergy (Severe, Verified 01/07/25 11:45) tachypnea erythromycin base Allergy (Severe, Verified 01/07/25 11:45) Rash hydrocodone [From Vicodin] Allergy (Severe, Verified 01/07/25 11:45) Vomiting banana Allergy (Mild, Verified 01/07/25 11:45) throat swelling Penicillins Allergy (Verified 01/07/25 11:45) Anaphylaxis Medication List - Last Reconciled 01/07/25 by Batool Casey MD albuterol sulfate 90 mcg/actuation (Ventolin HFA) 2 puffs inhalation Q4H PRN baclofen 10 mg PO Q12H 90 days carisoprodol 350 mg PO TID 30 days [collagen PO] ibuprofen 400 mg PO DAILY lorazepam 0.5 mg PO BID PRN mupirocin 2% 1 appl topical BID PRN mupirocin 2% 1 appl topical BID oxycodone 10 mg PO Q6H PRN 30 days phentermine 37.5 mg PO DAILY HPI Comments Details: 43-year-old female coming in today for follow up of concern of adrenal insufficiency. HPI from prior visit Labs from 04/27/2024 showed 10:00 cortisol of 1.1, 05/21/2024 14:00 cortisol was 3.2, labs repeated 07/20/2024 at 10:00 with cortisol of 5.1. Reports extreme tiredness that has improved since she started the phentermine Reports lightheadness / dizziness on standing up Gained 10 lbs in 2023 Before she started phentermine Lost 5 lbs since started Phentermine 37.5 mg 08/13/24 LMP : gets a period monthly , sometimes shorter cycles, has endometriosis No OCPS Not sexually active 1 , 1 miscarriage RSV new year 2022 prednisone course, covid after early 2023 prednisone course, mid April 2024 was on prednisone for 4 days No cortisone shots recently, last 2007, before that a few in her back and hips No steroid inhalers No steroid creams Om oxycodone 10 mg every 6 hours , has been on this on and off for 20 years Past medical history Chronic pain Herniated discs Chronic lyme disease Social history Smokes 1.5 ppd Alcohol none No marijuana On disability Lives by herself Labs done 11/10/2024 showed cortisol low at 2.5 at 08:26, acth also in the lower side at 9, DHEA-S also on the lower side at 43. Normal electrolytes and kidney function. Interval history Reports dizziness and lightheadedness intermittently Continues to lose weight on phentermine Reports overall weakness, fatigue 12/07/2024: Cosyntropin stimulation test was normal, with a robust response of cortisol at 60 minutes going from 9.1 to 24 Physical exam General: sitting comfortably in no acute distress HEENT: normocephalic/atraumatic Neck: symmetrical Cardiac: Normal heart rate Pulm: normal pulmonary effort Abd: not distended Extremities: no edema Laboratory Tests 08/05/23 04/27/24 05/21/24 06:45 10:18 14:50 TSH 0.53 0.77 Free T4 Random Cortisol 1.1 3.2 07/20/24 07/20/24 09:47 09:48 TSH 3.52 Free T4 0.85 Random Cortisol 5.1 Laboratory Tests 07/20/24 11/10/24 09:48 08:26 Sodium 139 Potassium 3.8 Creatinine 0.79 Estimated GFR > 60 TSH 3.52 Free T4 0.85 DHEA Sulfate 43 Random Cortisol 2.5 ACTH 9 Laboratory Tests 12/07/24 07:49 Cortisol Baseline 9.0 Cortisol 30 Minute 21.3 Cortisol 60 Minute 24.2 PFSH Medical History Migraine Lyme disease Tobacco dependence Fibromyalgia Degenerative disc disease, lumbar Asthma Surgical History History of gastric surgery Previous back surgery Family History Sister Hypothyroid Obesity Cancer of ovary Chronic mental illness Sister Hypothyroid Obesity Sister Hypothyroid Obesity Sister Hypothyroid Obesity Sister Hypothyroid Obesity Mother Asthma Father Alzheimer dementia Hypertension Coronary artery disease Type 2 diabetes mellitus Lung cancer Social History Household Members: Family Housing: House Are you a primary infant caregiver to a significant other at home: No Do you presently have visiting nurse or other home services: No 75 years or older and lives alone: No Alcohol intake: current Alcohol intake frequency: holidays/special occasions only Patient Tobacco Use Status: Current everyday Tobacco user Tobacco use type: Cigarette Cigarette Packs Per Day: 2.5 Cigarettes Per Day: 10 Years Smoked: 24 e-Cigarette/Vaping Use: Never Used service: No Current occupational status: disabled Current occupational exposures/hazards: No Cognitive needs: No Hearing needs: No Vision needs: No Physical Exam Vital Signs: Last Vital Signs Pulse 84 01/07/25 11:41 BP 100/74 01/07/25 11:41 Pulse Ox 94 01/07/25 11:41 Oxygen Delivery Method Room Air 01/07/25 11:41 BMI result Body Mass Index 23.0 Assessment & Plan Assessment & Plan (1) Fatigue: Code(s): R53.83 - Other fatigue Category: Medical Qualifiers: Fatigue type: unspecified Qualified Code(s): R53.83 - Other fatigue Plan: See below (2) Low serum cortisol level: Code(s): R79.89 - Other specified abnormal findings of blood chemistry Category: Medical Plan: 43-year-old female coming in today for follow up of concern for adrenal insufficiency. Labs from 04/27/2024 showed 10:00 cortisol of 1.1, 05/21/2024 14:00 cortisol was 3.2, labs repeated 07/20/2024 at 10:00 with cortisol of 5.1. She was on a prednisone course back in April, which could have resulted in that low cortisol level. Exogenous steroids suppressed cortisol levels hence we do not check these while patients are actively on steroids, however patient thinks cortisol was checked after she was done with her prednisone taper. She is also on chronic oxycodone, long-term opioid Use can also result in pituitary adrenal access insufficiency. She usually wakes up later in the day so her sleep-wake cycle is not very regular, however baseline labs done at 8 AM Labs done 11/10/2024 showed cortisol low at 2.5 at 08:26, acth also in the lower side at 9, DHEA-S also on the lower side at 43. Normal electrolytes and kidney function. However cosyntropin stimulation testing done in December 2024 showed robust results with cortisol at 60 minutes going up to 24 from a baseline of 9. These results are unremarkable and at this time we are not concerned about adrenal insufficiency. Patient does express frustration regarding her symptoms, however at this time I would encourage her to follow up with her PCP to discuss further differentials but from an endocrine standpoint she does not have adrenal insufficiency. She could in the future develop adrenal insufficiency due to long-term oxycodone use, however at this time no concerns. Plan See above Coding Level of Care Code Est Pt Level 3 (89674) Diagnoses Fatigue, unspecified type R53.83 Fatigue type: unspecified Low serum cortisol level R79.89
[2025-01-07 11:41] VITALS: BP 100/74; PULSE 84; O2SAT 94; BMI 23.0
== END 2025-01-07 12:00 | disposition home or self-care (01) ==
LOC: HO.ENCR 11:39
PROVIDERS: PCP Internal Medicine; Visit Provider Student in an Organized Health Care Education/Training Program
DX: R53.83 Other fatigue (principal); R79.89 Other specified abnormal findings of blood chemistry
CPT/HCPCS: 99213

== ENCOUNTER → 2025-01-07 11:38 | Outpatient (BNVA) | payer OTHER, SELFPAY | PROVIDERS: PCP Internal Medicine; Visit Provider Student in an Organized Health Care Education/Training Program | DX: R42 Dizziness and giddiness (principal); R79.89 Other specified abnormal findings of blood chemistry; R53.83 Other fatigue | CPT/HCPCS: 99212 ==

== ENCOUNTER 2025-01-11 11:51 | Outpatient (REF) | payer OTHER, SELFPAY ==
--- NOTE | ~2025-01-11 | XR_ITS ---
EXAMINATION: XR SHOULDER, MARK 3V CLINICAL INFORMATION: M25.512 - Pain in left shoulder COMPARISON: None available. TECHNIQUE: Three views of each shoulder. FINDINGS: RIGHT SHOULDER: Normal bone mineralization. No fracture, dislocation, or suspicious bone lesion. Normal alignment. The glenohumeral joint is normal. The AC joint is normal. The subacromial space is preserved. Remainder of the soft tissue and bony structures appear normal. LEFT SHOULDER: Normal bone mineralization. No fracture, dislocation, or suspicious bone lesion. Normal alignment. The glenohumeral joint is normal. The AC joint is normal. The subacromial space is preserved. Remainder of the soft tissue and bony structures appear normal. XR/XR Shoulder Mark min 2V IMPRESSION: Normal bilateral shoulders. Electronically signed by: Krystian Avalos MD 01/11/2025 02:27 PM EDT
== END 2025-01-11 11:52 | disposition home or self-care (01) ==
LOC: HO.HOSX 11:51
PROVIDERS: Visit Provider Orthopaedic Surgery
DX: M25.511 Pain in right shoulder (principal); M25.512 Pain in left shoulder; M77.12 Lateral epicondylitis, left elbow
CPT/HCPCS: 73030; 99202

== ENCOUNTER 2025-01-11 12:56 | Outpatient (AMB) | payer OTHER, SELFPAY ==
[2025-01-11 13:02] VITALS: BMI 22.9
--- NOTE | 2025-01-11 13:02 | A.OFFVIS_ITS ---
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 Patient reports that she slipped and fell on ice on multiple occasions this past winter and has since had pain in the lower part of her neck, pain in both of her shoulders and bilateral elbows. She has been doing physical therapy for her neck and has done physical therapy in the past for her elbows. Patient reports that her bilateral shoulder pain has been going on since winter 2023 and her elbows since 2019. Patient reported that both shoulder and elbow have constant numbness and tingling. Patient also stated that at todays appointment she would like to address the lower part of her neck. 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 Patient reports that she slipped and fell on ice on multiple occasions this past winter and has since had pain in the lower part of her neck, pain in both of her shoulders and bilateral elbows. She has been doing physical therapy for her neck and has done physical therapy in the past for her elbows. Patient reports that her bilateral shoulder pain has been going on since winter 2023 and her elbows since 2019. Patient reported that both shoulder and elbow have constant numbness and tingling. Patient also stated that at todays appointment she would like to address the lower part of her neck. [facility] Medical History Migraine Lyme disease Tobacco dependence Fibromyalgia Degenerative disc disease, lumbar Asthma Surgical History History of gastric surgery Previous back surgery Family History Sister Hypothyroid Obesity Cancer of ovary Chronic mental illness Sister Hypothyroid Obesity Sister Hypothyroid Obesity Sister Hypothyroid Obesity Sister Hypothyroid Obesity Mother Asthma Father Alzheimer dementia Hypertension Coronary artery disease Type 2 diabetes mellitus Lung cancer Social History Household Members: Family Housing: House Are you a primary medical care administrator to a significant other at home: No Do you presently have visiting nurse or other home services: No 75 years or older and lives alone: No Alcohol intake: current Alcohol intake frequency: holidays/special occasions only Patient Tobacco Use Status: Current everyday Tobacco user Tobacco use type: Cigarette Cigarette Packs Per Day: 2.5 Cigarettes Per Day: 10 Years Smoked: 24 e-Cigarette/Vaping Use: Never Used service: No Current occupational status: disabled Current occupational exposures/hazards: No Cognitive needs: No Hearing needs: No Vision needs: No Physical Exam Vital Signs: BMI result Body Mass Index 22.9 Extrem Other: On exam Koki has full range of motion of the left elbow with a pain on resisted wrist extension and tenderness to palpation over lateral epicondyle. Mild pain with resisted long finger extension Her shoulders have full range of motion. Negative lift-off, negative empty can, negative Calix/Neer Results Reviewed Results Reviewed: I personally reviewed relevant radiographs. nl bilateral shoulder radiographs Assessment & Plan Assessment & Plan (1) Left lateral epicondylitis: Code(s): M77.12 - Lateral epicondylitis, left elbow Category: Medical Plan: 44-year-old woman with left lateral epicondylitis. Treatment options include PT/injection/NSAIDs. I discussed this with her. She will continue to work with her [email or web address]. She will follow up as needed. (2) Painful arc syndrome of left shoulder: Code(s): M75.102 - Unspecified rotator cuff tear or rupture of left shoulder, not specified as traumatic Category: Medical Plan: Left shoulder is slightly worse than the right but there is no weakness or loss of function. Exam is relatively benign but poor scapular mechanics. She is d oing physical therapy and if the pain worsens she can follow up for injection. No additional treatment warranted at this time (3) Painful arc syndrome of right shoulder: Code(s): M75.101 - Unspecified rotator cuff tear or rupture of right shoulder, not specified as traumatic Category: Medical Plan: Right shoulder is less symptomatic and there is no weakness or loss of function. Exam is relatively benign but poor scapular mechanics. She is doing physical therapy and if the pain worsens she can follow up for injection. No additional treatment warranted at this time (4) Fibromyalgia: Code(s): M79.7 - Fibromyalgia Category: Medical Plan: Fibromyalgia complicates this as these are chronic pain related musculoskeletal issues. She understands this. She can use our office as a resource but, at this point in time, no surgical intervention warranted. Orders: Orders XR shoulder LT min 2V Today M25.519 - Pain in unspecified shoulder XR Shoulder Mark min 2V Today M25.511 - Pain in right shoulder, M25.512 - Pain in left shoulder XR shoulder RT min 2V Today M25.519 - Pain in unspecified shoulder Coding Level of Care Code New Pt Level 4 (29047) Diagnoses Left lateral epicondylitis M77.12 Painful arc syndrome of left shoulder M75.102 Painful arc syndrome of right shoulder M75.101 Fibromyalgia M79.7
== END 2025-01-11 13:44 | disposition home or self-care (01) ==
LOC: HO.HOS 12:57
PROVIDERS: PCP Internal Medicine; Visit Provider Orthopaedic Surgery
DX: M77.12 Lateral epicondylitis, left elbow (principal); M75.102 Unspecified rotator cuff tear or rupture of left shoulder, not specified as traumatic; M75.101 Unspecified rotator cuff tear or rupture of right shoulder, not specified as traumatic; M79.7 Fibromyalgia
CPT/HCPCS: 99203

== ENCOUNTER → 2025-01-11 13:13 | Outpatient (BNV) | payer OTHER, SELFPAY | PROVIDERS: Visit Provider Radiology Diagnostic Radiology | DX: M25.511 Pain in right shoulder (principal) | CPT/HCPCS: 73030 ==

== ENCOUNTER 2025-01-25 13:49 | Outpatient (AMB) | payer MEDICARE, SELFPAY ==
--- NOTE | 2025-01-25 13:53 | A.OFFPC_ITS ---
Vital Signs 01/25/25 14:07 Height 5 ft 7 in Weight 147 lb 4 oz BMI 23.1 BP 108/72 Blood Pressure Location Rt brachial Position Sitting Respiration 12 Pulse 91 Pulse Source Pulse Oximeter Temp 98.3 F Temp Source Oral Pulse Oximetry (%) 98 Oxygen Delivery Method Room Air Intake Visit Reasons: medication/[place] diagnosis rebooked Intake Note: Medication follow up. Referral to for elbow pain. Referral for neck pain, Dr De Jesus states he does not work on the neck. Cook Morning Required: No Allergies duloxetine Allergy (Severe, Verified 01/25/25 13:56) tachypnea erythromycin base Allergy (Severe, Verified 01/25/25 13:56) Rash hydrocodone (From Vicodin) Allergy (Severe, Verified 01/25/25 13:56) Vomiting banana Allergy (Mild, Verified 01/25/25 13:56) throat swelling Penicillins Allergy (Verified 01/25/25 13:56) Anaphylaxis Tobacco use date assessed: 10/19/24 Dental Screening Dental Screen Date: 12/15/24 HPI HPI Comments History of Present Illness Details The patient is a 44-year-old female with a past medical history of low back pain, fibromyalgia, asthma, bronchitis, endometriosis presenting for follow-up MSK: Chronic low back pain. Increased cervical radicular pain b/l left>right. Increased neck and shoulder pain-she suffered 3 falls on the ice this winter. Has been doing PT exercises has been going to the acupressure which helps but just has not afforded sustained relief Continues oxycodone 10 mg every 6 hours as needed for low back pain and fibromyalgia. She has naloxone at home. She had L5-S1 discectomy, right laminectomy in July 2004. on disability x 20 years. Asthma: Stable, on albuterol as needed. She has taken Symbicort in the past as needed on a seasonal basis. 24 pack year. Still fatigue & stress. for the past ~8 months. Saw endocrinology who is completing work up for low cortisol-normal stim test. She has lost weight with phentermine which has also helps with energy levels. Mom this year, still managing her estate. Her sister is very anxiety provoking-uses lorazepam prn She has family history of ovarian cancer. Personal history of endometriosis. She is overdue for obstetrics gyn ROS see HPI PHYSICAL EXAM: GENERAL: Alert and oriented x 3. NAD EYES: EOMI. Anicteric. HENT: Moist mucous membranes. No scleral icterus. No cervical lymphadenopathy. LUNGS: Clear to auscultation bilaterally. CARDIOVASCULAR: Regular rate and rhythm. No murmur. No JVD. ABDOMEN: Soft, non-tender +bs EXTREMITIES: No edema. Non-tender. SKIN: No rashes or lesions. Warm. NEUROLOGIC: No focal neurological deficits. CN II-XII grossly intact PSYCHIATRIC: Cooperative. Appropriate mood and affect [facility] Medical History Migraine Lyme disease Tobacco dependence Fibromyalgia Degenerative disc disease, lumbar Asthma Surgical History History of gastric surgery Previous back surgery Family History Sister Hypothyroid Obesity Cancer of ovary Chronic mental illness Sister Hypothyroid Obesity Sister Hypothyroid Obesity Sister Hypothyroid Obesity Sister Hypothyroid Obesity Mother Asthma Father Alzheimer dementia Hypertension Coronary artery disease Type 2 diabetes mellitus Lung cancer Social History Household Members: Family Housing: House Are you a primary manager wound care to a significant other at home: No Do you presently have visiting nurse or other home services: No 75 years or older and lives alone: No Alcohol intake: current Alcohol intake frequency: holidays/special occasions only Patient Tobacco Use Status: Current everyday Tobacco user Tobacco use type: Cigarette Cigarette Packs Per Day: 2.5 Cigarettes Per Day: 10 Years Smoked: 24 e-Cigarette/Vaping Use: Never Used service: No Current occupational status: disabled Current occupational exposures/hazards: No Cognitive needs: No Hearing needs: No Vision needs: No Questionnaire Thrive Questionnaire Date Thrive assessed: 08/14/24 I am a: Patient What is your living situation today?: I have a steady place to live Within the past 12 months, did the food you bought not last and you didn't have the money to get more?: Never true Within the past 12 months, did you worry whether your food would run out before you got money to buy more?: Never true Do you have trouble paying for medicines?: No Do you have trouble getting transportation to medical appointments?: No Do you have trouble paying your heating and electricity bill?: No Do you have trouble taking care of your child, family member or friend?: No Do you have trouble with day-to-day activities such as bathing, preparing meals, shopping, managing finances, etc.?: No Are you currently unemployed and looking for a job?: No Are you interested in more education?: No Please select the resources that you would like help with: None Currently or been in a relationship where the following occur: No concerns reported THRIVE Score: 0 DONAL-7 AMB Questionnaire DONAL-7 Date DONAL - 7 assessed: 03/17/24 Source: Developed by Drs. Gutierrez Heard, Shiela Garcia, Isaac Hawk and colleagues, with an educational herlinda from [employer]. Physical exam (Primary Care) Tobacco/Smoking Status: Tobacco use Status Tobacco use date assessed 10/19/24 01/25/25 13:54 Patient Tobacco Use Status Current everyday Tobacco 01/25/25 13:54 Tobacco use type Cigarette 01/25/25 13:54 e-Cigarette/Vaping Use Never Used 01/25/25 13:54 Thrive Assessment: Date of Thrive Assessment Date Thrive assessed 08/14/24 01/25/25 13:54 Currently or been in a relationship where the following occur: No concerns reported Coding Level of Care Code Est Pt Level 4 (67718) Complex EM visit Add On G2211 Diagnoses Cervical radiculopathy M54.12 Fatigue, unspecified type R53.83 Fatigue type: unspecified Endometriosis N80.9 Family history of ovarian cancer Z80.41 Assessment & Plan Assessment & Plan (1) Cervical radiculopathy: Code(s): M54.12 - Radiculopathy, cervical region Category: Medical (2) Fatigue: Code(s): R53.83 - Other fatigue Category: Medical Qualifiers: Fatigue type: unspecified Qualified Code(s): R53.83 - Other fatigue (3) Endometriosis: Code(s): N80.9 - Endometriosis, unspecified Category: Medical (4) Family history of ovarian cancer: Code(s): Z80.41 - Family history of malignant neoplasm of ovary Category: Medical Plan 44 y/o for follow up Fatigue-addisons testing was negative. She would like to recheck a cortisol level which is ordered Labs ordered Cervical radiculopathy-referral to Dr Del Angel Chronic pain-lbp stable on chronic opioid therapy Orders: Orders Lyme IgG/IgM w/reflex to WB Today A69.20 - Lyme disease, unspecified Monotest Today A69.20 - Lyme disease, unspecified, R53.83 - Other fatigue Cortisol Random Today R79.89 - Other specified abnormal findings of blood chemistry Tick-borne Disease Molecular Today A69.20 - Lyme disease, unspecified Referrals Orthopedics Referral M54.12 - Radiculopathy, cervical region Medications: New lorazepam 1 mg PO BID PRN 60 tabs 0RF anxiety Refilled oxycodone Partial Fill upon patient request. 10 mg PO Q6H PRN 120 tabs 0RF pain 30 days Discontinued lorazepam Discontinued Reason: Doctor's Order 0.5 mg PO BID PRN 60 tabs 0RF anxiety
[2025-01-25 14:07] VITALS: BP 108/72; PULSE 91; RESP 12; TEMP 36.8; O2SAT 98; BMI 23.1
== END 2025-01-25 14:33 | disposition home or self-care (01) ==
LOC: HO.HMCFM 13:50
PROVIDERS: PCP Internal Medicine; Visit Provider Internal Medicine
DX: M54.12 Radiculopathy, cervical region (principal); R53.83 Other fatigue; N80.9 Endometriosis, unspecified; Z80.41 Family history of malignant neoplasm of ovary

== ENCOUNTER → 2025-01-25 13:49 | Outpatient (BNVA) | payer OTHER, SELFPAY | PROVIDERS: PCP Internal Medicine; Visit Provider Internal Medicine | DX: M54.12 Radiculopathy, cervical region (principal); R53.83 Other fatigue; N80.9 Endometriosis, unspecified; G89.29 Other chronic pain; M54.50 Low back pain, unspecified; J45.909 Unspecified asthma, uncomplicated; Z80.41 Family history of malignant neoplasm of ovary; Z79.891 Long term (current) use of opiate analgesic | CPT/HCPCS: 99212 ==

== ENCOUNTER 2025-03-16 10:03 | Outpatient (RCR) | payer OTHER, SELFPAY ==
[2024-12-16 14:10] VITALS: BP 113/64; PULSE 89
--- NOTE | 2025-04-22 08:31 | MHC.PT.DC ---
[facility] [place] [facility] [place] [facility] [place] [facility] [address] Torsten Rojas [address] [phone] F: [phone] F: [phone] F: [phone] F: [phone] Physical Therapy Discharge Report Diagnosis: NECK, LOW BACK PAIN (KP) Date of Surgery: Date of Evaluation: 12/16/24 Date of Discharge: 04/22/25 Treatments to Date: 14 Cancellations to Date: 0 No Shows to Date: 0 Discharge Status: Recommend MD Follow-up Discharge Summary: Pt WAS PLACED ON HOLD PENDING MRI AND F/U WITH DR WHITEHEAD. GREATER THAN 30 DAYS HAS ELLAPSED WITHOUT Pt CONTACTING OUR OFFICE WE WILL DC CURRENT CHART. Electronically signed by: MICHELLE HOPSON PT DPT Please sign and return to therapist. Thank you for your referral.
== END 2025-04-22 08:31 | disposition home or self-care (01) ==
LOC: HO.PT 10:03
PROVIDERS: PCP Internal Medicine; Visit Provider Internal Medicine
DX: M54.2 Cervicalgia (principal); M25.529 Pain in unspecified elbow
CPT/HCPCS: 97012; 97110; 97140; 97162; 97530

== ENCOUNTER 2025-03-18 14:00 | Outpatient (RCR) | payer OTHER, SELFPAY ==
--- NOTE | 2025-02-18 12:34 | MHC.OT.EP ---
[address] [phone] Occupational Therapy Plan of Care Patient Name: Koki Sandhu Date of Evaluation: 02/15/25 Diagnosis: L elbow pain Pain Location: B elbows Pain Score: 5 Pain Scale Used: Numeric (0 - 10) Aggravating Factors: Alleviating Factors: REST Assessment: Pt is a R hand dominant 44 yr old female who report pain in B elbows. She reports pain in her cervical neck and is currently being treated for this by our PT dept. She reports the pain has not improved since PT. She is currently cleaning out her mothers home and has been lifting, carrying, and repetitively gripping , she reports she needs to finish doing this for financial reasons. Pt has been referred to skilled OT therapy to decrease pain, and increase strength and function of her B UE's Pt reported seeing PT for her neck as well as acupressure, acupuncture, and is unable to rest her B UE's her busy schedule and inability to be compliant w/ resting of her UE may affect her ability to attend OT Frequency and Duration: The patient will be seen 1 X A WEEK FOR 4 WEEKS Short Term Goals: see BELOW Rn First Assistant Goals: Pt will report 2/10 pain in her L elbow Pt will be complaint w/ her HEP Pt will be compliant w/ attending therapy Treatment Plan: Therapeutic Exercise Therapeutic Activity Home Exercise Program Neuro Re-ed Patient Education Desensitization/Sensory Re-ed Edema Control ADL Training Ultrasound NMES Iontophoresis MHP Cold Packs Joint Mobilization Soft Tissue Mobilization Kinesiotaping Electronically Signed By: Claire Arshad OTR/L Please Sign and return to therapist. Thank you once again for your referral.
--- NOTE | 2025-05-31 11:28 | MHC.OT.DC ---
[facility] Office [address] [facility] [phone] F: [phone] F: [phone] Occupational Therapy Discharge Note Patient Name: Koki Sandhu Provider: Tari Petit Diagnosis: L elbow pain Date of Surgery: Date of Evaluation: 02/15/25 Date of Discharge: Treatments to Date: 5 Cancellations to Date: No Shows to Date: Discharge Status: Discharge Summary: Pt was progressing well at her last appt. and did not follow up w/ further appointments. Thank you for including me in her care! Electronically Signed By: Claire Arshad OTR/L Reviewed/agree with student documentation: Therapist: Please Sign and return to therapist, thank you for your referral.
== END 2025-05-31 11:28 | disposition home or self-care (01) ==
LOC: HO.OT 14:00
PROVIDERS: PCP Internal Medicine; Visit Provider Internal Medicine
DX: M25.522 Pain in left elbow (principal)
CPT/HCPCS: 97035; 97110; 97140; 97166; 97535

== ENCOUNTER 2025-04-30 13:50 | Outpatient (AMB) | payer OTHER, SELFPAY ==
--- NOTE | 2025-04-30 13:58 | MHC.PC.OV ---
Vital Signs 04/30/25 14:01 Height 5 ft 7 in Weight 147 lb 6 oz BMI 23.1 BP 106/68 Blood Pressure Location Rt brachial Position Sitting Respiration 14 Pulse 94 Pulse Source Pulse Oximeter Pulse Oximetry (%) 94 Oxygen Delivery Method Room Air Intake Visit Reasons: 3 Month follow up Intake Note: Three month follow up Supervising Librarian Required: No Allergies duloxetine Allergy (Severe, Verified 04/30/25 14:00) tachypnea erythromycin base Allergy (Severe, Verified 04/30/25 14:00) Rash hydrocodone (From Vicodin) Allergy (Severe, Verified 04/30/25 14:00) Vomiting banana Allergy (Mild, Verified 04/30/25 14:00) throat swelling Penicillins Allergy (Verified 04/30/25 14:00) Anaphylaxis Tobacco use date assessed: 04/30/25 Dental Screening Dental Screen Date: 12/15/24 HPI HPI Comments History of Present Illness Details The patient is a 44-year-old female with a past medical history of low back pain, fibromyalgia, asthma, bronchitis, endometriosis presenting for follow-up MSK: Chronic low back pain. Increased cervical radicular pain b/l left>right. Increased neck and shoulder pain-she suffered 3 falls on the ice this winter. Has been doing PT exercises has been going to the acupressure which helps but just has not afforded sustained relief. She is following with orthopedics. Continues oxycodone 10 mg every 6 hours as needed for low back pain and fibromyalgia. She has naloxone at home. She had L5-S1 discectomy, right laminectomy in July 2004. on disability x 20 years. Asthma: Stable, on albuterol as needed. She has taken Symbicort in the past as needed on a seasonal basis. 24 pack year. Still fatigue & stress. for the past year.. Saw endocrinology who completed work up for low cortisol-normal stim test. She has lost weight with phentermine which has also helps with energy levels. Mom this year, still managing her estate. Her sister is very anxiety provoking-uses lorazepam prn She has family history of ovarian cancer. Personal history of endometriosis. 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 NAD EYES: EOMI. Anicteric. HENT: Moist mucous membranes. No scleral icterus. No cervical lymphadenopathy. LUNGS: Clear to auscultation bilaterally. CARDIOVASCULAR: Regular rate and rhythm. No murmur. No JVD. ABDOMEN: Soft, non-tender +bs EXTREMITIES: No edema. Non-tender. SKIN: No rashes or lesions. Warm. NEUROLOGIC: No focal neurological deficits. CN II-XII grossly intact PSYCHIATRIC: Cooperative. Appropriate mood and affect [facility] Medical History Migraine Lyme disease Tobacco dependence Fibromyalgia Degenerative disc disease, lumbar Asthma Surgical History History of gastric surgery Previous back surgery Family History Sister Hypothyroid Obesity Cancer of ovary Chronic mental illness Sister Hypothyroid Obesity Sister Hypothyroid Obesity Sister Hypothyroid Obesity Sister Hypothyroid Obesity Mother Asthma Father Alzheimer dementia Hypertension Coronary artery disease Type 2 diabetes mellitus Lung cancer Social History Household Members: Family Housing: House Are you a primary director of career services to a significant other at home: No Do you presently have visiting nurse or other home services: No 75 years or older and lives alone: No Alcohol intake: current Alcohol intake frequency: holidays/special occasions only Patient Tobacco Use Status: Current everyday Tobacco user Tobacco use type: Cigarette Cigarette Packs Per Day: 2.5 Cigarettes Per Day: 10 Years Smoked: 24 e-Cigarette/Vaping Use: Never Used service: No Current occupational status: disabled Current occupational exposures/hazards: No Cognitive needs: No Hearing needs: No Vision needs: No Questionnaire Thrive Questionnaire Date Thrive assessed: 08/14/24 I am a: Patient What is your living situation today?: I have a steady place to live Within the past 12 months, did the food you bought not last and you didn't have the money to get more?: Never true Within the past 12 months, did you worry whether your food would run out before you got money to buy more?: Never true Do you have trouble paying for medicines?: No Do you have trouble getting transportation to medical appointments?: No Do you have trouble paying your heating and electricity bill?: No Do you have trouble taking care of your child, family member or friend?: No Do you have trouble with day-to-day activities such as bathing, preparing meals, shopping, managing finances, etc.?: No Are you currently unemployed and looking for a job?: No Are you interested in more education?: No Please select the resources that you would like help with: None Currently or been in a relationship where the following occur: No concerns reported THRIVE Score: 0 DONAL-7 AMB Questionnaire DONAL-7 Date DONAL - 7 assessed: 03/17/24 Source: Developed by Drs. Gutierrez Heard, Shiela Garcia, Isaac Hawk and colleagues, with an educational herlinda from [employer]. Physical exam (Primary Care) Vital Signs: Last Vital Signs Pulse 94 04/30/25 14:01 Resp 14 04/30/25 14:01 BP 106/68 04/30/25 14:01 Pulse Ox 94 04/30/25 14:01 Oxygen Delivery Method Room Air 04/30/25 14:01 BMI result Body Mass Index 23.1 Tobacco/Smoking Status: Tobacco use Status Tobacco use date assessed 04/30/25 04/30/25 14:04 Patient Tobacco Use Status Current everyday Tobacco 04/30/25 13:59 Tobacco use type Cigarette 04/30/25 13:59 e-Cigarette/Vaping Use Never Used 04/30/25 13:59 Thrive Assessment: Date of Thrive Assessment Date Thrive assessed 08/14/24 04/30/25 13:59 Currently or been in a relationship where the following occur: No concerns reported Coding Level of Care Code Est Pt Level 4 (84037) Complex EM visit Add On G2211 Diagnoses Bilateral elbow joint pain M25.521; M25.522 Cervical radiculopathy M54.12 Fatigue, unspecified type R53.83 Fatigue type: unspecified Degeneration of intervertebral disc of lumbar region with discogenic back pain and lower extremity pain M51.362 Disc-related pain type: discogenic back pain and lower extremity pain Assessment & Plan Assessment & Plan (1) Bilateral elbow joint pain: Code(s): M25.521 - Pain in right elbow; M25.522 - Pain in left elbow Category: Medical (2) Cervical radiculopathy: Code(s): M54.12 - Radiculopathy, cervical region Category: Medical (3) Fatigue: Code(s): R53.83 - Other fatigue Category: Medical Qualifiers: Fatigue type: unspecified Qualified Code(s): R53.83 - Other fatigue (4) Degenerative disc disease, lumbar: Code(s): M51.36 - Other intervertebral disc degeneration, lumbar region Category: Medical Qualifiers: Disc-related pain type: discogenic back pain and lower extremity pain Qualified Code(s): M51.362 - Other intervertebral disc degeneration, lumbar region with discogenic back pain and lower extremity pain Plan 44 year old female presenting for follow up Bilateral elbow ceasar-xrays ordered. She is seeing ortho Toe pain-referral to podiatry Chronic back pain is stable on current medications Orders: Orders Erythrocyte Sedimentation Rate 04/30/25 M25.521 - Pain in right elbow, M25.522 - Pain in left elbow XR Elbow Mark min 3V 04/30/25 M25.521 - Pain in right elbow, M25.522 - Pain in left elbow Rheumatoid Factor 04/30/25 M25.521 - Pain in right elbow, M25.522 - Pain in left elbow Lutenizing Hormone 04/30/25 M79.674 - Pain in right toe(s), N91.2 - Amenorrhea, unspecified Estradiol Ultra Sensitive 04/30/25 M79.674 - Pain in right toe(s), N91.2 - Amenorrhea, unspecified Referrals Podiatry Referral M79.674 - Pain in right toe(s), M79.676 - Pain in unspecified toe(s), N91.2 - Amenorrhea, unspecified Medications: New pregabalin (Lyrica) 100 mg PO BID 180 caps 1RF doxycycline hyclate 100 mg PO BID 20 tabs 0RF Changed From carisoprodol 350 mg PO TID 30 days 90 tabs 3RF To carisoprodol may pay out of pocket 350 mg PO TID 90 tabs 3RF 30 days
[2025-04-30 14:01] VITALS: BP 106/68; PULSE 94; RESP 14; O2SAT 94; BMI 23.1
== END 2025-04-30 14:31 | disposition home or self-care (01) ==
LOC: HO.HMCFM 13:51
PROVIDERS: PCP Internal Medicine; Visit Provider Internal Medicine
DX: M25.521 Pain in right elbow (principal); M25.522 Pain in left elbow; M54.12 Radiculopathy, cervical region; R53.83 Other fatigue; M51.362 Other intervertebral disc degeneration, lumbar region with discogenic back pain and lower extremity pain

== ENCOUNTER → 2025-04-30 13:50 | Outpatient (BNVA) | payer OTHER, SELFPAY | PROVIDERS: PCP Internal Medicine; Visit Provider Internal Medicine | DX: M25.521 Pain in right elbow (principal); M25.522 Pain in left elbow; M54.12 Radiculopathy, cervical region; R53.83 Other fatigue; M51.362 Other intervertebral disc degeneration, lumbar region with discogenic back pain and lower extremity pain; J45.909 Unspecified asthma, uncomplicated; Z80.41 Family history of malignant neoplasm of ovary | CPT/HCPCS: 99212 ==

== ENCOUNTER 2025-05-20 13:05 | Outpatient (AMB) | payer OTHER, SELFPAY ==
[2025-05-20 13:23] VITALS: BMI 23.7
--- NOTE | 2025-05-20 13:23 | A.OFFVIS_ITS ---
Vital Signs 05/20/25 13:23 Height 5 ft 6 in Weight 147 lb BMI 23.7 Intake Visit Reasons: pain in toes Intake Note: Koki is a 44 year old female who presents to the office today for a new patient referred by her PCP Dr. Petit for pain in toes. Pt states pain is located on her bilateral hallux and second right toe . She had the tracks from a couch run over her right hallux and she notices the toe gets cold and she believes due to the trauma she had experienced is causing an ingrown. and she believes she has another ingrown on her left great toe. the pain has been going on since 04/28/25. She has tried filing, Motrin, epson salt soaks with no relief. 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 Approximately 1 year ago, the patient experienced trauma to the right great toenail while transporting a sofa, resulting in the toenail turning black and eventually falling off. The toenail has since regrown but is causing discomfort as it digs into the skin, causing ingrown. Patient states that she has been treating it at home by filing under the nail. The patient reports experiencing cold changes to her toes, without any noticeable colored discoloration. This occurs all day regardless of changes in environment/setting. She does note that she has cold floors at home which she attributes to why her feet are cold. She manages this by wearing extra socks. The patient has a history of smoking, which she resumed after her mother's p assing August 2024. She has been smoking for over 20 years, with a brief cessation period, and is currently attempting to quit again. The patient also has a history of fibromyalgia, for which she takes Motrin to manage pain. She also notes bruising to her feet occasionally without any history of trauma. Medical History: - Fibromyalgia Medications: - Motrin for fibromyalgia pain management Social History: - Smoking: Resumed after mother's passing, over 20 years of smoking history with a brief cessation period [facility] Medical History Migraine Lyme disease Tobacco dependence Fibromyalgia Degenerative disc disease, lumbar Asthma Surgical History History of gastric surgery Previous back surgery Family History Sister Hypothyroid Obesity Cancer of ovary Chronic mental illness Sister Hypothyroid Obesity Sister Hypothyroid Obesity Sister Hypothyroid Obesity Sister Hypothyroid Obesity Mother Asthma Father Alzheimer dementia Hypertension Coronary artery disease Type 2 diabetes mellitus Lung cancer Social History Household Members: Family Housing: House Are you a primary overnight caregiver to a significant other at home: No Do you presently have visiting nurse or other home services: No 75 years or older and lives alone: No Alcohol intake: current Alcohol intake frequency: holidays/special occasions only Patient Tobacco Use Status: Current everyday Tobacco user Tobacco use type: Cigarette Cigarette Packs Per Day: 2.5 Cigarettes Per Day: 10 Years Smoked: 24 e-Cigarette/Vaping Use: Never Used service: No Current occupational status: disabled Current occupational exposures/hazards: No Cognitive needs: No Hearing needs: No Vision needs: No Physical Exam Vital Signs: BMI result Body Mass Index 23.7 Extrem Other: *Bilateral Lower Extremity Focused Exam Vascular: Nonpalpable pulses bilaterally, DP loud biphasic on Doppler bilaterally, PT monophasic on Doppler bilaterally. CFT less than 3 seconds to all digits. Cyanotic discoloration to bilateral hallux which resolved during the visit. Temperature gradient warm to the tibia and dorsal foot and cool to all 10 digits bilaterally. Derm: No open wounds or lacerations. Ecchymosis of the dorsal aspect of the right 2nd and 3rd Metatarsal-phalangeal joint. Mild ecchymosis of the left hallux Metatarsal-phalangeal joint. Neuro: Protective sensation grossly intact to bilateral lower extremities. MSK: No pain on range of motion of the 2nd and 3rd Metatarsal-phalangeal joint right foot and 1st Metatarsal-phalangeal joint left foot. Incurvated hallux nails bilaterally with right medial hallux nail border thickened/hypertrophy. No erythema or clinical signs of infection to bilateral hallux nails. Mild tenderness on palpation of the medial border of right hallux nail. No tenderness on palpation of the left hallux nail. Assessment & Plan Assessment & Plan (1) Buerger disease: Code(s): I73.1 - Thromboangiitis obliterans [Buerger's disease] Category: Medical Plan: * Discussed that she may have small-vessel disease of her digits due to chronic smoking. * Rx ADAN/PVR. * She may require referral to vascular surgery depending on test results. * Discussed smoking cessation which is the best reversible treatment for Buerger's disease. (2) Paronychia of great toe of right foot: Code(s): L03.031 - Cellulitis of right toe Category: Medical Plan: * Discussed possible partial nail avulsion however she would have a risk of wound healing delays and possible infection if she does have small-vessel peripheral artery disease. * We will consider procedure after results of ADAN/PVR * Recommended over the counter ingrown nail straighteners. (3) Paronychia of great toe, left: Code(s): L03.032 - Cellulitis of left toe Category: Medical Plan: * Continue conservative treatment at this time. * Recommended Epsom salt soaks. * Recommended [id number] ingrown nail straighteners. A handout was given to the patient (4) Contusion of right great toe with damage to nail, initial encounter: Code(s): S90.211A - Contusion of right great toe with damage to nail, initial encounter Category: Medical Plan: * Rx right foot x-ray (5) Contusion of left foot: Code(s): S90.32XA - Contusion of left foot, initial encounter Category: Medical Qualifiers: Encounter type: initial encounter Qualified Code(s): S90.32XA - Contusion of left foot, initial encounter Plan: * Rx left foot x-ray (6) Tobacco dependence: Code(s): F17.200 - Nicotine dependence, unspecified, uncomplicated Category: Medical Plan: * Discussed smoking cessation Orders: Orders XR Foot Mark 3V Today S90.211A - Contusion of right great toe with damage to nail, initial encounter, S90.32XA - Contusion of left foot, initial encounter US ADAN complete Today I73.1 - Thromboangiitis obliterans [Buerger's disease], I73.9 - Peripheral vascular disease, unspecified Coding Level of Care Code New Pt Level 4 (72199) Diagnoses Buerger disease I73.1 Paronychia of great toe of right foot L03.031 Paronychia of great toe, left L03.032 Contusion of right great toe with damage to nail, initial encounter S90.211A Contusion of left foot, initial encounter S90.32XA Encounter type: initial encounter Tobacco dependence F17.200 Time Spent (min) 45 Comment Extensive discussion on treatment options and etiology
== END 2025-05-20 13:55 | disposition home or self-care (01) ==
LOC: HO.HPODS 13:06
PROVIDERS: PCP Internal Medicine; Visit Provider Student in an Organized Health Care Education/Training Program
DX: I73.1 Thromboangiitis obliterans [Buerger's disease] (principal); L03.031 Cellulitis of right toe; L03.032 Cellulitis of left toe; S90.211A Contusion of right great toe with damage to nail, initial encounter; S90.32XA Contusion of left foot, initial encounter; F17.200 Nicotine dependence, unspecified, uncomplicated
CPT/HCPCS: 99204

== ENCOUNTER → 2025-05-20 13:05 | Outpatient (BNVA) | payer OTHER, SELFPAY | PROVIDERS: PCP Internal Medicine; Visit Provider Student in an Organized Health Care Education/Training Program | DX: S90.211A Contusion of right great toe with damage to nail, initial encounter (principal); L03.031 Cellulitis of right toe; S90.32XA Contusion of left foot, initial encounter; X50.0XXA Overexertion from strenuous movement or load, initial encounter; Y93.89 Activity, other specified; Y92.008 Other place in unspecified non-institutional (private) residence as the place of occurrence of the external cause; Y99.9 Unspecified external cause status; I73.1 Thromboangiitis obliterans [Buerger's disease]; F17.210 Nicotine dependence, cigarettes, uncomplicated | CPT/HCPCS: 99202 ==

== ENCOUNTER 2025-05-31 14:55 | Outpatient (REF) | payer OTHER, SELFPAY ==
[2025-06-01 09:19] LABS: Lyme Abs Screen <0.90 index
[2025-06-03 06:08] LABS: A. Phagocytphilium DNA,RT-PCR NOT DETECTED (NOT DETECTED); Babesia Microti DNA, RT-PCR NOT DETECTED (NOT DETECTED); Borrelia Miyamotoi,DNA RT-PCR NOT DETECTED (NOT DETECTED); E.Chaffeensis DNA RT-PCR NOT DETECTED (NOT DETECTED); Lyme(Borrelia ssp)DNA RT-PCR NOT DETECTED (NOT DETECTED)
[2025-06-05 08:44] LABS: Estradiol Ultra Sensitive 158 pg/mL
== END 2025-05-31 14:56 | disposition home or self-care (01) ==
LOC: HO.WFDLDS 14:55
PROVIDERS: Visit Provider Internal Medicine
DX: Z01.84 Encounter for antibody response examination (principal); M25.521 Pain in right elbow; M25.522 Pain in left elbow; R53.83 Other fatigue; A69.20 Lyme disease, unspecified; M79.674 Pain in right toe(s); N91.2 Amenorrhea, unspecified
CPT/HCPCS: 36415; 82670; 83002; 85652; 86308; 86431; 86617; 86618; 87468; 87469; 87478; 87484; 87798

== ENCOUNTER 2025-06-10 13:03 | Outpatient (AMB) | payer OTHER, SELFPAY ==
--- NOTE | 2025-06-10 13:12 | A.OFFVIS_ITS ---
Vital Signs 06/10/25 13:15 Height 5 ft 6 in Weight 147 lb BMI 23.7 Intake Visit Reasons: fu pain in toes Intake Note: Koki is a 44 year old female who presents today for a follow up on her right great toe. Pt states she was unable to get her X ray done and her ultrasound is scheduled for 07/21/25. Patient reports she still experiences pain in her Right hallux and she has concerns in regards to her ingrown on bilateral hallux. She would also like to discuss her pregabalin medication Allergies duloxetine Allergy (Severe, Verified 04/30/25 14:00) tachypnea erythromycin base Allergy (Severe, Verified 04/30/25 14:00) Rash hydrocodone (From Vicodin) Allergy (Severe, Verified 04/30/25 14:00) Vomiting banana Allergy (Mild, Verified 04/30/25 14:00) throat swelling Penicillins Allergy (Verified 04/30/25 14:00) Anaphylaxis HPI HPI fu pain in toes: Details: The patient is a 44-year-old female past medical history of fibromyalgia, degenerative disc disease, tobacco use (approximately 22 years total), possible cortisol deficiency, returns for 3 week follow up for painful ingrown toenails to both feet bilaterally as well as cold feet/toes. She was unable to receive her ultrasound test and x-rays. She is scheduled for her ultrasound next month. History: Approximately 1 year ago, the patient experienced trauma to the right great toenail while transporting a sofa, resulting in the toenail turning black and eventually falling off. The toenail has since regrown but is causing discomfort as it digs into the skin, causing ingrown. Patient states that she has been treating it at home by filing under the nail. The patient reports experiencing cold changes to her toes, without any noticeable colored discoloration. This occurs all day regardless of changes in environment/setting. She does note that she has cold floors at home which she attributes to why her feet are cold. She manages this by wearing extra socks. The patient has a history of smoking, which she resumed after her mother's passing August 2024. She has been smoking for over 20 years, with a brief cessation period, and is currently attempting to quit again. The patient also has a history of fibromyalgia, for which she takes Motrin to manage pain. She also notes bruising to her feet occasionally without any history of trauma. Medical History: - Fibromyalgia Medications: - Motrin for fibromyalgia pain management Social History: - Smoking: Resumed after mother's passing, over 20 years of smoking history with a brief cessation period [facility] Medical History Migraine Lyme disease Tobacco dependence Fibromyalgia Degenerative disc disease, lumbar Asthma Surgical History History of gastric surgery Previous back surgery Family History Sister Hypothyroid Obesity Cancer of ovary Chronic mental illness Sister Hypothyroid Obesity Sister Hypothyroid Obesity Sister Hypothyroid Obesity Sister Hypothyroid Obesity Mother Asthma Father Alzheimer dementia Hypertension Coronary artery disease Type 2 diabetes mellitus Lung cancer Social History Household Members: Family Housing: House Are you a primary wound care nurse to a significant other at home: No Do you presently have visiting nurse or other home services: No 75 years or older and lives alone: No Alcohol intake: current Alcohol intake frequency: holidays/special occasions only Patient Tobacco Use Status: Current everyday Tobacco user Tobacco use type: Cigarette Cigarette Packs Per Day: 2.5 Cigarettes Per Day: 10 Years Smoked: 24 e-Cigarette/Vaping Use: Never Used service: No Current occupational status: disabled Current occupational exposures/hazards: No Cognitive needs: No Hearing needs: No Vision needs: No Review of Systems Const All systems reviewed & are unremarkable except as noted in HPI and below Physical Exam Vital Signs: BMI result Body Mass Index 23.7 Extrem Other: *Bilateral Lower Extremity Focused Exam Vascular: Nail palpable pulses 1/4 bilaterally. DP loud biphasic on Doppler bilaterally, PT monophasic on Doppler bilaterally. CFT less than 3 seconds to all digits. Cyanotic discoloration to bilateral hallux. Temperature gradient warm to the tibia and dorsal foot and cool to all 10 digits bilaterally. Derm: No open wounds or lacerations. Ecchymosis to her feet resolved. Neuro: Protective sensation grossly intact to bilateral lower extremities. MSK: No pain on range of motion of the 2nd and 3rd Metatarsal-phalangeal joint right foot and 1st Metatarsal-phalangeal joint left foot. Incurvated hallux nails bilaterally with right medial hallux nail border thickened/hypertrophy. No erythema or clinical signs of infection to bilateral hallux nails. Mild tenderness on palpation of the medial border of right hallux nail. No tenderness on palpation of the left hallux nail. Assessment & Plan Assessment & Plan (1) Buerger disease: Code(s): I73.1 - Thromboangiitis obliterans [Buerger's disease] Category: Medical Plan: * Discussed that she may have small-vessel disease of her digits due to chronic smoking. * Pending ADAN/PVR. * She may require referral to vascular surgery depending on test results. * Discussed smoking cessation which is the best reversible treatment for Buerger's disease. (2) Paronychia of great toe of right foot: Code(s): L03.031 - Cellulitis of right toe Category: Medical Plan: * Discussed possible partial nail avulsion however she would have a risk of wound healing delays and possible infection if she does have small-vessel peripheral artery disease. * We will consider procedure after results of ADAN/PVR * Recommended over the counter ingrown nail straighteners. (3) Paronychia of great toe, left: Code(s): L03.032 - Cellulitis of left toe Category: Medical Plan: * Continue conservative treatment at this time. * Recommended Epsom salt soaks. * Recommended [id number] ingrown nail straighteners. A handout was given to the patient (4) Contusion of right great toe with damage to nail, initial encounter: Code(s): S90.211A - Contusion of right great toe with damage to nail, initial encounter Category: Medical Plan: * Pending right foot x-ray (5) Contusion of left foot: Code(s): S90.32XA - Contusion of left foot, initial encounter Category: Medical Qualifiers: Encounter type: initial encounter Qualified Code(s): S90.32XA - Contusion of left foot, initial encounter Plan: * Pending left foot x-ray (6) Tobacco dependence: Code(s): F17.200 - Nicotine dependence, unspecified, uncomplicated Category: Medical Plan: * Discussed smoking cessation Coding Level of Care Code Est Pt Level 3 (86912) Diagnoses Buerger disease I73.1 Paronychia of great toe of right foot L03.031 Paronychia of great toe, left L03.032 Contusion of right great toe with damage to nail, initial encounter S90.211A Contusion of left foot, initial encounter S90.32XA Encounter type: initial encounter Tobacco dependence F17.200 Time Spent (min) 25
[2025-06-10 13:15] VITALS: BMI 23.7
== END 2025-06-10 13:38 | disposition home or self-care (01) ==
LOC: HO.HPODS 13:04
PROVIDERS: PCP Internal Medicine; Visit Provider Student in an Organized Health Care Education/Training Program
DX: I73.1 Thromboangiitis obliterans [Buerger's disease] (principal); L03.031 Cellulitis of right toe; L03.032 Cellulitis of left toe; S90.211A Contusion of right great toe with damage to nail, initial encounter; S90.32XA Contusion of left foot, initial encounter; F17.200 Nicotine dependence, unspecified, uncomplicated
CPT/HCPCS: 99213

== ENCOUNTER → 2025-06-10 13:03 | Outpatient (BNVA) | payer OTHER, SELFPAY | PROVIDERS: PCP Internal Medicine; Visit Provider Student in an Organized Health Care Education/Training Program | DX: S90.211A Contusion of right great toe with damage to nail, initial encounter (principal); S90.32XA Contusion of left foot, initial encounter; I73.1 Thromboangiitis obliterans [Buerger's disease]; L03.031 Cellulitis of right toe; L03.032 Cellulitis of left toe; F17.200 Nicotine dependence, unspecified, uncomplicated | CPT/HCPCS: 99212 ==

== ENCOUNTER 2025-07-21 14:41 | Outpatient (REF) | payer OTHER, SELFPAY ==
--- NOTE | ~2025-07-21 | XR_ITS ---
Exam: XR FOOT 3 OR MORE VIEWS BILATERAL, bilateral foot x-rays TECHNIQUE: AP, OBL and lateral views lower extremity, bilateral feet INDICATION: S90.211A - Contusion of right great toe with damage to nail, initial enc... COMPARISON: None available. FINDINGS: RIGHT FOOT: No fracture lines are identified. There is no joint diastases or malalignment. No erosions or osteophytes are seen. LEFT FOOT: No fracture lines are identified. There is no joint diastases or malalignment. No erosions or osteophytes are seen. XR/XR Foot Mark 3V IMPRESSION: Right foot: Unremarkable Left foot: Unremarkable Electronically signed by: Prasad Robison MD 07/21/2025 03:34 PM EST
--- NOTE | ~2025-07-21 | US_ITS ---
EXAMINATION: US NONINVASIVE ASSESSMENT OF THE bilateral LOWER EXTREMITY WITH ANKLE BRACHIAL INDICES (ABIS) CLINICAL INFORMATION: Peripheral vascular disease. COMPARISON: None available. TECHNIQUE: Bilateral ankle pulse volume recordings, ankle pressure measurements and ankle brachial indices were obtained of the lower extremity arterial system. The study was performed only at rest. FINDINGS: NONINVASIVE ASSESSMENT OF THE ARTERIES OF BILATERAL LOWER EXTREMITIES WITH ABIs: RIGHT LEG: Ankle-brachial index: 1.14 Ankle PVR: Abnormal, slightly decreased amplitude compared to the left. LEFT LEG: Ankle-brachial index: 1.13 Left ankle PVR: Normal ADAN Reference: 0.9 - 1.4 = normal - no significant arterial disease 0.7 - 0.89 = mild peripheral arterial disease 0.51 - 0.69 = moderate peripheral arterial disease 0.50 = severe peripheral arterial disease US/US ADAN complete IMPRESSION: Normal ankle-brachial indices bilaterally. Slightly decreased pulse volume recording amplitude on the right compared to the left. Electronically signed by: Darling Bermudez MD 07/21/2025 04:43 PM [facility]
--- NOTE | ~2025-07-21 | XR_ITS ---
EXAMINATION: XR ELBOW 3 VIEWS BILATERAL HISTORY: M25.521 - Pain in right elbow COMPARISON: There are no prior studies available for comparison. FINDINGS: Six views of the bilateral elbows are submitted. Osseous mineralization is normal. There is no fracture or dislocation. The joint spaces are preserved. The soft tissues are unremarkable. There is no joint effusion. XR/XR Elbow Mark min 3V IMPRESSION: Unremarkable examination of the bilateral elbows. Electronically signed by: Gutierrez Zimmer MD 07/21/2025 03:32 PM EST
== END 2025-07-21 14:42 | disposition home or self-care (01) ==
LOC: HO.US 14:41
PROVIDERS: Visit Provider Student in an Organized Health Care Education/Training Program
DX: I73.1 Thromboangiitis obliterans [Buerger's disease] (principal); S90.211A Contusion of right great toe with damage to nail, initial encounter; S90.32XA Contusion of left foot, initial encounter; M25.521 Pain in right elbow; M25.522 Pain in left elbow
CPT/HCPCS: 73080; 73630; 93923

== ENCOUNTER → 2025-07-21 14:46 | Outpatient (BNV) | payer OTHER, SELFPAY | PROVIDERS: Visit Provider Radiology Diagnostic Radiology | DX: I73.9 Peripheral vascular disease, unspecified (principal); M25.521 Pain in right elbow; S90.211A Contusion of right great toe with damage to nail, initial encounter | CPT/HCPCS: 73080; 73630; 93923 ==

== ENCOUNTER 2025-07-23 11:49 | Outpatient (AMB) | payer OTHER, SELFPAY ==
[2025-07-23 11:55] VITALS: BMI 23.7
--- NOTE | 2025-07-23 11:55 | A.OFFVIS_ITS ---
Vital Signs 07/23/25 11:55 Height 5 ft 6 in Weight 147 lb BMI 23.7 Intake Visit Reasons: fu pain in toes Intake Note: Koki is a 44 year old female who presents to the office today for a follow up for her foot pain. At last visit pt was instructed to obtain new x-rays and U/S. U/S completed on 07/21. Patient was recommended to get [id number] ingrown nail straighteners. Pt states she still experiences pain only when it is cold. no questions or concerns at this time Allergies duloxetine Allergy (Severe, Verified 07/23/25 11:55) tachypnea erythromycin base Allergy (Severe, Verified 07/23/25 11:55) Rash hydrocodone (From Vicodin) Allergy (Severe, Verified 07/23/25 11:55) Vomiting banana Allergy (Mild, Verified 07/23/25 11:55) throat swelling Penicillins Allergy (Verified 07/23/25 11:55) Anaphylaxis HPI HPI fu pain in toes: Details: The patient is a 44-year-old female past medical history of fibromyalgia, degenerative disc disease, tobacco use (approximately 22 years total), possible cortisol deficiency, returns for 6 week follow up for painful ingrown toenails to both feet bilaterally as well as cold feet/toes. She received her ultrasound tests. States she is not having worse pain to the nails currently but she is noticing worsening cold discoloration to her right foot. She thinks she started a new medication (phentermine) that may be worsening her foot pain. History: Approximately 1 year ago, the patient experienced trauma to the right great toenail while transporting a sofa, resulting in the toenail turning black and eventually falling off. The toenail has since regrown but is causing discomfort as it digs into the skin, causing ingrown. Patient states that she has been treating it at home by filing under the nail. The patient reports experiencing cold changes to her toes, without any noticeable colored discoloration. This occurs all day regardless of changes in environment/setting. She does note that she has cold floors at home which she attributes to why her feet are cold. She manages this by wearing extra socks. The patient has a history of smoking, which she resumed after her mother's passing August 2024. She has been smoking for over 20 years, with a brief cessation period, and is currently attempting to quit again. The patient also has a history of fibromyalgia, for which she takes Motrin to manage pain. She also notes bruising to her feet occasionally without any history of trauma. Medical History: - Fibromyalgia Medications: - Motrin for fibromyalgia pain management Social History: - Smoking: Resumed after mother's passing, over 20 years of smoking history with a brief cessation period [facility] Medical History Migraine Lyme disease Tobacco dependence Fibromyalgia Degenerative disc disease, lumbar Asthma Surgical History History of gastric surgery Previous back surgery Family History Sister Hypothyroid Obesity Cancer of ovary Chronic mental illness Sister Hypothyroid Obesity Sister Hypothyroid Obesity Sister Hypothyroid Obesity Sister Hypothyroid Obesity Mother Asthma Father Alzheimer dementia Hypertension Coronary artery disease Type 2 diabetes mellitus Lung cancer Social History Household Members: Family Housing: House Are you a primary critical care unit nurse to a significant other at home: No Do you presently have visiting nurse or other home services: No 75 years or older and lives alone: No Alcohol intake: current Alcohol intake frequency: holidays/special occasions only Patient Tobacco Use Status: Current everyday Tobacco user Tobacco use type: Cigarette Cigarette Packs Per Day: 2.5 Cigarettes Per Day: 10 Years Smoked: 24 e-Cigarette/Vaping Use: Never Used service: No Current occupational status: disabled Current occupational exposures/hazards: No Cognitive needs: No Hearing needs: No Vision needs: No Review of Systems Const All systems reviewed & are unremarkable except as noted in HPI and below Physical Exam Vital Signs: BMI result Body Mass Index 23.7 Extrem Other: *Bilateral Lower Extremity Focused Exam Vascular: Nail palpable pulses 1/4 bilaterally. DP loud biphasic on Doppler bilaterally, PT monophasic on Doppler bilaterally. CFT less than 3 seconds to all digits. Cyanotic discoloration to bilateral hallux. Temperature gradient warm to the tibia and dorsal foot and cool to all 10 digits bilaterally. Derm: No open wounds or lacerations. Ecchymosis to her feet resolved. Neuro: Protective sensation grossly intact to bilateral lower extremities. MSK: No pain on range of motion of the 2nd and 3rd Metatarsal-phalangeal joint right foot and 1st Metatarsal-phalangeal joint left foot. Incurvated hallux nails bilaterally with right medial hallux nail border thickened/hypertrophy. No erythema or clinical signs of infection to bilateral hallux nails. Mild t enderness on palpation of the medial border of right hallux nail. No tenderness on palpation of the left hallux nail. Results Reviewed Results Reviewed: X-ray Read: 07/21/2025 X-ray right foot 3 views (AP, MO, Lateral) reviewed which shows no fractures, dislocations, or gross abnormalities. Bone density is within normal limits. Normal anatomy. No evidence of swelling, foreign body, or calcifications. I personally reviewed the imaging and my findings are listed above. X-ray Read: 07/21/2025 X-ray left foot 3 views (AP, MO, Lateral) reviewed which shows no fractures, dislocations, or gross abnormalities. Bone density is within normal limits. Normal anatomy. No evidence of swelling, foreign body, or calcifications. I personally reviewed the imaging and my findings are listed above. Ordering Physician: Santos Pablo DPM Date of Service: 07/21/25 Procedure(s): US ADAN complete IMPRESSION: Normal ankle-brachial indices bilaterally. Slightly decreased pulse volume recording amplitude on the right compared to the left. Assessment & Plan Assessment & Plan (1) Buerger disease: Code(s): I73.1 - Thromboangiitis obliterans [Buerger's disease] Category: Medical Plan: * Discussed that she may have small-vessel disease of her digits due to chronic smoking. * Reviewed ADAN/PVR. Referred to vascular. * Discussed smoking cessation which is the best reversible treatment for Buerger's disease. * She may be experiencing worsening blood flow due to her phentermine and she was advised to discuss this with her treating physician. (2) Paronychia of great toe of right foot: Code(s): L03.031 - Cellulitis of right toe Category: Medical Plan: * Discussed possible partial nail avulsion however she would have a risk of wound healing delays and possible infection if she does have small-vessel peripheral artery disease. * No signs of infection today * Recommended over the counter ingrown nail straighteners. (3) Paronychia of great toe, left: Code(s): L03.032 - Cellulitis of left toe Category: Medical Plan: * Continue conservative treatment at this time. * Recommended Epsom salt soaks. * Recommended [id number] ingrown nail straighteners. A handout was given to the patient (4) Contusion of right great toe with damage to nail, initial encounter: Code(s): S90.211A - Contusion of right great toe with damage to nail, initial encounter Category: Medical Plan: * Reviewed right foot x-ray, no signs of fractures (5) Contusion of left foot: Code(s): S90.32XA - Contusion of left foot, initial encounter Category: Medical Qualifiers: Encounter type: initial encounter Qualified Code(s): S90.32XA - Contusion of left foot, initial encounter Plan: * reviewed left foot x-ray * no new symptoms of this today, will hold off on further owrk up (6) Tobacco dependence: Code(s): F17.200 - Nicotine dependence, unspecified, uncomplicated Category: Medical Plan: * Discussed smoking cessation (7) Metatarsalgia of both feet: Code(s): M77.41 - Metatarsalgia, right foot; M77.42 - Metatarsalgia, left foot Category: Medical Plan: * sub-5th metatarsal head callosities * recommended reverse dancer's pad Coding Level of Care Code Est Pt Level 4 (55272) Diagnoses Buerger disease I73.1 Paronychia of great toe of right foot L03.031 Paronychia of great toe, left L03.032 Contusion of right great toe with damage to nail, initial encounter S90.211A Contusion of left foot, initial encounter S90.32XA Encounter type: initial encounter Tobacco dependence F17.200 Metatarsalgia of both feet M77.41; M77.42 Time Spent (min) 35
== END 2025-07-23 12:12 | disposition home or self-care (01) ==
LOC: HO.HPODS 11:49
PROVIDERS: PCP Internal Medicine; Visit Provider Student in an Organized Health Care Education/Training Program
DX: I73.1 Thromboangiitis obliterans [Buerger's disease] (principal); L03.031 Cellulitis of right toe; L03.032 Cellulitis of left toe; S90.211A Contusion of right great toe with damage to nail, initial encounter; S90.32XA Contusion of left foot, initial encounter; F17.200 Nicotine dependence, unspecified, uncomplicated; M77.41 Metatarsalgia, right foot; M77.42 Metatarsalgia, left foot
CPT/HCPCS: 99214

== ENCOUNTER → 2025-07-23 11:49 | Outpatient (BNVA) | payer OTHER, SELFPAY | PROVIDERS: PCP Internal Medicine; Visit Provider Student in an Organized Health Care Education/Training Program | DX: S90.211A Contusion of right great toe with damage to nail, initial encounter (principal); L03.031 Cellulitis of right toe; L03.032 Cellulitis of left toe; I73.1 Thromboangiitis obliterans [Buerger's disease]; S90.32XA Contusion of left foot, initial encounter; X58.XXXA Exposure to other specified factors, initial encounter; Y93.9 Activity, unspecified; Y92.9 Unspecified place or not applicable; Y99.9 Unspecified external cause status | CPT/HCPCS: 99212 ==

== ENCOUNTER 2025-08-03 14:44 | Outpatient (AMB) | payer OTHER, SELFPAY ==
--- NOTE | 2025-08-03 14:46 | A.OFFPC_ITS ---
Vital Signs 08/03/25 14:51 Height 5 ft 6 in Weight 150 lb 4 oz BMI 24.2 BP 107/57 L Blood Pressure Location Lt brachial Position Sitting Respiration 16 Pulse 87 Pulse Source Pulse Oximeter Temp 97.9 F Temp Source Oral Pulse Oximetry (%) 100 Oxygen Delivery Method Room Air Intake Visit Reasons: follow up Intake Note: patient here for follow up C++ Professor Required: No Is last menstrual period known: Yes Last menstrual period: 07/20/25 Post menopausal: No Patient : No Allergies duloxetine Allergy (Severe, Verified 08/03/25 14:49) tachypnea erythromycin base Allergy (Severe, Verified 08/03/25 14:49) Rash hydrocodone (From Vicodin) Allergy (Severe, Verified 08/03/25 14:49) Vomiting banana Allergy (Mild, Verified 08/03/25 14:49) throat swelling Penicillins Allergy (Verified 08/03/25 14:49) Anaphylaxis Tobacco use date assessed: 08/03/25 Dental Screening Dental Screen Date: 08/03/25 Did you have a dental visit in the last 12 months?: Yes Did you have a dental problem in the last 6 months where you did not have access to dental care?: No Was dental information given to patient?: Patient has dentist HPI HPI Comments History of Present Illness Details The patient is a 44-year-old female with a past medical history of low back pain, fibromyalgia, asthma, bronchitis, endometriosis presenting for follow-up MSK: Chronic low back pain. Increased cervical radicular pain b/l left>right. Increased neck and shoulder pain-she suffered 3 falls on the ice this winter. Has been doing PT exercises, has been going to the acupressure. She is following with orthopedics. Continues oxycodone 10 mg every 6 hours as needed for low back pain and fibromyalgia. She has naloxone at home. She had L5-S1 discectomy, right laminectomy in July 2004. on disability x 20 years. Asthma: Stable, on albuterol as needed. She has taken Symbicort in the past as needed on a seasonal basis. 24 pack year. Sinus congestion worse ovr the past week Still fatigue & stress. for the past year.. Saw endocrinology who completed work up for low cortisol-normal stim test. She has lost weight with phentermine which has also helps with energy levels. Mom this year, still managing her estate. Her sister is very anxiety provoking-uses lorazepam prn She has family history of ovarian cancer. Personal history of endometriosis. 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 She has referral to vascular Due for mammogram-ordered She is overdue for clerical warehouseman which she says she will schedule ROS see HPI PHYSICAL EXAM: GENERAL: Alert and oriented x 3. NAD EYES: EOMI. Anicteric. HENT: Moist mucous membranes. No scleral icterus. No cervical lymphadenopathy. LUNGS: Clear to auscultation bilaterally. CARDIOVASCULAR: Regular rate and rhythm. No murmur. No JVD. ABDOMEN: Soft, non-tender +bs EXTREMITIES: No edema. Non-tender. SKIN: No rashes or lesions. Warm. NEUROLOGIC: No focal neurological deficits. CN II-XII grossly intact PSYCHIATRIC: Cooperative. Appropriate mood and affect [facility] Medical History Migraine Lyme disease Tobacco dependence Fibromyalgia Degenerative disc disease, lumbar Asthma Surgical History History of gastric surgery Previous back surgery Family History Sister Hypothyroid Obesity Cancer of ovary Chronic mental illness Sister Hypothyroid Obesity Sister Hypothyroid Obesity Sister Hypothyroid Obesity Sister Hypothyroid Obesity Mother Asthma Father Alzheimer dementia Hypertension Coronary artery disease Type 2 diabetes mellitus Lung cancer Social History Household Members: Family Housing: House Are you a primary pulmonary care nurse to a significant other at home: No Do you presently have visiting nurse or other home services: No 75 years or older and lives alone: No Alcohol intake: current Alcohol intake frequency: holidays/special occasions only Patient Tobacco Use Status: Current everyday Tobacco user Tobacco use type: Cigarette Cigarette Packs Per Day: 2.5 Cigarettes Per Day: 10 Years Smoked: 24 e-Cigarette/Vaping Use: Never Used service: No Current occupational status: disabled Current occupational exposures/hazards: No Cognitive needs: No Hearing needs: No Vision needs: No Female Reproductive History Menstrual Date of last menstrual period: 07/20/25 Questionnaire Thrive Questionnaire Date Thrive assessed: 08/14/24 I am a: Patient What is your living situation today?: I have a steady place to live Within the past 12 months, did the food you bought not last and you didn't have the money to get more?: Never true Within the past 12 months, did you worry whether your food would run out before you got money to buy more?: Never true Do you have trouble paying for medicines?: No Do you have trouble getting transportation to medical appointments?: No Do you have trouble paying your heating and electricity bill?: No Do you have trouble taking care of your child, family member or friend?: No Do you have trouble with day-to-day activities such as bathing, preparing meals, shopping, managing finances, etc.?: No Are you currently unemployed and looking for a job?: No Are you interested in more education?: No Currently or been in a relationship where the following occur: No concerns reported THRIVE Score: 0 DONAL-7 AMB Questionnaire DONAL-7 Date DONAL - 7 assessed: 03/17/24 Source: Developed by Drs. Gutierrez Heard, Shiela Garcia, Isaac Hawk and colleagues, with an educational herlinda from [employer]. Physical exam (Primary Care) Tobacco/Smoking Status: Tobacco use Status Tobacco use date assessed 04/30/25 08/03/25 14:48 Patient Tobacco Use Status Current everyday Tobacco 08/03/25 14:48 Tobacco use type Cigarette 08/03/25 14:48 e-Cigarette/Vaping Use Never Used 08/03/25 14:48 Thrive Assessment: Date of Thrive Assessment Date Thrive assessed 08/14/24 08/03/25 14:48 Currently or been in a relationship where the following occur: No concerns reported Coding Level of Care Code Est Pt Level 4 (16302) Diagnoses Bilateral elbow joint pain M25.521; M25.522 Degeneration of intervertebral disc of lumbar region with discogenic back pain and lower extremity pain M51.362 Disc-related pain type: discogenic back pain and lower extremity pain Cervical radiculopathy M54.12 Subacute maxillary sinusitis J01.00 Sinusitis location: maxillary Chronicity: subacute Assessment & Plan Assessment & Plan (1) Bilateral elbow joint pain: Code(s): M25.521 - Pain in right elbow; M25.522 - Pain in left elbow Category: Medical (2) Degenerative disc disease, lumbar: Code(s): M51.36 - Other intervertebral disc degeneration, lumbar region Category: Medical Qualifiers: Disc-related pain type: discogenic back pain and lower extremity pain Qualified Code(s): M51.362 - Other intervertebral disc degeneration, lumbar region with discogenic back pain and lower extremity pain (3) Cervical radiculopathy: Code(s): M54.12 - Radiculopathy, cervical region Category: Medical (4) Sinusitis: Code(s): J32.9 - Chronic sinusitis, unspecified Qualifiers: Sinusitis location: maxillary Chronicity: subacute Qualified Code(s): J01.00 - Acute maxillary sinusitis, unspecified Plan Chronic back pain is stable on current regimen. On chronic opioid therapy. Continues accupressure for elbows. Has seen ortho Sinusitis-doxycycline ordered Menopause syndrome-HRT ordered. follow up clerical warehouseman Mammo ordered Orders: Orders MM tomosynthesis screening BI Today Z12.31 - Encounter for screening mammogram for malignant neoplasm of breast Medications: New doxycycline hyclate 100 mg PO BID 20 tabs 0RF estradiol (Climara) 1 patch transdermal QWEEK 4 ea 3RF Refilled fluconazole 150 mg PO Q3D 2 tabs 0RF
[2025-08-03 14:51] VITALS: BP 107/57; PULSE 87; RESP 16; TEMP 36.6; O2SAT 100; BMI 24.2
== END 2025-08-03 15:13 | disposition home or self-care (01) ==
LOC: HO.HMCFM 14:45
PROVIDERS: PCP Internal Medicine; Visit Provider Internal Medicine
DX: M25.521 Pain in right elbow (principal); M25.522 Pain in left elbow; M51.362 Other intervertebral disc degeneration, lumbar region with discogenic back pain and lower extremity pain; M54.12 Radiculopathy, cervical region; J01.00 Acute maxillary sinusitis, unspecified

== ENCOUNTER → 2025-08-03 14:44 | Outpatient (BNVA) | payer OTHER, SELFPAY | PROVIDERS: PCP Internal Medicine; Visit Provider Internal Medicine | DX: M25.521 Pain in right elbow (principal); M25.522 Pain in left elbow; M51.362 Other intervertebral disc degeneration, lumbar region with discogenic back pain and lower extremity pain; M54.12 Radiculopathy, cervical region; J01.00 Acute maxillary sinusitis, unspecified | CPT/HCPCS: 99212 ==